=== PATIENT | male | born 1960 | race American Indian/Alaskan Native ===

== ENCOUNTER 2017-02-05 22:15 | Emergency (ER) | payer OTHER ==
[2017-02-05 22:16] VITALS: BMI 22.3
--- NOTE | 2017-02-05 23:22 | ED PDOC ---
HPI: General Adult Time Seen by Provider: 02/05/17 22:22 Chief Complaint (Nursing): Headache Chief Complaint (Provider): Headache History Per: Patient Additional Complaint(s): Pt. states last week he was admitted into a hospital (pt. does not remember which hospital) for head injury and seizure. Pt. reports that he does have a hx of seizures and was discharged with Keppra which he has been taking. Pt. states he is still having headaches. Further states that he is homeless and [facility] bed [facility]. Denies fever, LOC, N/V. Past Medical History Reviewed: Historical Data, Nursing Documentation, Vital Signs Vital Signs: Last Vital Signs Temp 97.9 F 02/05/17 22:18 Pulse 106 H 02/05/17 22:18 Resp 20 02/05/17 22:18 BP 159/94 H 02/05/17 22:18 Pulse Ox 100 02/06/17 01:54 - Medical History PMH: HTN, Hypercholesterolemia, Seizures Denies: Chronic Kidney Disease - Family History Family History: States: No Known Family Hx - Home Medications Home Medications: Ambulatory Orders Medication Instructions Recorded Atorvastatin [Lipitor] 20 mg PO DIN #14 tab 02/01/17 Folic Acid 1 mg PO DAILY #14 tab 02/01/17 Gabapentin [Neurontin] 300 mg PO HS #14 cap 02/01/17 Multivitamin Therapeutic Tab 1 tab PO DAILY #14 tab 02/01/17 [Thera Tab] Thiamine [Vitamin B1 Tab] 200 mg PO DAILY #14 tab 02/01/17 levETIRAcetam [Keppra] 500 mg PO BID #28 tab 02/01/17 - Allergies Allergies/Adverse Reactions: Allergies Allergy/AdvReac Type Severity Reaction Status Date / Time No Known Allergies Allergy Verified 01/27/17 18:37 Review of Systems ROS Statement: Except As Marked, All Systems Reviewed And Found Negative Neurological: Positive for: Headache Physical Exam - Reviewed Nursing Documentation Reviewed: Yes Vital Signs Reviewed: Yes - Physical Exam Appears: Positive for: Well, Non-toxic, No Acute Distress Head Exam: Negative for: ATRAUMATIC (superficial abrasion on L side of forehead with superficial healing abrasions without surrounding erythema), NORMAL INSPECTION, NORMOCEPHALIC Skin: Positive for: Normal Color, Warm. Negative for: Rash Eye Exam: Positive for: EOMI, Normal appearance, PERRL ENT: Positive for: Normal ENT Inspection Neck: Positive for: Normal, Painless ROM Cardiovascular/Chest: Positive for: Regular Rate, Rhythm Respiratory: Positive for: CNT, Normal Breath Sounds Gastrointestinal/Abdominal: Positive for: Normal Exam, Bowel Sounds, Soft. Negative for: Tenderness Back: Positive for: Normal Inspection Extremity: Positive for: Normal ROM Neurologic/Psych: Positive for: Alert, Oriented - ECG O2 Sat by Pulse Oximetry: 100 - Progress ED Course And Treament: CT head w/o contrast: negative. Disposition - Clinical Impression Clinical Impression: Head injury - Patient ED Disposition Is Patient to be Admitted: No - Disposition Referrals: [facility] [Outside] Disposition: Routine/Home Disposition Time: 00:30 Condition: STABLE Instructions: Head Injury (ED) Print Language: BELIZEAN
--- NOTE | 2017-02-06 00:06 | CT ---
EXAM: CT Head Without Intravenous Contrast CLINICAL HISTORY: 56 years old, male; Pain; Headache; Tension; Additional info: Headache, had seizure last week TECHNIQUE: Axial computed tomography images of the head/brain without intravenous contrast. This CT exam was performed using one or more of the following dose reduction techniques: automated exposure control, adjustment of the mA and/or kV according to patient size, and/or use of iterative reconstruction technique. Coronal and sagittal reformatted images were created and reviewed. EXAM DATE/TIME: 02/05/2017 10:51 PM COMPARISON: No relevant prior studies available. FINDINGS: Atrophy. No intracranial hemorrhage. No intracranial edema. No evidence of infarct. The sinuses and mastoid air cells are clear. IMPRESSION: No acute findings.
[2017-02-06 06:59] VITALS: BP 137/72; PULSE 87; RESP 17; TEMP 98.3; O2SAT 98
== END 2017-02-06 06:59 | disposition home or self-care (01) ==
LOC: H.ER 22:15
DX: S09.90XA Unspecified injury of head, initial encounter (principal); X58.XXXA Exposure to other specified factors, initial encounter; Z59.0 Homelessness; I10 Essential (primary) hypertension; R56.9 Unspecified convulsions; E78.00 Pure hypercholesterolemia, unspecified

== ENCOUNTER 2017-02-06 21:18 | Emergency (ER) | payer OTHER ==
[2017-02-06 21:18] VITALS: BMI 22.3
[2017-02-06 21:34] VITALS: BP 144/81; RESP 18; TEMP 97.8; O2SAT 100
--- NOTE | 2017-02-06 22:01 | ED PDOC ---
HPI: General Adult Time Seen by Provider: 02/06/17 21:43 Chief Complaint (Nursing): Headache Chief Complaint (Provider): Lost Spot in Intermediate History Per: Patient History/Exam Limitations: no limitations Onset/Duration Of Symptoms: Days (tonight) Have you had recent travel within the past 21 days to any of the following countries: [place], [place], [place] or [place]?: No Additional Complaint(s): Héctor Marley is a 56 year old male, with no pertinent past medical history, who presents to the ED on 02/06/17 after having lost his spot in one of the local homeless shelters. Patient denies any acute medical complaints at this time and only wants a place to rest. Past Medical History Reviewed: Historical Data, Nursing Documentation, Vital Signs Vital Signs: Last Vital Signs Temp 97.8 F 02/06/17 21:29 Pulse 100 H 02/06/17 21:29 Resp 18 02/06/17 21:29 BP 144/81 02/06/17 21:29 Pulse Ox 100 02/06/17 22:01 - Medical History PMH: HTN, Hypercholesterolemia, Seizures Denies: Chronic Kidney Disease - Family History Family History: States: Unknown Family Hx - Living Arrangements Living Arrangements: Other (homeless) - Home Medications Home Medications: Ambulatory Orders Medication Instructions Recorded Atorvastatin [Lipitor] 20 mg PO DIN #14 tab 02/01/17 Folic Acid 1 mg PO DAILY #14 tab 02/01/17 Gabapentin [Neurontin] 300 mg PO HS #14 cap 02/01/17 Multivitamin Therapeutic Tab 1 tab PO DAILY #14 tab 02/01/17 [Thera Tab] Thiamine [Vitamin B1 Tab] 200 mg PO DAILY #14 tab 02/01/17 levETIRAcetam [Keppra] 500 mg PO BID #28 tab 02/01/17 - Allergies Allergies/Adverse Reactions: Allergies Allergy/AdvReac Type Severity Reaction Status Date / Time No Known Allergies Allergy Verified 01/27/17 18:37 Review of Systems ROS Statement: Except As Marked, All Systems Reviewed And Found Negative Physical Exam - Reviewed Nursing Documentation Reviewed: Yes Vital Signs Reviewed: Yes - Physical Exam Appears: Positive for: Well, Non-toxic, No Acute Distress Head Exam: Positive for: ATRAUMATIC, NORMOCEPHALIC Skin: Positive for: Normal Color, Warm, Dry Neurologic/Psych: Positive for: Alert, Oriented - ECG O2 Sat by Pulse Oximetry: 100 (RA) Pulse Ox Interpretation: Normal Medical Decision Making Medical Decision Makin:43 Initial Impression: homeless Scribe Attestation: Documented by Violetta Bhat, acting as a scribe for Gely Barbour PA-C. Provider Scribe Attestation: All medical record entries made by the Scribe were at my direction and personally dictated by me. I have reviewed the chart and agree that the record accurately reflects my personal performance of the history, physical exam, medical decision making, and the department course for this patient. I have also personally directed, reviewed, and agree with the discharge instructions and disposition. Disposition - Clinical Impression Clinical Impression: Abdominal pain - Patient ED Disposition Is Patient to be Admitted: No - Disposition Disposition: Routine/Home Disposition Time: 23:15 Condition: GOOD Instructions: Acute Abdominal Pain (DC) - POA Present On Arrival: None
[2017-02-06 23:32] VITALS: PULSE 87
== END 2017-02-06 23:31 | disposition home or self-care (01) ==
LOC: H.ER 21:18
DX: R10.9 Unspecified abdominal pain (principal); R51 Headache; I10 Essential (primary) hypertension; E78.00 Pure hypercholesterolemia, unspecified; Z59.0 Homelessness

== ENCOUNTER 2017-02-24 05:38 | Inpatient (IN) | payer OTHER ==
[2017-02-24 05:38] VITALS: BMI 22.3
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
--- NOTE | 2017-02-24 07:10 | ED PDOC ---
- Laboratory Results Result Diagrams: 02/25/17 07:15 02/26/17 18:30 - ECG O2 Sat by Pulse Oximetry: 100 Pulse Ox Interpretation: Normal - Radiology X-Ray: Interpreted by Me X-Ray Interpretation: Infiltrates (RML) Medical Decision Making Medical Decision Making: Time: 0700 Patient signed out by Dr. Marie pending CT, labs and re-evaluation Time: 1100 Patient is awake and alert at this time. Reports a history of seizures, last took Keppra last month. Denies alcohol use. Time: 1340 Notified by RN that pt febrile 102.1. Pt AAOX3, no WEST, no neck stiffness, pt coughing on exam. Will order CXR, UA, cultures, lactate and Influenza. Scribe Attestation: Documented by Elle Clark acting as a scribe for Yolanda Reardon MD MD Scribe Attestation: All medical record entries made by the Scribe were at my direction and personally dictated by me. I have reviewed the chart and agree that the record accurately reflects my personal performance of the history, physical exam, medical decision making, and the department course for this patient. I have also personally directed, reviewed, and agree with the discharge instructions and disposition. Disposition - Clinical Impression Clinical Impression: Seizure, Altered mental status - POA Present On Arrival: None - Disposition Disposition: Admitted as In-Patient Disposition Time: 15:15 Condition: STABLE ED OBSERVATION Date of observation admission: 02/24/17 Time of observation admission: 07:00 - Observation admission statement Patient is being placed in observation because:: Need for continuous hemodynamic monitoring - Goals of Observation Goals of observation are:: Resolution of symptoms
[2017-02-24 07:11] LABS: BASO % 0.7 % (0.0-2.0); EOS % 0.3 % (0.0-4.0); HEMATOCRIT 35.4 % (35.0-51.0); LYMPH # 0.3 K/uL (1.0-4.3); LYMPH % 12.1 % (20.0-40.0); MEAN CELL VOLUME 79.9 fl (80.0-94.0); MEAN CORPUSCULAR HEMOGLOBIN 26.7 pg (27.0-31.0); MEAN CORPUSCULAR HGB CONC 33.4 g/dL (33.0-37.0); MEAN PLATELET VOLUME 6.6 fl (7.2-11.7); MONO # 0.5 K/uL (0.0-0.8); MONO % 18.9 % (0.0-10.0); NEUT # 1.9 K/uL (1.8-7.0); RED CELL DISTRIBUTION WIDTH 14.7 % (11.5-14.5); WHITE BLOOD COUNT 2.8 K/uL (4.8-10.8)
[2017-02-24 07:37] LABS: ALB/GLOB RATIO 1.4 (1.0-2.1); ALCOHOL SERUM < 10 mg/dl (0-10); ALKALINE PHOSPHATASE 133 U/L (38-126); ALT/SGPT 30 U/L (21-72); AST/SGOT 46 U/L (17-59); BILIRUBIN,TOTAL 0.8 mg/dl (0.2-1.3); BLOOD UREA NITROGEN 3 mg/dl (9-20); CALCIUM 9.4 mg/dL (8.4-10.2); CARBON DIOXIDE 23 mmol/L (22-30); CHLORIDE 87 mmol/L (98-107); GFR AFRICAN-AMERICAN > 60; GLUCOSE,RANDOM 92 mg/dL (75-110); POTASSIUM 4.2 MMOL/L (3.6-5.0); SODIUM 125 mmol/l (132-148); TOTAL PROTEIN 8.1 G/DL (6.3-8.2)
[2017-02-24] MEDS ORDERED: Sodium Chloride 0.9% 1,000 ML IV STA (07:53)
--- NOTE | 2017-02-24 08:34 | CT ---
PROCEDURE: CT HEAD WITHOUT CONTRAST. HISTORY: seizure COMPARISON: 02/05/2017 TECHNIQUE: Axial computed tomography images were obtained through the head/brain without intravenous contrast. Radiation dose: Total exam DLP = 1302 mGy-cm. This CT exam was performed using one or more of the following dose reduction techniques: Automated exposure control, adjustment of the mA and/or kV according to patient size, and/or use of iterative reconstruction technique. FINDINGS: HEMORRHAGE: No intracranial hemorrhage. BRAIN: No mass effect or edema. No atrophy or chronic microvascular ischemic changes. Similar -appearing bilateral basal ganglionic calcifications - believed incidental findings. VENTRICLES: Unremarkable. No hydrocephalus. CALVARIUM: Unremarkable. PARANASAL SINUSES: Mild ethmoidal sinus inflammatory changes. MASTOID AIR CELLS: Unremarkable as visualized. No inflammatory changes. OTHER FINDINGS: None. IMPRESSION: No intracranial hemorrhage or mass effect. No calvarial fracture. Similar appearing bilateral basal ganglionic calcifications -incidental findings. Mild ethmoidal sinus inflammatory changes -interval change
--- NOTE | 2017-02-24 13:25 | CARD ---
APPROVED REPORT EKG Measurement Heart [id number] <Conclusion> Normal sinus rhythm Normal ECG
[2017-02-24 14:08] LABS: VENOUS BLOOD GAS BASE EXCESS 3.5 mmol/L (0.0-2.0); VENOUS BLOOD GAS PCO2 40 mmHg (40-60); VENOUS BLOOD PH 7.45 (7.32-7.43)
[2017-02-24 15:03] LABS: URINE BILIRUBIN NEGATIVE (NEGATIVE); URINE BLOOD NEGATIVE (NEGATIVE); URINE COLOR YELLOW (YELLOW); URINE GLUCOSE (UA) NEGATIVE (Normal); URINE KETONE TRACE mg/dL (NEGATIVE); URINE PROTEIN 30 mg/dL (NEGATIVE)
[2017-02-24 15:04] LABS: RBC URINE < 1 /hpf (0-3); URINE BACTERIA RARE (<OCC); URINE LEUKOCYTE ESTERASE TRACE Leu/uL (Negative); URINE UROBILINOGEN 0.2-1.0 mg/dL (0.2-1.0); WBC URINE 20 /hpf (0-5)
[2017-02-24] MEDS ORDERED: Azithromycin 500 MG in Sodium Chloride 0.9% 250 ML IV STA (15:07)
--- NOTE | 2017-02-24 15:17 | RAD ---
HISTORY: Fever. Portable study 14:14. COMPARISON: No prior. FINDINGS: LUNGS: Right lower lobe infiltrate. PLEURA: Loculated pleural effusion right side only. CARDIOVASCULAR: No radiographic findings to suggest acute or significant cardiovascular disease. OSSEOUS STRUCTURES: No significant abnormalities. VISUALIZED UPPER ABDOMEN: Normal. OTHER FINDINGS: None. IMPRESSION: Large right lower lobe infiltrate adjacent effusion likely parapneumonic effusions.
[2017-02-24] MEDS ORDERED: cefTRIAXone (Rocephin) 1 gm Inj ONE (15:32)
[2017-02-24] MEDS: Sodium Chloride 0.9% 1,000 ML IV SCH (21:38)
[2017-02-25 08:07] LABS: HEMATOCRIT 32.7 % (35.0-51.0); MEAN CELL VOLUME 79.5 fl (80.0-94.0); MEAN CORPUSCULAR HEMOGLOBIN 27.4 pg (27.0-31.0); MEAN CORPUSCULAR HGB CONC 34.5 g/dL (33.0-37.0); RED CELL DISTRIBUTION WIDTH 14.8 % (11.5-14.5)
[2017-02-25 09:00] LABS: ALB/GLOB RATIO 1.3 (1.0-2.1); ALKALINE PHOSPHATASE 122 U/L (38-126); ALT/SGPT 31 U/L (21-72); AST/SGOT 42 U/L (17-59); BILIRUBIN,TOTAL 0.6 mg/dl (0.2-1.3); BLOOD UREA NITROGEN 4 mg/dl (9-20); CARBON DIOXIDE 22 mmol/L (22-30); CHLORIDE 96 mmol/L (98-107); GFR AFRICAN-AMERICAN > 60; GLUCOSE,RANDOM 70 mg/dL (75-110); POTASSIUM 3.4 MMOL/L (3.6-5.0); SODIUM 133 mmol/l (132-148); TOTAL PROTEIN 7.3 G/DL (6.3-8.2)
[2017-02-25] MEDS: Enoxaparin 40 mg Syringe SC SCH ×2 (10:05→10:09)
[2017-02-25] MEDS: Multivitamin With Minerals Tab PO SCH (10:06)
--- NOTE | 2017-02-25 13:14 | CT ---
PROCEDURE: CT Chest without contrast HISTORY: RML infiltrate COMPARISON: None. TECHNIQUE: Contiguous axial images were obtained through the chest without intravenous contrast enhancement. Sagittal and coronal reconstructions were performed. Radiation dose (DLP): 283.47 mGy-cm. This CT exam was performed using one or more of the following dose reduction techniques: Automated exposure control, adjustment of the mA and/or kV according to patient size, and/or use of iterative reconstruction technique. FINDINGS: LUNGS: There are linear heterogeneous opacities at the inferior lateral aspect of the right lung upper lobe of uncertain etiology and the possibility of infection should be considered. There are diffuse mild emphysematous changes in the lungs. There are 2 foci of pleural base opacities seen at the right lower chest adjacent to calcified pleural may represent lung consolidation versus pleural thickening. The right lung lower lobe is small in size. MEDIASTINUM: Unremarkable thoracic aorta. No aneurysm. Normal sized heart. Main pulmonary artery unremarkable. No vascular congestion. No lymphadenopathy. Calcified lymph nodes in the mediastinum and bilateral hilum. PLEURA: There is localize pleural effusion at the right lower chest surrounding with calcified pleural. Diffuse pleural calcifications seen at the right mid and lower chest. No evidence of left pleural effusion or left pleural calcification. BONES: No fracture. No destructive lesion. UPPER ABDOMEN: The pancreas is small in size contains foci of calcification suggestive of chronic pancreatitis. OTHER FINDINGS: None. IMPRESSION: Hazy reticular opacities at the inferior aspect of the right lung upper lobe suspicious for infection process/ pneumonia. Foci of pleural base opacities at the right lower chest may represent lung consolidation versus pleural thickening. Correlation with prior study would be helpful. Otherwise if indicated 3 months follow-up reassessment is suggested. Diffuse pleural thickening and pleural calcification at the mid and lower right chest associated with localized pleural effusion at the lower portion of the right chest. Bilateral hilar and mediastinal calcified lymph nodes.
[2017-02-25] MEDS ORDERED: levoFLOXacin 750 MG TAB PO SCH (13:45)
[2017-02-25] MEDS: Sodium Chloride 0.9% 1,000 ML IV SCH ×2 (14:47→18:01)
[2017-02-25] MEDS: Azithromycin 500 MG in Sodium Chloride 0.9% 250 ML IVPB SCH (15:19)
--- NOTE | 2017-02-25 21:51 | CP.PCM.HP ---
History of Present Illness - History of Present Illness History of Present Illness: A 56 yr old male who is in intermediate brought to ER for abnormal behaviour with altered mental status , has had generalized seizure ,not complain to keppra , reviewed ER note. currently patient lying in bed ,answers to questions appropriately. no new seizures. CXR showed RLL infiltrate with effusion. Present on Admission - Present on Admission Any Indicators Present on Admission: No Review of Systems - Constitutional Constitutional: Fatigue, Malaise. absent: Chills, Fever, Weight Loss - EENT Nose/Mouth/Throat: absent: Epistaxis, Nasal Congestion, Sinus Pressure, Sore Throat - Cardiovascular Cardiovascular: absent: Chest Pain, Edema, Leg Edema, Paroxysmal Nocturnal Dyspnea - Respiratory Respiratory: Cough. absent: Dyspnea, Snoring, Chest Congestion, Pain with Coughing - Gastrointestinal Gastrointestinal: absent: Constipation, Nausea, Vomiting - Genitourinary Genitourinary: absent: Difficulty Urinating, Urinary Urgency, Freq UTI - Musculoskeletal Musculoskeletal: Arthralgias, Limited Range of Motion - Neurological Neurological: Headaches. absent: Abnormal Gait, Dizziness, Frequent Falls - Psychiatric Psychiatric: absent: Anxiety, Hallucinations - Endocrine Endocrine: absent: Palpitations Past Patient History - Past Medical History & Family History Past Medical History?: Yes - Past Social History Smoking Status: Never Smoked - CARDIAC Hx Hypercholesterolemia: Yes Hx Hypertension: Yes - PULMONARY Hx Respiratory Disorders: No - NEUROLOGICAL Hx Seizures: Yes - HEENT Hx HEENT Problems: No - RENAL Hx Chronic Kidney Disease: No - ENDOCRINE/METABOLIC Hx Endocrine Disorders: No - HEMATOLOGICAL/ONCOLOGICAL Hx Blood Disorders: Yes Hx AIDS: No Hx Human Immunodeficiency Virus (HIV): No - INTEGUMENTARY Hx Dermatological Problems: No - MUSCULOSKELETAL/RHEUMATOLOGICAL Hx Musculoskeletal Disorders: No Hx Falls: No - GASTROINTESTINAL Hx Gastrointestinal Disorders: No - GENITOURINARY/GYNECOLOGICAL Hx Genitourinary Disorders: No - PSYCHIATRIC Hx Psychophysiologic Disorder: No Hx Substance Use: No (unable to obtain) - SURGICAL HISTORY Hx Surgeries: No - ANESTHESIA Hx Anesthesia: (unknown) Meds Home Medications: Home Medication List Medication Instructions Recorded Confirmed Type Amoxicillin/Clavulanate [Augmentin 1 tab PO Q12 #14 tab 03/05/17 Rx 875 MG-125 MG] Clindamycin [Cleocin] 600 mg PO Q8 #30 03/05/17 Rx Allergies/Adverse Reactions: Allergies Allergy/AdvReac Type Severity Reaction Status Date / Time No Known Allergies Allergy Verified 01/27/17 18:37 Physical Exam - Constitutional Appears: No Acute Distress - Head Exam Head Exam: NORMAL INSPECTION - Eye Exam Eye Exam: EOMI, Normal appearance, PERRL - ENT Exam ENT Exam: Mucous Membranes Moist, Normal Exam - Neck Exam Neck exam: Negative for: Lymphadenopathy - Respiratory Exam Respiratory Exam: Clear to Auscultation Bilateral, NORMAL BREATHING PATTERN. absent: Rales, Wheezes - Cardiovascular Exam Cardiovascular Exam: REGULAR RHYTHM, +S1, +S2. absent: Systolic Murmur - GI/Abdominal Exam GI & Abdominal Exam: Normal Bowel Sounds, Soft - Extremities Exam Extremities exam: Positive for: normal capillary refill, pedal pulses present. Negative for: pedal edema - Back Exam Back exam: absent: CVA tenderness (L), CVA tenderness (R) - Neurological Exam Neurological exam: Alert, CN II-XII Intact, Normal Gait, Oriented x3 - Psychiatric Exam Psychiatric exam: Normal Affect - Skin Skin Exam: Intact, Normal Color Results - Vital Signs Recent Vital Signs: Last Vital Signs Temp 98.9 F 02/25/17 19:14 Pulse 77 02/25/17 19:14 Resp 20 02/25/17 19:14 BP 117/72 02/25/17 19:14 Pulse Ox 98 02/25/17 19:14 - Labs Result Diagrams: 03/11/17 06:00 03/11/17 06:00 Labs: Laboratory Results - last 24 hr 02/25/17 02/25/17 07:15 07:15 WBC 3.0 L RBC 4.12 L Hgb 11.3 L Hct 32.7 L MCV 79.5 L MCH 27.4 MCHC 34.5 RDW 14.8 H Plt Count 253 Sodium 133 Potassium 3.4 L Chloride 96 L Carbon Dioxide 22 Anion Gap 18 BUN 4 L Creatinine 0.8 Est GFR ( Amer) > 60 Est GFR (Non-Af Amer) > 60 Random Glucose 70 L Calcium 9.0 Total Bilirubin 0.6 AST 42 ALT 31 Alkaline Phosphatase 122 Total Protein 7.3 Albumin 4.1 Globulin 3.1 Albumin/Globulin Ratio 1.3 - Imaging and Cardiology Chest x-ray Status: Report reviewed by me CT scan - head Status: Report reviewed by me Assessment & Plan (1) Pneumonia Status: Acute (2) Neutropenia Status: Acute (3) Seizures Status: Acute - Assessment and Plan (Free Text) Plan: IVF NEUROCHECKS EZEKIEL DISCUSSED ABOUT COMPLAINCE CT Chest -r\o penumonia IV abx PT eval diet as tolerated Decision To Admit - Pt Status Changed To: Hospital Disposition Of: Inpatient - Admit Certification Admit to Inpatient:: After my assessment, the patient will require hospitalization for at least two midnights. This is because of the severity of symptoms shown, intensity of services needed, and/or the medical risk in this patient being treated as an outpatient. - . Bed Request Type: Med/Surg Admitting Physician: Tai Ro
[2017-02-26] MEDS: Multivitamin With Minerals Tab PO SCH (09:07)
[2017-02-26] MEDS: Azithromycin 500 MG in Sodium Chloride 0.9% 250 ML IVPB SCH ×3 (09:08→12:59)
[2017-02-26] MEDS ORDERED: Potassium Chloride 20 mEq ER Tab PO ONE (09:08)
[2017-02-26] MEDS ORDERED: Lidocaine 1% Inj (20ml) ONE (11:48)
--- NOTE | 2017-02-26 12:36 | PCM.SURG1 ---
Surgeon's Initial Post Op Note - Surgeon's Notes Surgeon: Charlie Talavera MD Database Security Administrator: NONE Type of Anesthesia: Local Pre-Operative Diagnosis: Poor venous access Operative Findings: Patent right basilic vein. Post-Operative Diagnosis: Poor venous access Operation Performed: Single lumen picc placement right basilic vein, tip in SVC. Length is 39 cm. Specimen/Specimens Removed: None Estimated Blood Loss: EBL {In ML}: 2 Blood Products Given: N/A Drains Used: No Drains Post-Op Condition: Fair Date of Surgery/Procedure: 02/26/17 Time of Surgery/Procedure: 12:35
[2017-02-26 18:47] LABS: BLOOD UREA NITROGEN 5 mg/dl (9-20); CALCIUM 8.7 mg/dL (8.4-10.2); CARBON DIOXIDE 25 mmol/L (22-30); CHLORIDE 96 mmol/L (98-107); GFR AFRICAN-AMERICAN > 60; GLUCOSE,RANDOM 127 mg/dL (75-110); SODIUM 132 mmol/l (132-148)
--- NOTE | 2017-02-26 19:35 | CP.PCM.PN ---
Subjective - Date & Time of Evaluation Date of Evaluation: 02/26/17 Time of Evaluation: 19:33 - Subjective Subjective: ID NOTE PATIENT EXAMINED ,CHART REVIEWED CT SCAN OF CHEST REVIEWED HAVE ADDED CLINDAMYCIN PATIENT SHOULD HAVE PULMONARY EVALUATION FOR POSSIBLE BRONCHOSCOPY AND NEUROLOGY EVALUATION Objective - Vital Signs/Intake and Output Vital Signs (last 24 hours): Temp Pulse Resp BP Pulse Ox 98.5 F 85 18 114/73 99 02/26/17 16:00 02/26/17 16:00 02/26/17 16:00 02/26/17 16:00 02/26/17 16:00 - Medications Medications: Current Medications Atorvastatin Calcium (Lipitor) 20 mg PO DIN [facility] Last Admin: 02/26/17 18:16 Dose: 20 mg Folic Acid (Folic Acid) 1 mg PO DAILY [facility] Last Admin: 02/26/17 09:06 Dose: 1 mg Gabapentin (Neurontin) 300 mg PO HS [facility] Last Admin: 02/25/17 21:55 Dose: 300 mg Ceftriaxone Sodium 1 gm/ (Sodium Chloride) 100 mls @ 100 mls/hr IVPB DAILY [facility] Last Admin: 02/26/17 12:58 Dose: 100 mls/hr Azithromycin 500 mg/ Sodium (Chloride) 250 mls @ 250 mls/hr IVPB DAILY [facility] Last Admin: 02/26/17 12:59 Dose: 250 mls/hr Levetiracetam (Keppra) 500 mg PO BID [facility] Last Admin: 02/26/17 18:16 Dose: 500 mg Multivitamins/Minerals (Therapeutic-M Tab) 1 tab PO DAILY [facility] Last Admin: 02/26/17 09:07 Dose: 1 tab Thiamine HCl (Vitamin B1 Tab) 200 mg PO DAILY [facility] Last Admin: 02/26/17 09:07 Dose: 200 mg - Labs Labs: 02/25/17 07:15 02/26/17 18:30
--- NOTE | 2017-02-26 22:11 | CP.PCM.PN ---
Subjective - Date & Time of Evaluation Date of Evaluation: 02/26/17 Time of Evaluation: 10:00 - Subjective Subjective: refusing iv line\abx. ct chest Right upper lobe opacities. VS stable. Objective - Vital Signs/Intake and Output Vital Signs (last 24 hours): Temp Pulse Resp BP Pulse Ox 98.2 F 83 18 129/80 98 02/26/17 20:05 02/26/17 20:05 02/26/17 20:05 02/26/17 20:05 02/26/17 20:05 - Medications Medications: Current Medications Atorvastatin Calcium (Lipitor) 20 mg PO DIN [facility] Last Admin: 02/26/17 18:16 Dose: 20 mg Folic Acid (Folic Acid) 1 mg PO DAILY [facility] Last Admin: 02/26/17 09:06 Dose: 1 mg Gabapentin (Neurontin) 300 mg PO HS [facility] Last Admin: 02/25/17 21:55 Dose: 300 mg Ceftriaxone Sodium 1 gm/ (Sodium Chloride) 100 mls @ 100 mls/hr IVPB DAILY [facility] Last Admin: 02/26/17 12:58 Dose: 100 mls/hr Azithromycin 500 mg/ Sodium (Chloride) 250 mls @ 250 mls/hr IVPB DAILY [facility] Last Admin: 02/26/17 12:59 Dose: 250 mls/hr Clindamycin Phosphate 600 mg/ (Sodium Chloride) 104 mls @ 104 mls/hr IVPB Q8 [facility] Levetiracetam (Keppra) 500 mg PO BID [facility] Last Admin: 02/26/17 18:16 Dose: 500 mg Multivitamins/Minerals (Therapeutic-M Tab) 1 tab PO DAILY [facility] Last Admin: 02/26/17 09:07 Dose: 1 tab Thiamine HCl (Vitamin B1 Tab) 200 mg PO DAILY [facility] Last Admin: 02/26/17 09:07 Dose: 200 mg - Labs Labs: 02/25/17 07:15 02/26/17 18:30 - Constitutional Appears: Non-toxic, No Acute Distress, Unkempt - Head Exam Head Exam: ATRAUMATIC - Eye Exam Eye Exam: EOMI - ENT Exam ENT Exam: Normal Exam - Neck Exam Neck Exam: Normal Inspection - Respiratory Exam Respiratory Exam: Clear to Ausculation Bilateral. absent: Rales, Rhonchi - Cardiovascular Exam Cardiovascular Exam: REGULAR RHYTHM, +S1, +S2. absent: JVD - GI/Abdominal Exam GI & Abdominal Exam: Soft, Normal Bowel Sounds. absent: Tenderness - Extremities Exam Extremities Exam: Full ROM, Normal Capillary Refill, Normal Inspection. absent : Pedal Edema - Neurological Exam Neurological Exam: Alert, Awake, Oriented x3 - Psychiatric Exam Psychiatric exam: Normal Affect - Skin Skin Exam: Urticaria Assessment and Plan (1) Pneumonia Status: Acute (2) Seizures Status: Acute
--- NOTE | 2017-02-26 23:29 | CP.PCM.CON ---
History of Present Illness - History of Present Illness History of Present Illness: 56 y/o lives [place]. Sent to ER for respiratory sx (pos sob, scant cough, neg heme, pos wt loss, neg night sweats and no other constitutional Sx.) Never smoker NKDA, Labs and Mes: on current note. O/vss afebrile Head Neg adeno, Neg JVD Heart RRR Ns1S2 Neg M Lungs, Scattered Ronchi. Abdo, s, nt, pos bs no c,c,e Neuro GNF a/p Pna, r/o PTB (unlikely given paucity of sx, but as always, atypical presentation must be considered.) Cont Abx as per ID. Monitor WBC, Temp curve, and cultures, afb * 3, Gamma Interferon test and PPD. Repeat CT in 72 hours. Legionella and Mycoplasma studies. Supp O2 for o2 sat > 90% (he was saturating at 99% when I used my portable monitor. PUD & DVT Px. Will f/u. Past Patient History - Past Medical History & Family History Past Medical History?: Yes - Past Social History Smoking Status: Never Smoked - CARDIAC Hx Hypercholesterolemia: Yes Hx Hypertension: Yes - PULMONARY Hx Respiratory Disorders: No - NEUROLOGICAL Hx Seizures: Yes - HEENT Hx HEENT Problems: No - RENAL Hx Chronic Kidney Disease: No - ENDOCRINE/METABOLIC Hx Endocrine Disorders: No - HEMATOLOGICAL/ONCOLOGICAL Hx Blood Disorders: Yes Hx AIDS: No Hx Human Immunodeficiency Virus (HIV): No - INTEGUMENTARY Hx Dermatological Problems: No - MUSCULOSKELETAL/RHEUMATOLOGICAL Hx Musculoskeletal Disorders: No Hx Falls: No - GASTROINTESTINAL Hx Gastrointestinal Disorders: No - GENITOURINARY/GYNECOLOGICAL Hx Genitourinary Disorders: No - PSYCHIATRIC Hx Psychophysiologic Disorder: No Hx Substance Use: No (unable to obtain) - SURGICAL HISTORY Hx Surgeries: No - ANESTHESIA Hx Anesthesia: (unknown) Meds Allergies/Adverse Reactions: Allergies Allergy/AdvReac Type Severity Reaction Status Date / Time No Known Allergies Allergy Verified 01/27/17 18:37 - Medications Medications: Current Medications Atorvastatin Calcium (Lipitor) 20 mg PO DIN [facility] Last Admin: 02/26/17 18:16 Dose: 20 mg Folic Acid (Folic Acid) 1 mg PO DAILY [facility] Last Admin: 02/26/17 09:06 Dose: 1 mg Gabapentin (Neurontin) 300 mg PO HS [facility] Last Admin: 02/26/17 23:04 Dose: 300 mg Ceftriaxone Sodium 1 gm/ (Sodium Chloride) 100 mls @ 100 mls/hr IVPB DAILY [facility] Last Admin: 02/26/17 12:58 Dose: 100 mls/hr Azithromycin 500 mg/ Sodium (Chloride) 250 mls @ 250 mls/hr IVPB DAILY [facility] Last Admin: 02/26/17 12:59 Dose: 250 mls/hr Clindamycin Phosphate 600 mg/ (Sodium Chloride) 104 mls @ 104 mls/hr IVPB Q8 [facility] Levetiracetam (Keppra) 500 mg PO BID [facility] Last Admin: 02/26/17 18:16 Dose: 500 mg Multivitamins/Minerals (Therapeutic-M Tab) 1 tab PO DAILY [facility] Last Admin: 02/26/17 09:07 Dose: 1 tab Thiamine HCl (Vitamin B1 Tab) 200 mg PO DAILY [facility] Last Admin: 02/26/17 09:07 Dose: 200 mg Results - Vital Signs Recent Vital Signs: Last Vital Signs Temp 98.2 F 02/26/17 20:05 Pulse 83 02/26/17 20:05 Resp 18 02/26/17 20:05 BP 129/80 02/26/17 20:05 Pulse Ox 98 02/26/17 20:05 - Labs Result Diagrams: 02/25/17 07:15 02/26/17 18:30 Labs: Laboratory Results - last 24 hr 02/26/17 18:30 Sodium 132 Potassium 4.0 Chloride 96 L Carbon Dioxide 25 Anion Gap 15 BUN 5 L Creatinine 0.7 L Est GFR ( Amer) > 60 Est GFR (Non-Af Amer) > 60 Random Glucose 127 H Calcium 8.7
[2017-02-27] MEDS: Clindamycin 600 MG in Sodium Chloride 0.9% 100 ML IVPB SCH ×3 (00:47→16:30)
[2017-02-27] MEDS: Sodium Chloride 3% for Inhalation 4 ML VIAL.NEB IH PRN (06:01)
[2017-02-27] MEDS: Azithromycin 500 MG in Sodium Chloride 0.9% 250 ML IVPB SCH (09:21)
[2017-02-27] MEDS: Multivitamin With Minerals Tab PO SCH (09:22)
--- NOTE | 2017-02-27 12:16 | CP.PCM.PN ---
Subjective - Date & Time of Evaluation Date of Evaluation: 02/27/17 Time of Evaluation: 12:11 - Subjective Subjective: I D NOTE URINE GREW KLEBSIELLA SENSITIVE TO ROCEPHEN,WILL INCREASE DOSE FOR COMBINED COVERAGE FOR UTI/PNEUMONIA CONTINUE CLINDAMYCIN AWAIT COLD AGGLUTININS/MYCOPLASMA TITERS AFB SMEARS POSSIBLE BRONCHOSCOPY Objective - Vital Signs/Intake and Output Vital Signs (last 24 hours): Temp Pulse Resp BP Pulse Ox 97.8 F 64 20 114/72 99 02/27/17 08:16 02/27/17 08:16 02/27/17 08:16 02/27/17 08:16 02/27/17 08:16 - Medications Medications: Current Medications Atorvastatin Calcium (Lipitor) 20 mg PO DIN [facility] Last Admin: 02/26/17 18:16 Dose: 20 mg Folic Acid (Folic Acid) 1 mg PO DAILY [facility] Last Admin: 02/27/17 09:22 Dose: 1 mg Gabapentin (Neurontin) 300 mg PO HS [facility] Last Admin: 02/26/17 23:04 Dose: 300 mg Azithromycin 500 mg/ Sodium (Chloride) 250 mls @ 250 mls/hr IVPB DAILY [facility] Last Admin: 02/27/17 09:21 Dose: 250 mls/hr Clindamycin Phosphate 600 mg/ (Sodium Chloride) 104 mls @ 104 mls/hr IVPB Q8 [facility] Last Admin: 02/27/17 09:21 Dose: 104 mls/hr Ceftriaxone Sodium 2 gm/ (Sodium Chloride) 100 mls @ 100 mls/hr IVPB DAILY [facility] Levetiracetam (Keppra) 500 mg PO BID [facility] Last Admin: 02/27/17 09:22 Dose: 500 mg Multivitamins/Minerals (Therapeutic-M Tab) 1 tab PO DAILY [facility] Last Admin: 02/27/17 09:22 Dose: 1 tab Thiamine HCl (Vitamin B1 Tab) 200 mg PO DAILY [facility] Last Admin: 02/27/17 09:22 Dose: 200 mg - Labs Labs: 02/25/17 07:15 02/26/17 18:30
--- NOTE | 2017-02-27 16:22 | CP.PCM.CON ---
History of Present Illness - History of Present Illness History of Present Illness: Mr. Marley is a 56-year-old man with a past medical history of alcohol abuse, hypertension, and known seizure disorder for many years, who was witnessed having abnormal behavior and seizure like activity yesterday. The patient states that he is has not taken any of his medications since he has been living in a usp. He states that he hit his head when he had a seizure on the left forehead region and complains of headache, but has no other complaints. He did not have any other injuries. Review of Systems - Review of Systems All systems: reviewed and no additional remarkable complaints except Past Patient History - Past Medical History & Family History Past Medical History?: Yes - Past Social History Smoking Status: Never Smoked - CARDIAC Hx Hypercholesterolemia: Yes Hx Hypertension: Yes - PULMONARY Hx Respiratory Disorders: No - NEUROLOGICAL Hx Seizures: Yes - HEENT Hx HEENT Problems: No - RENAL Hx Chronic Kidney Disease: No - ENDOCRINE/METABOLIC Hx Endocrine Disorders: No - HEMATOLOGICAL/ONCOLOGICAL Hx Blood Disorders: Yes Hx AIDS: No Hx Human Immunodeficiency Virus (HIV): No - INTEGUMENTARY Hx Dermatological Problems: No - MUSCULOSKELETAL/RHEUMATOLOGICAL Hx Musculoskeletal Disorders: No Hx Falls: No - GASTROINTESTINAL Hx Gastrointestinal Disorders: No - GENITOURINARY/GYNECOLOGICAL Hx Genitourinary Disorders: No - PSYCHIATRIC Hx Psychophysiologic Disorder: No Hx Substance Use: No (unable to obtain) - SURGICAL HISTORY Hx Surgeries: No - ANESTHESIA Hx Anesthesia: (unknown) Meds Allergies/Adverse Reactions: Allergies Allergy/AdvReac Type Severity Reaction Status Date / Time No Known Allergies Allergy Verified 01/27/17 18:37 - Medications Medications: Current Medications Atorvastatin Calcium (Lipitor) 20 mg PO DIN [facility] Last Admin: 02/26/17 18:16 Dose: 20 mg Folic Acid (Folic Acid) 1 mg PO DAILY [facility] Last Admin: 02/27/17 09:22 Dose: 1 mg Gabapentin (Neurontin) 300 mg PO HS [facility] Last Admin: 02/26/17 23:04 Dose: 300 mg Azithromycin 500 mg/ Sodium (Chloride) 250 mls @ 250 mls/hr IVPB DAILY [facility] Last Admin: 02/27/17 09:21 Dose: 250 mls/hr Clindamycin Phosphate 600 mg/ (Sodium Chloride) 104 mls @ 104 mls/hr IVPB Q8 [facility] Last Admin: 05/13/17 09:21 Dose: 104 mls/hr Ceftriaxone Sodium 2 gm/ (Sodium Chloride) 100 mls @ 100 mls/hr IVPB DAILY [facility] Levetiracetam (Keppra) 500 mg PO BID [facility] Last Admin: 02/27/17 09:22 Dose: 500 mg Multivitamins/Minerals (Therapeutic-M Tab) 1 tab PO DAILY [facility] Last Admin: 02/27/17 09:22 Dose: 1 tab Thiamine HCl (Vitamin B1 Tab) 200 mg PO DAILY [facility] Last Admin: 02/27/17 09:22 Dose: 200 mg Physical Exam - Constitutional Appears: Well - Head Exam Additional comments: left frontal hematoma over the forehead region. - Eye Exam Eye Exam: EOMI, Normal appearance, PERRL - ENT Exam ENT Exam: Mucous Membranes Moist, Normal Exam - Neck Exam Neck exam: Positive for: Normal Inspection - Respiratory Exam Respiratory Exam: Clear to Auscultation Bilateral, NORMAL BREATHING PATTERN - Cardiovascular Exam Cardiovascular Exam: REGULAR RHYTHM - GI/Abdominal Exam GI & Abdominal Exam: Normal Bowel Sounds, Soft. absent: Tenderness - Rectal Exam Rectal Exam: Deferred - Back Exam Back exam: NORMAL INSPECTION - Neurological Exam Neurological exam: Alert, CN II-XII Intact, Normal Gait, Oriented x3, Reflexes Normal - Expanded Neurological Exam Expanded Patient oriented to: person, place, time Cranial nerves: EOM's Intact: Normal, Nystagmus: Normal Cerebellar Function: Finger to Nose: Normal Upper motor neuron: Babinski Sign: Normal Sensory exam: Lower Extremity 2 Point Discrimination: Normal, Lower Extremity Light Touch: Normal, Lower Extremity Pin Prick: Normal, Lower Extremity Temperature: Normal, Upper Extremity 2 Point Discrimination: Normal, Upper Extremity Light Touch: Normal, Upper Extremity Pin Prick: Normal, Upper Extremity Temperature: Normal Neuro motor strength exam: Left Upper Extremity: 5, Right Upper Extremity: 5, Left Lower Extremity: 5, Right Lower Extremity: 5 DTR: Achilles Tendon Left: 2+, Achilles Tendon Right: 2+, Bicep Left: 2+, Bicep Right: 2+, Brachioradialis Left: 2+, Brachioradialis Right: 2+, Patellar Left: 2 +, Patellar Right: 2+, Tricep Left: 2+, Tricep Right: 2+ - Psychiatric Exam Psychiatric exam: Normal Affect, Normal Mood - Skin Skin Exam: Dry, Intact, Normal Color, Warm Results - Vital Signs Recent Vital Signs: Last Vital Signs Temp 98.5 F 02/27/17 15:39 Pulse 77 02/27/17 15:39 Resp 20 02/27/17 15:39 BP 127/82 02/27/17 15:39 Pulse Ox 98 02/27/17 15:39 - Labs Result Diagrams: 02/25/17 07:15 02/26/17 18:30 Labs: Laboratory Results - last 24 hr 02/26/17 18:30 Sodium 132 Potassium 4.0 Chloride 96 L Carbon Dioxide 25 Anion Gap 15 BUN 5 L Creatinine 0.7 L Est GFR ( Amer) > 60 Est GFR (Non-Af Amer) > 60 Random Glucose 127 H Calcium 8.7 Assessment & Plan (1) Seizure Assessment and Plan: Likely due to medication non-compliance. Will continue Keppra and Neurontin at current doses. still worker helper should be consulted to assist with outpatient compliance once the patient is discharged. Thank you for this consultation. Status: Acute Priority: Medium
--- NOTE | 2017-02-27 17:52 | CP.PCM.PN ---
Subjective - Date & Time of Evaluation Date of Evaluation: 02/27/17 Time of Evaluation: 10:00 - Subjective Subjective: on air borne isolation. wbc-3.0.has have cough. no fever Objective - Vital Signs/Intake and Output Vital Signs (last 24 hours): Temp Pulse Resp BP Pulse Ox 98.5 F 77 20 127/82 98 02/27/17 15:39 02/27/17 15:39 02/27/17 15:39 02/27/17 15:39 02/27/17 15:39 - Medications Medications: Current Medications Atorvastatin Calcium (Lipitor) 20 mg PO DIN [facility] Last Admin: 02/27/17 16:31 Dose: 20 mg Folic Acid (Folic Acid) 1 mg PO DAILY [facility] Last Admin: 02/27/17 09:22 Dose: 1 mg Gabapentin (Neurontin) 300 mg PO HS [facility] Last Admin: 02/26/17 23:04 Dose: 300 mg Azithromycin 500 mg/ Sodium (Chloride) 250 mls @ 250 mls/hr IVPB DAILY [facility] Last Admin: 02/27/17 09:21 Dose: 250 mls/hr Clindamycin Phosphate 600 mg/ (Sodium Chloride) 104 mls @ 104 mls/hr IVPB Q8 [facility] Last Admin: 02/27/17 16:30 Dose: 104 mls/hr Ceftriaxone Sodium 2 gm/ (Sodium Chloride) 100 mls @ 100 mls/hr IVPB DAILY [facility] Levetiracetam (Keppra) 500 mg PO BID [facility] Last Admin: 02/27/17 16:31 Dose: 500 mg Multivitamins/Minerals (Therapeutic-M Tab) 1 tab PO DAILY [facility] Last Admin: 02/27/17 09:22 Dose: 1 tab Thiamine HCl (Vitamin B1 Tab) 200 mg PO DAILY [facility] Last Admin: 02/27/17 09:22 Dose: 200 mg - Labs Labs: 02/25/17 07:15 02/26/17 18:30 Assessment and Plan (1) Pneumonia Status: Acute (2) Seizures Status: Acute
[2017-02-28] MEDS: Clindamycin 600 MG in Sodium Chloride 0.9% 100 ML IVPB SCH ×3 (00:38→16:39)
[2017-02-28] MEDS: Sodium Chloride 3% for Inhalation 4 ML VIAL.NEB IH PRN (06:31)
[2017-02-28] MEDS: cefTRIAXone 2 GM in Sodium Chloride 0.9% 100 ML IVPB SCH (08:35)
[2017-02-28] MEDS: Azithromycin 500 MG in Sodium Chloride 0.9% 250 ML IVPB SCH (08:36)
[2017-02-28] MEDS: Multivitamin With Minerals Tab PO SCH (08:36)
[2017-02-28] MEDS ORDERED: Enoxaparin 40 mg Syringe SC ONE (20:03)
--- NOTE | 2017-02-28 22:31 | CP.PCM.PN ---
Subjective - Subjective Subjective: no new issues. wbc-3.0 urine c\s positive for klebsiella. Objective - Vital Signs/Intake and Output Vital Signs (last 24 hours): Temp Pulse Resp BP Pulse Ox 97.8 F 66 20 148/80 100 02/28/17 21:00 02/28/17 21:00 02/28/17 21:00 02/28/17 21:00 02/28/17 21:00 - Medications Medications: Current Medications Atorvastatin Calcium (Lipitor) 20 mg PO DIN [facility] Last Admin: 02/28/17 16:39 Dose: 20 mg Docusate Sodium (Colace) 100 mg PO DAILY PRN PRN Reason: Constipation Enoxaparin Sodium (Lovenox) 40 mg SC DAILY [facility] PRN Reason: Protocol Folic Acid (Folic Acid) 1 mg PO DAILY [facility] Last Admin: 02/28/17 08:36 Dose: 1 mg Gabapentin (Neurontin) 300 mg PO HS [facility] Last Admin: 02/28/17 21:12 Dose: 300 mg Azithromycin 500 mg/ Sodium (Chloride) 250 mls @ 250 mls/hr IVPB DAILY [facility] Last Admin: 02/28/17 08:36 Dose: 250 mls/hr Clindamycin Phosphate 600 mg/ (Sodium Chloride) 104 mls @ 104 mls/hr IVPB Q8 [facility] Last Admin: 02/28/17 16:39 Dose: 104 mls/hr Ceftriaxone Sodium 2 gm/ (Sodium Chloride) 100 mls @ 100 mls/hr IVPB DAILY [facility] Last Admin: 02/28/17 08:35 Dose: 100 mls/hr Levetiracetam (Keppra) 500 mg PO BID [facility] Last Admin: 02/28/17 16:39 Dose: 500 mg Multivitamins/Minerals (Therapeutic-M Tab) 1 tab PO DAILY [facility] Last Admin: 02/28/17 08:36 Dose: 1 tab Thiamine HCl (Vitamin B1 Tab) 200 mg PO DAILY [facility] Last Admin: 02/28/17 08:37 Dose: 200 mg - Labs Labs: 02/25/17 07:15 02/26/17 18:30 Assessment and Plan (1) Pneumonia Status: Acute (2) Seizures Status: Acute
--- NOTE | 2017-02-28 22:49 | CP.PCM.PN ---
Subjective - Subjective Subjective: 56 y/o lives [place]. Sent to ER for respiratory sx (pos sob, scant cough, neg heme, pos wt loss, neg night sweats and no other constitutional Sx.) Never smoker NKDA, Labs and Mes: on current note. O/vss afebrile Head Neg adeno, Neg JVD Heart RRR Ns1S2 Neg M Lungs, Distant BS, neg crackles or wheezing. Abdo, s, nt, pos bs no c,c,e Neuro GNF a/p Pna, r/o PTB (unlikely given paucity of sx, but as always, atypical presentation must be considered.) Cont Abx as per ID. Monitor WBC, Temp curve, and cultures, afb * 3, Gamma Interferon test and PPD. Repeat CT in 24 hours Legionella and Mycoplasma studies. Supp O2 for o2 sat > 90 % (he was saturating at 99% when I used my portable monitor today on Room Air.. PUD & DVT Px. Will f/u. Objective - Vital Signs/Intake and Output Vital Signs (last 24 hours): Temp Pulse Resp BP Pulse Ox 97.8 F 66 20 148/80 100 02/28/17 21:00 02/28/17 21:00 02/28/17 21:00 02/28/17 21:00 02/28/17 21:00 - Medications Medications: Current Medications Atorvastatin Calcium (Lipitor) 20 mg PO DIN [facility] Last Admin: 02/28/17 16:39 Dose: 20 mg Docusate Sodium (Colace) 100 mg PO DAILY PRN PRN Reason: Constipation Enoxaparin Sodium (Lovenox) 40 mg SC DAILY [facility] PRN Reason: Protocol Folic Acid (Folic Acid) 1 mg PO DAILY [facility] Last Admin: 02/28/17 08:36 Dose: 1 mg Gabapentin (Neurontin) 300 mg PO HS [facility] Last Admin: 02/28/17 21:12 Dose: 300 mg Azithromycin 500 mg/ Sodium (Chloride) 250 mls @ 250 mls/hr IVPB DAILY [facility] Last Admin: 02/28/17 08:36 Dose: 250 mls/hr Clindamycin Phosphate 600 mg/ (Sodium Chloride) 104 mls @ 104 mls/hr IVPB Q8 [facility] Last Admin: 02/28/17 16:39 Dose: 104 mls/hr Ceftriaxone Sodium 2 gm/ (Sodium Chloride) 100 mls @ 100 mls/hr IVPB DAILY [facility] Last Admin: 02/28/17 08:35 Dose: 100 mls/hr Levetiracetam (Keppra) 500 mg PO BID [facility] Last Admin: 02/28/17 16:39 Dose: 500 mg Multivitamins/Minerals (Therapeutic-M Tab) 1 tab PO DAILY [facility] Last Admin: 02/28/17 08:36 Dose: 1 tab Thiamine HCl (Vitamin B1 Tab) 200 mg PO DAILY [facility] Last Admin: 02/28/17 08:37 Dose: 200 mg - Labs Labs: 02/25/17 07:15 02/26/17 18:30
[2017-03-01] MEDS: Clindamycin 600 MG in Sodium Chloride 0.9% 100 ML IVPB SCH ×3 (00:07→16:07)
[2017-03-01 06:44] LABS: HEMATOCRIT 32.3 % (35.0-51.0); MEAN CELL VOLUME 78.9 fl (80.0-94.0); MEAN CORPUSCULAR HEMOGLOBIN 26.9 pg (27.0-31.0); MEAN CORPUSCULAR HGB CONC 34.1 g/dL (33.0-37.0); RED CELL DISTRIBUTION WIDTH 14.2 % (11.5-14.5)
[2017-03-01 06:54] LABS: ALB/GLOB RATIO 1.2 (1.0-2.1); ALKALINE PHOSPHATASE 94 U/L (38-126); ALT/SGPT 31 U/L (21-72); AST/SGOT 26 U/L (17-59); BILIRUBIN,TOTAL 0.4 mg/dl (0.2-1.3); BLOOD UREA NITROGEN 6 mg/dl (9-20); CALCIUM 8.6 mg/dL (8.4-10.2); CARBON DIOXIDE 25 mmol/L (22-30); CHLORIDE 91 mmol/L (98-107); GFR AFRICAN-AMERICAN > 60; GLUCOSE,RANDOM 75 mg/dL (75-110); POTASSIUM 3.6 MMOL/L (3.6-5.0); SODIUM 127 mmol/l (132-148); TOTAL PROTEIN 6.7 G/DL (6.3-8.2)
[2017-03-01 07:25] LABS: WHITE BLOOD COUNT 1.6 K/uL (4.8-10.8)
--- NOTE | 2017-03-01 08:51 | PQF GENQUE ---
This form is a permanent part of the medical record 03/01/17 Dr. Ro, Would you please clarify if there are any associated diagnoses or not to go along with the low Na and low WBC count. Admitted for Seizure and Pneumonia. Na running 125,133,132 and 127. WBC 2.8, 3.0 , and 1.6. Treated with IVF NS and IVAB. Clarification of your documentation is requested to better reflect the severity of illness and intensity of treatment of your patient. PHYSICIAN'S RESPONSE Based on your medical judgment of the clinical indicators outlined above please clarify the following: [] Practitioner response [] If unable to determine, please check the box, sign and date. Present On Admission (POA) Indicator: [] Present at the time of admission [] Not present at the time of admission [] Clinically Undetermined In responding to this query, please exercise your independent professional judgment. The fact that a question is asked does not imply that any particular answer is desired or expected. Thank you for your clarification on this documentation. If you have any questions please call:[phone] Medical Records Dept. * Thank you, Sierra Alarcon RN CD[facility]
[2017-03-01] MEDS: Azithromycin 500 MG in Sodium Chloride 0.9% 250 ML IVPB SCH (09:00)
[2017-03-01] MEDS: Enoxaparin 40 mg Syringe SC SCH (09:43)
[2017-03-01] MEDS: Multivitamin With Minerals Tab PO SCH (09:43)
[2017-03-01] MEDS: cefTRIAXone 2 GM in Sodium Chloride 0.9% 100 ML IVPB SCH (10:09)
[2017-03-01] MEDS: Sodium Chloride 3% for Inhalation 4 ML VIAL.NEB IH PRN (11:42)
[2017-03-01] MEDS ORDERED: Sodium Chloride 3% for Inhalation 4 ML VIAL.NEB IH SCH (11:45)
--- NOTE | 2017-03-01 12:03 | VASCULAR ---
PROCEDURE: Date of procedure: 02/26/2017 Procedure: 1. Placement of a right arm PICC with ultrasound and fluoroscopic guidance, CPT 24884 2. PICC tip confirmation with spot radiograph and is in the superior vena cava Medications: 1 percent lidocaine Total Fluoro time: 6.4 seconds Radiation: 0.38 mGy EBL: 2 cc HISTORY: Infection requiring long-term IV antibiotics TECHNIQUE: Following informed consent and procedure time-out, the patient was placed supine on the interventional table and the right arm prepped and draped in the usual sterile fashion. Ultrasound showed a patent and compressible right basilic vein. After the skin was anesthetized with lidocaine, the basilic vein was accessed with micro micropuncture technique using ultrasound guidance. A guidewire was then advanced under fluoroscopic guidance into the superior vena cava. An image documenting ultrasound guidance for vascular access was permanently saved. The length of the single-lumen 4 [place] PICC was trimmed to 39 centimeters and advanced through a peel-away sheath. The PICC was position with tip of PICC confirm a spot radiograph the superior vena cava. The PICC was secured to the patient's skin. The PICC was flushed. A biopatch and sterile dressing was applied. IMPRESSION: Placement of a single-lumen 4 [place] PICC trimmed to 39 centimeters via right basilic vein. The tip of the PICC is confirmed with spot radiograph and is in the superior vena cava.
[2017-03-01] MEDS ORDERED: Enoxaparin 40 mg Syringe SC ONE (19:48)
[2017-03-02] MEDS: Clindamycin 600 MG in Sodium Chloride 0.9% 100 ML IVPB SCH ×3 (00:23→17:26)
--- NOTE | 2017-03-02 02:18 | CARD ---
APPROVED REPORT EKG Measurement Heart [id number] <Conclusion> Normal sinus rhythm Normal ECG
[2017-03-02 07:10] LABS: HEMATOCRIT 32.7 % (35.0-51.0); MEAN CELL VOLUME 78.6 fl (80.0-94.0); MEAN CORPUSCULAR HEMOGLOBIN 26.8 pg (27.0-31.0); MEAN CORPUSCULAR HGB CONC 34.1 g/dL (33.0-37.0); RED CELL DISTRIBUTION WIDTH 14.2 % (11.5-14.5)
[2017-03-02 07:38] LABS: BLOOD UREA NITROGEN 5 mg/dl (9-20); CALCIUM 8.7 mg/dL (8.4-10.2); CARBON DIOXIDE 26 mmol/L (22-30); CHLORIDE 87 mmol/L (98-107); GFR AFRICAN-AMERICAN > 60; GLUCOSE,RANDOM 77 mg/dL (75-110); POTASSIUM 3.9 MMOL/L (3.6-5.0); SODIUM 123 mmol/l (132-148)
[2017-03-02] MEDS: Azithromycin 500 MG in Sodium Chloride 0.9% 250 ML IVPB SCH (10:20)
[2017-03-02] MEDS: cefTRIAXone 2 GM in Sodium Chloride 0.9% 100 ML IVPB SCH (10:21)
[2017-03-02] MEDS: Enoxaparin 40 mg Syringe SC SCH (10:25)
[2017-03-02] MEDS: Multivitamin With Minerals Tab PO SCH (10:26)
--- NOTE | 2017-03-02 10:45 | CP.PCM.PN ---
Subjective - Date & Time of Evaluation Date of Evaluation: 03/02/17 Time of Evaluation: 10:26 - Subjective Subjective: This is a 56 yrs old male who was admitted for change in mental status. He has a h/o chronic alcoholism and lives in a [facility]. According to him he had a accident when he was young, and hurt his head, and since then has had seizures. He is on keppra and neurontin which keep his seizures under control. He has however not taken his medications in about 1 month. He had a seizure at the [facility] and was acting s His ANC is 1360. trange and was brought to the ER. Pt has no recollection of this. On admission his WBc was 2.8, but then went down to 1.6, and today it is back to 2.0. His ANC is 1360 He is afebrile at this time but his chest xray did show evidence of pneumonia H/o heavy ethanol intake No h/o smoking Objective - Vital Signs/Intake and Output Vital Signs (last 24 hours): Temp Pulse Resp BP Pulse Ox 97.5 F L 55 L 20 125/75 99 03/02/17 08:16 03/02/17 08:16 03/02/17 08:16 03/02/17 08:16 03/02/17 08:16 - Medications Medications: Current Medications Atorvastatin Calcium (Lipitor) 20 mg PO DIN [facility] Last Admin: 03/01/17 16:06 Dose: 20 mg Docusate Sodium (Colace) 100 mg PO DAILY PRN PRN Reason: Constipation Enoxaparin Sodium (Lovenox) 40 mg SC DAILY [facility] PRN Reason: Protocol Last Admin: 03/01/17 09:43 Dose: 40 mg Folic Acid (Folic Acid) 1 mg PO DAILY [facility] Last Admin: 03/01/17 09:43 Dose: 1 mg Gabapentin (Neurontin) 300 mg PO HS [facility] Last Admin: 03/01/17 21:00 Dose: 300 mg Clindamycin Phosphate 600 mg/ (Sodium Chloride) 104 mls @ 104 mls/hr IVPB Q8 [facility] Last Admin: 03/02/17 00:23 Dose: 104 mls/hr Ceftriaxone Sodium 2 gm/ (Sodium Chloride) 100 mls @ 100 mls/hr IVPB DAILY [facility] Last Admin: 03/01/17 10:09 Dose: 100 mls/hr Levetiracetam (Keppra) 500 mg PO BID [facility] Last Admin: 03/01/17 16:06 Dose: 500 mg Multivitamins/Minerals (Therapeutic-M Tab) 1 tab PO DAILY [facility] Last Admin: 03/01/17 09:43 Dose: 1 tab Thiamine HCl (Vitamin B1 Tab) 200 mg PO DAILY [facility] Last Admin: 03/01/17 09:43 Dose: 200 mg - Labs Labs: 03/02/17 06:15 03/02/17 06:15 - Additional Findings Additional findings: Physical exam; Alert, well oriented in no acute distress. neck; supple, no adenopathy Chest; Clear, no rales or rhonchi Heart; RSR, no murmur Abd soft , no mass or h/s megaly Assessment and Plan - Assessment and Plan (Free Text) Assessment: IMPression; Neutropenia most probably secondary to pneumonia Plan: Plan; Will repeay cbc in am . If the wbc continues to be low, will do a bone marrow, and give granix
[2017-03-02] MEDS ORDERED: Pneumococcal 23-Valent Vaccine IM ONE (15:00)
--- NOTE | 2017-03-02 16:56 | CT ---
PROCEDURE: CT Chest without contrast HISTORY: pneumonia COMPARISON: 02/25/2017. TECHNIQUE: Contiguous axial images were obtained through the chest without intravenous contrast enhancement. Sagittal and coronal reconstructions were performed. Radiation dose (DLP): 413.61 mGy-cm. This CT exam was performed using one or more of the following dose reduction techniques: Automated exposure control, adjustment of the mA and/or kV according to patient size, and/or use of iterative reconstruction technique. FINDINGS: LUNGS: Chronic changes right middle lobe, right lower lobe. No new/ acute or significant findings. MEDIASTINUM: Unremarkable thoracic aorta. No aneurysm. Normal sized heart. Main pulmonary artery unremarkable. No vascular congestion. Evidence for pars posterior granulomatous disease in the form of hilar mediastinal and subcarinal lymph nodes which are densely calcified. PLEURA: Partially calcified pleural rind, loculated pleural effusion. The findings are likely the sequela of prior infectious/ inflammatory process ease common less likely trauma. BONES: No fracture. No destructive lesion. UPPER ABDOMEN: Grossly unremarkable. OTHER FINDINGS: None. IMPRESSION: No significant interval change compared to the prior examination(s). Granulomatous changes hilar mediastinal and subcarinal lymph node chains. Presumed chronic findings in the right pleural space and right lung. No new/acute or significant interval changes detected in the thorax.
[2017-03-02] MEDS ORDERED: Metoclopramide 10 mg/10 ml Cup PO PRN (20:42)
--- NOTE | 2017-03-02 22:36 | CP.PCM.PN ---
Objective - Vital Signs/Intake and Output Vital Signs (last 24 hours): Temp Pulse Resp BP Pulse Ox 97.4 F L 63 16 168/90 H 100 03/02/17 19:59 03/02/17 21:00 03/02/17 19:59 03/02/17 19:59 03/02/17 19:59 - Medications Medications: Current Medications Atorvastatin Calcium (Lipitor) 20 mg PO DIN [facility] Last Admin: 03/02/17 17:26 Dose: 20 mg Docusate Sodium (Colace) 100 mg PO DAILY PRN PRN Reason: Constipation Enoxaparin Sodium (Lovenox) 40 mg SC DAILY [facility] PRN Reason: Protocol Last Admin: 03/02/17 10:25 Dose: 40 mg Folic Acid (Folic Acid) 1 mg PO DAILY [facility] Last Admin: 03/02/17 10:24 Dose: 1 mg Gabapentin (Neurontin) 300 mg PO HS [facility] Last Admin: 03/02/17 21:32 Dose: 300 mg Clindamycin Phosphate 600 mg/ (Sodium Chloride) 104 mls @ 104 mls/hr IVPB Q8 [facility] Last Admin: 03/02/17 17:26 Dose: 104 mls/hr Ceftriaxone Sodium 2 gm/ (Sodium Chloride) 100 mls @ 100 mls/hr IVPB DAILY [facility] Last Admin: 03/02/17 10:21 Dose: 100 mls/hr Levetiracetam (Keppra) 500 mg PO BID [facility] Last Admin: 03/02/17 17:25 Dose: 500 mg Metoclopramide HCl (Reglan) 10 mg PO Q8 PRN PRN Reason: Nausea/Vomiting Last Admin: 03/02/17 21:11 Dose: 10 mg Multivitamins/Minerals (Therapeutic-M Tab) 1 tab PO DAILY [facility] Last Admin: 03/02/17 10:26 Dose: 1 tab Thiamine HCl (Vitamin B1 Tab) 200 mg PO DAILY [facility] Last Admin: 03/02/17 10:26 Dose: 200 mg - Labs Labs: 03/02/17 06:15 03/02/17 06:15 Assessment and Plan (1) Pneumonia Status: Acute (2) Seizures Status: Acute
[2017-03-03] MEDS: Clindamycin 600 MG in Sodium Chloride 0.9% 100 ML IVPB SCH ×3 (04:37→16:44)
[2017-03-03 07:02] LABS: HEMATOCRIT 32.5 % (35.0-51.0); MEAN CELL VOLUME 76.9 fl (80.0-94.0); MEAN CORPUSCULAR HEMOGLOBIN 26.9 pg (27.0-31.0); RED CELL DISTRIBUTION WIDTH 14.2 % (11.5-14.5); WHITE BLOOD COUNT 3.4 K/uL (4.8-10.8)
--- NOTE | 2017-03-03 09:27 | CP.PCM.PN ---
Subjective - Date & Time of Evaluation Date of Evaluation: 03/03/17 Time of Evaluation: 09:17 - Subjective Subjective: Pt has been afebrile. He has not produced enough phlegm to send away for c/s . His WBC count has increased to 3.4 . Will monitor cbc Objective - Vital Signs/Intake and Output Vital Signs (last 24 hours): Temp Pulse Resp BP Pulse Ox 98.7 F 85 18 106/68 96 03/03/17 08:45 03/03/17 08:45 03/03/17 08:45 03/03/17 08:45 03/03/17 08:45 - Medications Medications: Current Medications Atorvastatin Calcium (Lipitor) 20 mg PO DIN [facility] Last Admin: 03/02/17 17:26 Dose: 20 mg Docusate Sodium (Colace) 100 mg PO DAILY PRN PRN Reason: Constipation Enoxaparin Sodium (Lovenox) 40 mg SC DAILY [facility] PRN Reason: Protocol Last Admin: 03/02/17 10:25 Dose: 40 mg Folic Acid (Folic Acid) 1 mg PO DAILY [facility] Last Admin: 03/02/17 10:24 Dose: 1 mg Gabapentin (Neurontin) 300 mg PO HS [facility] Last Admin: 03/02/17 21:32 Dose: 300 mg Clindamycin Phosphate 600 mg/ (Sodium Chloride) 104 mls @ 104 mls/hr IVPB Q8 [facility] Last Admin: 03/03/17 04:37 Dose: 104 mls/hr Ceftriaxone Sodium 2 gm/ (Sodium Chloride) 100 mls @ 100 mls/hr IVPB DAILY [facility] Last Admin: 03/02/17 10:21 Dose: 100 mls/hr Levetiracetam (Keppra) 500 mg PO BID [facility] Last Admin: 03/02/17 17:25 Dose: 500 mg Metoclopramide HCl (Reglan) 10 mg PO Q8 PRN PRN Reason: Nausea/Vomiting Last Admin: 03/02/17 21:11 Dose: 10 mg Multivitamins/Minerals (Therapeutic-M Tab) 1 tab PO DAILY [facility] Last Admin: 03/02/17 10:26 Dose: 1 tab Thiamine HCl (Vitamin B1 Tab) 200 mg PO DAILY [facility] Last Admin: 03/02/17 10:26 Dose: 200 mg - Labs Labs: 03/03/17 06:00 03/02/17 06:15
[2017-03-03] MEDS: cefTRIAXone 2 GM in Sodium Chloride 0.9% 100 ML IVPB SCH (10:06)
[2017-03-03] MEDS: Multivitamin With Minerals Tab PO SCH (10:08)
[2017-03-03] MEDS: Enoxaparin 40 mg Syringe SC SCH (10:08)
[2017-03-03 12:38] LABS: BLOOD UREA NITROGEN 5 mg/dl (9-20); CALCIUM 8.3 mg/dL (8.4-10.2); CARBON DIOXIDE 25 mmol/L (22-30); CHLORIDE 78 mmol/L (98-107); GFR AFRICAN-AMERICAN > 60; GLUCOSE,RANDOM 112 mg/dL (75-110); POTASSIUM 3.9 MMOL/L (3.6-5.0)
[2017-03-03 13:05] LABS: SODIUM 111 mmol/l (132-148)
[2017-03-03 15:40] LABS: BLOOD UREA NITROGEN 5 mg/dl (9-20); CALCIUM 8.2 mg/dL (8.4-10.2); CARBON DIOXIDE 23 mmol/L (22-30); CHLORIDE 78 mmol/L (98-107); GFR AFRICAN-AMERICAN > 60; GLUCOSE,RANDOM 96 mg/dL (75-110); POTASSIUM 4.1 MMOL/L (3.6-5.0)
[2017-03-03 15:46] LABS: SODIUM 111 mmol/l (132-148)
[2017-03-03] MEDS ORDERED: Sodium Chloride 0.9% 1,000 ML IV SCH (16:15)
--- NOTE | 2017-03-03 23:50 | CP.PCM.PN ---
Objective - Vital Signs/Intake and Output Vital Signs (last 24 hours): Temp Pulse Resp BP Pulse Ox 98.5 F 96 H 18 120/78 99 03/03/17 19:37 03/03/17 19:37 03/03/17 19:37 03/03/17 19:37 03/03/17 19:37 Intake and Output: 03/03/17 03/04/17 18:59 06:59 Intake Total 410 Balance 410 - Medications Medications: Current Medications Atorvastatin Calcium (Lipitor) 20 mg PO DIN [facility] Last Admin: 03/03/17 16:45 Dose: 20 mg Docusate Sodium (Colace) 100 mg PO DAILY PRN PRN Reason: Constipation Enoxaparin Sodium (Lovenox) 40 mg SC DAILY [facility] PRN Reason: Protocol Last Admin: 03/03/17 10:08 Dose: 40 mg Folic Acid (Folic Acid) 1 mg PO DAILY [facility] Last Admin: 03/03/17 10:09 Dose: 1 mg Gabapentin (Neurontin) 300 mg PO HS [facility] Last Admin: 03/03/17 22:17 Dose: 300 mg Clindamycin Phosphate 600 mg/ (Sodium Chloride) 104 mls @ 104 mls/hr IVPB Q8 [facility] Last Admin: 03/03/17 16:44 Dose: 104 mls/hr Ceftriaxone Sodium 2 gm/ (Sodium Chloride) 100 mls @ 100 mls/hr IVPB DAILY [facility] Last Admin: 03/03/17 10:06 Dose: 100 mls/hr Sodium Chloride (Sodium Chloride 0.9%) 1,000 mls @ 70 mls/hr IV .[id number] [facility] Stop: 03/04/17 16:13 Last Admin: 03/03/17 16:43 Dose: 70 mls/hr Levetiracetam (Keppra) 500 mg PO BID [facility] Last Admin: 03/03/17 16:45 Dose: 500 mg Metoclopramide HCl (Reglan) 10 mg PO Q8 PRN PRN Reason: Nausea/Vomiting Last Admin: 03/02/17 21:11 Dose: 10 mg Multivitamins/Minerals (Therapeutic-M Tab) 1 tab PO DAILY [facility] Last Admin: 03/03/17 10:08 Dose: 1 tab Thiamine HCl (Vitamin B1 Tab) 200 mg PO DAILY [facility] Last Admin: 03/03/17 10:08 Dose: 200 mg - Labs Labs: 03/03/17 06:00 03/03/17 15:00 Assessment and Plan (1) Pneumonia Status: Acute (2) Seizures Status: Acute
--- NOTE | 2017-03-04 00:36 | CON ---
DATE: 03/03/2017 LOCATION: Room 412. HISTORY OF PRESENT ILLNESS: This is a 56-year-old male admitted with pneumonia and fever and superve anamaria marked hyponatremia and is being referred now for endocrine evaluation and management. PAST MEDICAL HISTORY: As mentioned above. History of seizure disorder and currently on Keppra taken as 500 mg b.i.d. History of hypertension and dyslipidemia. FAMILY HISTORY: Positive for hypertension and heart disease. SOCIAL HISTORY: The patient is actually homeless at this time with history of cigarette smoking, but no other illicit drug use. REVIEW OF SYSTEMS: As mentioned above, admits to generalized body weakness with easy fatigability an d tiredness and suboptimal energy level. Also admits to episodic bouts of dizziness and lightheadedn ess with bifrontal headaches worse in the last week or so prior to admission. No chest pains, but ad mits to pleuritic chest pain on the right chest wall area with supervening bronchorrhea and productiv e cough. His oral intake has been variable and suboptimal with nausea, dyspepsia, and vague upper ab dominal pains. No recent alterations of bowel or urinary patterns. PHYSICAL EXAMINATION: GENERAL: An average built male in no apparent distress. VITAL SIGNS: Blood pressure of 140/80, pulse of 100 beats per minute and regular, temperature was 10 2 initially, now is down to 99, respirations 20. Height is 6 feet 2, weight is 165 pounds. HEENT: Head normocephalic. Eyes anicteric with pink conjunctivae. Fundoscopy not possible at this time. Ears, nose and throat otherwise normal. NECK: Supple. Thyroid gland is normal size. No carotid bruits. No cervical adenopathy. CARDIOPULMONARY: Some adynamic precordium. S1, S2 is rapid and regular. LUNGS: Show scattered rhonchi. ABDOMEN: Flat, soft with positive bowel sounds. EXTREMITIES: No peripheral edema. Pulses are +2 bilaterally. LABORATORY DATA: The chemistries showed a BUN of 6, sodium 127, potassium 3.6, chloride 91, CO2 is 2 5, glucose is 75 and creatinine 0.6. The latest sodium, however, today dropped to 111 with a potassi um of 4.1 and creatinine of 0.6. ASSESSMENT: This is a 56-year-old male with euvolemic hyponatremia, most likely related to syndrome of inappropriate antidiuretic hormone with concurrent acute pneumonitis as noted thereof with no evid ence of any cardiac or renal or metabolic decompensation at this time. are quite unlikely and remote. We have to exclude any underlying endocrinopathy such as hypoadrenalism or hypothyroidism ca using the aforementioned. PLAN OF MANAGEMENT: As discussed with the staff, will continue his normal saline infusion as ordered . And, if hyponatremia persists by the next lab evaluations, then we will start him on hypertonic sa line as indicated. We will also consider the temporary use of demeclocycline medications as indicate d. We will obtain a baseline thyroid study and cortisol and ACTH to exclude any underlying endocrino pathies. We will obtain serial chemistries and supplement accordingly as needed. Moreover, he is un dergoing hematological workup for marked neutropenia as noted thereof. Will follow. Martina Cantu MD cc: [id number] TT: 03/04/2017 00:36:06 Confirmation # [id number] Dictation # [id number] mn
[2017-03-04] MEDS: Clindamycin 600 MG in Sodium Chloride 0.9% 100 ML IVPB SCH (00:40)
[2017-03-04 07:32] LABS: ALB/GLOB RATIO 1.3 (1.0-2.1); ALKALINE PHOSPHATASE 86 U/L (38-126); ALT/SGPT 27 U/L (21-72); AST/SGOT 28 U/L (17-59); BILIRUBIN,TOTAL 0.4 mg/dl (0.2-1.3); BLOOD UREA NITROGEN 3 mg/dl (9-20); CALCIUM 8.5 mg/dL (8.4-10.2); CARBON DIOXIDE 24 mmol/L (22-30); CHLORIDE 81 mmol/L (98-107); GFR AFRICAN-AMERICAN > 60; GLUCOSE,RANDOM 84 mg/dL (75-110); POTASSIUM 3.5 MMOL/L (3.6-5.0); TOTAL PROTEIN 6.7 G/DL (6.3-8.2)
[2017-03-04] MEDS: cefTRIAXone 2 GM in Sodium Chloride 0.9% 100 ML IVPB SCH (09:00)
[2017-03-04] MEDS: Enoxaparin 40 mg Syringe SC SCH (09:00)
[2017-03-04] MEDS: Multivitamin With Minerals Tab PO SCH (09:00)
--- NOTE | 2017-03-04 21:55 | PN ---
DATE: 03/04/2017 ROOM: 412 SUBJECTIVE: This is a 56-year-old male with acute pneumonitis with supervening marked hyponatremia d espite normal saline infusion as given and is now being followed closely for metabolic management. H is latest chemistry showed a BUN today of 5, sodium 111, potassium 4.1, chloride 78, CO2 is 23, gluco se 96, and creatinine 0.6. So, at this time, we will start him on hypertonic saline with 3% sodium c hloride running at 75 mL per hour as ordered. We will also add demeclocycline at 150 mg p.o. every 8 hours as ordered. We will obtain serial chemistries and supplement accordingly as needed. At this point, we are dealing with the so-called SIADH with euvolemic hyponatremia and this should resolve ac cordingly as his clinical status improves thereof. We will obtain serial chemistries and supplement accordingly as needed. We will follow. Martina Cantu MD cc: [id number] TT: 03/04/2017 21:54:15 Confirmation # [id number] Dictation # [id number] jn
--- NOTE | 2017-03-04 22:49 | CP.PCM.PN ---
Subjective - Subjective Subjective: still na is 111, feeling ok, denies nausea\vomiting. Objective - Vital Signs/Intake and Output Vital Signs (last 24 hours): Temp Pulse Resp BP Pulse Ox 98.3 F 72 18 149/87 99 03/04/17 20:00 03/04/17 20:00 03/04/17 20:00 03/04/17 20:00 03/04/17 20:00 - Medications Medications: Current Medications Atorvastatin Calcium (Lipitor) 20 mg PO DIN [facility] Last Admin: 03/03/17 16:45 Dose: 20 mg Demeclocycline HCl (Declomycin) 150 mg PO QID [facility] Last Admin: 03/04/17 22:00 Dose: 150 mg Docusate Sodium (Colace) 100 mg PO DAILY PRN PRN Reason: Constipation Enoxaparin Sodium (Lovenox) 40 mg SC DAILY [facility] PRN Reason: Protocol Last Admin: 03/03/17 10:08 Dose: 40 mg Folic Acid (Folic Acid) 1 mg PO DAILY [facility] Last Admin: 03/03/17 10:09 Dose: 1 mg Gabapentin (Neurontin) 300 mg PO HS [facility] Last Admin: 03/04/17 21:53 Dose: 300 mg Clindamycin Phosphate 600 mg/ (Sodium Chloride) 104 mls @ 104 mls/hr IVPB Q8 [facility] Last Admin: 03/04/17 00:40 Dose: 104 mls/hr Ceftriaxone Sodium 2 gm/ (Sodium Chloride) 100 mls @ 100 mls/hr IVPB DAILY [facility] Last Admin: 03/03/17 10:06 Dose: 100 mls/hr Levetiracetam (Keppra) 500 mg PO BID [facility] Last Admin: 03/03/17 16:45 Dose: 500 mg Metoclopramide HCl (Reglan) 10 mg PO Q8 PRN PRN Reason: Nausea/Vomiting Last Admin: 03/02/17 21:11 Dose: 10 mg Multivitamins/Minerals (Therapeutic-M Tab) 1 tab PO DAILY [facility] Last Admin: 03/03/17 10:08 Dose: 1 tab Thiamine HCl (Vitamin B1 Tab) 200 mg PO DAILY [facility] Last Admin: 03/03/17 10:08 Dose: 200 mg - Labs Labs: 03/03/17 06:00 03/03/17 15:00 Assessment and Plan (1) Pneumonia Status: Acute (2) Seizures Status: Acute
[2017-03-05] MEDS: Sodium Chloride 3% 500 ML IV SCH ×4 (00:40→20:21)
[2017-03-05] MEDS: Clindamycin 600 MG in Sodium Chloride 0.9% 100 ML IVPB SCH ×4 (00:45→16:39)
[2017-03-05] MEDS: guaiFENesin DM 200 mg-20 mg/10 ml UD PO PRN ×2 (01:38→16:42)
[2017-03-05 07:26] LABS: SODIUM 114 mmol/l (132-148)
[2017-03-05 08:10] LABS: ALB/GLOB RATIO 1.2 (1.0-2.1); ALKALINE PHOSPHATASE 83 U/L (38-126); ALT/SGPT 23 U/L (21-72); AST/SGOT 25 U/L (17-59); BILIRUBIN,TOTAL 0.3 mg/dl (0.2-1.3); BLOOD UREA NITROGEN 3 mg/dl (9-20); CALCIUM 8.4 mg/dL (8.4-10.2); CARBON DIOXIDE 24 mmol/L (22-30); CHLORIDE 88 mmol/L (98-107); GFR AFRICAN-AMERICAN > 60; GLUCOSE,RANDOM 76 mg/dL (75-110); POTASSIUM 3.6 MMOL/L (3.6-5.0); TOTAL PROTEIN 6.3 G/DL (6.3-8.2)
[2017-03-05 08:16] LABS: SODIUM 120 mmol/l (132-148)
--- NOTE | 2017-03-05 09:03 | CP.PCM.PN ---
Subjective - Date & Time of Evaluation Date of Evaluation: 03/05/17 Time of Evaluation: 09:01 - Subjective Subjective: Pt is afebrile, in no acute distress. He however is still very hyponatremic. Wbc seemed to be going up. Will check another cbc in am Objective - Vital Signs/Intake and Output Vital Signs (last 24 hours): Temp Pulse Resp BP Pulse Ox 97.7 F 68 18 114/71 94 L 03/05/17 08:24 03/05/17 08:24 03/05/17 08:24 03/05/17 08:24 03/05/17 08:24 - Medications Medications: Current Medications Acetaminophen (Tylenol 325mg Tab) 650 mg PO Q6 PRN PRN Reason: Pain, Mild (1-3) Last Admin: 03/05/17 01:37 Dose: 650 mg Atorvastatin Calcium (Lipitor) 20 mg PO DIN [facility] Last Admin: 03/04/17 17:00 Dose: 20 mg Demeclocycline HCl (Declomycin) 150 mg PO QID [facility] Last Admin: 03/04/17 22:00 Dose: 150 mg Docusate Sodium (Colace) 100 mg PO DAILY PRN PRN Reason: Constipation Enoxaparin Sodium (Lovenox) 40 mg SC DAILY [facility] PRN Reason: Protocol Last Admin: 03/04/17 09:00 Dose: 40 mg Folic Acid (Folic Acid) 1 mg PO DAILY [facility] Last Admin: 03/04/17 09:00 Dose: 1 mg Gabapentin (Neurontin) 300 mg PO HS [facility] Last Admin: 03/04/17 21:53 Dose: 300 mg Guaifenesin/Dextromethorphan (Robitussin Dm) 10 ml PO Q6 PRN PRN Reason: Cough Last Admin: 03/05/17 01:38 Dose: 10 ml Clindamycin Phosphate 600 mg/ (Sodium Chloride) 104 mls @ 104 mls/hr IVPB Q8 [facility] Last Admin: 03/05/17 00:45 Dose: 104 mls/hr Sodium Chloride (Hypertonic Saline 3%) 500 mls @ 80 mls/hr IV .Q6H15M [facility] Stop: 03/05/17 23:26 Last Admin: 03/05/17 06:51 Dose: 80 mls/hr Levetiracetam (Keppra) 500 mg PO BID [facility] Last Admin: 03/04/17 17:00 Dose: 500 mg Metoclopramide HCl (Reglan) 10 mg PO Q8 PRN PRN Reason: Nausea/Vomiting Last Admin: 03/02/17 21:11 Dose: 10 mg Multivitamins/Minerals (Therapeutic-M Tab) 1 tab PO DAILY [facility] Last Admin: 03/04/17 09:00 Dose: 1 tab Thiamine HCl (Vitamin B1 Tab) 200 mg PO DAILY [facility] Last Admin: 03/04/17 09:00 Dose: 200 mg - Labs Labs: 03/03/17 06:00 03/05/17 07:30
[2017-03-05] MEDS: Multivitamin With Minerals Tab PO SCH (09:42)
[2017-03-05] MEDS: Enoxaparin 40 mg Syringe SC SCH (09:43)
[2017-03-05] MEDS: cefTRIAXone 2 GM in Sodium Chloride 0.9% 100 ML IVPB SCH (09:44)
--- NOTE | 2017-03-05 12:46 | PN ---
DATE: 03/05/2017 ROOM: 412 This is a 56-year-old male with recent euvolemic hyponatremia, most likely related to underlying acut e pneumonitis with SIADH and has since then received hypertonic saline infusion as noted and ordered. His latest chemistries include a BUN of 3, sodium 120, potassium 3.6, chloride 88, CO2 24, glucose 76 and creatinine 0.5. So at this time, we will continue the same very low dose hypertonic saline to finish this current inf usion and we will observe his metabolic response thereof off the hypertonic saline infusion. We will also add demeclocycline given as 150 mg q.i.d. as ordered. We will titrate incrementally as indicat ed to optimize metabolic control. We will follow and advise accordingly. Martina Cantu MD cc: [phone] TT: 03/05/2017 12:45:52 Confirmation # [id number] Dictation # [id number]
--- NOTE | 2017-03-05 12:58 | CP.PCM.PCO ---
Assessment/Plan - Assessment and Plan (Free Text) Plan: Patient seen and examined. Na improved 120, hypertonic saline infusing. Plan discussed with Dr Elizalde-ct scan reviewed. Sputum induction has been unsuccessful, as per MD doubt its TB, no symptoms present. No acute changes on repeat ct scan. Patient to continue abx and follow up in pulmonary clinic. No need for pulmonary isolation. Discussed with Dr Katz who recommends continuing po abx, clindamycin and augmentin and follow up outpatient. Discussed with Dr. Ro, for possible dc once hyponatremia resolves. rx left in chart for patient.
[2017-03-05] MEDS: Amoxicillin-Clav 875-125 mg Tab PO SCH ×2 (13:42→20:20)
[2017-03-05 16:13] LABS: BLOOD UREA NITROGEN 4 mg/dl (9-20); CALCIUM 8.7 mg/dL (8.4-10.2); CARBON DIOXIDE 23 mmol/L (22-30); CHLORIDE 92 mmol/L (98-107); GFR AFRICAN-AMERICAN > 60; GLUCOSE,RANDOM 94 mg/dL (75-110); POTASSIUM 3.9 MMOL/L (3.6-5.0); SODIUM 125 mmol/l (132-148)
--- NOTE | 2017-03-05 23:45 | CP.PCM.PN ---
Subjective - Date & Time of Evaluation Date of Evaluation: 03/05/17 Time of Evaluation: 09:00 - Subjective Subjective: Cw=629,no new issues.on hypertonic saline Objective - Vital Signs/Intake and Output Vital Signs (last 24 hours): Temp Pulse Resp BP Pulse Ox 97.2 F L 69 19 173/90 H 100 03/05/17 23:37 03/05/17 23:37 03/05/17 23:37 03/05/17 23:37 03/05/17 23:37 Intake and Output: 03/05/17 03/06/17 18:59 06:59 Intake Total 3220 Output Total 2200 Balance 1020 - Medications Medications: Current Medications Acetaminophen (Tylenol 325mg Tab) 650 mg PO Q6 PRN PRN Reason: Pain, Mild (1-3) Last Admin: 03/05/17 09:40 Dose: 650 mg Amoxicillin/Clavulanate Potassium (Augmentin 875 Mg-125 Mg Tab) 1 tab PO Q12 [facility] Last Admin: 03/05/17 20:20 Dose: 1 tab Atorvastatin Calcium (Lipitor) 20 mg PO DIN [facility] Last Admin: 03/05/17 16:40 Dose: 20 mg Demeclocycline HCl (Declomycin) 150 mg PO QID [facility] Last Admin: 03/05/17 21:04 Dose: 150 mg Docusate Sodium (Colace) 100 mg PO DAILY PRN PRN Reason: Constipation Enoxaparin Sodium (Lovenox) 40 mg SC DAILY [facility] PRN Reason: Protocol Last Admin: 03/05/17 09:43 Dose: 40 mg Folic Acid (Folic Acid) 1 mg PO DAILY [facility] Last Admin: 03/05/17 09:41 Dose: 1 mg Gabapentin (Neurontin) 300 mg PO HS [facility] Last Admin: 03/05/17 21:04 Dose: 300 mg Guaifenesin/Dextromethorphan (Robitussin Dm) 10 ml PO Q6 PRN PRN Reason: Cough Last Admin: 03/05/17 16:42 Dose: 10 ml Clindamycin Phosphate 600 mg/ (Sodium Chloride) 104 mls @ 104 mls/hr IVPB Q8 [facility] Last Admin: 03/05/17 16:39 Dose: 104 mls/hr Levetiracetam (Keppra) 500 mg PO BID [facility] Last Admin: 03/05/17 16:41 Dose: 500 mg Metoclopramide HCl (Reglan) 10 mg PO Q8 PRN PRN Reason: Nausea/Vomiting Last Admin: 03/02/17 21:11 Dose: 10 mg Multivitamins/Minerals (Therapeutic-M Tab) 1 tab PO DAILY [facility] Last Admin: 03/05/17 09:42 Dose: 1 tab Thiamine HCl (Vitamin B1 Tab) 200 mg PO DAILY [facility] Last Admin: 03/05/17 13:42 Dose: 200 mg - Labs Labs: 03/03/17 06:00 03/05/17 13:45 Assessment and Plan (1) Pneumonia Status: Acute (2) Seizures Status: Acute
[2017-03-06] MEDS: Clindamycin 600 MG in Sodium Chloride 0.9% 100 ML IVPB SCH ×3 (01:38→17:23)
[2017-03-06 08:12] LABS: BASO % 2.4 % (0.0-2.0); EOS % 2.5 % (0.0-4.0); HEMATOCRIT 30.3 % (35.0-51.0); LYMPH # 0.7 K/uL (1.0-4.3); MEAN CELL VOLUME 77.9 fl (80.0-94.0); MEAN CORPUSCULAR HEMOGLOBIN 26.7 pg (27.0-31.0); MEAN CORPUSCULAR HGB CONC 34.2 g/dL (33.0-37.0); MEAN PLATELET VOLUME 7.3 fl (7.2-11.7); MONO # 0.4 K/uL (0.0-0.8); MONO % 26.1 % (0.0-10.0); NEUT # 0.3 K/uL (1.8-7.0); NRBC % 0.1 % (0.0-0.0); PLATELET COUNT 296 K/uL (130-400); RED CELL DISTRIBUTION WIDTH 14.1 % (11.5-14.5)
[2017-03-06 08:46] LABS: BLOOD UREA NITROGEN 3 mg/dl (9-20); CALCIUM 8.9 mg/dL (8.4-10.2); CARBON DIOXIDE 24 mmol/L (22-30); CHLORIDE 93 mmol/L (98-107); GFR AFRICAN-AMERICAN > 60; GLUCOSE,RANDOM 89 mg/dL (75-110); POTASSIUM 3.8 MMOL/L (3.6-5.0); SODIUM 125 mmol/l (132-148)
[2017-03-06 09:09] LABS: WHITE BLOOD COUNT 1.4 K/uL (4.8-10.8)
[2017-03-06] MEDS: Enoxaparin 40 mg Syringe SC SCH (09:28)
[2017-03-06] MEDS: Amoxicillin-Clav 875-125 mg Tab PO SCH ×2 (09:28→22:23)
[2017-03-06] MEDS: Multivitamin With Minerals Tab PO SCH (09:28)
[2017-03-06 09:50] LABS: T4 7.83 ug/dl (5.5-11.0)
[2017-03-06 10:04] LABS: THYROID STIMULATING HORMONE 1.9 mIU/ML (0.46-4.68)
--- NOTE | 2017-03-06 11:22 | CP.PCM.PN ---
Subjective - Date & Time of Evaluation Date of Evaluation: 03/06/17 Time of Evaluation: 11:21 - Subjective Subjective: Pt is afebrile but the wbc have dropped to 1.4 with a ANC of 300. His neutrophils were 68% on admission, but now they are 22% with 47% lymphs. I qam giving him granix to raise the ANC to above 1500. Will ck his count again tomorrow. Objective - Vital Signs/Intake and Output Vital Signs (last 24 hours): Temp Pulse Resp BP Pulse Ox 97.6 F 66 18 129/83 98 03/06/17 07:58 03/06/17 07:58 03/06/17 07:58 03/06/17 07:58 03/06/17 07:58 - Medications Medications: Current Medications Acetaminophen (Tylenol 325mg Tab) 650 mg PO Q6 PRN PRN Reason: Pain, Mild (1-3) Last Admin: 03/06/17 09:36 Dose: 650 mg Amoxicillin/Clavulanate Potassium (Augmentin 875 Mg-125 Mg Tab) 1 tab PO Q12 [facility] Last Admin: 03/06/17 09:28 Dose: 1 tab Atorvastatin Calcium (Lipitor) 20 mg PO DIN [facility] Last Admin: 03/05/17 16:40 Dose: 20 mg Demeclocycline HCl (Declomycin) 150 mg PO QID [facility] Last Admin: 03/06/17 09:27 Dose: 150 mg Docusate Sodium (Colace) 100 mg PO DAILY PRN PRN Reason: Constipation Folic Acid (Folic Acid) 1 mg PO DAILY [facility] Last Admin: 03/06/17 09:27 Dose: 1 mg Gabapentin (Neurontin) 300 mg PO HS [facility] Last Admin: 03/05/17 21:04 Dose: 300 mg Guaifenesin/Dextromethorphan (Robitussin Dm) 10 ml PO Q6 PRN PRN Reason: Cough Last Admin: 03/05/17 16:42 Dose: 10 ml Clindamycin Phosphate 600 mg/ (Sodium Chloride) 104 mls @ 104 mls/hr IVPB Q8 [facility] Last Admin: 03/06/17 09:27 Dose: 104 mls/hr Levetiracetam (Keppra) 500 mg PO BID [facility] Last Admin: 03/06/17 09:27 Dose: 500 mg Metoclopramide HCl (Reglan) 10 mg PO Q8 PRN PRN Reason: Nausea/Vomiting Last Admin: 03/02/17 21:11 Dose: 10 mg Multivitamins/Minerals (Therapeutic-M Tab) 1 tab PO DAILY [facility] Last Admin: 03/06/17 09:28 Dose: 1 tab Thiamine HCl (Vitamin B1 Tab) 200 mg PO DAILY [facility] Last Admin: 03/06/17 09:28 Dose: 200 mg - Labs Labs: 03/06/17 08:06 03/06/17 08:06
--- NOTE | 2017-03-06 12:08 | PN ---
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 He has been given hypertonic saline infusion as noted with improved levels biochemically. Moreover, his latest chemistries showe d a BUN of 3, sodium 125, potassium 3.8, chloride 93, CO2 of 24, glucose 89, and creatinine 0.5. So, at this time, we will continue the demeclocycline given as 150 mg p.o. q.i.d. as ordered. We will t itrate incrementally as indicated to optimize metabolic control. We will follow and advise according ly. Martina Cantu MD cc: [id number] TT: 03/06/2017 12:07:57 Confirmation # [id number] Dictation # [id number] tn
[2017-03-06 17:38] LABS: EOSINOPHIL 2 % (0-7); NEUTROPHIL 36 % (42-75); REACTIVE LYMPHOCYTES 2 % (0-0); TOTAL CELLS COUNTED 100
[2017-03-06 17:41] LABS: LARGE PLATELETS PRESENT
[2017-03-06 19:25] LABS: CORTISOL AM 9.5 ug/dL (4.46-22.7)
--- NOTE | 2017-03-07 00:40 | CP.PCM.PN ---
Subjective - Date & Time of Evaluation Date of Evaluation: 03/06/17 Time of Evaluation: 08:00 - Subjective Subjective: na-125, wbc-1.4. on hypertonic solution Objective - Vital Signs/Intake and Output Vital Signs (last 24 hours): Temp Pulse Resp BP Pulse Ox 97.9 F 66 19 159/90 H 99 03/06/17 23:38 03/06/17 23:38 03/06/17 23:38 03/06/17 23:38 03/06/17 23:38 Intake and Output: 03/06/17 03/07/17 18:59 06:59 Intake Total 200 Output Total 500 Balance -300 - Medications Medications: Current Medications Acetaminophen (Tylenol 325mg Tab) 650 mg PO Q6 PRN PRN Reason: Pain, Mild (1-3) Last Admin: 03/06/17 09:36 Dose: 650 mg Amoxicillin/Clavulanate Potassium (Augmentin 875 Mg-125 Mg Tab) 1 tab PO Q12 [facility] Last Admin: 03/06/17 22:23 Dose: 1 tab Atorvastatin Calcium (Lipitor) 20 mg PO DIN [facility] Last Admin: 03/06/17 17:23 Dose: 20 mg Demeclocycline HCl (Declomycin) 150 mg PO QID [facility] Last Admin: 03/06/17 22:22 Dose: 150 mg Docusate Sodium (Colace) 100 mg PO DAILY PRN PRN Reason: Constipation Folic Acid (Folic Acid) 1 mg PO DAILY [facility] Last Admin: 03/06/17 09:27 Dose: 1 mg Gabapentin (Neurontin) 300 mg PO HS [facility] Last Admin: 03/06/17 22:23 Dose: 300 mg Guaifenesin/Dextromethorphan (Robitussin Dm) 10 ml PO Q6 PRN PRN Reason: Cough Last Admin: 03/05/17 16:42 Dose: 10 ml Clindamycin Phosphate 600 mg/ (Sodium Chloride) 104 mls @ 104 mls/hr IVPB Q8 [facility] Last Admin: 03/06/17 17:23 Dose: 104 mls/hr Levetiracetam (Keppra) 500 mg PO BID [facility] Last Admin: 03/06/17 17:23 Dose: 500 mg Metoclopramide HCl (Reglan) 10 mg PO Q8 PRN PRN Reason: Nausea/Vomiting Last Admin: 03/02/17 21:11 Dose: 10 mg Multivitamins/Minerals (Therapeutic-M Tab) 1 tab PO DAILY [facility] Last Admin: 03/06/17 09:28 Dose: 1 tab Thiamine HCl (Vitamin B1 Tab) 200 mg PO DAILY [facility] Last Admin: 03/06/17 09:28 Dose: 200 mg - Labs Labs: 03/06/17 08:06 03/06/17 08:06 Assessment and Plan (1) Pneumonia Status: Acute (2) Seizures Status: Acute
[2017-03-07] MEDS: Clindamycin 600 MG in Sodium Chloride 0.9% 100 ML IVPB SCH ×3 (01:10→16:46)
[2017-03-07 08:56] LABS: BASO # 0.1 K/uL (0.0-0.2); BASO % 0.3 % (0.0-2.0); EOS # 0.1 K/uL (0.0-0.7); EOS % 0.4 % (0.0-4.0); HEMATOCRIT 32.3 % (35.0-51.0); LYMPH # 1.1 K/uL (1.0-4.3); LYMPH % 5.8 % (20.0-40.0); MEAN CELL VOLUME 78.1 fl (80.0-94.0); MEAN CORPUSCULAR HGB CONC 33.3 g/dL (33.0-37.0); MEAN PLATELET VOLUME 7.6 fl (7.2-11.7); MONO # 0.8 K/uL (0.0-0.8); MONO % 4.3 % (0.0-10.0); NEUT # 16.5 K/uL (1.8-7.0); NEUT % 89.2 % (50.0-75.0); RED CELL DISTRIBUTION WIDTH 14.4 % (11.5-14.5)
[2017-03-07] MEDS: Multivitamin With Minerals Tab PO SCH (09:06)
[2017-03-07] MEDS: Amoxicillin-Clav 875-125 mg Tab PO SCH ×2 (09:06→22:56)
[2017-03-07 09:15] LABS: WHITE BLOOD COUNT 18.5 K/uL (4.8-10.8)
--- NOTE | 2017-03-07 11:55 | CP.PCM.PN ---
Subjective - Date & Time of Evaluation Date of Evaluation: 03/07/17 Time of Evaluation: 11:55 - Subjective Subjective: ID NOTE ONCE AGAIN I HAVE REVIEWED THE CT SCANS AND THINK THAT THIS IS AN OLD EMPYEMA WHICH HAS WALLED OFF AND MAY PRESENT A PROBLEM IN FUTURE THE PRESENT PROBLEM IS WILL ANTIBIOTICS BE PRODUCTIVE NOW OR IS SURGERY NECESSARY NOW OR IN FUTURE SHOULD DISCUSS C INTERVENTIONAL RADIOLOGY IF A DIAGNOSTIC PROCEDURE CAN BE DONE Objective - Vital Signs/Intake and Output Vital Signs (last 24 hours): Temp Pulse Resp BP Pulse Ox 97.7 F 68 19 125/72 98 03/07/17 09:00 03/07/17 09:00 03/07/17 09:00 03/07/17 09:00 03/07/17 09:00 - Medications Medications: Current Medications Acetaminophen (Tylenol 325mg Tab) 650 mg PO Q6 PRN PRN Reason: Pain, Mild (1-3) Last Admin: 03/06/17 09:36 Dose: 650 mg Amoxicillin/Clavulanate Potassium (Augmentin 875 Mg-125 Mg Tab) 1 tab PO Q12 [facility] Last Admin: 03/07/17 09:06 Dose: 1 tab Atorvastatin Calcium (Lipitor) 20 mg PO DIN [facility] Last Admin: 03/06/17 17:23 Dose: 20 mg Demeclocycline HCl (Declomycin) 150 mg PO QID [facility] Last Admin: 03/07/17 09:06 Dose: 150 mg Docusate Sodium (Colace) 100 mg PO DAILY PRN PRN Reason: Constipation Folic Acid (Folic Acid) 1 mg PO DAILY [facility] Last Admin: 03/07/17 09:07 Dose: 1 mg Gabapentin (Neurontin) 300 mg PO HS [facility] Last Admin: 03/06/17 22:23 Dose: 300 mg Guaifenesin/Dextromethorphan (Robitussin Dm) 10 ml PO Q6 PRN PRN Reason: Cough Last Admin: 03/05/17 16:42 Dose: 10 ml Clindamycin Phosphate 600 mg/ (Sodium Chloride) 104 mls @ 104 mls/hr IVPB Q8 [facility] Last Admin: 03/07/17 09:08 Dose: 104 mls/hr Levetiracetam (Keppra) 500 mg PO BID [facility] Last Admin: 03/07/17 09:07 Dose: 500 mg Metoclopramide HCl (Reglan) 10 mg PO Q8 PRN PRN Reason: Nausea/Vomiting Last Admin: 03/02/17 21:11 Dose: 10 mg Multivitamins/Minerals (Therapeutic-M Tab) 1 tab PO DAILY [facility] Last Admin: 03/07/17 09:06 Dose: 1 tab Thiamine HCl (Vitamin B1 Tab) 200 mg PO DAILY [facility] Last Admin: 03/07/17 09:07 Dose: 200 mg - Labs Labs: 03/07/17 07:30 03/06/17 08:06
--- NOTE | 2017-03-07 14:15 | PN ---
DATE: 03/07/2017 ROOM: 412 This is a 56-year-old male with recent acute pneumonitis and supervening SIADH with euvolemic hyponat remia and is now being followed closely for metabolic management. He received initially normal salin e and was switched over to hypertonic saline because of persistently low serum sodium levels going do wn to 111 mEq per liter as noted. He has since then improved clinically and metabolically as noted t hereof. His latest chemistry showed a BUN of 3, sodium 125, potassium 3.8, chloride 93, CO2 24, gluc ose 89, and creatinine 0.5. So at this time, will continue the same demeclocycline medications given as 150 mg q.i.d. as ordered. Will hold off any more hypertonic saline has he improved biochemically as noted otherwise. As his clinical condition improves, should expect near normalization of his serum sodium levels, as this is expected in the so-called reset osmostat with SIADH. Will obtain serial chemistries and supplement a ccordingly as needed. Will follow. Martina Cantu MD cc: [id number] TT: 03/07/2017 14:13:40 Confirmation # [id number] Dictation # [id number] tapan
--- NOTE | 2017-03-08 00:09 | CP.PCM.PN ---
Subjective - Date & Time of Evaluation Date of Evaluation: 03/07/17 Time of Evaluation: 07:00 - Subjective Subjective: wbc-18.5. Objective - Vital Signs/Intake and Output Vital Signs (last 24 hours): Temp Pulse Resp BP Pulse Ox 98.4 F 73 20 110/67 98 03/08/17 00:06 03/08/17 00:06 03/08/17 00:06 03/08/17 00:06 03/08/17 00:06 Intake and Output: 03/07/17 03/08/17 18:59 06:59 Intake Total 100 Output Total 500 Balance -400 - Medications Medications: Current Medications Acetaminophen (Tylenol 325mg Tab) 650 mg PO Q6 PRN PRN Reason: Pain, Mild (1-3) Last Admin: 03/06/17 09:36 Dose: 650 mg Amoxicillin/Clavulanate Potassium (Augmentin 875 Mg-125 Mg Tab) 1 tab PO Q12 [facility] Last Admin: 03/07/17 22:56 Dose: 1 tab Atorvastatin Calcium (Lipitor) 20 mg PO DIN [facility] Last Admin: 03/07/17 16:46 Dose: 20 mg Demeclocycline HCl (Declomycin) 150 mg PO QID [facility] Last Admin: 03/07/17 22:56 Dose: 150 mg Docusate Sodium (Colace) 100 mg PO DAILY PRN PRN Reason: Constipation Folic Acid (Folic Acid) 1 mg PO DAILY [facility] Last Admin: 03/07/17 09:07 Dose: 1 mg Gabapentin (Neurontin) 300 mg PO HS [facility] Last Admin: 03/07/17 23:27 Dose: 300 mg Guaifenesin/Dextromethorphan (Robitussin Dm) 10 ml PO Q6 PRN PRN Reason: Cough Last Admin: 03/05/17 16:42 Dose: 10 ml Clindamycin Phosphate 600 mg/ (Sodium Chloride) 104 mls @ 104 mls/hr IVPB Q8 [facility] Last Admin: 03/07/17 16:46 Dose: 104 mls/hr Levetiracetam (Keppra) 500 mg PO BID [facility] Last Admin: 03/07/17 16:46 Dose: 500 mg Metoclopramide HCl (Reglan) 10 mg PO Q8 PRN PRN Reason: Nausea/Vomiting Last Admin: 03/02/17 21:11 Dose: 10 mg Multivitamins/Minerals (Therapeutic-M Tab) 1 tab PO DAILY [facility] Last Admin: 03/07/17 09:06 Dose: 1 tab Thiamine HCl (Vitamin B1 Tab) 200 mg PO DAILY [facility] Last Admin: 03/07/17 09:07 Dose: 200 mg - Labs Labs: 03/07/17 07:30 03/06/17 08:06 Assessment and Plan (1) Pneumonia Status: Acute (2) Seizures Status: Acute
[2017-03-08] MEDS: Clindamycin 600 MG in Sodium Chloride 0.9% 100 ML IVPB SCH ×4 (02:05→11:34)
[2017-03-08 08:03] LABS: BASO # 0.3 K/uL (0.0-0.2); BASO % 0.9 % (0.0-2.0); EOS # 0.1 K/uL (0.0-0.7); EOS % 0.2 % (0.0-4.0); HEMATOCRIT 33.1 % (35.0-51.0); LYMPH # 1.4 K/uL (1.0-4.3); LYMPH % 4.8 % (20.0-40.0); MEAN CELL VOLUME 78.9 fl (80.0-94.0); MEAN CORPUSCULAR HEMOGLOBIN 26.2 pg (27.0-31.0); MEAN CORPUSCULAR HGB CONC 33.1 g/dL (33.0-37.0); MEAN PLATELET VOLUME 7.6 fl (7.2-11.7); MONO # 0.9 K/uL (0.0-0.8); MONO % 3.2 % (0.0-10.0); NEUT % 90.9 % (50.0-75.0); PLATELET COUNT 345 K/uL (130-400); RED CELL DISTRIBUTION WIDTH 14.6 % (11.5-14.5); WHITE BLOOD COUNT 29.7 K/uL (4.8-10.8)
[2017-03-08 08:25] LABS: ALB/GLOB RATIO 1.3 (1.0-2.1); ALKALINE PHOSPHATASE 125 U/L (38-126); ALT/SGPT 28 U/L (21-72); AST/SGOT 40 U/L (17-59); BILIRUBIN,TOTAL 0.3 mg/dl (0.2-1.3); BLOOD UREA NITROGEN 4 mg/dl (9-20); CALCIUM 9.2 mg/dL (8.4-10.2); CARBON DIOXIDE 24 mmol/L (22-30); CHLORIDE 87 mmol/L (98-107); GFR AFRICAN-AMERICAN > 60; GLUCOSE,RANDOM 54 mg/dL (75-110); POTASSIUM 4.1 MMOL/L (3.6-5.0); SODIUM 123 mmol/l (132-148); TOTAL PROTEIN 7.2 G/DL (6.3-8.2)
[2017-03-08] MEDS: Amoxicillin-Clav 875-125 mg Tab PO SCH ×2 (09:06→21:45)
[2017-03-08] MEDS: Multivitamin With Minerals Tab PO SCH (09:07)
--- NOTE | 2017-03-08 12:30 | CP.PCM.PN ---
Subjective - Date & Time of Evaluation Date of Evaluation: 03/08/17 Time of Evaluation: 12:27 - Subjective Subjective: Pt is afebrile but the ct scan still shows the pleural effusion which looks like empyema. The white cell were 29 this morning because of the granix.. Will follow. Objective - Vital Signs/Intake and Output Vital Signs (last 24 hours): Temp Pulse Resp BP Pulse Ox 97.9 F 72 18 113/63 98 03/08/17 12:20 03/08/17 12:20 03/08/17 12:20 03/08/17 12:20 03/08/17 12:20 - Medications Medications: Current Medications Acetaminophen (Tylenol 325mg Tab) 650 mg PO Q6 PRN PRN Reason: Pain, Mild (1-3) Last Admin: 03/06/17 09:36 Dose: 650 mg Amoxicillin/Clavulanate Potassium (Augmentin 875 Mg-125 Mg Tab) 1 tab PO Q12 [facility] Last Admin: 03/08/17 09:06 Dose: 1 tab Atorvastatin Calcium (Lipitor) 20 mg PO DIN [facility] Last Admin: 03/07/17 16:46 Dose: 20 mg Clindamycin HCl (Cleocin) 300 mg PO Q8 [facility] Demeclocycline HCl (Declomycin) 300 mg PO TID [facility] Docusate Sodium (Colace) 100 mg PO DAILY PRN PRN Reason: Constipation Folic Acid (Folic Acid) 1 mg PO DAILY [facility] Last Admin: 03/08/17 09:07 Dose: 1 mg Gabapentin (Neurontin) 300 mg PO HS [facility] Last Admin: 03/07/17 23:27 Dose: 300 mg Guaifenesin/Dextromethorphan (Robitussin Dm) 10 ml PO Q6 PRN PRN Reason: Cough Last Admin: 03/05/17 16:42 Dose: 10 ml Levetiracetam (Keppra) 500 mg PO BID [facility] Last Admin: 03/08/17 09:07 Dose: 500 mg Metoclopramide HCl (Reglan) 10 mg PO Q8 PRN PRN Reason: Nausea/Vomiting Last Admin: 03/02/17 21:11 Dose: 10 mg Multivitamins/Minerals (Therapeutic-M Tab) 1 tab PO DAILY [facility] Last Admin: 03/08/17 09:07 Dose: 1 tab Thiamine HCl (Vitamin B1 Tab) 200 mg PO DAILY [facility] Last Admin: 03/08/17 09:08 Dose: 200 mg - Labs Labs: 03/08/17 07:56 03/08/17 07:56
[2017-03-08 12:55] LABS: NEUTROPHIL 90 % (42-75); REACTIVE LYMPHOCYTES 1 % (0-0); TOTAL CELLS COUNTED 100
--- NOTE | 2017-03-08 23:07 | CP.PCM.PN ---
Subjective - Date & Time of Evaluation Date of Evaluation: 03/08/17 Objective - Vital Signs/Intake and Output Vital Signs (last 24 hours): Temp Pulse Resp BP Pulse Ox 97.4 F L 64 20 138/82 100 03/08/17 19:32 03/08/17 19:32 03/08/17 19:32 03/08/17 19:32 03/08/17 19:32 Intake and Output: 03/08/17 03/09/17 18:59 06:59 Intake Total 1100 Output Total 1500 Balance -400 - Medications Medications: Current Medications Acetaminophen (Tylenol 325mg Tab) 650 mg PO Q6 PRN PRN Reason: Pain, Mild (1-3) Last Admin: 03/06/17 09:36 Dose: 650 mg Amoxicillin/Clavulanate Potassium (Augmentin 875 Mg-125 Mg Tab) 1 tab PO Q12 [facility] Last Admin: 03/08/17 21:45 Dose: 1 tab Atorvastatin Calcium (Lipitor) 20 mg PO DIN [facility] Last Admin: 03/08/17 17:00 Dose: 20 mg Clindamycin HCl (Cleocin) 300 mg PO Q8 [facility] Last Admin: 03/08/17 16:59 Dose: 300 mg Demeclocycline HCl (Declomycin) 300 mg PO TID [facility] Last Admin: 03/08/17 17:00 Dose: 300 mg Docusate Sodium (Colace) 100 mg PO DAILY PRN PRN Reason: Constipation Folic Acid (Folic Acid) 1 mg PO DAILY [facility] Last Admin: 03/08/17 09:07 Dose: 1 mg Gabapentin (Neurontin) 300 mg PO HS [facility] Last Admin: 03/08/17 22:46 Dose: 300 mg Guaifenesin/Dextromethorphan (Robitussin Dm) 10 ml PO Q6 PRN PRN Reason: Cough Last Admin: 03/05/17 16:42 Dose: 10 ml Levetiracetam (Keppra) 500 mg PO BID [facility] Last Admin: 03/08/17 17:00 Dose: 500 mg Metoclopramide HCl (Reglan) 10 mg PO Q8 PRN PRN Reason: Nausea/Vomiting Last Admin: 03/02/17 21:11 Dose: 10 mg Multivitamins/Minerals (Therapeutic-M Tab) 1 tab PO DAILY [facility] Last Admin: 03/08/17 09:07 Dose: 1 tab Thiamine HCl (Vitamin B1 Tab) 200 mg PO DAILY [facility] Last Admin: 03/08/17 09:08 Dose: 200 mg - Labs Labs: 03/08/17 07:56 03/08/17 07:56 Assessment and Plan (1) Pneumonia Status: Acute (2) Seizures Status: Acute
--- NOTE | 2017-03-09 08:47 | PN ---
DATE: 03/08/2017 ROOM: 412 This is a 56-year-old male with persistent euvolemic hyponatremia and actually today had a lower seru m sodium as reported in the chemistry report. His latest chemistries today showed a BUN of ____, sod ium 123, potassium 4.1, chloride 97, CO2 of 24, glucose 54 and creatinine 0.6. ____ thyroid study sh owed a T4 of 7.83 with a TSH of 1.90 and a cortisol of 9.5. He is clinically and biochemically euthy roid and ____ at this time. We will modify once again his ____ to a higher dose of 300 mg p.o. t.i.d . to start today. We will titrate incrementally as indicated to optimize metabolic control. We will hold off hypertonic saline for now unless his serum sodium levels go down further as noted. We will obtain serial chemistries and supplement accordingly as needed. We will follow. Martina Cantu MD cc: [id number] TT: 03/08/2017 16:48:34 Confirmation # [id number] Dictation # [id number] sn
[2017-03-09] MEDS: Amoxicillin-Clav 875-125 mg Tab PO SCH ×2 (09:28→20:52)
[2017-03-09] MEDS: Multivitamin With Minerals Tab PO SCH (09:29)
[2017-03-09 11:59] LABS: HEMATOCRIT 33.2 % (35.0-51.0); MEAN CORPUSCULAR HEMOGLOBIN 26.7 pg (27.0-31.0); MEAN CORPUSCULAR HGB CONC 34.3 g/dL (33.0-37.0); RED CELL DISTRIBUTION WIDTH 14.4 % (11.5-14.5); WHITE BLOOD COUNT 12.8 K/uL (4.8-10.8)
[2017-03-09 12:03] LABS: CHLORIDE 85 mmol/L (98-107)
[2017-03-09 12:04] LABS: POTASSIUM 3.7 MMOL/L (3.6-5.0); SODIUM 121 mmol/l (132-148)
[2017-03-09 12:06] LABS: GFR AFRICAN-AMERICAN > 60
[2017-03-09 12:07] LABS: BLOOD UREA NITROGEN 3 mg/dl (9-20); CALCIUM 9.2 mg/dL (8.4-10.2); CARBON DIOXIDE 25 mmol/L (22-30); GLUCOSE,RANDOM 144 mg/dL (75-110)
[2017-03-09] MEDS: Sodium Chloride 0.9% 1,000 ML IV SCH (14:03)
--- NOTE | 2017-03-09 15:25 | PN ---
DATE: 03/09/2017 ROOM: 412 SUBJECTIVE: This is a 56-year-old male with persistent hyponatremia despite the administration of de meclocycline therapy and currently being followed closely for metabolic management. He has ongoing I V antibiotics for management of acute pneumonitis with supervening SIADH and euvolemic hyponatremia. His latest chemistries showed a BUN of 3, sodium 121, potassium 3.7, chloride 85, , glucose 144 , creatinine 0.5. So, at this time, we will initiate normal saline at 75 mL hour and observe his met abolic and biochemical response thereof. We will continue the modified and higher dosing of demecloc ycline given as 300 mg p.o. t.i.d. after meals as noted. We will obtain serial chemistries and suppl ement accordingly as needed. We will follow. Martina Cantu MD cc: [id number] TT: 03/09/2017 15:24:17 Confirmation # [id number] Dictation # [id number] rogelio
--- NOTE | 2017-03-09 23:33 | CP.PCM.PN ---
Subjective - Date & Time of Evaluation Date of Evaluation: 03/09/17 Time of Evaluation: 19:00 - Subjective Subjective: c\o headache,cough. na-121 on NS . Objective - Vital Signs/Intake and Output Vital Signs (last 24 hours): Temp Pulse Resp BP Pulse Ox 97.4 F L 70 18 130/77 100 03/09/17 21:07 03/09/17 19:55 03/09/17 19:55 03/09/17 19:55 03/09/17 19:55 - Medications Medications: Current Medications Acetaminophen (Tylenol 325mg Tab) 650 mg PO Q6 PRN PRN Reason: Pain, Mild (1-3) Last Admin: 03/09/17 21:07 Dose: 650 mg Amoxicillin/Clavulanate Potassium (Augmentin 875 Mg-125 Mg Tab) 1 tab PO Q12 [facility] Last Admin: 03/09/17 20:52 Dose: 1 tab Atorvastatin Calcium (Lipitor) 20 mg PO DIN [facility] Last Admin: 03/09/17 16:35 Dose: 20 mg Clindamycin HCl (Cleocin) 300 mg PO Q8 [facility] Last Admin: 03/09/17 16:35 Dose: 300 mg Demeclocycline HCl (Declomycin) 300 mg PO TID [facility] Last Admin: 03/09/17 16:35 Dose: 300 mg Docusate Sodium (Colace) 100 mg PO DAILY PRN PRN Reason: Constipation Folic Acid (Folic Acid) 1 mg PO DAILY [facility] Last Admin: 03/09/17 09:29 Dose: 1 mg Gabapentin (Neurontin) 300 mg PO HS [facility] Last Admin: 03/09/17 21:08 Dose: 300 mg Guaifenesin/Dextromethorphan (Robitussin Dm) 10 ml PO Q6 PRN PRN Reason: Cough Last Admin: 03/05/17 16:42 Dose: 10 ml Sodium Chloride (Sodium Chloride 0.9%) 1,000 mls @ 75 mls/hr IV .[id number] [facility] Stop: 03/10/17 13:15 Last Admin: 03/09/17 14:03 Dose: 75 mls/hr Levetiracetam (Keppra) 500 mg PO BID [facility] Last Admin: 03/09/17 16:35 Dose: 500 mg Metoclopramide HCl (Reglan) 10 mg PO Q8 PRN PRN Reason: Nausea/Vomiting Last Admin: 03/02/17 21:11 Dose: 10 mg Multivitamins/Minerals (Therapeutic-M Tab) 1 tab PO DAILY [facility] Last Admin: 03/09/17 09:29 Dose: 1 tab Thiamine HCl (Vitamin B1 Tab) 200 mg PO DAILY [facility] Last Admin: 03/09/17 09:29 Dose: 200 mg - Labs Labs: 03/09/17 11:45 03/09/17 11:45 Assessment and Plan (1) Pneumonia Status: Acute (2) Seizures Status: Acute
[2017-03-10] MEDS: Sodium Chloride 0.9% 1,000 ML IV SCH (03:21)
[2017-03-10 08:08] LABS: BLOOD UREA NITROGEN 2 mg/dl (9-20); CALCIUM 9.2 mg/dL (8.4-10.2); CARBON DIOXIDE 25 mmol/L (22-30); CHLORIDE 86 mmol/L (98-107); GFR AFRICAN-AMERICAN > 60; GLUCOSE,RANDOM 73 mg/dL (75-110); POTASSIUM 3.8 MMOL/L (3.6-5.0); SODIUM 121 mmol/l (132-148)
[2017-03-10] MEDS: Amoxicillin-Clav 875-125 mg Tab PO SCH ×2 (09:48→21:53)
[2017-03-10] MEDS: Multivitamin With Minerals Tab PO SCH (09:49)
[2017-03-10] MEDS: Sodium Chloride 3% 500 ML IV SCH ×2 (12:24→23:04)
--- NOTE | 2017-03-10 19:03 | PN ---
DATE: 03/10/2017 ROOM: 412. SUBJECTIVE: This is a 56-year-old male with persistent euvolemic hyponatremia despite normal saline infusion and also demeclocycline medications as given. His latest chemistries today showed a BUN of 2, sodium 121, potassium 3.8, chloride 86, CO2 25, glucose 73 and creatinine 0.5. At this time, we w ill switch him once again to hypertonic saline infusion with 3% sodium chloride running at 50 mL per hour as given. We will continue the demeclocycline at 300 mg p.o. t.i.d. as ordered. We will obtain serial chemistries and supplement accordingly as needed. We will follow and advise accordingly. Martina Cantu MD cc: [id number] TT: 03/10/2017 19:02:26 Confirmation # [id number] Dictation # [id number] mn
[2017-03-11 06:51] LABS: HEMATOCRIT 33.3 % (35.0-51.0); MEAN CELL VOLUME 78.4 fl (80.0-94.0); MEAN CORPUSCULAR HEMOGLOBIN 26.8 pg (27.0-31.0); MEAN CORPUSCULAR HGB CONC 34.2 g/dL (33.0-37.0); RED CELL DISTRIBUTION WIDTH 14.5 % (11.5-14.5); WHITE BLOOD COUNT 2.7 K/uL (4.8-10.8)
[2017-03-11 07:00] LABS: BLOOD UREA NITROGEN 3 mg/dl (9-20); CALCIUM 9.2 mg/dL (8.4-10.2); CARBON DIOXIDE 25 mmol/L (22-30); CHLORIDE 95 mmol/L (98-107); GFR AFRICAN-AMERICAN > 60; GLUCOSE,RANDOM 76 mg/dL (75-110); POTASSIUM 4.1 MMOL/L (3.6-5.0); SODIUM 130 mmol/l (132-148)
[2017-03-11] MEDS: Amoxicillin-Clav 875-125 mg Tab PO SCH (09:17)
[2017-03-11] MEDS: Multivitamin With Minerals Tab PO SCH (09:18)
--- NOTE | 2017-03-11 09:43 | CP.PCM.PN ---
Subjective - Date & Time of Evaluation Date of Evaluation: 03/10/17 Time of Evaluation: 08:00 - Subjective Subjective: still na-low, was on NS .endo on board, likley SIADH DUE TO PENUMONIA . ON ABX RIGHT ARM picc LINE Objective - Vital Signs/Intake and Output Vital Signs (last 24 hours): Temp Pulse Resp BP Pulse Ox 97.7 F 72 18 105/66 99 03/11/17 08:21 03/11/17 08:21 03/11/17 08:21 03/11/17 08:21 03/11/17 08:21 - Medications Medications: Current Medications Acetaminophen (Tylenol 325mg Tab) 650 mg PO Q6 PRN PRN Reason: Pain, Mild (1-3) Last Admin: 03/10/17 16:29 Dose: 650 mg Amoxicillin/Clavulanate Potassium (Augmentin 875 Mg-125 Mg Tab) 1 tab PO Q12 [facility] Last Admin: 03/10/17 21:53 Dose: 1 tab Atorvastatin Calcium (Lipitor) 20 mg PO DIN [facility] Last Admin: 03/10/17 16:23 Dose: 20 mg Clindamycin HCl (Cleocin) 300 mg PO Q8 [facility] Last Admin: 03/11/17 00:14 Dose: 300 mg Demeclocycline HCl (Declomycin) 300 mg PO TID [facility] Last Admin: 03/10/17 16:22 Dose: 300 mg Docusate Sodium (Colace) 100 mg PO DAILY PRN PRN Reason: Constipation Folic Acid (Folic Acid) 1 mg PO DAILY [facility] Last Admin: 03/10/17 09:48 Dose: 1 mg Gabapentin (Neurontin) 300 mg PO HS [facility] Last Admin: 03/10/17 21:53 Dose: 300 mg Guaifenesin/Dextromethorphan (Robitussin Dm) 10 ml PO Q6 PRN PRN Reason: Cough Last Admin: 03/05/17 16:42 Dose: 10 ml Sodium Chloride (Hypertonic Saline 3%) 500 mls @ 50 mls/hr IV .Q10H [facility] Stop: 03/11/17 11:46 Last Admin: 03/10/17 23:04 Dose: 50 mls/hr Levetiracetam (Keppra) 500 mg PO BID [facility] Last Admin: 03/10/17 16:23 Dose: 500 mg Metoclopramide HCl (Reglan) 10 mg PO Q8 PRN PRN Reason: Nausea/Vomiting Last Admin: 03/02/17 21:11 Dose: 10 mg Multivitamins/Minerals (Therapeutic-M Tab) 1 tab PO DAILY [facility] Last Admin: 03/10/17 09:49 Dose: 1 tab Thiamine HCl (Vitamin B1 Tab) 200 mg PO DAILY [facility] Last Admin: 03/10/17 09:49 Dose: 200 mg - Labs Labs: 03/11/17 06:00 03/11/17 06:00 Assessment and Plan (1) Pneumonia Status: Acute (2) Neutropenia Status: Acute (3) Seizures Status: Acute (4) SIADH (syndrome of inappropriate ADH production) Status: Acute - Assessment and Plan (Free Text) Assessment: 1. FOR HYPERTONIC SALINE IR -to lokk for empyema chronic neutropenia- BM biopsy etc labs in am
--- NOTE | 2017-03-11 14:14 | CP.PCM.PCO ---
Assessment/Plan - Assessment and Plan (Free Text) Plan: Patient seen and examined, hemodynamically stable, afebrile. Patient for dc today , NA [address] Cantu, patient to continue demeclocycline 300mg [id number] and follow up at the clinic. Discussed ct scan results with IR-Dr Talavera no evidence of empyema, rather old calcifications. Will let Dr Katz (ID) know. Continue PO abx and follow up in the clinic. All the above discussed with Dr Ro.
[2017-03-11 16:16] VITALS: BP 125/83; PULSE 67; RESP 20; TEMP 98.2; O2SAT 98
--- NOTE | 2017-03-12 09:02 | PN ---
DATE: 03/11/2017 A 56-year-old male with euvolemic SIADH hypertonic saline infusion because of markedly lo w serum sodium level despite normal saline infusion and demeclocycline . At this time, his lates t chemistries showed a BUN of , sodium 130, potassium 4.1, chloride 97, CO2 , glucose and creatinine . So at this time, recommend scheduled for discharge, would recomme nd demeclocycline given as 300 mg every 8 hours at least following 1 week, i.e. 7 days, a nd then repeat follow serum sodium levels and may taper down accordingly as indicated. We will follow with you. Martina Cantu MD cc: [id number] TT: 03/11/2017 17:55:08 Confirmation # [id number] Dictation # [id number]
== END 2017-03-11 17:55 | disposition home or self-care (01) | DRG 89 ==
LOC: H.ER 05:38 → H.EROBSV 08:26 → OBSVTOIN 08:26 → H.ERHOLD 16:33 → H.TEL 18:52
PROVIDERS: ADMIT Internal Medicine; ATTEND Internal Medicine
PROC: 3E0F7GC Introduction of Other Therapeutic Substance into Respiratory Tract, Via Natural or Artificial Opening (ICD-10-PCS; principal; 2017-02-26)
PROC: 02HV33Z Insertion of Infusion Device into Superior Vena Cava, Percutaneous Approach (ICD-10-PCS; 2017-03-01)
PROC: B518ZZA Fluoroscopy of Superior Vena Cava, Guidance (ICD-10-PCS; 2017-03-01)
PROC: B548ZZA Ultrasonography of Superior Vena Cava, Guidance (ICD-10-PCS; 2017-03-01)
DX: J18.9 Pneumonia, unspecified organism (principal); E87.1 Hypo-osmolality and hyponatremia; E22.2 Syndrome of inappropriate secretion of antidiuretic hormone; D70.3 Neutropenia due to infection; N39.0 Urinary tract infection, site not specified; I10 Essential (primary) hypertension; G40.909 Epilepsy, unspecified, not intractable, without status epilepticus; Z59.0 Homelessness; E78.00 Pure hypercholesterolemia, unspecified; Z91.14 Patient's other noncompliance with medication regimen; Z87.891 Personal history of nicotine dependence; E78.5 Hyperlipidemia, unspecified

== ENCOUNTER 2017-03-15 06:16 | Emergency (ER) | payer OTHER ==
[2017-03-15 06:16] VITALS: BMI 22.3
[2017-03-15 06:24] VITALS: RESP 16; TEMP 98.2; O2SAT 100
[2017-03-15] MEDS ORDERED: Sodium Chloride 0.9% 1,000 ML IV STA (07:04)
--- NOTE | 2017-03-15 07:07 | ED PDOC ---
Syncope/Near Syncope/Dizzyness Time Seen by Provider: 03/15/17 07:00 Chief Complaint (Nursing): Dizziness/Lightheaded History Per: Patient (Dizziness assoc with nausea x 3 days. No vomiting. Has also had diarrhea. denies abd pain. No fever. Recently dc'ed after dx of pneumonia.) Onset/Duration Of Symptoms: Days (3) Current Symptoms Are (Timing): Intermittent Episodes Activity At Onset Of Symptoms: Change In Head Position Associated Symptoms Preceding Syncopal Episode: No Predromal Symptoms (Sudden Onset) Seizure Or Post-ictal Symptoms: None Fall Associated With With Symptoms: No Severity: Mild Past Medical History Vital Signs: Last Vital Signs Temp 98.2 F 03/15/17 06:22 Pulse 92 H 03/15/17 06:22 Resp 16 03/15/17 06:22 BP 146/89 03/15/17 06:22 Pulse Ox 100 03/15/17 06:22 - Medical History PMH: HTN, Hypercholesterolemia, Seizures Denies: HIV, Chronic Kidney Disease - Family History Family History: States: Unknown Family Hx - Immunization History Hx Tetanus Toxoid Vaccination: No Hx Influenza Vaccination: No Hx Pneumococcal Vaccination: No - Home Medications Home Medications: Ambulatory Orders Medication Instructions Recorded Atorvastatin [Lipitor] 20 mg PO DIN #14 tab 02/01/17 Folic Acid 1 mg PO DAILY #14 tab 02/01/17 Gabapentin [Neurontin] 300 mg PO HS #14 cap 02/01/17 Multivitamin Therapeutic Tab 1 tab PO DAILY #14 tab 02/01/17 [Thera Tab] Thiamine [Vitamin B1 Tab] 200 mg PO DAILY #14 tab 02/01/17 levETIRAcetam [Keppra] 500 mg PO BID #28 tab 02/01/17 Amoxicillin/Clavulanate [Augmentin 1 tab PO Q12 #14 tab 03/05/17 875 MG-125 MG] Clindamycin [Cleocin] 600 mg PO Q8 #30 03/05/17 Meclizine [Meclizine*] 25 mg PO Q8 #15 tab 03/15/17 - Allergies Allergies/Adverse Reactions: Allergies Allergy/AdvReac Type Severity Reaction Status Date / Time No Known Allergies Allergy Verified 01/27/17 18:37 Review of Systems ROS Statement: Except As Marked, All Systems Reviewed And Found Negative Cardiovascular: Negative for: Chest Pain, Palpitations Respiratory: Negative for: Shortness of Breath Gastrointestinal: Positive for: Nausea, Diarrhea Neurological: Positive for: Dizziness Physical Exam - Reviewed Nursing Documentation Reviewed: Yes Vital Signs Reviewed: Yes - Physical Exam Appears: Positive for: Non-toxic, No Acute Distress Head Exam: Positive for: ATRAUMATIC, NORMAL INSPECTION, NORMOCEPHALIC Skin: Positive for: Normal Color, Warm, DRY Eye Exam: Positive for: EOMI, Normal appearance, PERRL ENT: Positive for: Normal ENT Inspection Neck: Positive for: Normal, Painless ROM Cardiovascular/Chest: Positive for: Regular Rate, Rhythm Respiratory: Positive for: CNT, Normal Breath Sounds Gastrointestinal/Abdominal: Positive for: Normal Exam, Bowel Sounds, Soft Back: Positive for: Normal Inspection Extremity: Positive for: Normal ROM Neurologic/Psych: Positive for: Alert, Oriented - Laboratory Results Result Diagrams: 03/15/17 07:45 03/15/17 07:45 - ECG O2 Sat by Pulse Oximetry: 100 Disposition - Clinical Impression Clinical Impression: Vertigo - Patient ED Disposition Is Patient to be Admitted: No Counseled Patient/Family Regarding: Studies Performed, Diagnosis, Need For Followup, Rx Given - Disposition Referrals: [facility] [Outside] Disposition: Routine/Home Disposition Time: 08:36 Condition: FAIR Prescriptions: Meclizine [Meclizine*] 25 mg PO Q8 #15 tab Instructions: Vertigo (ED)
[2017-03-15 08:04] LABS: EOS % 1.1 % (0.0-4.0); HEMATOCRIT 34.4 % (35.0-51.0); MEAN CELL VOLUME 79.8 fl (80.0-94.0); MEAN CORPUSCULAR HEMOGLOBIN 26.6 pg (27.0-31.0); MEAN CORPUSCULAR HGB CONC 33.3 g/dL (33.0-37.0); MEAN PLATELET VOLUME 6.9 fl (7.2-11.7); MONO # 0.6 K/uL (0.0-0.8); MONO % 16.4 % (0.0-10.0); NEUT # 1.8 K/uL (1.8-7.0); NEUT % 53.5 % (50.0-75.0); NRBC % 0.1 % (0.0-0.0); RED CELL DISTRIBUTION WIDTH 15.1 % (11.5-14.5); WHITE BLOOD COUNT 3.4 K/uL (4.8-10.8)
[2017-03-15 08:13] LABS: ALB/GLOB RATIO 1.4 (1.0-2.1); ALKALINE PHOSPHATASE 124 U/L (38-126); ALT/SGPT 27 U/L (21-72); AST/SGOT 35 U/L (17-59); CARBON DIOXIDE 26 mmol/L (22-30); CHLORIDE 95 mmol/L (98-107); GFR AFRICAN-AMERICAN > 60; GLUCOSE,RANDOM 102 mg/dL (75-110); POTASSIUM 4.1 MMOL/L (3.6-5.0); SODIUM 132 mmol/l (132-148); TOTAL PROTEIN 8.1 G/DL (6.3-8.2)
[2017-03-15 08:14] LABS: BLOOD UREA NITROGEN 2 mg/dl (9-20)
[2017-03-15 09:31] VITALS: BP 127/72; PULSE 70
--- NOTE | 2017-03-15 10:54 | CARD ---
APPROVED REPORT EKG Measurement Heart [id number] <Conclusion> Normal sinus rhythm Normal ECG
== END 2017-03-15 09:30 | disposition home or self-care (01) ==
LOC: H.ER 06:16
DX: R42 Dizziness and giddiness (principal); I10 Essential (primary) hypertension; E78.00 Pure hypercholesterolemia, unspecified

== ENCOUNTER 2017-03-20 11:06 | Emergency (ER) | payer OTHER ==
[2017-03-20 11:07] VITALS: BMI 22.3
[2017-03-20 11:47] VITALS: BP 127/87; PULSE 98; RESP 18; TEMP 98.2; O2SAT 100
--- NOTE | 2017-03-20 12:09 | ED PDOC ---
HPI: Seizure Time Seen by Provider: 03/20/17 11:51 Chief Complaint (Nursing): Seizure Chief Complaint (Provider): seizure History Per: Patient, EMS History/Exam Limitations: no limitations Recent Seizure Activity Began: Just Before Arrival Number Of Seizures: One Length Of Seizures (Duration): Unknown Quality Of Seizure: Generalized Precipitating Factor(s): Other (not that the pt can recall) Post-ictal Period: No Additional Complaint(s): 56yo Yo M homeless, living in [facility] with hx of seizures, has not been complaints with Keppra Rx due to lack of Money was picked up from [facility] for seizure like activity. was seen having a full body seizure and injuring head on fall-sustained laceration and swelling to forehead and above right eye. pt now c /o WEST 8/ without dizziness nausea or vomiting. denies weakness or numbness in UE/LE, change in speech/gait. was was hospitilized in February 2017 for PNA and seziure activity. Past Medical History Reviewed: Historical Data, Nursing Documentation, Vital Signs Vital Signs: Last Vital Signs Temp 98.2 F 03/20/17 11:25 Pulse 98 H 03/20/17 11:25 Resp 18 03/20/17 11:25 BP 127/87 03/20/17 11:25 Pulse Ox 100 03/20/17 12:11 - Medical History PMH: HTN, Hypercholesterolemia, Seizures Denies: HIV, Chronic Kidney Disease - Family History Family History: States: Unknown Family Hx - Immunization History Hx Tetanus Toxoid Vaccination: No Hx Influenza Vaccination: No Hx Pneumococcal Vaccination: No - Home Medications Home Medications: Ambulatory Orders Medication Instructions Recorded Atorvastatin [Lipitor] 20 mg PO DIN #14 tab 02/01/17 Folic Acid 1 mg PO DAILY #14 tab 02/01/17 Gabapentin [Neurontin] 300 mg PO HS #14 cap 02/01/17 Multivitamin Therapeutic Tab 1 tab PO DAILY #14 tab 02/01/17 [Thera Tab] Thiamine [Vitamin B1 Tab] 200 mg PO DAILY #14 tab 02/01/17 levETIRAcetam [Keppra] 500 mg PO BID #28 tab 02/01/17 Amoxicillin/Clavulanate [Augmentin 1 tab PO Q12 #14 tab 03/05/17 875 MG-125 MG] Clindamycin [Cleocin] 600 mg PO Q8 #30 03/05/17 Meclizine [Meclizine*] 25 mg PO Q8 #15 tab 03/15/17 - Allergies Allergies/Adverse Reactions: Allergies Allergy/AdvReac Type Severity Reaction Status Date / Time No Known Allergies Allergy Verified 03/20/17 11:24 Review of Systems ROS Statement: Except As Marked, All Systems Reviewed And Found Negative Constitutional: Negative for: Weakness, Malaise, Weight loss ENT: Negative for: Ear Pain, Ear Discharge Cardiovascular: Negative for: Chest Pain, Palpitations Gastrointestinal: Negative for: Nausea, Vomiting Skin: Positive for: Lesions Neurological: Positive for: Headache Physical Exam - Reviewed Nursing Documentation Reviewed: Yes Vital Signs Reviewed: Yes - Physical Exam Appears: Positive for: Non-toxic, No Acute Distress Head Exam: Positive for: NORMAL INSPECTION, NORMOCEPHALIC. Negative for: ATRAUMATIC (laceration to forehead lineaer partial to superfical 2cm no activie bleeding good wound edges. hematoma noted above right eyebrow and perioribital tednereness and swelling. no nasal bone swelling. ) Skin: Positive for: Normal Color, Warm, DRY Eye Exam: Positive for: EOMI, Normal appearance, PERRL ENT: Positive for: Normal ENT Inspection Cardiovascular/Chest: Positive for: Regular Rate, Rhythm Respiratory: Positive for: CNT, Normal Breath Sounds Back: Positive for: Normal Inspection Extremity: Positive for: Normal ROM Neurologic/Psych: Positive for: Alert, audiovisual technician II-XII (intact), Oriented, Cerebellar Tests (intact), Gait (stable). Negative for: Motor/Sensory Deficits - ECG O2 Sat by Pulse Oximetry: 100 - Progress ED Course And Treament: laceration irrigated with 50cc of NS, dermabond used case discussed with MD Trish suggests CT scan due to head injury. Medical Decision Making Medical Decision Making: negative CT scan of face/head. laceration repaired. Pt observed in ED for >2hrs and without seizure like activity, AAOx3 PT stable for d/c at this time, and given [facility] for Rx and monitoring. Disposition - Clinical Impression Clinical Impression: Seizures, Laceration - Patient ED Disposition Is Patient to be Admitted: No Counseled Patient/Family Regarding: Studies Performed, Diagnosis, Need For Followup - Disposition Referrals: [facility] [Outside] Disposition: Routine/Home Disposition Time: 13:36 Condition: STABLE Instructions: Epilepsy (ED)
--- NOTE | 2017-03-20 13:07 | CT ---
PROCEDURE: CT HEAD WITHOUT CONTRAST. HISTORY: head injury, hx of etoh/seziures,severe WEST diffuse COMPARISON: 02/24/2017. TECHNIQUE: Axial computed tomography images were obtained through the head/brain without intravenous contrast. Radiation dose: Total exam DLP = 971.56 mGy-cm. This CT exam was performed using one or more of the following dose reduction techniques: Automated exposure control, adjustment of the mA and/or kV according to patient size, and/or use of iterative reconstruction technique. FINDINGS: HEMORRHAGE: No intracranial hemorrhage. BRAIN: No mass effect or edema. No atrophy or chronic microvascular ischemic changes.No CT evidence of acute territorial infarct. VENTRICLES: Unremarkable. No hydrocephalus. CALVARIUM: Unremarkable. PARANASAL SINUSES: Unremarkable as visualized. No significant inflammatory changes. MASTOID AIR CELLS: Unremarkable as visualized. No inflammatory changes. OTHER FINDINGS: Right anterior soft tissue swelling with punctate foci of air. Mild left supraorbital soft tissue swelling IMPRESSION: No CT evidence of acute intracranial hemorrhage or acute territorial infarct. Acute infarction may be CT occult within first 24 hours. If a focal deficit persists, consider followup CT or MRI for further evaluation. Right anterior soft tissue swelling with punctate foci of air. Mild left supraorbital soft tissue swelling. Followup can be obtained as per clinical indications.
--- NOTE | 2017-03-20 13:16 | CT ---
PROCEDURE: CT MAXILLOFACIAL BONES WITHOUT CONTRAST HISTORY: left sided oribital swelling/pain fall injury COMPARISON: None TECHNIQUE: Contiguous axial CT images of the maxillofacial bones were obtained. Coronal and sagittal reformats were generated. Radiation dose: Total exam DLP = 699.77 mGy-cm. This CT exam was performed using one or more of the following dose reduction techniques: Automated exposure control, adjustment of the mA and/or kV according to patient size, and/or use of iterative reconstruction technique. FINDINGS: NASAL BONES: Old fractures of the nasal bones. ORBITS: Unremarkable. PARANASAL SINUSES/ MASTOIDS: Clear. MAXILLA: Unremarkable. MANDIBLE/ TEMPOROMANDIBULAR JOINTS: Unremarkable. SKULL BASE: Unremarkable. TEMPORAL BONES: Middle ears and mastoid grossly unremarkable. OTHER FINDINGS: Old fractures of the zygomatic arches. Degenerative changes of the upper cervical spine with extensive facet hypertrophy. Vascular calcifications. IMPRESSION: No acute fracture. Chronic fractures as above.
== END 2017-03-20 15:32 | disposition home or self-care (01) ==
LOC: H.ER 11:06
DX: R56.9 Unspecified convulsions (principal); S09.90XA Unspecified injury of head, initial encounter; S01.81XA Laceration without foreign body of other part of head, initial encounter; W19.XXXA Unspecified fall, initial encounter; Y92.89 Other specified places as the place of occurrence of the external cause; E78.00 Pure hypercholesterolemia, unspecified; I10 Essential (primary) hypertension

== ENCOUNTER 2017-03-26 22:17 | Emergency (ER) | payer OTHER ==
[2017-03-26 22:17] VITALS: BMI 22.3
[2017-03-26 22:35] VITALS: BP 137/76; PULSE 108; RESP 16; TEMP 98; O2SAT 98
[2017-03-26] MEDS ORDERED: Naproxen 500 MG TAB PO STA (23:16)
[2017-03-26] MEDS ORDERED: Naproxen 500 MG TAB PO ONE (23:17)
--- NOTE | 2017-03-26 23:22 | ED PDOC ---
HPI: Back Time Seen by Provider: 03/26/17 22:37 Chief Complaint (Nursing): Back Pain Chief Complaint (Provider): Back pain, anxiety History Per: Patient History/Exam Limitations: no limitations Quality Of Discomfort: Dull Severity: Moderate Pain Scale Rating Of: 6 Previous Symptoms: Back Pain Additional Complaint(s): Pt reports history of back pain. Pt also states he is stressed and has been given medication for stress in the past in the ER. Past Medical History Reviewed: Historical Data, Nursing Documentation, Vital Signs Vital Signs: Last Vital Signs Temp 98 F 03/26/17 22:33 Pulse 108 H 03/26/17 22:33 Resp 16 03/26/17 22:33 BP 137/76 03/26/17 22:33 Pulse Ox 98 03/26/17 22:33 - Medical History PMH: HTN, Hypercholesterolemia, Seizures Denies: HIV, Chronic Kidney Disease - Surgical History Surgical History: No Surg Hx - Family History Family History: States: Unknown Family Hx - Living Arrangements Living Arrangements: Other - Social History Current smoker - smoking cessation education provided: Yes Alcohol: Occasional Drugs: Denies - Immunization History Hx Tetanus Toxoid Vaccination: No Hx Influenza Vaccination: No Hx Pneumococcal Vaccination: No - Home Medications Home Medications: Ambulatory Orders Medication Instructions Recorded Atorvastatin [Lipitor] 20 mg PO DIN #14 tab 02/01/17 Folic Acid 1 mg PO DAILY #14 tab 02/01/17 Gabapentin [Neurontin] 300 mg PO HS #14 cap 02/01/17 Multivitamin Therapeutic Tab 1 tab PO DAILY #14 tab 02/01/17 [Thera Tab] Thiamine [Vitamin B1 Tab] 200 mg PO DAILY #14 tab 02/01/17 levETIRAcetam [Keppra] 500 mg PO BID #28 tab 02/01/17 Amoxicillin/Clavulanate [Augmentin 1 tab PO Q12 #14 tab 03/05/17 875 MG-125 MG] Clindamycin [Cleocin] 600 mg PO Q8 #30 03/05/17 Meclizine [Meclizine*] 25 mg PO Q8 #15 tab 03/15/17 - Allergies Allergies/Adverse Reactions: Allergies Allergy/AdvReac Type Severity Reaction Status Date / Time No Known Allergies Allergy Verified 03/20/17 11:24 Review of Systems ROS Statement: Except As Marked, All Systems Reviewed And Found Negative Musculoskeletal: Positive for: Back Pain Physical Exam - Reviewed Nursing Documentation Reviewed: Yes Vital Signs Reviewed: Yes - Physical Exam Appears: Positive for: Well, Non-toxic, No Acute Distress Head Exam: Positive for: ATRAUMATIC, NORMAL INSPECTION, NORMOCEPHALIC Skin: Positive for: Normal Color, Warm, DRY Eye Exam: Positive for: Normal appearance, EOMI, PERRL ENT: Positive for: Normal ENT Inspection Neck: Positive for: Normal, Painless ROM Cardiovascular/Chest: Positive for: Regular Rate, Rhythm Respiratory: Positive for: CNT, Normal Breath Sounds Gastrointestinal/Abdominal: Positive for: Normal Exam, Bowel Sounds, Soft Back: Positive for: Normal Inspection Extremity: Positive for: Normal ROM Neurologic/Psych: Positive for: Alert, Oriented - ECG O2 Sat by Pulse Oximetry: 98 Disposition - Clinical Impression Clinical Impression: Back pain, Anxiety - Patient ED Disposition Is Patient to be Admitted: No Counseled Patient/Family Regarding: Diagnosis, Need For Followup - Disposition Referrals: [facility] [Outside] Disposition: Routine/Home Disposition Time: 23:30 Condition: GOOD Instructions: Acute Low Back Pain (ED)
== END 2017-03-26 23:40 | disposition home or self-care (01) ==
LOC: H.ER 22:17
DX: M54.5 Low back pain (principal)

== ENCOUNTER 2017-03-27 01:37 | Emergency (ER) | payer OTHER ==
[2017-03-27 01:38] VITALS: BMI 22.3
[2017-03-27 01:43] VITALS: BP 128/76; PULSE 68; RESP 18; TEMP 98; O2SAT 98
== END 2017-03-27 01:45 | disposition left against medical advice (07) ==
LOC: H.ER 01:37
DX: Z02.89 Encounter for other administrative examinations (principal)

== ENCOUNTER 2017-03-27 03:26 | Emergency (ER) | payer OTHER ==
[2017-03-27 03:27] VITALS: BMI 22.3
--- NOTE | 2017-03-27 03:35 | ED PDOC ---
HPI: General Adult Time Seen by Provider: 03/27/17 03:33 Chief Complaint (Provider): eval History Per: Patient, EMS Additional Complaint(s): Patient arrives via ambulance requesting place to rest. He initially told EMS that he sustained left arm injury but upon arrival he denies any injury to triage nurse. Patient states he just needs a place to rest as he was not allowed back in the senior living this evening due to his "bad attitude." Patient denies any etoh or drug use this evening. Past Medical History Reviewed: Historical Data, Nursing Documentation, Vital Signs - Medical History PMH: HTN, Hypercholesterolemia, Seizures - Family History Family History: States: No Known Family Hx - Living Arrangements Living Arrangements: Other (undomiciled) - Social History Current smoker - smoking cessation education provided: Yes - Home Medications Home Medications: Ambulatory Orders Medication Instructions Recorded Atorvastatin [Lipitor] 20 mg PO DIN #14 tab 02/01/17 Folic Acid 1 mg PO DAILY #14 tab 02/01/17 Gabapentin [Neurontin] 300 mg PO HS #14 cap 02/01/17 Multivitamin Therapeutic Tab 1 tab PO DAILY #14 tab 02/01/17 [Thera Tab] Thiamine [Vitamin B1 Tab] 200 mg PO DAILY #14 tab 02/01/17 levETIRAcetam [Keppra] 500 mg PO BID #28 tab 02/01/17 Amoxicillin/Clavulanate [Augmentin 1 tab PO Q12 #14 tab 03/05/17 875 MG-125 MG] Clindamycin [Cleocin] 600 mg PO Q8 #30 03/05/17 Meclizine [Meclizine*] 25 mg PO Q8 #15 tab 03/15/17 - Allergies Allergies/Adverse Reactions: Allergies Allergy/AdvReac Type Severity Reaction Status Date / Time No Known Allergies Allergy Verified 03/20/17 11:24 Review of Systems ROS Statement: Except As Marked, All Systems Reviewed And Found Negative Constitutional: Negative for: Fever Cardiovascular: Negative for: Chest Pain Psych: Negative for: Suicidal ideation Physical Exam - Reviewed Nursing Documentation Reviewed: Yes Vital Signs Reviewed: Yes - Physical Exam Appears: Positive for: Well, Non-toxic, No Acute Distress Skin: Negative for: Rash Eye Exam: Positive for: Normal appearance Cardiovascular/Chest: Positive for: Regular Rate, Rhythm Respiratory: Positive for: Normal Breath Sounds Neurologic/Psych: Positive for: Alert, Oriented - ECG O2 Sat by Pulse Oximetry: 98 Pulse Ox Interpretation: Normal Medical Decision Making Medical Decision Making: Patient arrives in stable condition via ambulance. He is ambulatory with steady gait and offers no acute complaints. Patient requires no acute intervention at this time and is stable for discharge. Disposition - Clinical Impression Clinical Impression: Normal exam - Patient ED Disposition Is Patient to be Admitted: No Counseled Patient/Family Regarding: Diagnosis, Need For Followup - Disposition Referrals: [facility] [Outside] Disposition: Routine/Home Disposition Time: 03:33 Condition: FAIR Instructions: Normal Exam (ED)
[2017-03-27 03:36] VITALS: BP 126/72; PULSE 70; RESP 18; TEMP 98; O2SAT 98
== END 2017-03-27 03:36 | disposition home or self-care (01) ==
LOC: H.ER 03:26
DX: Z76.5 Malingerer [conscious simulation] (principal); F17.200 Nicotine dependence, unspecified, uncomplicated

== ENCOUNTER 2017-03-31 04:31 | Emergency (ER) | payer OTHER ==
[2017-03-31 04:31] VITALS: BMI 22.3
[2017-03-31] MEDS: Sodium Chloride 0.9% 1,000 ML IV STA (06:45)
--- NOTE | 2017-03-31 06:49 | CT ---
EXAM: CT Head Without Intravenous Contrast CLINICAL HISTORY: 56 years old, male; Injury or trauma; Fall; Initial encounter; Blunt trauma (contusions or hematomas); Additional info: Intox w/ head trauma TECHNIQUE: Axial computed tomography images of the head/brain without intravenous contrast. This CT exam was performed using one or more of the following dose reduction techniques: automated exposure control, adjustment of the mA and/or kV according to patient size, and/or use of iterative reconstruction technique. Coronal and sagittal reformatted images were created and reviewed. EXAM DATE/TIME: 03/31/2017 6:07 AM COMPARISON: CT - HEAD W/O CONTRAST 03/20/2017 12:13:36 PM FINDINGS: Brain: Cerebellar and cerebral atrophy. Bilateral basal ganglia calcifications. No hemorrhage. No significant white matter disease. No edema. Ventricles: Unremarkable. No ventriculomegaly. Bones/joints: Unremarkable. No acute fracture. Soft tissues: Soft tissue swelling right frontal and periorbital region. Two 1-2 mm radiopacities within right supraorbital soft tissue. Sinuses: Unremarkable as visualized. No acute sinusitis. Mastoid air cells: Unremarkable as visualized. No mastoid effusion. IMPRESSION: 1. No acute cerebral hemorrhage or edema. 2. Right frontal soft tissue swelling, probable foreign bodies, correlate clinically.
--- NOTE | 2017-03-31 06:58 | ED PDOC ---
HPI: Psych/Substance Abuse Time Seen by Provider: 03/31/17 05:00 Chief Complaint (Nursing): Alcohol Ingestion Chief Complaint (Provider): Alcohol Ingestion ED Caveat: Intoxicated History Per: Patient History/Exam Limitations: no limitations Current Symptoms Are (Timing): Still Present Suicide/Self Injury Attempted (Context): None Modifying Factor(s): Alcohol Additional Complaint(s): 56 year old male coming [facility] presents to ED with complaints of alcohol intoxication. Patient states that she drank beer today and fell x2 days ago, (+ ) head injury. Notes that he is noncompliant with prescription for Dilantin, and takes "pain pills" for stomach pain. PCP: Non [facility] Past Medical History Reviewed: Historical Data, Nursing Documentation, Vital Signs Vital Signs: Last Vital Signs Temp 97.6 F 03/31/17 04:44 Pulse 125 H 03/31/17 04:44 Resp 18 03/31/17 04:44 BP 146/93 H 03/31/17 04:44 Pulse Ox 97 03/31/17 04:44 - Medical History PMH: HTN, Hypercholesterolemia, Seizures Denies: HIV, Chronic Kidney Disease - Family History Family History: States: Unknown Family Hx - Immunization History Hx Tetanus Toxoid Vaccination: No Hx Influenza Vaccination: No Hx Pneumococcal Vaccination: No - Home Medications Home Medications: Ambulatory Orders Medication Instructions Recorded Atorvastatin [Lipitor] 20 mg PO DIN #14 tab 02/01/17 Folic Acid 1 mg PO DAILY #14 tab 02/01/17 Gabapentin [Neurontin] 300 mg PO HS #14 cap 02/01/17 Multivitamin Therapeutic Tab 1 tab PO DAILY #14 tab 02/01/17 [Thera Tab] Thiamine [Vitamin B1 Tab] 200 mg PO DAILY #14 tab 02/01/17 levETIRAcetam [Keppra] 500 mg PO BID #28 tab 02/01/17 Amoxicillin/Clavulanate [Augmentin 1 tab PO Q12 #14 tab 03/05/17 875 MG-125 MG] Clindamycin [Cleocin] 600 mg PO Q8 #30 03/05/17 Meclizine [Meclizine*] 25 mg PO Q8 #15 tab 03/15/17 - Allergies Allergies/Adverse Reactions: Allergies Allergy/AdvReac Type Severity Reaction Status Date / Time No Known Allergies Allergy Verified 03/20/17 11:24 Review of Systems ROS Statement: Except As Marked, All Systems Reviewed And Found Negative Gastrointestinal: Positive for: Abdominal Pain Musculoskeletal: Positive for: Other (Head injury) Physical Exam - Reviewed Nursing Documentation Reviewed: Yes Vital Signs Reviewed: Yes - Physical Exam Appears: Positive for: Non-toxic, No Acute Distress Head Exam: Positive for: NORMOCEPHALIC. Negative for: ATRAUMATIC (healing abrasion and swelling to right eyebrow) Skin: Positive for: Normal Color Eye Exam: Positive for: Normal appearance Cardiovascular/Chest: Positive for: Regular Rate, Rhythm, Tachycardia. Negative for: Murmur Respiratory: Positive for: Normal Breath Sounds. Negative for: Respiratory Distress Extremity: Positive for: Normal ROM, Other (multiple abrasions of bilateral extremities). Negative for: Deformity Neurologic/Psych: Positive for: Alert (drowsy), Oriented. Negative for: Motor/ Sensory Deficits - ECG O2 Sat by Pulse Oximetry: 97 (RA) Pulse Ox Interpretation: Normal Medical Decision Making Medical Decision Makin Initial impression: head trauma Initial plan: * CT HEAD * EKG * Acetaminophen * EtOH serum * Labs * UDrug screen * Salicylate * NS IV * UA [address] Steward pending bloodwork. Scribe Attestation: Documented by Danielle Niño acting as a scribe for Jay Shaw MD. Scribe Attestation: All medical record entries made by the Scribe were at my direction and personally dictated by me. I have reviewed the chart and agree that the record accurately reflects my personal performance of the history, physical exam, medical decision making, and the department course for this patient. I have also personally directed, reviewed, and agree with the discharge instructions and disposition. Disposition - Clinical Impression Clinical Impression: Alcohol abuse - Disposition Disposition: Transfer of Care Disposition Time: 07:00 Condition: STABLE Patient Signed Over To: Merlin Steward Handoff Comments: Pending sobriety
[2017-03-31 07:02] LABS: ALCOHOL SERUM 249 mg/dl (0-10); BLOOD UREA NITROGEN 9 mg/dl (9-20); CALCIUM 9.1 mg/dL (8.4-10.2); CARBON DIOXIDE 21 mmol/L (22-30); CHLORIDE 104 mmol/L (98-107); GFR AFRICAN-AMERICAN > 60; GLUCOSE,RANDOM 83 mg/dL (75-110); SODIUM 143 mmol/l (132-148)
[2017-03-31 07:21] LABS: BASO # 0.1 K/uL (0.0-0.2); BASO % 3.4 % (0.0-2.0); EOS % 1.2 % (0.0-4.0); HEMATOCRIT 33.7 % (35.0-51.0); LYMPH # 0.8 K/uL (1.0-4.3); LYMPH % 43.5 % (20.0-40.0); MEAN CELL VOLUME 81.1 fl (80.0-94.0); MEAN CORPUSCULAR HEMOGLOBIN 26.2 pg (27.0-31.0); MEAN CORPUSCULAR HGB CONC 32.2 g/dL (33.0-37.0); MEAN PLATELET VOLUME 7.1 fl (7.2-11.7); MONO # 0.3 K/uL (0.0-0.8); MONO % 15.6 % (0.0-10.0); NEUT # 0.7 K/uL (1.8-7.0); NEUT % 36.3 % (50.0-75.0); NRBC % 0.3 % (0.0-0.0); PLATELET COUNT 259 K/uL (130-400); RED CELL DISTRIBUTION WIDTH 15.8 % (11.5-14.5)
[2017-03-31 07:30] LABS: WHITE BLOOD COUNT 1.9 K/uL (4.8-10.8)
[2017-03-31 07:40] VITALS: PULSE 73; RESP 17; O2SAT 99
[2017-03-31 07:51] LABS: POTASSIUM 4.5 MMOL/L (3.6-5.0)
--- NOTE | 2017-03-31 08:24 | ED PDOC ---
- Laboratory Results Result Diagrams: 03/31/17 06:29 03/31/17 06:23 - ECG O2 Sat by Pulse Oximetry: 99 - Progress Re-evaluation Time: 08:22 Condition: Improved (Awake alert oriented x 3 no focal neuro deficits. Loaded with Keppra 500 mg PO) Disposition - Clinical Impression Clinical Impression: Alcohol abuse - POA Present On Arrival: None - Disposition Referrals: [facility] [Outside] Disposition: Routine/Home Disposition Time: 08:23 Condition: STABLE Prescriptions: Levetiracetam [Keppra] 500 mg PO BID #30 tablet Instructions: Abuse of Alcohol (ED)
[2017-03-31 08:42] VITALS: BP 135/85; TEMP 98
[2017-03-31 10:02] LABS: BASOPHIL 4 % (0-2); EOSINOPHIL 2 % (0-7); NEUTROPHIL 37 % (42-75); TOTAL CELLS COUNTED 100
--- NOTE | 2017-03-31 15:22 | CARD ---
APPROVED REPORT EKG Measurement Heart [id number] <Conclusion> Normal sinus rhythm Normal ECG
== END 2017-03-31 09:00 | disposition home or self-care (01) ==
LOC: H.ER 04:31
DX: F10.129 Alcohol abuse with intoxication, unspecified (principal); S09.90XA Unspecified injury of head, initial encounter; W19.XXXA Unspecified fall, initial encounter; Y92.89 Other specified places as the place of occurrence of the external cause; I10 Essential (primary) hypertension; E78.00 Pure hypercholesterolemia, unspecified; Z86.69 Personal history of other diseases of the nervous system and sense organs

== ENCOUNTER 2017-04-02 03:10 | Emergency (ER) | payer OTHER ==
[2017-04-02 03:10] VITALS: BMI 22.3
[2017-04-02 03:36] VITALS: BP 140/86; PULSE 79; RESP 17; TEMP 99; O2SAT 100
--- NOTE | 2017-04-02 04:01 | ED PDOC ---
HPI: Psych/Substance Abuse Time Seen by Provider: 04/02/17 03:16 Chief Complaint (Nursing): Alcohol Ingestion Chief Complaint (Provider): alcohol intoxication, back pain History Per: Patient History/Exam Limitations: no limitations Onset/Duration Of Symptoms: Mins Current Symptoms Are (Timing): Still Present Additional Complaint(s): 56yo male with PMHx including seizure disorder, alcohol abuse presents to the ED for eval of alcohol intoxication and back pain after being evicted from the residential. Patient admits to alcohol use and has been non-compliant with keppra which he received prescription for in this ED 2 days ago that he has not filled. Patient was seen and evaluated in this ED 2 days prior for head injury and discharged with head injury instructions. Past Medical History Reviewed: Historical Data, Nursing Documentation, Vital Signs Vital Signs: Last Vital Signs Temp 99.0 F 04/02/17 03:25 Pulse 79 04/02/17 03:25 Resp 17 04/02/17 03:25 BP 140/86 04/02/17 03:25 Pulse Ox 100 04/02/17 03:25 - Medical History PMH: HTN, Hypercholesterolemia, Seizures Denies: HIV, Chronic Kidney Disease - Surgical History Surgical History: No Surg Hx - Family History Family History: States: No Known Family Hx - Living Arrangements Living Arrangements: Other (homeless) - Social History Current smoker - smoking cessation education provided: No Alcohol: Other (alcohol abuse) Drugs: Denies - Immunization History Hx Tetanus Toxoid Vaccination: No Hx Influenza Vaccination: No Hx Pneumococcal Vaccination: No - Home Medications Home Medications: Ambulatory Orders Medication Instructions Recorded Atorvastatin [Lipitor] 20 mg PO DIN #14 tab 02/01/17 Folic Acid 1 mg PO DAILY #14 tab 02/01/17 Gabapentin [Neurontin] 300 mg PO HS #14 cap 02/01/17 Multivitamin Therapeutic Tab 1 tab PO DAILY #14 tab 02/01/17 [Thera Tab] Thiamine [Vitamin B1 Tab] 200 mg PO DAILY #14 tab 02/01/17 levETIRAcetam [Keppra] 500 mg PO BID #28 tab 02/01/17 Amoxicillin/Clavulanate [Augmentin 1 tab PO Q12 #14 tab 03/05/17 875 MG-125 MG] Clindamycin [Cleocin] 600 mg PO Q8 #30 03/05/17 Meclizine [Meclizine*] 25 mg PO Q8 #15 tab 03/15/17 Levetiracetam [Keppra] 500 mg PO BID #30 tablet 03/31/17 - Allergies Allergies/Adverse Reactions: Allergies Allergy/AdvReac Type Severity Reaction Status Date / Time No Known Allergies Allergy Verified 03/20/17 11:24 Review of Systems ROS Statement: Except As Marked, All Systems Reviewed And Found Negative Musculoskeletal: Positive for: Back Pain Physical Exam - Reviewed Nursing Documentation Reviewed: Yes Vital Signs Reviewed: Yes - Physical Exam Appears: Positive for: Well, No Acute Distress Head Exam: Negative for: ATRAUMATIC (2cm old and healed laceration above right eyebrow ) Skin: Positive for: Normal Color, Warm, Dry Eye Exam: Positive for: Normal appearance, EOMI, PERRL ENT: Positive for: Normal ENT Inspection Neck: Positive for: Normal, Painless ROM, Supple Cardiovascular/Chest: Positive for: Regular Rate, Rhythm. Negative for: Murmur , Tachycardia Respiratory: Positive for: Normal Breath Sounds. Negative for: Wheezing, Respiratory Distress Gastrointestinal/Abdominal: Positive for: Normal Exam, Soft. Negative for: Tenderness Back: Positive for: Normal Inspection Extremity: Positive for: Normal ROM. Negative for: Deformity, Swelling Neurologic/Psych: Positive for: Alert, Oriented - ECG O2 Sat by Pulse Oximetry: 100 Pulse Ox Interpretation: Normal (RA) Medical Decision Making Medical Decision Makin: Impression: 56yo male w/ back pain in setting of alcohol intoxication and h/o chronic back pain Plan: alc serum keppra 500mg PO, motrin 600mg PO reassess 0530: Patient AAOx3 ambulating with steady gait and clear speech and stable for d/c. Dx: alcohol use stable Scribe Attestation: Documented by Wayne Jimenez acting as a scribe for Steven Marie MD. Provider Scribe Attestation: All medical record entries made by the Scribe were at my direction and personally dictated by me. I have reviewed the chart and agree that the record accurately reflects my personal performance of the history, physical exam, medical decision making, and the department course for this patient. I have also personally directed, reviewed, and agree with the discharge instructions and disposition. Disposition - Clinical Impression Clinical Impression: Alcohol use - Patient ED Disposition Is Patient to be Admitted: No - Disposition Disposition: Routine/Home Disposition Time: 05:30 Condition: STABLE Instructions: Abuse of Alcohol (ED)
== END 2017-04-02 06:03 | disposition home or self-care (01) ==
LOC: H.ER 03:10
DX: F10.129 Alcohol abuse with intoxication, unspecified (principal)

== ENCOUNTER 2017-04-02 20:38 | Observation (INO) | payer OTHER ==
[2017-04-02 20:38] VITALS: BMI 22.3
[2017-04-02 20:42] VITALS: BP 145/92; PULSE 110; RESP 18; TEMP 98.2; O2SAT 98
--- NOTE | 2017-04-02 21:56 | ED PDOC ---
HPI: Head Injury Time Seen by Provider: 04/02/17 20:44 Chief Complaint (Nursing): Abnormal Skin Integrity Chief Complaint (Provider): Head Trauma History Per: Patient History/Exam Limitations: no limitations Additional Complaint(s): Héctor Marley, a 56 year old female, presents to the ED with head trauma. The patient states that he struck his but uncertain when it happened, but does report some swelling to the head area. The patient does admit to drinking alcohol. The patient's previous medical records were requested and since March 20 of this month he's had multiple CT scans of the head and face for the same head injury. Denies new trauma, LOC. Past Medical History Reviewed: Historical Data, Nursing Documentation, Vital Signs Vital Signs: Last Vital Signs Temp 98.2 F 04/02/17 20:40 Pulse 110 H 04/02/17 20:40 Resp 18 04/02/17 20:40 BP 145/92 H 04/02/17 20:40 Pulse Ox 98 04/02/17 20:40 - Medical History PMH: HTN, Hypercholesterolemia, Seizures Denies: HIV, Chronic Kidney Disease - Family History Family History: States: Unknown Family Hx - Immunization History Hx Tetanus Toxoid Vaccination: No Hx Influenza Vaccination: No Hx Pneumococcal Vaccination: No - Home Medications Home Medications: Ambulatory Orders Medication Instructions Recorded Atorvastatin [Lipitor] 20 mg PO DIN #14 tab 02/01/17 Folic Acid 1 mg PO DAILY #14 tab 02/01/17 Gabapentin [Neurontin] 300 mg PO HS #14 cap 02/01/17 Multivitamin Therapeutic Tab 1 tab PO DAILY #14 tab 02/01/17 [Thera Tab] Thiamine [Vitamin B1 Tab] 200 mg PO DAILY #14 tab 02/01/17 levETIRAcetam [Keppra] 500 mg PO BID #28 tab 02/01/17 Amoxicillin/Clavulanate [Augmentin 1 tab PO Q12 #14 tab 03/05/17 875 MG-125 MG] Clindamycin [Cleocin] 600 mg PO Q8 #30 03/05/17 Meclizine [Meclizine*] 25 mg PO Q8 #15 tab 03/15/17 Levetiracetam [Keppra] 500 mg PO BID #30 tablet 03/31/17 - Allergies Allergies/Adverse Reactions: Allergies Allergy/AdvReac Type Severity Reaction Status Date / Time No Known Allergies Allergy Verified 03/20/17 11:24 Review of Systems Constitutional: Positive for: Other (Swelling to the head.) Physical Exam - Reviewed Nursing Documentation Reviewed: Yes Vital Signs Reviewed: Yes - Physical Exam Appears: Positive for: Non-toxic, No Acute Distress Head Exam: Positive for: ATRAUMATIC, NORMOCEPHALIC. Negative for: NORMAL INSPECTION (Moderate swelling to right side of forehead with healing laceration without surrounding erythema, swelling, or discharge) Skin: Positive for: Normal Color, Warm, Dry Eye Exam: Positive for: Normal appearance, EOMI, PERRL ENT: Positive for: Normal ENT Inspection, Other (Alcohol on breath.) Neck: Positive for: Normal, Painless ROM, Supple Cardiovascular/Chest: Positive for: Regular Rate, Rhythm, Chest Non Tender. Negative for: Tachycardia Respiratory: Positive for: Normal Breath Sounds. Negative for: Wheezing, Respiratory Distress Gastrointestinal/Abdominal: Positive for: Normal Exam, Bowel Sounds, Soft. Negative for: Tenderness, Guarding, Rebound Back: Positive for: Normal Inspection Extremity: Positive for: Normal ROM. Negative for: Tenderness, Deformity, Swelling Neurologic/Psych: Positive for: Alert, Oriented, Gait (Gait unsteady.), Other ( Slurred speech.) - ECG O2 Sat by Pulse Oximetry: 98 Medical Decision Making Medical Decision Makin:44 Initial Impression: 56 year old male presenting with head injury Initial Plan: * Alcohol serum * Finger stick * Admit 2126 * Reevaluation Scribe Attestation Documented by Tiffani Denise acting as a scribe for Vishal Chandler PA-C. Scribe Attestation All medical record entries made by the Scribe were at my direction and personally dictated by me. I have reviewed the chart and agree that the record accurately reflects my personal performance of the history, physical exam, medical decision making, and the department course for this patient. I have also personally directed, reviewed, and agree with the discharge instructions and disposition. ED OBSERVATION Discharge: Yes Date of observation admission: 04/02/17 Time of observation admission: 21:27 - Observation admission statement Patient is being placed in observation because:: ETOH - Progress Note Progress Note: 04/02/17 23:04 ETOH 289 FSBS: 114 Sleeping comfortably. Easily arousable. Steady unassisted gait. 04/02/17 23:51 Alert and awake. Gait steady and unassisted. Disposition - Clinical Impression Clinical Impression: Alcohol intoxication - Patient ED Disposition Is Patient to be Admitted: No - Disposition Disposition: Routine/Home Disposition Time: 23:52 Condition: IMPROVED
== END 2017-04-02 23:53 | disposition home or self-care (01) ==
LOC: H.ER 20:38 → H.EROBSV 21:27
PROVIDERS: ADMIT Emergency Medicine; ATTEND Emergency Medicine
DX: S09.90XA Unspecified injury of head, initial encounter (principal); F10.129 Alcohol abuse with intoxication, unspecified; Y99.9 Unspecified external cause status; Y92.9 Unspecified place or not applicable; Y93.9 Activity, unspecified; X58.XXXA Exposure to other specified factors, initial encounter; E78.00 Pure hypercholesterolemia, unspecified; I10 Essential (primary) hypertension; R56.9 Unspecified convulsions

== ENCOUNTER 2017-07-16 08:04 | Inpatient (IN) | payer OTHER ==
[2017-07-16] MEDS ORDERED: Sodium Chloride 0.9% 1,000 ML IV STA (08:18)
[2017-07-16 08:46] LABS: EOS # 0.1 K/uL (0.0-0.7); EOS % 3.2 % (0.0-4.0); HEMATOCRIT 37.7 % (35.0-51.0); LYMPH # 0.9 K/uL (1.0-4.3); LYMPH % 28.5 % (20.0-40.0); MEAN CELL VOLUME 77.4 fl (80.0-94.0); MEAN CORPUSCULAR HEMOGLOBIN 24.5 pg (27.0-31.0); MEAN CORPUSCULAR HGB CONC 31.7 g/dL (33.0-37.0); MEAN PLATELET VOLUME 7.5 fl (7.2-11.7); MONO # 0.4 K/uL (0.0-0.8); MONO % 12.1 % (0.0-10.0); NEUT # 1.7 K/uL (1.8-7.0); NEUT % 55.2 % (50.0-75.0); NRBC % 0.1 % (0.0-0.0)
[2017-07-16 08:48] LABS: WHITE BLOOD COUNT 3.1 K/uL (4.8-10.8)
[2017-07-16 08:54] LABS: ALB/GLOB RATIO 1.4 (1.0-2.1); ALCOHOL SERUM < 10 mg/dl (0-10); ALKALINE PHOSPHATASE 147 U/L (38-126); ALT/SGPT 52 U/L (21-72); AST/SGOT 46 U/L (17-59); BILIRUBIN,TOTAL 0.4 mg/dl (0.2-1.3); BLOOD UREA NITROGEN 11 mg/dl (9-20); CALCIUM 9.9 mg/dL (8.4-10.2); CARBON DIOXIDE 26 mmol/L (22-30); CHLORIDE 93 mmol/L (98-107); GFR AFRICAN-AMERICAN > 60; GLUCOSE,RANDOM 228 mg/dL (75-110); LIPASE 26 U/L (23-300); POTASSIUM 3.9 MMOL/L (3.6-5.0); SODIUM 138 mmol/l (132-148); TOTAL PROTEIN 8.4 G/DL (6.3-8.2)
[2017-07-16] MEDS ORDERED: Azithromycin 500 MG in Sodium Chloride 0.9% 250 ML IVPB STA (09:45)
[2017-07-16] MEDS ORDERED: cefTRIAXone (Rocephin) 1 gm Inj ONE (09:58)
[2017-07-16] MEDS ORDERED: Azithromycin 500 MG IV IVPB ONE (11:27)
[2017-07-16 12:20] LABS: VENOUS BLOOD GAS BASE EXCESS 3.4 mmol/L (0.0-2.0); VENOUS BLOOD GAS PCO2 44 mmHg (40-60); VENOUS BLOOD PH 7.42 (7.32-7.43)
[2017-07-16] MEDS ORDERED: Sodium Chloride 3% for Inhalation 4 ML VIAL.NEB IH PRN (13:39)
[2017-07-16] MEDS ORDERED: Influenza Vaccine 18yr & older 0.5 ML/45 MCG SYR IM ONE (17:49)
[2017-07-17] MEDS: Magnesium Oxide 400 mg Tab UD PO SCH (08:40)
[2017-07-17] MEDS: Enoxaparin 40 mg Syringe SC SCH (08:40)
[2017-07-17] MEDS: Multivitamin With Minerals Tab PO SCH (08:41)
[2017-07-17] MEDS: Pantoprazole 40 mg EC Tab PO SCH (08:41)
[2017-07-17] MEDS ORDERED: MAGNESIUM CITRATE 300 MG PO SCH (09:00)
[2017-07-17 09:18] LABS: BASO % 1.2 % (0.0-2.0); EOS # 0.1 K/uL (0.0-0.7); EOS % 4.3 % (0.0-4.0); HEMATOCRIT 35.4 % (35.0-51.0); LYMPH # 0.9 K/uL (1.0-4.3); LYMPH % 33.5 % (20.0-40.0); MEAN CELL VOLUME 76.4 fl (80.0-94.0); MEAN CORPUSCULAR HGB CONC 32.7 g/dL (33.0-37.0); MEAN PLATELET VOLUME 7.7 fl (7.2-11.7); MONO # 0.5 K/uL (0.0-0.8); MONO % 17.3 % (0.0-10.0); NEUT # 1.2 K/uL (1.8-7.0); NEUT % 43.7 % (50.0-75.0); NRBC % 0.1 % (0.0-0.0); RED CELL DISTRIBUTION WIDTH 16.3 % (11.5-14.5); WHITE BLOOD COUNT 2.8 K/uL (4.8-10.8)
[2017-07-17 09:24] LABS: ALB/GLOB RATIO 1.3 (1.0-2.1); ALKALINE PHOSPHATASE 151 U/L (38-126); ALT/SGPT 44 U/L (21-72); AST/SGOT 43 U/L (17-59); BILIRUBIN,TOTAL 0.4 mg/dl (0.2-1.3); BLOOD UREA NITROGEN 11 mg/dl (9-20); CALCIUM 9.8 mg/dL (8.4-10.2); CARBON DIOXIDE 26 mmol/L (22-30); CHLORIDE 99 mmol/L (98-107); GFR AFRICAN-AMERICAN > 60; GLUCOSE,RANDOM 74 mg/dL (75-110); SODIUM 140 mmol/l (132-148); TOTAL PROTEIN 7.9 G/DL (6.3-8.2)
[2017-07-17] MEDS: guaiFENesin DM 200 mg-20 mg/10 ml UD PO SCH ×4 (10:48→21:10)
[2017-07-17] MEDS: Azithromycin 500 MG in Sodium Chloride 0.9% 250 ML IVPB SCH (12:01)
[2017-07-18 06:58] LABS: BASO % 1.3 % (0.0-2.0); EOS # 0.2 K/uL (0.0-0.7); EOS % 6.7 % (0.0-4.0); HEMATOCRIT 33.6 % (35.0-51.0); LYMPH # 0.9 K/uL (1.0-4.3); LYMPH % 39.5 % (20.0-40.0); MEAN CELL VOLUME 76.3 fl (80.0-94.0); MEAN CORPUSCULAR HEMOGLOBIN 24.7 pg (27.0-31.0); MEAN CORPUSCULAR HGB CONC 32.3 g/dL (33.0-37.0); MEAN PLATELET VOLUME 7.9 fl (7.2-11.7); MONO # 0.4 K/uL (0.0-0.8); MONO % 18.8 % (0.0-10.0); NEUT # 0.8 K/uL (1.8-7.0); NEUT % 33.7 % (50.0-75.0); NRBC % 0.1 % (0.0-0.0); RED CELL DISTRIBUTION WIDTH 16.3 % (11.5-14.5); WHITE BLOOD COUNT 2.2 K/uL (4.8-10.8)
[2017-07-18] MEDS: Enoxaparin 40 mg Syringe SC SCH (09:59)
[2017-07-18] MEDS: Megestrol Acetate 40 mg/ml Cup PO SCH (10:00)
[2017-07-18] MEDS: Magnesium Oxide 400 mg Tab UD PO SCH (10:00)
[2017-07-18] MEDS: Pantoprazole 40 mg EC Tab PO SCH (10:01)
[2017-07-18] MEDS: guaiFENesin DM 200 mg-20 mg/10 ml UD PO SCH ×4 (10:02→21:53)
[2017-07-18] MEDS: Multivitamin With Minerals Tab PO SCH (10:03)
[2017-07-18] MEDS: Azithromycin 500 MG in Sodium Chloride 0.9% 250 ML IVPB SCH (13:08)
[2017-07-19] MEDS: guaiFENesin DM 200 mg-20 mg/10 ml UD PO SCH ×4 (09:35→21:40)
[2017-07-19] MEDS: Multivitamin With Minerals Tab PO SCH (09:35)
[2017-07-19] MEDS: Magnesium Oxide 400 mg Tab UD PO SCH (09:36)
[2017-07-19] MEDS: Pantoprazole 40 mg EC Tab PO SCH (09:36)
[2017-07-19] MEDS: Megestrol Acetate 40 mg/ml Cup PO SCH (09:36)
[2017-07-19] MEDS: Enoxaparin 40 mg Syringe SC SCH (09:37)
[2017-07-19] MEDS: Cefdinir 300 MG CAP PO SCH ×2 (10:27→16:24)
[2017-07-20 05:30] LABS: HEMATOCRIT 34.7 % (35.0-51.0); MEAN CELL VOLUME 76.1 fl (80.0-94.0); MEAN CORPUSCULAR HEMOGLOBIN 24.7 pg (27.0-31.0); MEAN CORPUSCULAR HGB CONC 32.4 g/dL (33.0-37.0); RED CELL DISTRIBUTION WIDTH 16.2 % (11.5-14.5); WHITE BLOOD COUNT 11.3 K/uL (4.8-10.8)
[2017-07-20 05:47] LABS: BLOOD UREA NITROGEN 16 mg/dl (9-20); CALCIUM 9.7 mg/dL (8.4-10.2); CARBON DIOXIDE 24 mmol/L (22-30); CHLORIDE 99 mmol/L (98-107); GFR AFRICAN-AMERICAN > 60; GLUCOSE,RANDOM 102 mg/dL (75-110); POTASSIUM 4.2 MMOL/L (3.6-5.0); SODIUM 136 mmol/l (132-148)
[2017-07-20] MEDS: Multivitamin With Minerals Tab PO SCH (08:50)
[2017-07-20] MEDS: Magnesium Oxide 400 mg Tab UD PO SCH (08:50)
[2017-07-20] MEDS: Megestrol Acetate 40 mg/ml Cup PO SCH (08:51)
[2017-07-20] MEDS: Cefdinir 300 MG CAP PO SCH ×2 (08:51→17:44)
[2017-07-20] MEDS: guaiFENesin DM 200 mg-20 mg/10 ml UD PO SCH ×4 (08:52→21:12)
[2017-07-20] MEDS: Pantoprazole 40 mg EC Tab PO SCH (08:52)
[2017-07-20] MEDS: Enoxaparin 40 mg Syringe SC SCH (08:53)
[2017-07-20] MEDS: Lactobacillus Acidophilus 500 MU Cap PO SCH (17:44)
[2017-07-21 05:50] LABS: HEMATOCRIT 34.8 % (35.0-51.0); MEAN CELL VOLUME 76.3 fl (80.0-94.0); MEAN CORPUSCULAR HGB CONC 32.8 g/dL (33.0-37.0); RED CELL DISTRIBUTION WIDTH 16.4 % (11.5-14.5); WHITE BLOOD COUNT 11.4 K/uL (4.8-10.8)
[2017-07-21 06:44] LABS: BLOOD UREA NITROGEN 14 mg/dl (9-20); CALCIUM 9.8 mg/dL (8.4-10.2); CARBON DIOXIDE 23 mmol/L (22-30); CHLORIDE 100 mmol/L (98-107); GFR AFRICAN-AMERICAN > 60; GLUCOSE,RANDOM 90 mg/dL (75-110); SODIUM 138 mmol/l (132-148)
[2017-07-21] MEDS: Lactobacillus Acidophilus 500 MU Cap PO SCH ×2 (08:59→16:03)
[2017-07-21] MEDS: Magnesium Oxide 400 mg Tab UD PO SCH (09:00)
[2017-07-21] MEDS: Enoxaparin 40 mg Syringe SC SCH ×2 (09:00→09:04)
[2017-07-21] MEDS: Pantoprazole 40 mg EC Tab PO SCH (09:01)
[2017-07-21] MEDS: Multivitamin With Minerals Tab PO SCH (09:01)
[2017-07-21] MEDS: Cefdinir 300 MG CAP PO SCH ×2 (09:01→16:03)
[2017-07-21] MEDS: guaiFENesin DM 200 mg-20 mg/10 ml UD PO SCH ×4 (09:01→21:46)
[2017-07-21] MEDS: Megestrol Acetate 40 mg/ml Cup PO SCH (09:01)
[2017-07-22] MEDS: Enoxaparin 40 mg Syringe SC SCH (09:28)
[2017-07-22] MEDS: Magnesium Oxide 400 mg Tab UD PO SCH (09:29)
[2017-07-22] MEDS: Megestrol Acetate 40 mg/ml Cup PO SCH (09:29)
[2017-07-22] MEDS: Pantoprazole 40 mg EC Tab PO SCH (09:30)
[2017-07-22] MEDS: Cefdinir 300 MG CAP PO SCH (09:30)
[2017-07-22] MEDS: Multivitamin With Minerals Tab PO SCH (09:31)
[2017-07-22] MEDS: guaiFENesin DM 200 mg-20 mg/10 ml UD PO SCH ×2 (09:31→14:32)
[2017-07-22] MEDS: Lactobacillus Acidophilus 500 MU Cap PO SCH (10:43)
[2017-07-22 12:18] VITALS: BP 133/84; PULSE 83; RESP 16; TEMP 97.9; O2SAT 98
== END 2017-07-22 14:46 | DRG 90 ==
LOC: H.ER 08:04 → H.ERHOLD 10:33 → H.TEL 13:57
PROVIDERS: ADMIT Family Medicine; ATTEND Family Medicine
PROC: 3E0234Z Introduction of Serum, Toxoid and Vaccine into Muscle, Percutaneous Approach (ICD-10-PCS; principal; 2017-07-16)
DX: J18.9 Pneumonia, unspecified organism (principal); I10 Essential (primary) hypertension; F10.10 Alcohol abuse, uncomplicated; Y90.0 Blood alcohol level of less than 20 mg/100 ml; G40.909 Epilepsy, unspecified, not intractable, without status epilepticus; Z59.0 Homelessness; Z23 Encounter for immunization; E78.00 Pure hypercholesterolemia, unspecified; R91.1 Solitary pulmonary nodule

== ENCOUNTER 2017-08-25 01:46 | Inpatient (IN) | payer OTHER ==
[2017-08-25] MEDS ORDERED: Phenytoin 100 mg/2 ml Inj IVP STA (06:48)
[2017-08-25 06:58] VITALS: BMI 21.5
[2017-08-25] MEDS ORDERED: Lidocaine 1% Inj (20ml) ONE (09:34)
--- NOTE | 2017-08-25 09:55 | CP.PCM.HP ---
History of Present Illness - History of Present Illness History of Present Illness: CC: Seizure Episodes HPI: A 56yoM with H/O Seizure who missed meds presented with AMS and seizure episodes witnessed. Also H/O ETOH use IN the ER, patient received Dailantin loading. No seizure since loading of the medication. Present on Admission - Present on Admission Any Indicators Present on Admission: No History of DVT/PE: No History of Uncontrolled Diabetes: No Review of Systems - Review of Systems All systems: reviewed and no additional remarkable complaints except Past Patient History - Past Medical History & Family History Past Medical History?: Yes Past Family History: Reviewed and not pertinent - Past Social History Smoking Status: Never Smoked Alcohol: > 2 Drinks/Day Drugs: Denies - CARDIAC Hx Cardiac Disorders: Yes Hx Hypercholesterolemia: Yes Hx Hypertension: Yes - PULMONARY Hx Respiratory Disorders: Yes Hx Pneumonia: Yes - NEUROLOGICAL Hx Neurological Disorder: Yes Hx Syncope: Yes - HEENT Hx HEENT Problems: No - RENAL Hx Chronic Kidney Disease: No - ENDOCRINE/METABOLIC Hx Endocrine Disorders: No - HEMATOLOGICAL/ONCOLOGICAL Hx Blood Disorders: No - INTEGUMENTARY Hx Dermatological Problems: No - MUSCULOSKELETAL/RHEUMATOLOGICAL Hx Musculoskeletal Disorders: No Hx Falls: Yes - GASTROINTESTINAL Hx Gastrointestinal Disorders: No - GENITOURINARY/GYNECOLOGICAL Hx Genitourinary Disorders: No - PSYCHIATRIC Hx Psychophysiologic Disorder: No Hx Substance Use: No - SURGICAL HISTORY Hx Surgeries: Yes Other/Comment: "abdominal surgery" - ANESTHESIA Hx Anesthesia: Yes (unknown) Hx Anesthesia Reactions: No Hx Malignant Hyperthermia: (unknown) Meds Allergies/Adverse Reactions: Allergies Allergy/AdvReac Type Severity Reaction Status Date / Time No Known Allergies Allergy Verified 03/20/17 11:24 Physical Exam - Constitutional Appears: Well, No Acute Distress - Head Exam Head Exam: NORMOCEPHALIC Additional comments: Surgical scars to the head. - Eye Exam Eye Exam: EOMI, Normal appearance, PERRL Pupil Exam: NORMAL ACCOMODATION, PERRL - ENT Exam ENT Exam: Mucous Membranes Moist, Normal Exam - Neck Exam Neck exam: Positive for: Full Rom, Normal Inspection - Respiratory Exam Respiratory Exam: Clear to Auscultation Bilateral, NORMAL BREATHING PATTERN - Cardiovascular Exam Cardiovascular Exam: REGULAR RHYTHM, +S1, +S2 - GI/Abdominal Exam GI & Abdominal Exam: Normal Bowel Sounds, Soft. absent: Tenderness - Extremities Exam Extremities exam: Positive for: normal capillary refill, normal inspection - Back Exam Back exam: NORMAL INSPECTION - Neurological Exam Neurological exam: Alert, CN II-XII Intact, Normal Gait, Oriented x3, Reflexes Normal - Psychiatric Exam Psychiatric exam: Normal Affect, Normal Mood - Skin Skin Exam: Dry, Intact, Normal Color, Warm Results - Labs Result Diagrams: 08/28/17 10:05 08/28/17 12:29 - Imaging and Cardiology CT scan - head Status: Report reviewed by me Additional comment: IMPRESSION: No acute intracranial abnormalities. No significant findings to account for the clinical presentation. No significant interval change compared to the prior examination(s). Assessment & Plan (1) Altered mental status Status: Acute (2) Seizures Status: Chronic
--- NOTE | 2017-08-25 18:04 | VASCULAR ---
APPROVED REPORT EKG Measurement Heart [id number] <Conclusion> Normal sinus rhythm Septal infarct, age undetermined Abnormal ECG
[2017-08-26] MEDS: Enoxaparin 40 mg Syringe SC SCH (09:48)
[2017-08-26] MEDS: Pantoprazole 40 mg EC Tab PO SCH (09:49)
[2017-08-26] MEDS: Multivitamin With Minerals Tab PO SCH (09:49)
--- NOTE | 2017-08-26 17:51 | CP.PCM.CON ---
History of Present Illness - History of Present Illness History of Present Illness: 56 Years old Man is Known to have a seizure disorder, he is admitted for break through seizures, as he developed 2 spells of seizures. He has a history of Alcohol Abuse Past Patient History - Past Medical History & Family History Past Medical History?: Yes - Past Social History Smoking Status: Never Smoked - CARDIAC Hx Cardiac Disorders: Yes Hx Hypercholesterolemia: Yes Hx Hypertension: Yes - PULMONARY Hx Respiratory Disorders: Yes Hx Pneumonia: Yes - NEUROLOGICAL Hx Neurological Disorder: Yes Hx Syncope: Yes - HEENT Hx HEENT Problems: No - RENAL Hx Chronic Kidney Disease: No - ENDOCRINE/METABOLIC Hx Endocrine Disorders: No - HEMATOLOGICAL/ONCOLOGICAL Hx Blood Disorders: No - INTEGUMENTARY Hx Dermatological Problems: No - MUSCULOSKELETAL/RHEUMATOLOGICAL Hx Musculoskeletal Disorders: No Hx Falls: Yes - GASTROINTESTINAL Hx Gastrointestinal Disorders: No - GENITOURINARY/GYNECOLOGICAL Hx Genitourinary Disorders: No - PSYCHIATRIC Hx Psychophysiologic Disorder: No Hx Substance Use: No - SURGICAL HISTORY Hx Surgeries: Yes Other/Comment: "abdominal surgery" - ANESTHESIA Hx Anesthesia: Yes (unknown) Hx Anesthesia Reactions: No Hx Malignant Hyperthermia: (unknown) Meds Allergies/Adverse Reactions: Allergies Allergy/AdvReac Type Severity Reaction Status Date / Time No Known Allergies Allergy Verified 03/20/17 11:24 Past Patient History - Past Medical History & Family History Past Medical History?: Yes - Past Social History Smoking Status: Never Smoked - CARDIAC Hx Cardiac Disorders: Yes Hx Hypercholesterolemia: Yes Hx Hypertension: Yes - PULMONARY Hx Respiratory Disorders: Yes Hx Pneumonia: Yes - NEUROLOGICAL Hx Neurological Disorder: Yes Hx Syncope: Yes - HEENT Hx HEENT Problems: No - RENAL Hx Chronic Kidney Disease: No - ENDOCRINE/METABOLIC Hx Endocrine Disorders: No - HEMATOLOGICAL/ONCOLOGICAL Hx Blood Disorders: No - INTEGUMENTARY Hx Dermatological Problems: No - MUSCULOSKELETAL/RHEUMATOLOGICAL Hx Musculoskeletal Disorders: No Hx Falls: Yes - GASTROINTESTINAL Hx Gastrointestinal Disorders: No - GENITOURINARY/GYNECOLOGICAL Hx Genitourinary Disorders: No - PSYCHIATRIC Hx Psychophysiologic Disorder: No Hx Substance Use: No - SURGICAL HISTORY Hx Surgeries: Yes Other/Comment: "abdominal surgery" - ANESTHESIA Hx Anesthesia: Yes (unknown) Hx Anesthesia Reactions: No Hx Malignant Hyperthermia: (unknown) Meds Allergies/Adverse Reactions: Allergies Allergy/AdvReac Type Severity Reaction Status Date / Time No Known Allergies Allergy Verified 03/20/17 11:24 - Medications Medications: Current Medications Acetaminophen (Tylenol 325mg Tab) 650 mg PO Q6 PRN PRN Reason: Fever >100.4 F Aspirin (Ecotrin) 81 mg PO DAILY [facility] Last Admin: 08/26/17 09:49 Dose: 81 mg Atorvastatin Calcium (Lipitor) 40 mg PO HS [facility] Last Admin: 08/25/17 22:51 Dose: 40 mg Cyanocobalamin (Vitamin B12 1000 Mcg Tab) 1,000 mcg PO DAILY [facility] Last Admin: 08/26/17 09:49 Dose: 1,000 mcg Enoxaparin Sodium (Lovenox) 40 mg SC DAILY [facility] PRN Reason: Protocol Last Admin: 08/26/17 09:48 Dose: Not Given Folic Acid (Folic Acid) 1 mg PO DAILY [facility] Last Admin: 08/26/17 09:50 Dose: 1 mg Levetiracetam (Keppra) 500 mg PO Q12H [facility] Last Admin: 08/26/17 09:50 Dose: 500 mg Multivitamins/Minerals (Therapeutic-M Tab) 1 tab PO DAILY [facility] Last Admin: 08/26/17 09:49 Dose: 1 tab Pantoprazole Sodium (Protonix Ec Tab) 40 mg PO DAILY [facility] Last Admin: 08/26/17 09:49 Dose: 40 mg Thiamine HCl (Vitamin B1 Tab) 100 mg PO DAILY [facility] Last Admin: 08/26/17 09:50 Dose: 100 mg Physical Exam - Neurological Exam Additional comments: [facility] [place] Mental Status: He is lying down in bed with minimal movement. Wake, Alert, Oriented X3, slow speech, fluent coherent Slow Normal memory X3 Cranial Nerves II to XII: No deficits Motor: Normal Tone, Normal Power, Normal Muscle Bulk except peripheral weakness of the LEs. DTR 0/4 Toes are down going by plantar stimulation. Sensory: NO DEFICITS Cerebellar: Normal FNT Results - Vital Signs Recent Vital Signs: Last Vital Signs Temp 98.0 F 08/26/17 07:24 Pulse 70 08/26/17 07:24 Resp 14 08/26/17 07:24 BP 118/92 H 08/26/17 07:24 Pulse Ox 98 08/26/17 07:24 Assessment & Plan (1) Alcohol abuse Status: Acute (2) Anxiety Status: Acute (3) Back pain Status: Acute
--- NOTE | 2017-08-26 19:38 | CP.CCUPN ---
CCU Subjective - Physician Review Subjective (Free Text): ICU bed requested for overnight observation as per ER Nurse: All available EMR notes reviewed, patient is a poor historian: 56M with chronic alcoholism, seizure disorder on Dilantin and Keppra, was in ER overnight for observation and deemed stable for discharge to home this AM, when he developed a seizure. Seen by Neurology on consultation at the request of PMD and meds changed to Topiramate 50mg BID to start at 9AM on 08/27/17 the next day. He has not had any further seizure activity since the witnessed event in ER. He did receive multiple doses of Keppra yesterday. Other vitals and I/O's reviewed. Fever spike to 104.7 max yesterday, none today so far. Allergies: NKDA Home Meds: ASA, Lipitor, Vit B12, Folate, Keppra, Dilantin, Mag Citrate, Mag Oxide, Megace, MVI, Protonix ROS: No other pertinent negs or positives on 10+ system review. PMSFH: All Nursing and physician documentation reviewed to date; no new pertinent info noted relevant to current medical problems. ----EKG: limited view of 12 lead EKG shows no acute arrhythmic abnormalities, nor any malignant beats. ----No CXR has been done since 07/20/17 from last visit. MAJOR PROBLEMS: 1. Seizure Disorder 2 ETOH Withdrawal 2. Chronic Alcoholism PLAN: 1. Would re-schedule Topiramate dosing to start this evening and maintain seizure precautions. 2. See no indication for ICU since he is awake, alert, does not need airway protection and had no prolonged post-ictal state after last seizure; and there were no episodes of status epilepticus. BP and HR have been stable. He exhibits no signs of ETOH related Delirium tremans. Could continue further mgmt. via a Telemetry monitored bed, and would consider ICU bed re-evaluation if any serious life-threatening findings were discovered on upcoming imaging tests. CCU Objective - Physical Exam Head: Positive for: Atraumatic, Normocephalic Pupils: Positive for: PERRL Extroacular Muscles: Positive for: EOMI. Negative for: Gaze Palsy Conjunctiva: Positive for: Normal. Negative for: Icteric Mouth: Positive for: Moist Mucous Membranes Neck: Positive for: Normal Range of Motion. Negative for: Meningeal Signs, JVD Respiratory/Chest: Positive for: Clear to Auscultation. Negative for: Accessory Muscle Use, Wheezes Cardiovascular: Positive for: Regular Rate and Rhythm. Negative for: Murmurs, Rub Abdomen: Positive for: Normal Bowel Sounds. Negative for: Tenderness, Distention, Mass/Organomegaly Lower Extremity: Positive for: Normal Inspection, NORMAL PULSES. Negative for: CALF TENDERNESS, Cyanosis Neurological: Positive for: GCS=15 Skin: Positive for: Warm, Dry. Negative for: Rashes Psychiatric: Positive for: Alert, Oriented x 3 - Medications Active Medications: Active Medications Generic Name Dose Route Start Last Admin Trade Name Freq PRN Reason Stop Dose Admin Acetaminophen 650 mg 08/25/17 09:46 Tylenol 325mg Tab PO Q6 PRN Fever >100.4 F Aspirin 81 mg 08/26/17 09:00 08/26/17 09:49 Ecotrin PO 81 mg DAILY [facility] Administration Atorvastatin Calcium 40 mg 08/25/17 22:00 08/25/17 22:51 Lipitor PO 40 mg HS [facility] Administration Chlordiazepoxide 50 mg 08/26/17 18:44 Librium PO Q6 PRN Agitation Cyanocobalamin 1,000 mcg 08/26/17 09:00 08/26/17 09:49 Vitamin B12 1000 Mcg Tab PO 1,000 mcg DAILY [facility] Administration Enoxaparin Sodium 40 mg 08/26/17 09:00 08/26/17 09:48 Lovenox SC Not Given DAILY [facility] Protocol Folic Acid 1 mg 08/26/17 09:00 08/26/17 09:50 Folic Acid PO 1 mg DAILY [facility] Administration Lorazepam 2 mg 08/26/17 18:42 Ativan IM Q6 PRN Seizure activity Multivitamins/Minerals 1 tab 08/26/17 09:00 08/26/17 09:49 Therapeutic-M Tab PO 1 tab DAILY [facility] Administration Pantoprazole Sodium 40 mg 08/26/17 09:00 08/26/17 09:49 Protonix Ec Tab PO 40 mg DAILY [facility] Administration Thiamine HCl 100 mg 08/26/17 09:00 08/26/17 09:50 Vitamin B1 Tab PO 100 mg DAILY [facility] Administration Topiramate 50 mg 08/27/17 09:00 Topamax PO BID [facility] - Patient Studies Lab Studies: Lab Studies 08/26/17 Range/Units 18:29 Urine Opiates Screen Negative (NEGATIVE) Urine Methadone Screen Negative (NEGATIVE) Ur Barbiturates Screen Negative (NEGATIVE) Ur Phencyclidine Scrn Negative (NEGATIVE) Ur Amphetamines Screen Negative (NEGATIVE) U Benzodiazepines Scrn Negative (NEGATIVE) U Oth Cocaine Metabols Negative (NEGATIVE) U Cannabinoids Screen Negative (NEGATIVE) Laboratory Results - last 24 hr 08/26/17 18:29 Urine Opiates Screen Negative Urine Methadone Screen Negative Ur Barbiturates Screen Negative Ur Phencyclidine Scrn Negative Ur Amphetamines Screen Negative U Benzodiazepines Scrn Negative U Oth Cocaine Metabols Negative U Cannabinoids Screen Negative Review of Systems - Review of Systems Systems not reviewed;Unavailable: Other (poor, and unreliable historian)
--- NOTE | 2017-08-26 21:34 | CP.PCM.PN ---
Subjective - Date & Time of Evaluation Date of Evaluation: 08/26/17 Time of Evaluation: 15:50 Objective - Vital Signs/Intake and Output Vital Signs (last 24 hours): Temp Pulse Resp BP Pulse Ox 98.0 F 90 16 112/74 100 08/26/17 20:29 08/26/17 20:29 08/26/17 20:29 08/26/17 20:29 08/26/17 20:29 - Medications Medications: Current Medications Acetaminophen (Tylenol 325mg Tab) 650 mg PO Q6 PRN PRN Reason: Fever >100.4 F Aspirin (Ecotrin) 81 mg PO DAILY [facility] Last Admin: 08/26/17 09:49 Dose: 81 mg Atorvastatin Calcium (Lipitor) 40 mg PO HS [facility] Last Admin: 08/25/17 22:51 Dose: 40 mg Chlordiazepoxide (Librium) 50 mg PO Q6 PRN PRN Reason: Agitation Cyanocobalamin (Vitamin B12 1000 Mcg Tab) 1,000 mcg PO DAILY [facility] Last Admin: 08/26/17 09:49 Dose: 1,000 mcg Enoxaparin Sodium (Lovenox) 40 mg SC DAILY [facility] PRN Reason: Protocol Last Admin: 08/26/17 09:48 Dose: Not Given Folic Acid (Folic Acid) 1 mg PO DAILY [facility] Last Admin: 08/26/17 09:50 Dose: 1 mg Lorazepam (Ativan) 2 mg IM Q6 PRN PRN Reason: Seizure activity Multivitamins/Minerals (Therapeutic-M Tab) 1 tab PO DAILY [facility] Last Admin: 08/26/17 09:49 Dose: 1 tab Pantoprazole Sodium (Protonix Ec Tab) 40 mg PO DAILY [facility] Last Admin: 08/26/17 09:49 Dose: 40 mg Thiamine HCl (Vitamin B1 Tab) 100 mg PO DAILY [facility] Last Admin: 08/26/17 09:50 Dose: 100 mg Topiramate (Topamax) 50 mg PO BID [facility]
--- NOTE | 2017-08-26 23:19 | CON ---
CARDIOLOGY CONSULTATION REASON FOR CONSULTATION: Syncopal episode versus seizure activity. HISTORY OF PRESENT ILLNESS: The patient is a 56 years old homeless male, who lives in a fci, who has a history of seizure disorder, who was found fainting. The details of his faint are unavailable even on the [employer] database as of the time of dictating this report. Apparently, the ER evaluation note has not been entered yet. The patient himself does not recall what happened to him. The patient stated that he supposedly had seizures, but is not taking medications. SOCIAL HISTORY: The patient is a nonsmoker. He is drinker. REVIEW OF SYSTEMS: No chest pain. No palpitation. No nausea or vomiting. No fever or chills. MEDICATIONS: Aspirin 81 mg once a day, folic acid 1 mg once a day, Keppra 500 mg twice a day, Lipitor 40 mg once a day, Lovenox 40 mg once a day, Protonix 40 mg p.o. once a day, multivitamin 1 tablet once a day, vitamin B12 at 1 mg p.o. daily. PHYSICAL EXAMINATION: GENERAL: The patient is a middle-aged male, who does not appear to be in any acute distress. VITAL SIGNS: Blood pressure 118/92, earlier was 109/55, heart rate 73, temperature 98, respirations 14. HEENT: An old frontal scars of previous falls from seizures according to the patient. NECK: No JVD. CHEST: Clear. HEART: S1 and S2 regular. EXTREMITIES: No edema. LABORATORY DATA: The most recent available labs are from 08/21/2017. Hemoglobin and hematocrit 11.4 and 34.8, white count 11.4, platelet count 188,000. SMA-7 on the same day was within normal limit. Urine drug screen as recent as 07/16/2017 was negative and alcohol level at that day was below 10. HIV antibody rapid screen on 07/22/2017 was negative. EKG revealed sinus rhythm, consider old septal infarct. EKG on 08/21/2017 revealed sinus tachycardia at a rate of [address]-T wave abnormality. Most recent CT scan was on 03/31/2017, which revealed no acute cerebral hemorrhage or edema at that time. Right frontal soft tissue swelling. Probable foreign bodies, correlate clinically. ASSESSMENT: 1. Syncopal episode versus seizure activity. 2. EtOH abuse. 3. Mild anemia. RECOMMENDATIONS: Admit the patient to telemetry. Obtain basic workup including CBC, SMA-7, PT/PTT. Obtain alcohol level as well as urine drug screen. Obtain head CT scan without contrast. Obtain an echocardiogram as previous admission there is no echocardiographic study performed on this patient and I am going to keep the line on hold. Ronak Ramos MD
[2017-08-27 05:23] LABS: HEMATOCRIT 33.9 % (35.0-51.0); MEAN CELL VOLUME 75.9 fl (80.0-94.0); MEAN CORPUSCULAR HEMOGLOBIN 24.7 pg (27.0-31.0); MEAN CORPUSCULAR HGB CONC 32.5 g/dL (33.0-37.0); RED CELL DISTRIBUTION WIDTH 18.1 % (11.5-14.5); WHITE BLOOD COUNT 3.6 K/uL (4.8-10.8)
[2017-08-27 05:25] LABS: BLOOD UREA NITROGEN 9 mg/dl (9-20); CALCIUM 9.1 mg/dL (8.4-10.2); CARBON DIOXIDE 30 mmol/L (22-30); CHLORIDE 99 mmol/L (98-107); GFR AFRICAN-AMERICAN > 60; GLUCOSE,RANDOM 99 mg/dL (75-110); POTASSIUM 4.2 MMOL/L (3.6-5.0); SODIUM 139 mmol/l (132-148)
[2017-08-27 05:54] LABS: PROSTATE SPECIFIC ANTIGEN 0.489 ng/ML (0.00-4.0)
[2017-08-27] MEDS: Multivitamin With Minerals Tab PO SCH (08:16)
[2017-08-27] MEDS: Enoxaparin 40 mg Syringe SC SCH (08:17)
[2017-08-27] MEDS: Pantoprazole 40 mg EC Tab PO SCH (08:17)
--- NOTE | 2017-08-27 09:56 | CT ---
PROCEDURE: CT HEAD WITHOUT CONTRAST. HISTORY: seizure COMPARISON: 03/31/2017 CT head. August 27, 2017. MRI brain TECHNIQUE: Axial computed tomography images were obtained through the head/brain without intravenous contrast. Radiation dose: Total exam DLP = 993.34 mGy-cm. This CT exam was performed using one or more of the following dose reduction techniques: Automated exposure control, adjustment of the mA and/or kV according to patient size, and/or use of iterative reconstruction technique. FINDINGS: HEMORRHAGE: No intracranial hemorrhage. BRAIN: No mass effect or edema. No atrophy or chronic microvascular ischemic changes. VENTRICLES: Unremarkable. No hydrocephalus. CALVARIUM: Unremarkable. PARANASAL SINUSES: Unremarkable as visualized. No significant inflammatory changes. MASTOID AIR CELLS: Unremarkable as visualized. No inflammatory changes. OTHER FINDINGS: None. IMPRESSION: No acute intracranial abnormalities. No significant findings to account for the clinical presentation. No significant interval change compared to the prior examination(s).
--- NOTE | 2017-08-27 11:00 | US ---
PROCEDURE: Duplex ultrasound of the carotid and vertebral arteries. HISTORY: Seizure disorder COMPARISON: None available. TECHNIQUE: Grayscale and duplex Doppler evaluation of the cervical carotid and vertebral arteries were performed. The common carotid, carotid bifurcations and cervical ICA and proximal ECA were evaluated. The vertebral arteries were evaluated for gross patency and direction. FINDINGS: RIGHT CAROTID ARTERIES: Common Carotid Artery: Normal. Maximal flow velocity of 78 cm/s. Carotid Bifurcation: Normal. Internal Carotid Artery:Normal. Maximal flow velocity of 76 cm/s. External Carotid Artery (proximal branches): Normal. Maximal flow velocity of 62 cm/s. ICA/CCA Ratio: 1 LEFT CAROTID ARTERIES: Common Carotid Artery: Normal. Maximal flow velocity of 73 cm/s. Carotid Bifurcation: Normal. Internal Carotid Artery:Normal. Maximal flow velocity of 72 cm/s. External Carotid Artery (proximal branches): Normal. Maximal flow velocity of 45 cm/s. ICA/CCA Ratio: 0.9 VERTEBRAL ARTERIES: Right Vertebral Artery: Patent. Antegrade flow. Left Vertebral Artery: Patent. Antegrade flow. OTHER FINDINGS: Echogenic plaque proximal right ICA with no stenosis. IMPRESSION: Normal Duplex Doppler of the cervical carotid and vertebral arteries.
--- NOTE | 2017-08-27 12:06 | MRI ---
PROCEDURE: MRI BRAIN WITHOUT CONTRAST HISTORY: Seizure disorder COMPARISON: Comparison made with prior CT scan of the brain obtained earlier same day TECHNIQUE: Multiplanar, multisequence MR images of the brain were obtained without intravenous contrast enhancement. FINDINGS: HEMORRHAGE: No acute parenchymal, subarachnoid or extra-axial hemorrhage. . No hemosiderin deposition identified on gradient echo weighted sequence. DWI: No evidence of an acute or early subacute infarction seen on diffusion imaging. BRAIN PARENCHYMA: Mild diffuse/confluent chronic periventricular white matter ischemic changes seen extending peripherally into the deep white matter both. In addition, there are a few scattered chronic bilateral basal nuclei lacunar type infarcts. No obvious parenchymal nor extra-axial mass or collection seen on this noncontrast exam. Moderate generalized supra and infratentorial volume loss. . VENTRICLES: No obstructive hydrocephalus CRANIUM: Old bilateral facial bone fracture deformities which include bilateral zygomatic arch, zygoma and anterior alexandre of both maxillary antra are less well seen on this study as compared to are less well seen on this exam as compared to prior CT scan and prior CT scan maxillofacial skeleton 03/20/2017. Please refer to that report for additional details. ORBITS: Orbital contents appear grossly unremarkable PARANASAL SINUSES/MASTOIDS: The visualized paranasal and mastoid air complexes are well-developed and currently well-aerated. VASCULAR SYSTEM: Visualized major vascular flow voids at skull base are patent. OTHER FINDINGS: None. IMPRESSION: No acute intracranial hemorrhage or infarct. Mild chronic white matter ischemic changes with a few chronic bilateral basal nuclei lacunar type infarcts. . Moderate supra and infratentorial volume loss. Old bilateral of facial bone fracture deformities. Please refer to prior CT scan maxillofacial skeleton for additional details. .
--- NOTE | 2017-08-27 14:44 | PN ---
FOLLOWUP DATE: SUBJECTIVE: The patient is uncooperative today. He refuses to answer my questions. No reported seizure according to nursing team. PHYSICAL EXAMINATION: VITAL SIGNS: Blood pressure 150/62, heart rate 76, temperature 97.3, respirations 14. HEENT: Old scalp abrasions noted. NECK: No JVD. CHEST: Clear. HEART: S1 and S2 are regular. EXTREMITIES: No edema. LABORATORY DATA: Today, SMA-7 is within normal limit. Brain MRI: No acute intracranial hemorrhage or infarct. Mild chronic white matter ischemic changes with a few chronic bilateral basal ganglia lacunar-type infarct. Old bilateral facial bone fracture deformity. The carotid Doppler: Normal duplex of the cervical carotid and vertebral arteries. ASSESSMENT: 1. Seizure disorder versus syncopal episode. 2. History of bilateral basal ganglia lacunar infarct. 3. Mild anemia. RECOMMENDATIONS: Continue current thiamine and vitamin B12 orally. Continue subcutaneous Lovenox. Continue p.r.n. Librium and p.r.n. Ativan. Continue aspirin 81 mg once a day. I will follow the echocardiography study performed today. Ronak Ramos MD
--- NOTE | 2017-08-27 20:06 | CARD ---
APPROVED REPORT EXAM: Two-dimensional and M-mode echocardiogram with Doppler and color Doppler. Other Information Quality : Good[employer] : NSR INDICATION Syncope 2D DIMENSIONS IVSd1.09 (0.7-1.1cm)LVDd3.92 (3.9-5.9cm) LVOT Diameter2.10 (1.8-2.4cm)PWd1.03 (0.7-1.1cm) IVSs1.29 (0.8-1.2cm)LVDs2.75 (2.5-4.0cm) FS (%) 30.0 %PWs1.44 (0.8-1.2cm) LVEF (%)45.0 (>50%) M-Mode DIMENSIONS Left Atrium (MM)3.37 (2.5-4.0cm)IVSd0.80 (0.7-1.1cm) Aortic Root3.53 (2.2-3.7cm)LVDd4.97 (4.0-5.6cm) Aortic Cusp Exc.2.26 (1.5-2.0cm)PWd1.21 (0.7-1.1cm) IVSs1.11 cmFS (%) 39 % LVDs3.01 (2.0-3.8cm)PWs1.62 cm Mitral Valve MV E Ytvyzjtx37.5cm/sMV DECEL [id number] A Sdtbyeff49.1cm/s MV [id number] ratio1.3MVA (PHT)3.66cm2 TDI Lateral E' Peak V9.21cm/sMedial E' Peak V8.39cm/sE/Lateral E'6.2 E/Medial E'6.9 Tricuspid Valve TR Peak Iqkwopph480my/sRAP [id number] Peak Gr.19mmHg [id number] LEFT VENTRICLE The left ventricle is normal size. There is normal left ventricular wall thickness. The systolic function is mildly impaired. There is global hypokinesis of the left ventricle. The left ventricular diastolic function is normal. RIGHT VENTRICLE The right ventricle is normal size. There is normal right ventricular wall thickness. The right ventricular systolic function is normal. ATRIA The left atrium size is normal. The right atrium size is normal. AORTIC VALVE The aortic valve is not well visualized. No aortic regurgitation is present. There is no aortic valvular stenosis. MITRAL VALVE The mitral valve is mildly thickened. There is no mitral valve stenosis. There is no mitral valve regurgitation noted. TRICUSPID VALVE The tricuspid valve is normal in structure. There is no tricuspid valve regurgitation noted. PULMONIC VALVE The pulmonary valve is normal in structure. There is no pulmonic valvular regurgitation. GREAT VESSELS The aortic root is normal in size. The IVC was not visualized. PERICARDIAL EFFUSION The pericardium appears normal. <Conclusion> The left ventricle is normal size. There is normal left ventricular wall thickness. The systolic function is mildly impaired. There is global hypokinesis of the left ventricle.
--- NOTE | 2017-08-27 22:13 | CP.PCM.PN ---
Subjective - Date & Time of Evaluation Date of Evaluation: 08/27/17 Time of Evaluation: 21:00 - Subjective Subjective: He is doing better. No seizures. Labs are seen Negative carotid Doppler. IMPRESSION of MRI Brain: No acute intracranial hemorrhage or infarct. Mild chronic white matter ischemic changes with a few chronic bilateral basal nuclei lacunar type infarcts. . Moderate supra and infratentorial volume loss. Old bilateral of facial bone fracture deformities. Please refer to prior CT scan maxillofacial skeleton for additional details. . Objective - Vital Signs/Intake and Output Vital Signs (last 24 hours): Temp Pulse Resp BP Pulse Ox 98.1 F 66 15 102/57 L 100 08/27/17 20:45 08/27/17 21:46 08/27/17 21:46 08/27/17 21:46 08/27/17 20:45 - Medications Medications: Current Medications Acetaminophen (Tylenol 325mg Tab) 650 mg PO Q6 PRN PRN Reason: Fever >100.4 F Aspirin (Ecotrin) 81 mg PO DAILY [facility] Last Admin: 08/27/17 08:17 Dose: 81 mg Atorvastatin Calcium (Lipitor) 40 mg PO HS [facility] Last Admin: 08/27/17 21:44 Dose: 40 mg Chlordiazepoxide (Librium) 50 mg PO Q6 PRN PRN Reason: Agitation Cyanocobalamin (Vitamin B12 1000 Mcg Tab) 1,000 mcg PO DAILY [facility] Last Admin: 08/27/17 08:17 Dose: 1,000 mcg Enoxaparin Sodium (Lovenox) 40 mg SC DAILY [facility] PRN Reason: Protocol Last Admin: 08/27/17 08:17 Dose: 40 mg Folic Acid (Folic Acid) 1 mg PO DAILY [facility] Last Admin: 08/27/17 08:16 Dose: 1 mg Lorazepam (Ativan) 2 mg IM Q6 PRN PRN Reason: Seizure activity Multivitamins/Minerals (Therapeutic-M Tab) 1 tab PO DAILY [facility] Last Admin: 08/27/17 08:16 Dose: 1 tab Pantoprazole Sodium (Protonix Ec Tab) 40 mg PO DAILY [facility] Last Admin: 08/27/17 08:17 Dose: 40 mg Thiamine HCl (Vitamin B1 Tab) 100 mg PO DAILY [facility] Last Admin: 08/27/17 12:10 Dose: 100 mg Topiramate (Topamax) 50 mg PO BID [facility] Last Admin: 08/27/17 16:33 Dose: 50 mg - Labs Labs: 08/27/17 04:45 08/27/17 04:45 Assessment and Plan (1) Alcohol abuse Status: Acute (2) Anxiety Status: Acute (3) Back pain Status: Acute
--- NOTE | 2017-08-28 00:20 | CP.PCM.PN ---
Subjective - Date & Time of Evaluation Date of Evaluation: 08/28/17 Objective - Vital Signs/Intake and Output Vital Signs (last 24 hours): Temp Pulse Resp BP Pulse Ox 98.1 F 66 15 102/57 L 100 08/27/17 20:45 08/27/17 21:46 08/27/17 21:46 08/27/17 21:46 08/27/17 20:45 - Medications Medications: Current Medications Acetaminophen (Tylenol 325mg Tab) 650 mg PO Q6 PRN PRN Reason: Fever >100.4 F Aspirin (Ecotrin) 81 mg PO DAILY [facility] Last Admin: 08/27/17 08:17 Dose: 81 mg Atorvastatin Calcium (Lipitor) 40 mg PO HS [facility] Last Admin: 08/27/17 21:44 Dose: 40 mg Chlordiazepoxide (Librium) 50 mg PO Q6 PRN PRN Reason: Agitation Cyanocobalamin (Vitamin B12 1000 Mcg Tab) 1,000 mcg PO DAILY [facility] Last Admin: 08/27/17 08:17 Dose: 1,000 mcg Enoxaparin Sodium (Lovenox) 40 mg SC DAILY [facility] PRN Reason: Protocol Last Admin: 08/27/17 08:17 Dose: 40 mg Folic Acid (Folic Acid) 1 mg PO DAILY [facility] Last Admin: 08/27/17 08:16 Dose: 1 mg Lorazepam (Ativan) 2 mg IM Q6 PRN PRN Reason: Seizure activity Multivitamins/Minerals (Therapeutic-M Tab) 1 tab PO DAILY [facility] Last Admin: 08/27/17 08:16 Dose: 1 tab Pantoprazole Sodium (Protonix Ec Tab) 40 mg PO DAILY [facility] Last Admin: 08/27/17 08:17 Dose: 40 mg Thiamine HCl (Vitamin B1 Tab) 100 mg PO DAILY [facility] Last Admin: 08/27/17 12:10 Dose: 100 mg Topiramate (Topamax) 50 mg PO BID [facility] Last Admin: 08/27/17 16:33 Dose: 50 mg - Labs Labs: 08/27/17 04:45 08/27/17 04:45
[2017-08-28] MEDS: Enoxaparin 40 mg Syringe SC SCH (08:49)
[2017-08-28] MEDS: Multivitamin With Minerals Tab PO SCH (08:49)
[2017-08-28] MEDS: Pantoprazole 40 mg EC Tab PO SCH (08:50)
[2017-08-28 10:30] LABS: HEMATOCRIT 35.1 % (35.0-51.0); MEAN CELL VOLUME 75.6 fl (80.0-94.0); MEAN CORPUSCULAR HEMOGLOBIN 25.5 pg (27.0-31.0); MEAN CORPUSCULAR HGB CONC 33.8 g/dL (33.0-37.0); WHITE BLOOD COUNT 3.9 K/uL (4.8-10.8)
[2017-08-28 12:37] LABS: BLOOD UREA NITROGEN 9 mg/dl (9-20); CALCIUM 9.4 mg/dL (8.4-10.2); CARBON DIOXIDE 27 mmol/L (22-30); CHLORIDE 97 mmol/L (98-107); GFR AFRICAN-AMERICAN > 60; GLUCOSE,RANDOM 159 mg/dL (75-110); POTASSIUM 3.4 MMOL/L (3.6-5.0); SODIUM 135 mmol/l (132-148)
[2017-08-28] MEDS ORDERED: Potassium Chloride 20 mEq ER Tab PO ONE (12:55)
--- NOTE | 2017-08-28 18:18 | PN ---
DATE: SUBJECTIVE: The patient is , cooperative, and history taking. He does report headache. He denies any chest pain. PHYSICAL EXAMINATION: VITAL SIGNS: Blood pressure 142/79. heart rate 77, temperature 97.7, respirations 15. HEENT: Old frontal scars. NECK: No JVD. CHEST: Clear. HEART: S1 and S2 regular. EXTREMITIES: No edema. ASSESSMENT: 1. Seizure disorder. 2. Ethyl alcohol abuse. 3. Mildly depressed left ventricular systolic function. The ejection fraction was measured at 45% on the recent echography study. RECOMMENDATIONS: Continue aspirin 81 mg once a day, Keppra 500 mg once a day, Lipitor 40 mg once a day, thiamine 1000 mg once a day. Start cholecalciferol 1.25 mg twice a day and enalapril at 2.5 mg once a day. Ronak Ramos MD
--- NOTE | 2017-08-28 23:08 | CP.PCM.PN ---
Subjective - Date & Time of Evaluation Date of Evaluation: 08/28/17 Time of Evaluation: 20:00 - Subjective Subjective: No Major changes, he is improving slowly Objective - Vital Signs/Intake and Output Vital Signs (last 24 hours): Temp Pulse Resp BP Pulse Ox 98.1 F 75 28 H 153/93 H 100 08/28/17 19:28 08/28/17 22:33 08/28/17 22:33 08/28/17 22:33 08/28/17 22:33 Intake and Output: 08/28/17 08/29/17 18:59 06:59 Intake Total 720 0 Output Total 2350 Balance -1630 0 - Medications Medications: Current Medications Acetaminophen (Tylenol 325mg Tab) 650 mg PO Q6 PRN PRN Reason: Fever >100.4 F Aspirin (Ecotrin) 81 mg PO DAILY [facility] Last Admin: 08/28/17 08:50 Dose: 81 mg Atorvastatin Calcium (Lipitor) 40 mg PO HS [facility] Last Admin: 08/28/17 21:34 Dose: 40 mg Carvedilol (Coreg) 3.125 mg PO Q12 [facility] Last Admin: 08/28/17 20:20 Dose: 3.125 mg Chlordiazepoxide (Librium) 50 mg PO Q6 PRN PRN Reason: Agitation Cyanocobalamin (Vitamin B12 1000 Mcg Tab) 1,000 mcg PO DAILY [facility] Last Admin: 08/28/17 08:49 Dose: 1,000 mcg Enalapril Maleate (Vasotec) 2.5 mg PO DAILY [facility] Last Admin: 08/28/17 13:21 Dose: Not Given Enoxaparin Sodium (Lovenox) 40 mg SC DAILY [facility] PRN Reason: Protocol Last Admin: 08/28/17 08:49 Dose: 40 mg Folic Acid (Folic Acid) 1 mg PO DAILY [facility] Last Admin: 08/28/17 08:49 Dose: 1 mg Lorazepam (Ativan) 2 mg IM Q6 PRN PRN Reason: Seizure activity Multivitamins/Minerals (Therapeutic-M Tab) 1 tab PO DAILY [facility] Last Admin: 08/28/17 08:49 Dose: 1 tab Pantoprazole Sodium (Protonix Ec Tab) 40 mg PO DAILY [facility] Last Admin: 08/28/17 08:50 Dose: 40 mg Thiamine HCl (Vitamin B1 Tab) 100 mg PO DAILY [facility] Last Admin: 08/28/17 08:49 Dose: 100 mg Topiramate (Topamax) 50 mg PO BID [facility] Last Admin: 08/28/17 17:20 Dose: 50 mg - Labs Labs: 08/28/17 10:05 08/28/17 12:29 Assessment and Plan (1) Alcohol abuse Status: Acute (2) Anxiety Status: Acute (3) Back pain Status: Acute
--- NOTE | 2017-08-28 23:58 | CP.PCM.PN ---
Objective - Vital Signs/Intake and Output Vital Signs (last 24 hours): Temp Pulse Resp BP Pulse Ox 98.1 F 72 11 L 141/97 H 100 08/28/17 19:28 08/28/17 23:10 08/28/17 23:10 08/28/17 23:10 08/28/17 23:10 Intake and Output: 08/28/17 08/29/17 18:59 06:59 Intake Total 720 0 Output Total 2350 Balance -1630 0 - Medications Medications: Current Medications Acetaminophen (Tylenol 325mg Tab) 650 mg PO Q6 PRN PRN Reason: Fever >100.4 F Aspirin (Ecotrin) 81 mg PO DAILY [facility] Last Admin: 08/28/17 08:50 Dose: 81 mg Atorvastatin Calcium (Lipitor) 40 mg PO HS [facility] Last Admin: 08/28/17 21:34 Dose: 40 mg Carvedilol (Coreg) 3.125 mg PO Q12 [facility] Last Admin: 08/28/17 20:20 Dose: 3.125 mg Chlordiazepoxide (Librium) 50 mg PO Q6 PRN PRN Reason: Agitation Cyanocobalamin (Vitamin B12 1000 Mcg Tab) 1,000 mcg PO DAILY [facility] Last Admin: 08/28/17 08:49 Dose: 1,000 mcg Enalapril Maleate (Vasotec) 2.5 mg PO DAILY [facility] Last Admin: 08/28/17 13:21 Dose: Not Given Enoxaparin Sodium (Lovenox) 40 mg SC DAILY [facility] PRN Reason: Protocol Last Admin: 08/28/17 08:49 Dose: 40 mg Folic Acid (Folic Acid) 1 mg PO DAILY [facility] Last Admin: 08/28/17 08:49 Dose: 1 mg Lorazepam (Ativan) 2 mg IM Q6 PRN PRN Reason: Seizure activity Multivitamins/Minerals (Therapeutic-M Tab) 1 tab PO DAILY [facility] Last Admin: 08/28/17 08:49 Dose: 1 tab Pantoprazole Sodium (Protonix Ec Tab) 40 mg PO DAILY [facility] Last Admin: 08/28/17 08:50 Dose: 40 mg Thiamine HCl (Vitamin B1 Tab) 100 mg PO DAILY [facility] Last Admin: 08/28/17 08:49 Dose: 100 mg Topiramate (Topamax) 50 mg PO BID [facility] Last Admin: 08/28/17 17:20 Dose: 50 mg - Labs Labs: 08/28/17 10:05 08/28/17 12:29
--- NOTE | 2017-08-29 01:29 | CP.PCM.PN ---
Subjective - Date & Time of Evaluation Date of Evaluation: 08/29/17 Time of Evaluation: 01:26 - Subjective Subjective: Patient developed 2 brief spells of seizures tonight while in his bed in the ICU The 1st spell lasted 8 seconds, while the 2nd spell lasted for 20 to 30 seconds. He is receiving now his IV Ativan 2m PRN Seizures. Objective - Vital Signs/Intake and Output Vital Signs (last 24 hours): Temp Pulse Resp BP Pulse Ox 98.2 F 72 15 138/95 H 100 08/29/17 00:12 08/29/17 00:12 08/29/17 00:12 08/29/17 00:12 08/29/17 00:12 Intake and Output: 08/28/17 08/29/17 18:59 06:59 Intake Total 720 0 Output Total 2350 Balance -1630 0 - Medications Medications: Current Medications Acetaminophen (Tylenol 325mg Tab) 650 mg PO Q6 PRN PRN Reason: Fever >100.4 F Aspirin (Ecotrin) 81 mg PO DAILY [facility] Last Admin: 08/28/17 08:50 Dose: 81 mg Atorvastatin Calcium (Lipitor) 40 mg PO HS [facility] Last Admin: 08/28/17 21:34 Dose: 40 mg Carvedilol (Coreg) 3.125 mg PO Q12 [facility] Last Admin: 08/28/17 20:20 Dose: 3.125 mg Chlordiazepoxide (Librium) 50 mg PO Q6 PRN PRN Reason: Agitation Cyanocobalamin (Vitamin B12 1000 Mcg Tab) 1,000 mcg PO DAILY [facility] Last Admin: 08/28/17 08:49 Dose: 1,000 mcg Enalapril Maleate (Vasotec) 2.5 mg PO DAILY [facility] Last Admin: 08/28/17 13:21 Dose: Not Given Enoxaparin Sodium (Lovenox) 40 mg SC DAILY [facility] PRN Reason: Protocol Last Admin: 08/28/17 08:49 Dose: 40 mg Folic Acid (Folic Acid) 1 mg PO DAILY [facility] Last Admin: 08/28/17 08:49 Dose: 1 mg Lorazepam (Ativan) 2 mg IM Q6 PRN PRN Reason: Seizure activity Multivitamins/Minerals (Therapeutic-M Tab) 1 tab PO DAILY [facility] Last Admin: 08/28/17 08:49 Dose: 1 tab Pantoprazole Sodium (Protonix Ec Tab) 40 mg PO DAILY [facility] Last Admin: 08/28/17 08:50 Dose: 40 mg Thiamine HCl (Vitamin B1 Tab) 100 mg PO DAILY [facility] Last Admin: 08/28/17 08:49 Dose: 100 mg Topiramate (Topamax) 50 mg PO BID [facility] Last Admin: 08/28/17 17:20 Dose: 50 mg - Labs Labs: 08/28/17 10:05 08/28/17 12:29 Assessment and Plan (1) Alcohol abuse Status: Acute (2) Anxiety Status: Acute (3) Back pain Status: Acute
[2017-08-29] MEDS: Pantoprazole 40 mg EC Tab PO SCH (09:22)
[2017-08-29] MEDS: Multivitamin With Minerals Tab PO SCH (09:22)
[2017-08-29] MEDS: Enoxaparin 40 mg Syringe SC SCH (09:23)
--- NOTE | 2017-08-29 15:25 | PN ---
DATE: SUBJECTIVE: The patient was reported to have 2 seizure activities yesterday. He denies any chest pain. PHYSICAL EXAMINATION: VITAL SIGNS: Blood pressure 105/72, heart rate 86, temperature 97.9, respiration 18. HEENT: No icterus. Mild pallor. NECK: No JVD. CHEST: Clear. HEART: S1, S2 regular. EXTREMITIES: No edema. ASSESSMENT: 1. Seizure disorder. 2. History of ethyl alcohol abuse. 3. Mildly depressed left ventricular systolic function. RECOMMENDATIONS: Continue current Coreg, aspirin, folic acid, Librium, Lipitor and enalapril therapy as well as oral thiamine. Ronak Ramos MD
--- NOTE | 2017-08-29 22:37 | CP.PCM.PN ---
Subjective - Date & Time of Evaluation Date of Evaluation: 08/29/17 Time of Evaluation: 19:40 - Subjective Subjective: He has improved and was transferred to the floor [address]. No seizures today. Objective - Vital Signs/Intake and Output Vital Signs (last 24 hours): Temp Pulse Resp BP Pulse Ox 97.8 F 82 19 105/69 99 08/29/17 16:13 08/29/17 21:51 08/29/17 16:13 08/29/17 21:51 08/29/17 16:13 Intake and Output: 08/29/17 08/30/17 18:59 06:59 Intake Total 120 Output Total 675 Balance -555 - Medications Medications: Current Medications Acetaminophen (Tylenol 325mg Tab) 650 mg PO Q6 PRN PRN Reason: Fever >100.4 F Aspirin (Ecotrin) 81 mg PO DAILY [facility] Last Admin: 08/29/17 09:22 Dose: 81 mg Atorvastatin Calcium (Lipitor) 40 mg PO HS [facility] Last Admin: 08/29/17 21:51 Dose: 40 mg Carvedilol (Coreg) 3.125 mg PO Q12 [facility] Last Admin: 08/29/17 21:51 Dose: 3.125 mg Cyanocobalamin (Vitamin B12 1000 Mcg Tab) 1,000 mcg PO DAILY [facility] Last Admin: 08/29/17 09:22 Dose: 1,000 mcg Enalapril Maleate (Vasotec) 2.5 mg PO DAILY [facility] Last Admin: 08/29/17 09:22 Dose: 2.5 mg Folic Acid (Folic Acid) 1 mg PO DAILY [facility] Last Admin: 08/29/17 09:22 Dose: 1 mg Lorazepam (Ativan) 2 mg IV Q6 PRN PRN Reason: Seizure activity Multivitamins/Minerals (Therapeutic-M Tab) 1 tab PO DAILY [facility] Last Admin: 08/29/17 09:22 Dose: 1 tab Pantoprazole Sodium (Protonix Ec Tab) 40 mg PO DAILY [facility] Last Admin: 08/29/17 09:22 Dose: 40 mg Thiamine HCl (Vitamin B1 Tab) 100 mg PO DAILY [facility] Last Admin: 08/29/17 09:22 Dose: 100 mg Topiramate (Topamax) 50 mg PO BID [facility] Last Admin: 08/29/17 17:07 Dose: 50 mg - Labs Labs: 08/28/17 10:05 08/28/17 12:29 Assessment and Plan (1) Alcohol abuse Status: Acute (2) Anxiety Status: Acute (3) Back pain Status: Acute
--- NOTE | 2017-08-30 00:08 | CP.PCM.PN ---
Subjective - Date & Time of Evaluation Date of Evaluation: 08/29/17 Time of Evaluation: 14:25 Objective - Vital Signs/Intake and Output Vital Signs (last 24 hours): Temp Pulse Resp BP Pulse Ox 97.8 F 82 19 105/69 99 08/29/17 16:13 08/29/17 21:51 08/29/17 16:13 08/29/17 21:51 08/29/17 16:13 Intake and Output: 08/29/17 08/30/17 18:59 06:59 Intake Total 120 Output Total 675 Balance -555 - Medications Medications: Current Medications Acetaminophen (Tylenol 325mg Tab) 650 mg PO Q6 PRN PRN Reason: Fever >100.4 F Aspirin (Ecotrin) 81 mg PO DAILY [facility] Last Admin: 08/29/17 09:22 Dose: 81 mg Atorvastatin Calcium (Lipitor) 40 mg PO HS [facility] Last Admin: 08/29/17 21:51 Dose: 40 mg Carvedilol (Coreg) 3.125 mg PO Q12 [facility] Last Admin: 08/29/17 21:51 Dose: 3.125 mg Cyanocobalamin (Vitamin B12 1000 Mcg Tab) 1,000 mcg PO DAILY [facility] Last Admin: 08/29/17 09:22 Dose: 1,000 mcg Enalapril Maleate (Vasotec) 2.5 mg PO DAILY [facility] Last Admin: 08/29/17 09:22 Dose: 2.5 mg Folic Acid (Folic Acid) 1 mg PO DAILY [facility] Last Admin: 08/29/17 09:22 Dose: 1 mg Lorazepam (Ativan) 2 mg IV Q6 PRN PRN Reason: Seizure activity Multivitamins/Minerals (Therapeutic-M Tab) 1 tab PO DAILY [facility] Last Admin: 08/29/17 09:22 Dose: 1 tab Pantoprazole Sodium (Protonix Ec Tab) 40 mg PO DAILY [facility] Last Admin: 08/29/17 09:22 Dose: 40 mg Thiamine HCl (Vitamin B1 Tab) 100 mg PO DAILY [facility] Last Admin: 08/29/17 09:22 Dose: 100 mg Topiramate (Topamax) 50 mg PO BID [facility] Last Admin: 08/29/17 17:07 Dose: 50 mg - Labs Labs: 08/28/17 10:05 08/28/17 12:29 Assessment and Plan (1) Altered mental status Status: Acute (2) Seizures Status: Chronic
[2017-08-30] MEDS: Pantoprazole 40 mg EC Tab PO SCH (10:12)
[2017-08-30] MEDS: Multivitamin With Minerals Tab PO SCH (10:13)
--- NOTE | 2017-08-30 15:55 | PN ---
DATE: SUBJECTIVE: The patient is experiencing headache. He was reported to have borderline hypotension today. PHYSICAL EXAMINATION: VITAL SIGNS: The most recent blood pressure is 85/50, heart rate 86, temperature 98.1. CHEST: Clear. HEART: S1 and S2, regular. ABDOMEN: Soft. EXTREMITIES: No edema. ASSESSMENT: 1. Status post fall, most likely seizure activity. 2. Borderline hypotension. 3. Mildly depressed left ventricular systolic function. RECOMMENDATIONS: The patient will be given Tylenol for his headache. In the meantime, Coreg and Vasotec will be withheld and patient will be maintained on thiamine and Topamax. Ronak Ramos MD
--- NOTE | 2017-08-30 23:12 | CP.PCM.PN ---
Subjective - Date & Time of Evaluation Date of Evaluation: 08/30/17 Time of Evaluation: 12:15 Objective - Vital Signs/Intake and Output Vital Signs (last 24 hours): Temp Pulse Resp BP Pulse Ox 98 F 73 18 100/62 99 08/30/17 17:24 08/30/17 17:24 08/30/17 17:24 08/30/17 17:24 08/30/17 17:24 Intake and Output: 08/30/17 08/31/17 18:59 06:59 Output Total 430 Balance -430 - Medications Medications: Current Medications Acetaminophen (Tylenol 325mg Tab) 650 mg PO Q6 PRN PRN Reason: Fever >100.4 F Last Admin: 08/30/17 11:25 Dose: 650 mg Aspirin (Ecotrin) 81 mg PO DAILY [facility] Last Admin: 08/30/17 10:12 Dose: 81 mg Atorvastatin Calcium (Lipitor) 40 mg PO HS [facility] Last Admin: 08/29/17 21:51 Dose: 40 mg Cyanocobalamin (Vitamin B12 1000 Mcg Tab) 1,000 mcg PO DAILY [facility] Last Admin: 08/30/17 10:13 Dose: 1,000 mcg Folic Acid (Folic Acid) 1 mg PO DAILY [facility] Last Admin: 08/30/17 10:12 Dose: 1 mg Lorazepam (Ativan) 2 mg IV Q6 PRN PRN Reason: Seizure activity Multivitamins/Minerals (Therapeutic-M Tab) 1 tab PO DAILY [facility] Last Admin: 08/30/17 10:13 Dose: 1 tab Pantoprazole Sodium (Protonix Ec Tab) 40 mg PO DAILY [facility] Last Admin: 08/30/17 10:12 Dose: 40 mg Thiamine HCl (Vitamin B1 Tab) 100 mg PO DAILY [facility] Last Admin: 08/30/17 10:13 Dose: 100 mg Topiramate (Topamax) 50 mg PO BID [facility] Last Admin: 08/30/17 18:10 Dose: 50 mg - Labs Labs: 08/28/17 10:05 08/28/17 12:29 Assessment and Plan (1) Altered mental status Status: Acute (2) Seizures Status: Chronic
--- NOTE | 2017-08-31 00:54 | CP.PCM.PN ---
Subjective - Date & Time of Evaluation Date of Evaluation: 08/30/17 Time of Evaluation: 21:10 - Subjective Subjective: No Seizures. He is doing well on Topamax. Less sleepy, recovering slowly. Topamax needs to be increased gradually by 25 mg a week per dose up to 100 mg Q 12 hrs. It means 75 mg Q 12 hrs X 1 week followed by 100 mg Q 12 hrs for 2 more years. Negative EEG. Objective - Vital Signs/Intake and Output Vital Signs (last 24 hours): Temp Pulse Resp BP Pulse Ox 98.9 F 68 19 137/89 100 08/31/17 00:00 08/31/17 00:00 08/31/17 00:00 08/31/17 00:00 08/31/17 00:00 Intake and Output: 08/30/17 08/31/17 18:59 06:59 Output Total 430 Balance -430 - Medications Medications: Current Medications Acetaminophen (Tylenol 325mg Tab) 650 mg PO Q6 PRN PRN Reason: Fever >100.4 F Last Admin: 08/30/17 11:25 Dose: 650 mg Aspirin (Ecotrin) 81 mg PO DAILY [facility] Last Admin: 08/30/17 10:12 Dose: 81 mg Atorvastatin Calcium (Lipitor) 40 mg PO HS [facility] Last Admin: 08/29/17 21:51 Dose: 40 mg Cyanocobalamin (Vitamin B12 1000 Mcg Tab) 1,000 mcg PO DAILY [facility] Last Admin: 08/30/17 10:13 Dose: 1,000 mcg Folic Acid (Folic Acid) 1 mg PO DAILY [facility] Last Admin: 08/30/17 10:12 Dose: 1 mg Lorazepam (Ativan) 2 mg IV Q6 PRN PRN Reason: Seizure activity Multivitamins/Minerals (Therapeutic-M Tab) 1 tab PO DAILY [facility] Last Admin: 08/30/17 10:13 Dose: 1 tab Pantoprazole Sodium (Protonix Ec Tab) 40 mg PO DAILY [facility] Last Admin: 08/30/17 10:12 Dose: 40 mg Thiamine HCl (Vitamin B1 Tab) 100 mg PO DAILY [facility] Last Admin: 08/30/17 10:13 Dose: 100 mg Topiramate (Topamax) 50 mg PO BID [facility] Last Admin: 08/30/17 18:10 Dose: 50 mg - Labs Labs: 08/28/17 10:05 08/28/17 12:29 Assessment and Plan (1) Alcohol abuse Status: Acute (2) Anxiety Status: Acute (3) Back pain Status: Acute
--- NOTE | 2017-08-31 09:16 | EEG ---
REASON FOR STUDY: Record is obtained for history of altered mental status, seizures, alcohol abuse. FINDINGS: The record was symmetrically equal on both sides with velocity of 8 cycles per second. The waves are fairly formed, fairly organized, with a posterior distribution, moderate in amplitude, reactive to opening by attenuation. There are no abnormal discharges. No spike, no polyspike, no sharp wave, no focal slowing, or paroxysmal discharge. The records show periods of drowsiness during which attenuation and slowing of the record are seen and theta waves are seen, and there are no periods of sleep. There are eye movement artifact, electrode artifact, and muscle movement artifact. Photic stimulation did not produce any changes. Hyperventilation was not performed. IMPRESSION: In summary, this is a normal, awake, and drowsy EEG. Clinical correlation is recommended. Sen Wilkinson MD
[2017-08-31] MEDS: Pantoprazole 40 mg EC Tab PO SCH (09:50)
[2017-08-31] MEDS: Multivitamin With Minerals Tab PO SCH (09:50)
--- NOTE | 2017-08-31 20:54 | PN ---
DATE: SUBJECTIVE: The patient denies any chest pain or dizziness. He complains of mild headache. PHYSICAL EXAMINATION: VITAL SIGNS: Blood pressure 106/71, heart rate 83, temperature 97.9, respirations 20. HEENT: Slightly pale conjunctivae. CHEST: Clear. HEART: S1 and S2 regular. EXTREMITIES: No edema. ASSESSMENT: 1. Seizure activity. 2. Borderline hypertension. 3. History of ethyl alcohol abuse. RECOMMENDATION: Continue aspirin 81 mg once daily, Lipitor 40 mg once daily, Protonix 40 mg p.o. once a day, thiamine 100 mg once a day, and vitamin B12 at 1 mg orally daily. Ronak Ramos MD
--- NOTE | 2017-09-01 01:00 | CP.PCM.PN ---
Subjective - Date & Time of Evaluation Date of Evaluation: 08/31/17 Time of Evaluation: 22:00 - Subjective Subjective: No seizures, he is stable on Topamax 50 mg Q 12 Hrs Objective - Vital Signs/Intake and Output Vital Signs (last 24 hours): Temp Pulse Resp BP Pulse Ox 97.8 F 83 18 136/56 L 95 08/31/17 17:08 08/31/17 16:05 08/31/17 17:08 08/31/17 17:08 08/31/17 17:08 - Medications Medications: Current Medications Acetaminophen (Tylenol 325mg Tab) 650 mg PO Q6 PRN PRN Reason: Fever >100.4 F Last Admin: 08/30/17 11:25 Dose: 650 mg Acetaminophen (Tylenol 325mg Tab) 650 mg PO Q6 PRN PRN Reason: Pain, Mild (1-3) Last Admin: 08/31/17 18:35 Dose: 650 mg Aspirin (Ecotrin) 81 mg PO DAILY [facility] Last Admin: 08/31/17 09:50 Dose: 81 mg Atorvastatin Calcium (Lipitor) 40 mg PO HS [facility] Last Admin: 08/31/17 21:05 Dose: 40 mg Cyanocobalamin (Vitamin B12 1000 Mcg Tab) 1,000 mcg PO DAILY [facility] Last Admin: 08/31/17 09:50 Dose: 1,000 mcg Folic Acid (Folic Acid) 1 mg PO DAILY [facility] Last Admin: 08/31/17 09:50 Dose: 1 mg Lorazepam (Ativan) 2 mg IV Q6 PRN PRN Reason: Seizure activity Multivitamins/Minerals (Therapeutic-M Tab) 1 tab PO DAILY [facility] Last Admin: 08/31/17 09:50 Dose: 1 tab Pantoprazole Sodium (Protonix Ec Tab) 40 mg PO DAILY [facility] Last Admin: 08/31/17 09:50 Dose: 40 mg Thiamine HCl (Vitamin B1 Tab) 100 mg PO DAILY [facility] Last Admin: 08/31/17 09:50 Dose: 100 mg Topiramate (Topamax) 50 mg PO BID [facility] Last Admin: 08/31/17 16:25 Dose: 50 mg - Labs Labs: 08/28/17 10:05 08/28/17 12:29 Assessment and Plan (1) Alcohol abuse Status: Acute (2) Anxiety Status: Acute (3) Back pain Status: Acute
[2017-09-01] MEDS ORDERED: Lorazepam 2 mg/ml (10ml) Sol IV ONE (03:41)
--- NOTE | 2017-09-01 04:18 | PCM.RRT ---
<TenYesi - Last Filed: 09/01/17 04:53> I.Reason for GOLF BALL TRIMMER - A) Acute Change in Patient: Subjective: GOLF BALL TRIMMER was called by nurse for a 56 y/o M with h/o Alcohol abuse and seizure disorder admitted after seizure episode on 08/25/17. As per nurse she noticed that patient was unresponsive, and having a tonic-clonic seizure involving upper extremities lasting for few minutes. When we arrived to the GOLF BALL TRIMMER, no evidence of seizures was noted, but patient was unresponsive to verbal stimuli and tactile stimuli, and had urinary incontinence at the time of the event. O: VS: BP: 152/85, O2sat: 100 % in room air, HR: 67, RR: 12 PE: unresponsive to verbal and tactile stimuli resembling postictal state Neuro: unable to assess resp: CTA B/L, no rales, wheezes, rhonchi CV: RRR, normal S1, S2 abd: soft, no facial grimacing to palpation ext: no edema, DP pulses present b/l Plan - Assessment of Findings&Treatment Plan 56 y/o M with h/o alcohol abuse and seizure disorder presenting with seizure episode most likely secondary to alcohol withdrawal. P:labs: CBC, CMP, Mag, Phos Ativan 2 mg IV once was ordered, but Was Not Given because patient came out of postictal state before medication arrival, No evidence of other seizure episode noted. Decision was made to stop ativan, and start Librium 25 mg PO Q6h. At the end of RRP patient was alert, awake, oriented x 3, and responsive, VS stable WNL GOLF BALL TRIMMER leader : Altagracia Wiley <Deon Garnica - Last Filed: 09/03/17 19:37> GOLF BALL TRIMMER Nurse Assessment - Vital Signs Vital Signs: Rapid Response Vital Sign Blood Pressure 152/85 Pulse Rate 67 Respiratory Rate 31 Oxygen Saturation 100 - Vital Signs at end of GOLF BALL TRIMMER Vital Signs at end of GOLF BALL TRIMMER: Rapid Response End Vital Sign Blood Pressure 155/90 Pulse Rate 73 Respiratory Rate 20 Temperature 97.9 F O2 Sat by Pulse Oximetry 99 Attending/Attestation - Attestation I have personally seen and examined this patient.: No I have fully participated in the care of the patient.: No I have reviewed all pertinent clinical information, including history, physical exam and plan: No Notes (Text): 09/03/17 19:32 I saw and examined this patient shoulder to shoulder with Dr Caal. The assessment and plan outlined reflect my direct input.The patient with withnessed generalized seizure. #. Alcohol withdrawal seizure - No Ativan given as seizure ceased and patient eventually came out of the post ictal confusional state. - Decision was made to start Librium q6 hours - If further seizure, then an antiseizure medication would be started. - Continue observation Deon Garnica MD
[2017-09-01 05:55] LABS: BASO % 0.9 % (0.0-2.0); EOS # 0.1 K/uL (0.0-0.7); EOS % 3.7 % (0.0-4.0); HEMATOCRIT 32.1 % (35.0-51.0); LYMPH # 0.6 K/uL (1.0-4.3); LYMPH % 20.3 % (20.0-40.0); MEAN CELL VOLUME 76.3 fl (80.0-94.0); MEAN CORPUSCULAR HEMOGLOBIN 25.1 pg (27.0-31.0); MEAN CORPUSCULAR HGB CONC 32.9 g/dL (33.0-37.0); MEAN PLATELET VOLUME 7.2 fl (7.2-11.7); MONO # 0.6 K/uL (0.0-0.8); MONO % 20.6 % (0.0-10.0); NEUT # 1.6 K/uL (1.8-7.0); NEUT % 54.5 % (50.0-75.0); PLATELET COUNT 230 K/uL (130-400); RED CELL DISTRIBUTION WIDTH 17.9 % (11.5-14.5); WHITE BLOOD COUNT 2.9 K/uL (4.8-10.8)
[2017-09-01 06:01] LABS: ALB/GLOB RATIO 1.2 (1.0-2.1); ALKALINE PHOSPHATASE 135 U/L (38-126); ALT/SGPT 32 U/L (21-72); AST/SGOT 27 U/L (17-59); BILIRUBIN,TOTAL 0.3 mg/dl (0.2-1.3); BLOOD UREA NITROGEN 14 mg/dl (9-20); CALCIUM 8.6 mg/dL (8.4-10.2); CARBON DIOXIDE 18 mmol/L (22-30); CHLORIDE 99 mmol/L (98-107); GFR AFRICAN-AMERICAN > 60; GLUCOSE,RANDOM 97 mg/dL (75-110); MAGNESIUM 1.2 MG/DL (1.6-2.3); PHOSPHOROUS 2.9 mg/dl (2.5-4.5); POTASSIUM 3.6 MMOL/L (3.6-5.0); SODIUM 127 mmol/l (132-148); TOTAL PROTEIN 6.9 G/DL (6.3-8.2)
[2017-09-01] MEDS: Pantoprazole 40 mg EC Tab PO SCH (09:59)
[2017-09-01] MEDS: Multivitamin With Minerals Tab PO SCH (09:59)
[2017-09-01 10:02] LABS: EOSINOPHIL 2 % (0-7); NEUTROPHIL 64 % (42-75); TOTAL CELLS COUNTED 100
[2017-09-01 10:03] LABS: LARGE PLATELETS PRESENT
--- NOTE | 2017-09-01 21:56 | PN ---
FOLLOWUP DATE: SUBJECTIVE: The patient was witnessed to have the seizure yesterday. It was reported to be a clonic seizure as conveyed to me by the nurse. The patient denies any tongue biting or urinary incontinence. He denies any chest pain. PHYSICAL EXAMINATION: VITAL SIGNS: Blood pressure /84, heart rate 61, temperature 97.3, respirations 20. HEENT: Old frontal scars. NECK: No JVD. CHEST: Clear. HEART: S1 and S2 regular. EXTREMITIES: No edema. LABORATORY DATA: Today's hemoglobin and hematocrit 10.6 and 32.1, white count 2.9, platelet count 230,000. SMA-7: Sodium 127, potassium 3.6, chloride 99, CO2 of 18, glucose 97, BUN 14, creatinine 0.8. ASSESSMENT: 1. Recurrent seizure activity. 2. History of ethyl alcohol abuse. 3. Hyponatremia. RECOMMENDATIONS: Continue current IV p.r.n. Ativan. Continue aspirin 81 mg once a day, Librium 25 mg q. 6 hours, Lipitor 40 mg once a day, Topamax at 50 mg twice a day, thiamine at 100 mg daily. Ronak Ramos MD
--- NOTE | 2017-09-02 00:01 | CP.PCM.PN ---
Subjective - Date & Time of Evaluation Date of Evaluation: 08/31/17 Time of Evaluation: 22:00 Objective - Vital Signs/Intake and Output Vital Signs (last 24 hours): Temp Pulse Resp BP Pulse Ox 97.8 F 71 18 109/72 100 09/01/17 16:22 09/01/17 16:22 09/01/17 16:22 09/01/17 16:22 09/01/17 16:22 - Medications Medications: Current Medications Acetaminophen (Tylenol 325mg Tab) 650 mg PO Q6 PRN PRN Reason: Fever >100.4 F Last Admin: 08/30/17 11:25 Dose: 650 mg Acetaminophen (Tylenol 325mg Tab) 650 mg PO Q6 PRN PRN Reason: Pain, Mild (1-3) Last Admin: 08/31/17 18:35 Dose: 650 mg Aspirin (Ecotrin) 81 mg PO DAILY [facility] Last Admin: 09/01/17 09:59 Dose: 81 mg Atorvastatin Calcium (Lipitor) 40 mg PO HS [facility] Last Admin: 09/01/17 22:04 Dose: 40 mg Chlordiazepoxide (Librium) 25 mg PO Q6 [facility] Last Admin: 09/01/17 22:03 Dose: 25 mg Cyanocobalamin (Vitamin B12 1000 Mcg Tab) 1,000 mcg PO DAILY [facility] Last Admin: 09/01/17 10:00 Dose: 1,000 mcg Folic Acid (Folic Acid) 1 mg PO DAILY [facility] Last Admin: 09/01/17 09:59 Dose: 1 mg Lorazepam (Ativan) 2 mg IV Q6 PRN PRN Reason: Seizure activity Multivitamins/Minerals (Therapeutic-M Tab) 1 tab PO DAILY [facility] Last Admin: 09/01/17 09:59 Dose: 1 tab Pantoprazole Sodium (Protonix Ec Tab) 40 mg PO DAILY [facility] Last Admin: 09/01/17 09:59 Dose: 40 mg Thiamine HCl (Vitamin B1 Tab) 100 mg PO DAILY [facility] Last Admin: 09/01/17 10:00 Dose: 100 mg Topiramate (Topamax) 50 mg PO BID [facility] Last Admin: 09/01/17 16:41 Dose: 50 mg - Labs Labs: 09/01/17 05:30 09/01/17 05:30 Assessment and Plan (1) Altered mental status Status: Acute (2) Seizures Status: Chronic
--- NOTE | 2017-09-02 00:02 | CP.PCM.PN ---
Subjective - Date & Time of Evaluation Date of Evaluation: 09/01/17 Time of Evaluation: 23:30 Objective - Vital Signs/Intake and Output Vital Signs (last 24 hours): Temp Pulse Resp BP Pulse Ox 97.8 F 71 18 109/72 100 09/01/17 16:22 09/01/17 16:22 09/01/17 16:22 09/01/17 16:22 09/01/17 16:22 - Medications Medications: Current Medications Acetaminophen (Tylenol 325mg Tab) 650 mg PO Q6 PRN PRN Reason: Fever >100.4 F Last Admin: 08/30/17 11:25 Dose: 650 mg Acetaminophen (Tylenol 325mg Tab) 650 mg PO Q6 PRN PRN Reason: Pain, Mild (1-3) Last Admin: 08/31/17 18:35 Dose: 650 mg Aspirin (Ecotrin) 81 mg PO DAILY [facility] Last Admin: 09/01/17 09:59 Dose: 81 mg Atorvastatin Calcium (Lipitor) 40 mg PO HS [facility] Last Admin: 09/01/17 22:04 Dose: 40 mg Chlordiazepoxide (Librium) 25 mg PO Q6 [facility] Last Admin: 09/01/17 22:03 Dose: 25 mg Cyanocobalamin (Vitamin B12 1000 Mcg Tab) 1,000 mcg PO DAILY [facility] Last Admin: 09/01/17 10:00 Dose: 1,000 mcg Folic Acid (Folic Acid) 1 mg PO DAILY [facility] Last Admin: 09/01/17 09:59 Dose: 1 mg Lorazepam (Ativan) 2 mg IV Q6 PRN PRN Reason: Seizure activity Multivitamins/Minerals (Therapeutic-M Tab) 1 tab PO DAILY [facility] Last Admin: 09/01/17 09:59 Dose: 1 tab Pantoprazole Sodium (Protonix Ec Tab) 40 mg PO DAILY [facility] Last Admin: 09/01/17 09:59 Dose: 40 mg Thiamine HCl (Vitamin B1 Tab) 100 mg PO DAILY [facility] Last Admin: 09/01/17 10:00 Dose: 100 mg Topiramate (Topamax) 50 mg PO BID [facility] Last Admin: 09/01/17 16:41 Dose: 50 mg - Labs Labs: 09/01/17 05:30 09/01/17 05:30 Assessment and Plan (1) Altered mental status Status: Acute (2) Seizures Status: Chronic
--- NOTE | 2017-09-02 00:03 | CP.PCM.PN ---
Subjective - Date & Time of Evaluation Date of Evaluation: 09/01/17 Time of Evaluation: 22:25 - Subjective Subjective: Patient had a spell of non responsiveness and a SCREEN PRINTING MACHINE OPERATOR is called. There is no new problems, Tonic clonic Seizures were seen for few minuted. We will increase his Topamax to 75 mg Q 12 hrs. D/C IM Vitamin B12 1000 mcg daily and make it PO 1000 mg per day Objective - Vital Signs/Intake and Output Vital Signs (last 24 hours): Temp Pulse Resp BP Pulse Ox 97.8 F 71 18 109/72 100 09/01/17 16:22 09/01/17 16:22 09/01/17 16:22 09/01/17 16:22 09/01/17 16:22 - Medications Medications: Current Medications Acetaminophen (Tylenol 325mg Tab) 650 mg PO Q6 PRN PRN Reason: Fever >100.4 F Last Admin: 08/30/17 11:25 Dose: 650 mg Acetaminophen (Tylenol 325mg Tab) 650 mg PO Q6 PRN PRN Reason: Pain, Mild (1-3) Last Admin: 08/31/17 18:35 Dose: 650 mg Aspirin (Ecotrin) 81 mg PO DAILY [facility] Last Admin: 09/01/17 09:59 Dose: 81 mg Atorvastatin Calcium (Lipitor) 40 mg PO HS [facility] Last Admin: 09/01/17 22:04 Dose: 40 mg Chlordiazepoxide (Librium) 25 mg PO Q6 [facility] Last Admin: 09/01/17 22:03 Dose: 25 mg Cyanocobalamin (Vitamin B12 1000 Mcg Tab) 1,000 mcg PO DAILY [facility] Last Admin: 09/01/17 10:00 Dose: 1,000 mcg Folic Acid (Folic Acid) 1 mg PO DAILY [facility] Last Admin: 09/01/17 09:59 Dose: 1 mg Lorazepam (Ativan) 2 mg IV Q6 PRN PRN Reason: Seizure activity Multivitamins/Minerals (Therapeutic-M Tab) 1 tab PO DAILY [facility] Last Admin: 09/01/17 09:59 Dose: 1 tab Pantoprazole Sodium (Protonix Ec Tab) 40 mg PO DAILY [facility] Last Admin: 09/01/17 09:59 Dose: 40 mg Thiamine HCl (Vitamin B1 Tab) 100 mg PO DAILY [facility] Last Admin: 09/01/17 10:00 Dose: 100 mg Topiramate (Topamax) 50 mg PO BID [facility] Last Admin: 09/01/17 16:41 Dose: 50 mg - Labs Labs: 09/01/17 05:30 09/01/17 05:30 Assessment and Plan (1) Alcohol abuse Status: Acute (2) Anxiety Status: Acute (3) Back pain Status: Acute
[2017-09-02] MEDS ORDERED: Magnesium Sulfate 2 gm/50 ml 2 GM/50 ML BAG IVPB ONE (00:13)
[2017-09-02] MEDS ORDERED: Sodium Chloride 0.9% 1,000 ML IV SCH (00:15)
[2017-09-02 07:23] LABS: BLOOD UREA NITROGEN 14 mg/dl (9-20); CARBON DIOXIDE 17 mmol/L (22-30); CHLORIDE 109 mmol/L (98-107); GFR AFRICAN-AMERICAN > 60; GLUCOSE,RANDOM 89 mg/dL (75-110); MAGNESIUM 2.1 MG/DL (1.6-2.3); POTASSIUM 3.7 MMOL/L (3.6-5.0); SODIUM 137 mmol/l (132-148)
[2017-09-02 08:04] LABS: BASO % 1.2 % (0.0-2.0); EOS # 0.1 K/uL (0.0-0.7); EOS % 2.9 % (0.0-4.0); HEMATOCRIT 32.6 % (35.0-51.0); LYMPH # 0.6 K/uL (1.0-4.3); LYMPH % 29.3 % (20.0-40.0); MEAN CELL VOLUME 76.2 fl (80.0-94.0); MEAN CORPUSCULAR HEMOGLOBIN 25.3 pg (27.0-31.0); MEAN CORPUSCULAR HGB CONC 33.2 g/dL (33.0-37.0); MEAN PLATELET VOLUME 8.4 fl (7.2-11.7); MONO # 0.4 K/uL (0.0-0.8); MONO % 18.1 % (0.0-10.0); NEUT % 48.5 % (50.0-75.0); NRBC % 0.1 % (0.0-0.0); RED CELL DISTRIBUTION WIDTH 18.5 % (11.5-14.5)
[2017-09-02] MEDS: Pantoprazole 40 mg EC Tab PO SCH (10:36)
[2017-09-02] MEDS: Multivitamin With Minerals Tab PO SCH (10:37)
--- NOTE | 2017-09-02 15:22 | CP.PCM.PN ---
Subjective - Date & Time of Evaluation Date of Evaluation: 09/02/17 Time of Evaluation: 15:21 - Subjective Subjective: No seizures are seen or documented. He is still confused and received a visit by his daughter. He is on Topamax 75 mg Q 12 hrs. Objective - Vital Signs/Intake and Output Vital Signs (last 24 hours): Temp Pulse Resp BP Pulse Ox 98.8 F 82 20 126/80 100 09/02/17 08:15 09/02/17 08:15 09/02/17 08:15 09/02/17 08:15 09/02/17 08:15 - Medications Medications: Current Medications Acetaminophen (Tylenol 325mg Tab) 650 mg PO Q6 PRN PRN Reason: Fever >100.4 F Last Admin: 08/30/17 11:25 Dose: 650 mg Acetaminophen (Tylenol 325mg Tab) 650 mg PO Q6 PRN PRN Reason: Pain, Mild (1-3) Last Admin: 09/02/17 14:27 Dose: 650 mg Aspirin (Ecotrin) 81 mg PO DAILY [facility] Last Admin: 09/02/17 10:36 Dose: 81 mg Atorvastatin Calcium (Lipitor) 40 mg PO HS [facility] Last Admin: 09/01/17 22:04 Dose: 40 mg Chlordiazepoxide (Librium) 25 mg PO Q6 [facility] Last Admin: 09/02/17 10:45 Dose: 25 mg Cyanocobalamin (Vitamin B12 1000 Mcg Tab) 1,000 mcg PO DAILY [facility] Last Admin: 09/02/17 10:37 Dose: 1,000 mcg Folic Acid (Folic Acid) 1 mg PO DAILY [facility] Last Admin: 09/02/17 10:36 Dose: 1 mg Lorazepam (Ativan) 2 mg IV Q6 PRN PRN Reason: Seizure activity Multivitamins/Minerals (Therapeutic-M Tab) 1 tab PO DAILY [facility] Last Admin: 09/02/17 10:37 Dose: 1 tab Pantoprazole Sodium (Protonix Ec Tab) 40 mg PO DAILY [facility] Last Admin: 09/02/17 10:36 Dose: 40 mg Thiamine HCl (Vitamin B1 Tab) 100 mg PO DAILY [facility] Last Admin: 09/02/17 10:37 Dose: 100 mg Topiramate (Topamax) 75 mg PO BID [facility] Last Admin: 09/02/17 10:37 Dose: 75 mg - Labs Labs: 09/02/17 06:00 09/02/17 07:00 Assessment and Plan (1) Alcohol abuse Status: Acute (2) Anxiety Status: Acute (3) Back pain Status: Acute
--- NOTE | 2017-09-02 17:29 | CP.PCM.PN ---
Subjective - Date & Time of Evaluation Date of Evaluation: 09/02/17 Time of Evaluation: 17:14 - Subjective Subjective: This is a 56 rs old male who was admittedn for seizures which happened in the street. He was brought to the ER where he again had another seizure. He has a h/ o increased alcohol intake. and for all practical purposes lives on the street. He was on Keppra and Dilantin before admission, both of which can cause profound neutropenia. His WBC count on admission however was 3.7 then 3.9 and then came down to 2.1. He does not have an anemia or thrombocytopenia, which are more common in alcoholics. The other medicines he got here was Topamax which does not cause neutropenia but librium can cause agranulocytosis. I dont know if it works so fast or if a couple of doses are enough to cause the WBc to go down. Objective - Vital Signs/Intake and Output Vital Signs (last 24 hours): Temp Pulse Resp BP Pulse Ox 97.7 F 72 20 117/78 99 09/02/17 16:18 09/02/17 16:18 09/02/17 16:18 09/02/17 16:18 09/02/17 16:18 - Medications Medications: Current Medications Acetaminophen (Tylenol 325mg Tab) 650 mg PO Q6 PRN PRN Reason: Fever >100.4 F Last Admin: 08/30/17 11:25 Dose: 650 mg Acetaminophen (Tylenol 325mg Tab) 650 mg PO Q6 PRN PRN Reason: Pain, Mild (1-3) Last Admin: 09/02/17 14:27 Dose: 650 mg Aspirin (Ecotrin) 81 mg PO DAILY [facility] Last Admin: 09/02/17 10:36 Dose: 81 mg Atorvastatin Calcium (Lipitor) 40 mg PO HS [facility] Last Admin: 09/01/17 22:04 Dose: 40 mg Chlordiazepoxide (Librium) 25 mg PO Q6 [facility] Last Admin: 09/02/17 16:56 Dose: 25 mg Cyanocobalamin (Vitamin B12 1000 Mcg Tab) 1,000 mcg PO DAILY [facility] Last Admin: 09/02/17 10:37 Dose: 1,000 mcg Folic Acid (Folic Acid) 1 mg PO DAILY [facility] Last Admin: 09/02/17 10:36 Dose: 1 mg Lorazepam (Ativan) 2 mg IV Q6 PRN PRN Reason: Seizure activity Multivitamins/Minerals (Therapeutic-M Tab) 1 tab PO DAILY [facility] Last Admin: 09/02/17 10:37 Dose: 1 tab Pantoprazole Sodium (Protonix Ec Tab) 40 mg PO DAILY [facility] Last Admin: 09/02/17 10:36 Dose: 40 mg Thiamine HCl (Vitamin B1 Tab) 100 mg PO DAILY [facility] Last Admin: 09/02/17 10:37 Dose: 100 mg Topiramate (Topamax) 75 mg PO BID [facility] Last Admin: 09/02/17 16:56 Dose: 75 mg - Labs Labs: 09/02/17 06:00 09/02/17 07:00 - Additional Findings Additional findings: P/E; Alert, well oriented, in no acute distress neck; Supple, no adenopathy Chest; Clear, no rales or rhonchi Heart: RSR, no murmur Abd; Soft, no mass, no h/s megay, no ascitis. Assessment and Plan - Assessment and Plan (Free Text) Assessment: Impression; neutropenia could be secondary to the librium I would however like to r/o Lab error and repeat the CBC tomorrow. Plan: Plan; Will repeat the CBC in am
--- NOTE | 2017-09-02 18:16 | CP.PCM.CON ---
History of Present Illness - History of Present Illness History of Present Illness: this is a 56 years old male who was admitted for seizures which happened in the street. He was brought to the ER where he again had another seizure. 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 which added to his depression passive suicidal ideations with no plan, reported decreased sleep and appetite denied manic or psychotic symptoms, denied homicidal ideations last use of alcohol was prior to admission denied any other substance use Past Patient History - Past Medical History & Family History Past Medical History?: Yes Past Family History: Reviewed and not pertinent - Past Social History Smoking Status: Never Smoked Alcohol: > 2 Drinks/Day Drugs: Denies - CARDIAC Hx Cardiac Disorders: Yes Hx Hypercholesterolemia: Yes Hx Hypertension: Yes - PULMONARY Hx Respiratory Disorders: Yes Hx Pneumonia: Yes - NEUROLOGICAL Hx Neurological Disorder: Yes Hx Syncope: Yes - HEENT Hx HEENT Problems: No - RENAL Hx Chronic Kidney Disease: No - ENDOCRINE/METABOLIC Hx Endocrine Disorders: No - HEMATOLOGICAL/ONCOLOGICAL Hx Blood Disorders: No - INTEGUMENTARY Hx Dermatological Problems: No - MUSCULOSKELETAL/RHEUMATOLOGICAL Hx Musculoskeletal Disorders: No Hx Falls: Yes - GASTROINTESTINAL Hx Gastrointestinal Disorders: No - GENITOURINARY/GYNECOLOGICAL Hx Genitourinary Disorders: No - PSYCHIATRIC Hx Psychophysiologic Disorder: No Hx Substance Use: No - SURGICAL HISTORY Hx Surgeries: Yes Other/Comment: "abdominal surgery" - ANESTHESIA Hx Anesthesia: Yes (unknown) Hx Anesthesia Reactions: No Hx Malignant Hyperthermia: (unknown) Meds Allergies/Adverse Reactions: Allergies Allergy/AdvReac Type Severity Reaction Status Date / Time No Known Allergies Allergy Verified 03/20/17 11:24 - Medications Medications: Current Medications Acetaminophen (Tylenol 325mg Tab) 650 mg PO Q6 PRN PRN Reason: Fever >100.4 F Last Admin: 08/30/17 11:25 Dose: 650 mg Acetaminophen (Tylenol 325mg Tab) 650 mg PO Q6 PRN PRN Reason: Pain, Mild (1-3) Last Admin: 09/02/17 14:27 Dose: 650 mg Aspirin (Ecotrin) 81 mg PO DAILY [facility] Last Admin: 09/02/17 10:36 Dose: 81 mg Atorvastatin Calcium (Lipitor) 40 mg PO HS [facility] Last Admin: 09/01/17 22:04 Dose: 40 mg Chlordiazepoxide (Librium) 25 mg PO Q6 [facility] Last Admin: 09/02/17 16:56 Dose: 25 mg Cyanocobalamin (Vitamin B12 1000 Mcg Tab) 1,000 mcg PO DAILY [facility] Last Admin: 09/02/17 10:37 Dose: 1,000 mcg Folic Acid (Folic Acid) 1 mg PO DAILY [facility] Last Admin: 09/02/17 10:36 Dose: 1 mg Lorazepam (Ativan) 2 mg IV Q6 PRN PRN Reason: Seizure activity Multivitamins/Minerals (Therapeutic-M Tab) 1 tab PO DAILY [facility] Last Admin: 09/02/17 10:37 Dose: 1 tab Pantoprazole Sodium (Protonix Ec Tab) 40 mg PO DAILY [facility] Last Admin: 09/02/17 10:36 Dose: 40 mg Thiamine HCl (Vitamin B1 Tab) 100 mg PO DAILY [facility] Last Admin: 09/02/17 10:37 Dose: 100 mg Topiramate (Topamax) 75 mg PO BID [facility] Last Admin: 09/02/17 16:56 Dose: 75 mg Physical Exam - Psychiatric Exam Psychiatric exam: Anxious, Depressed Additional comments: pt seen in bed poor eye contact speech soft and slow , mood depressed affect depressed, , psychomotor retardation, thought form coherent, passive suicidal ideations no plan denied homicidal ideations , denied perceptual disturbances non elicited , poor insight and judgment, alert awake oriented to person and place Results - Vital Signs Recent Vital Signs: Last Vital Signs Temp 97.7 F 09/02/17 16:18 Pulse 72 09/02/17 16:18 Resp 20 09/02/17 16:18 BP 117/78 09/02/17 16:18 Pulse Ox 99 09/02/17 16:18 - Labs Result Diagrams: 09/02/17 06:00 09/02/17 07:00 Labs: Laboratory Results - last 24 hr 09/02/17 09/02/17 06:00 07:00 WBC 2.0 L* RBC 4.27 L Hgb 10.8 L Hct 32.6 L MCV 76.2 L MCH 25.3 L MCHC 33.2 RDW 18.5 H Plt Count 160 MPV 8.4 Neut % (Auto) 48.5 L Lymph % (Auto) 29.3 Glenn % (Auto) 18.1 H Eos % (Auto) 2.9 Baso % (Auto) 1.2 Neut # 1.0 L Lymph # 0.6 L Glenn # 0.4 Eos # 0.1 Baso # 0.0 Sodium 137 Potassium 3.7 Chloride 109 H Carbon Dioxide 17 L Anion Gap 15 BUN 14 Creatinine 0.9 Est GFR ( Amer) > 60 Est GFR (Non-Af Amer) > 60 Random Glucose 89 Calcium 9.0 Magnesium 2.1 Assessment & Plan - Assessment and Plan (Free Text) Assessment: alcohol induced mood disorder with depressive features alcohol use disorder depressive disorder Plan: pt depressed , would benifit from zoloft 25 mg daily pt also would benifit from admission to psychiatry upon medical clearance for medication stabilization and treatment of depression - Date & Time Date: 09/02/17 Time: 18:16
--- NOTE | 2017-09-02 21:30 | PN ---
DATE: SUBJECTIVE: The patient did report nasal bleeding that started spontaneously. He denies any chest pain. No reported seizures today. PHYSICAL EXAMINATION: VITAL SIGNS: Blood pressure 117/78, heart rate 72, temperature 97.7, and respirations 20. HEENT: Pale conjunctivae. CHEST: Clear. HEART: S1 and S2 regular. EXTREMITIES: No edema. LABORATORY DATA: Hemoglobin and hematocrit 10.8 and 32.6, white count 2.0, and platelet count 160,000. Today's SMA-7 is within normal limits, except for chloride of 109, and carbon dioxide of 17. ASSESSMENT: 1. Recurrent seizure activity. 2. Mild epistaxis. 3. Neuro syncope rather than cardiac syncope. RECOMMENDATIONS: Continue aspirin, folic acid, Librium, Lipitor, and thiamine. The patient will have a hematology evaluation in view of his leukopenia. Ronak Ramos MD
--- NOTE | 2017-09-03 02:18 | CP.PCM.PN ---
Subjective - Date & Time of Evaluation Date of Evaluation: 09/02/17 Time of Evaluation: 19:00 Objective - Vital Signs/Intake and Output Vital Signs (last 24 hours): Temp Pulse Resp BP Pulse Ox 97.3 F L 64 18 120/68 100 09/03/17 00:00 09/03/17 00:00 09/03/17 00:00 09/03/17 00:00 09/03/17 00:00 - Medications Medications: Current Medications Acetaminophen (Tylenol 325mg Tab) 650 mg PO Q6 PRN PRN Reason: Fever >100.4 F Last Admin: 08/30/17 11:25 Dose: 650 mg Acetaminophen (Tylenol 325mg Tab) 650 mg PO Q6 PRN PRN Reason: Pain, Mild (1-3) Last Admin: 09/02/17 14:27 Dose: 650 mg Aspirin (Ecotrin) 81 mg PO DAILY [facility] Last Admin: 09/02/17 10:36 Dose: 81 mg Atorvastatin Calcium (Lipitor) 40 mg PO HS [facility] Last Admin: 09/02/17 21:49 Dose: 40 mg Chlordiazepoxide (Librium) 25 mg PO Q6 [facility] Last Admin: 09/02/17 21:49 Dose: 25 mg Cyanocobalamin (Vitamin B12 1000 Mcg Tab) 1,000 mcg PO DAILY [facility] Last Admin: 09/02/17 10:37 Dose: 1,000 mcg Folic Acid (Folic Acid) 1 mg PO DAILY [facility] Last Admin: 09/02/17 10:36 Dose: 1 mg Lorazepam (Ativan) 2 mg IV Q6 PRN PRN Reason: Seizure activity Multivitamins/Minerals (Therapeutic-M Tab) 1 tab PO DAILY [facility] Last Admin: 09/02/17 10:37 Dose: 1 tab Pantoprazole Sodium (Protonix Ec Tab) 40 mg PO DAILY [facility] Last Admin: 09/02/17 10:36 Dose: 40 mg Thiamine HCl (Vitamin B1 Tab) 100 mg PO DAILY [facility] Last Admin: 09/02/17 10:37 Dose: 100 mg Topiramate (Topamax) 75 mg PO BID [facility] Last Admin: 09/02/17 16:56 Dose: 75 mg - Labs Labs: 09/02/17 06:00 09/02/17 07:00 Assessment and Plan (1) Altered mental status Status: Acute (2) Seizures Status: Chronic
[2017-09-03 07:14] LABS: BASO % 1.4 % (0.0-2.0); EOS # 0.1 K/uL (0.0-0.7); HEMATOCRIT 31.7 % (35.0-51.0); LYMPH # 0.7 K/uL (1.0-4.3); LYMPH % 30.4 % (20.0-40.0); MEAN CORPUSCULAR HEMOGLOBIN 25.3 pg (27.0-31.0); MEAN CORPUSCULAR HGB CONC 33.3 g/dL (33.0-37.0); MEAN PLATELET VOLUME 7.5 fl (7.2-11.7); MONO # 0.6 K/uL (0.0-0.8); MONO % 24.1 % (0.0-10.0); NEUT # 0.9 K/uL (1.8-7.0); NEUT % 39.1 % (50.0-75.0); NRBC % 0.2 % (0.0-0.0); PLATELET COUNT 230 K/uL (130-400); RED CELL DISTRIBUTION WIDTH 18.8 % (11.5-14.5); WHITE BLOOD COUNT 2.3 K/uL (4.8-10.8)
[2017-09-03 07:28] LABS: ALB/GLOB RATIO 1.3 (1.0-2.1); ALKALINE PHOSPHATASE 135 U/L (38-126); ALT/SGPT 32 U/L (21-72); AST/SGOT 20 U/L (17-59); BILIRUBIN,TOTAL 0.1 mg/dl (0.2-1.3); BLOOD UREA NITROGEN 14 mg/dl (9-20); CALCIUM 9.2 mg/dL (8.4-10.2); CARBON DIOXIDE 20 mmol/L (22-30); CHLORIDE 109 mmol/L (98-107); GFR AFRICAN-AMERICAN > 60; GLUCOSE,RANDOM 96 mg/dL (75-110); POTASSIUM 3.8 MMOL/L (3.6-5.0); SODIUM 140 mmol/l (132-148); TOTAL PROTEIN 6.9 G/DL (6.3-8.2)
[2017-09-03 07:52] VITALS: BP 112/66; PULSE 73; RESP 20; TEMP 97.4; O2SAT 99
--- NOTE | 2017-09-03 08:51 | CP.PCM.PN ---
Subjective - Date & Time of Evaluation Date of Evaluation: 09/03/17 Time of Evaluation: 08:50 - Subjective Subjective: Pt's WBC is a little better. He may go to the psych floor. Objective - Vital Signs/Intake and Output Vital Signs (last 24 hours): Temp Pulse Resp BP Pulse Ox 97.4 F L 73 20 112/66 99 09/03/17 07:50 09/03/17 07:50 09/03/17 07:50 09/03/17 07:50 09/03/17 07:50 - Medications Medications: Current Medications Acetaminophen (Tylenol 325mg Tab) 650 mg PO Q6 PRN PRN Reason: Fever >100.4 F Last Admin: 08/30/17 11:25 Dose: 650 mg Acetaminophen (Tylenol 325mg Tab) 650 mg PO Q6 PRN PRN Reason: Pain, Mild (1-3) Last Admin: 09/02/17 14:27 Dose: 650 mg Aspirin (Ecotrin) 81 mg PO DAILY [facility] Last Admin: 09/02/17 10:36 Dose: 81 mg Atorvastatin Calcium (Lipitor) 40 mg PO HS [facility] Last Admin: 09/02/17 21:49 Dose: 40 mg Chlordiazepoxide (Librium) 25 mg PO Q6 [facility] Last Admin: 09/03/17 04:01 Dose: 25 mg Cyanocobalamin (Vitamin B12 1000 Mcg Tab) 1,000 mcg PO DAILY [facility] Last Admin: 09/02/17 10:37 Dose: 1,000 mcg Folic Acid (Folic Acid) 1 mg PO DAILY [facility] Last Admin: 09/02/17 10:36 Dose: 1 mg Lorazepam (Ativan) 2 mg IV Q6 PRN PRN Reason: Seizure activity Multivitamins/Minerals (Therapeutic-M Tab) 1 tab PO DAILY [facility] Last Admin: 09/02/17 10:37 Dose: 1 tab Pantoprazole Sodium (Protonix Ec Tab) 40 mg PO DAILY [facility] Last Admin: 09/02/17 10:36 Dose: 40 mg Thiamine HCl (Vitamin B1 Tab) 100 mg PO DAILY [facility] Last Admin: 09/02/17 10:37 Dose: 100 mg Topiramate (Topamax) 75 mg PO BID [facility] Last Admin: 09/02/17 16:56 Dose: 75 mg - Labs Labs: 09/03/17 06:30 09/03/17 06:30
[2017-09-03] MEDS: Pantoprazole 40 mg EC Tab PO SCH (09:09)
[2017-09-03] MEDS: Multivitamin With Minerals Tab PO SCH (09:11)
[2017-09-03 09:54] LABS: BASOPHIL 1 % (0-2); EOSINOPHIL 4 % (0-7); NEUTROPHIL 42 % (42-75); TOTAL CELLS COUNTED 100
[2017-09-03 09:58] LABS: ACANTHOCYTES SLIGHT; LARGE PLATELETS PRESENT
--- NOTE | 2017-09-03 11:40 | PN ---
FOLLOWUP DATE: SUBJECTIVE: The patient is experiencing mild headache. No recurrence of epistaxis. PHYSICAL EXAMINATION: VITAL SIGNS: Blood pressure 112/66, heart rate 73, temperature 97.4, respirations 20. HEENT: Pale conjunctivae. CHEST: Clear. HEART: S1 and S2 regular. EXTREMITIES: No edema. LABORATORY DATA: Hemoglobin and hematocrit 10.6 and 31.7, white count 2.3, platelet count 230. SMA-7 is within normal limit today except for chloride 109 and carbon dioxide is 20. ASSESSMENT: 1. Recurrent seizure activity. 2. Ethyl alcohol abuse. 3. Noncardiac syncope. 4. Mild anemia. 5. Leukopenia. 6. Homelessness. RECOMMENDATIONS: Continue current Ativan, aspirin, Librium, Lipitor, Topamax and thiamine therapy. Ronak Ramos MD
--- NOTE | 2017-09-03 23:16 | CP.PCM.DIS ---
Provider - Provider Date of Admission: 08/26/17 18:41 Attending physician: Alphonse Collier MD Time Spent in preparation of Discharge (in minutes): 20 Diagnosis - Discharge Diagnosis (1) Altered mental status Status: Acute (2) Seizures Status: Chronic Hospital Course - Lab Results Lab Results: Micro Results 08/26/17 13:07 Naris MRSA Culture (Admit) - Final MRSA NOT DETECTED Most Recent Lab Values WBC 2.3 K/uL (4.8-10.8) L 09/03/17 06:30 RBC 4.18 Mil/uL (4.40-5.90) L 09/03/17 06:30 Hgb 10.6 g/dL (12.0-18.0) L 09/03/17 06:30 Hct 31.7 % (35.0-51.0) L 09/03/17 06:30 MCV 76.0 fl (80.0-94.0) L 09/03/17 06:30 MCH 25.3 pg (27.0-31.0) L 09/03/17 06:30 MCHC 33.3 g/dL (33.0-37.0) 09/03/17 06:30 RDW 18.8 % (11.5-14.5) H 09/03/17 06:30 Plt Count 230 K/uL (130-400) 09/03/17 06:30 MPV 7.5 fl (7.2-11.7) 09/03/17 06:30 Neut % (Auto) 39.1 % (50.0-75.0) L 09/03/17 06:30 Lymph % (Auto) 30.4 % (20.0-40.0) 09/03/17 06:30 Brown % (Auto) 24.1 % (0.0-10.0) H 09/03/17 06:30 Eos % (Auto) 5.0 % (0.0-4.0) H 09/03/17 06:30 Baso % (Auto) 1.4 % (0.0-2.0) 09/03/17 06:30 Neut # 0.9 K/uL (1.8-7.0) L 09/03/17 06:30 Lymph # 0.7 K/uL (1.0-4.3) L 09/03/17 06:30 Brown # 0.6 K/uL (0.0-0.8) 09/03/17 06:30 Eos # 0.1 K/uL (0.0-0.7) 09/03/17 06:30 Baso # 0.0 K/uL (0.0-0.2) 09/03/17 06:30 Neutrophils % (Manual) 42 % (42-75) 09/03/17 06:30 Band Neutrophils % 1 % (0-2) 09/01/17 05:30 Lymphocytes % (Manual) 29 % (20-50) 09/03/17 06:30 Monocytes % (Manual) 24 % (0-10) H 09/03/17 06:30 Eosinophils % (Manual) 4 % (0-7) 09/03/17 06:30 Basophils % (Manual) 1 % (0-2) 09/03/17 06:30 Toxic Granulation Present 09/01/17 05:30 Platelet Estimate Normal (NORMAL) 09/03/17 06:30 Large Platelets Present 09/03/17 06:30 Hypochromasia (manual) Slight 09/01/17 05:30 Poikilocytosis (manual Slight 09/03/17 06:30 Anisocytosis (manual) Slight 09/03/17 06:30 Tear Drop Cells Slight 09/03/17 06:30 Ovalocytes Slight 09/03/17 06:30 [place] Cells Slight 09/03/17 06:30 Acanthocytes (Spur) Slight 09/03/17 06:30 Schistocytes Slight 09/01/17 05:30 Sodium 140 mmol/l (132-148) 09/03/17 06:30 Potassium 3.8 MMOL/L (3.6-5.0) 09/03/17 06:30 Chloride 109 mmol/L (98-107) H 09/03/17 06:30 Carbon Dioxide 20 mmol/L (22-30) L 09/03/17 06:30 Anion Gap 15 (10-20) 09/03/17 06:30 BUN 14 mg/dl (9-20) 09/03/17 06:30 Creatinine 0.9 mg/dl (0.8-1.5) 09/03/17 06:30 Est GFR ( Amer) > 60 09/03/17 06:30 Est GFR (Non-Af Amer) > 60 09/03/17 06:30 POC Glucose (mg/dL) 102 mg/dL (65-110) 09/01/17 03:39 Random Glucose 96 mg/dL (75-110) 09/03/17 06:30 Calcium 9.2 mg/dL (8.4-10.2) 09/03/17 06:30 Phosphorus 2.9 mg/dl (2.5-4.5) 09/01/17 05:30 Magnesium 2.1 MG/DL (1.6-2.3) 09/02/17 07:00 Total Bilirubin 0.1 mg/dl (0.2-1.3) L 09/03/17 06:30 AST 20 U/L (17-59) 09/03/17 06:30 ALT 32 U/L (21-72) 09/03/17 06:30 Alkaline Phosphatase 135 U/L (38-126) H 09/03/17 06:30 Total Protein 6.9 G/DL (6.3-8.2) 09/03/17 06:30 Albumin 3.8 g/dL (3.5-5.0) 09/03/17 06:30 Globulin 3.1 gm/dL (2.2-3.9) 09/03/17 06:30 Albumin/Globulin Ratio 1.3 (1.0-2.1) 09/03/17 06:30 Prostate Specific Ag 0.489 ng/ML (0.00-4.0) 08/27/17 04:45 Urine Opiates Screen Negative (NEGATIVE) 08/26/17 18:29 Urine Methadone Screen Negative (NEGATIVE) 08/26/17 18:29 Ur Barbiturates Screen Negative (NEGATIVE) 08/26/17 18:29 Ur Phencyclidine Scrn Negative (NEGATIVE) 08/26/17 18:29 Ur Amphetamines Screen Negative (NEGATIVE) 08/26/17 18:29 U Benzodiazepines Scrn Negative (NEGATIVE) 08/26/17 18:29 U Oth Cocaine Metabols Negative (NEGATIVE) 08/26/17 18:29 U Cannabinoids Screen Negative (NEGATIVE) 08/26/17 18:29 Discharge Exam - Head Exam Head Exam: NORMOCEPHALIC Discharge Plan - Follow Up Plan Condition: STABLE Disposition: DISCH TO PSYCH HOSP PLAN READ Instructions: Abuse of Alcohol (DC), Recurrent Seizures in Adults (DC) Additional Instructions: Seizure precautions, activities as tolerated. Referrals: [facility] [Outside] Sen Wilkinson MD [Staff Provider] -
--- NOTE | 2017-09-04 00:07 | CP.PCM.PN ---
Subjective - Date & Time of Evaluation Date of Evaluation: 09/03/17 Time of Evaluation: 19:00 - Subjective Subjective: Patient was cleared medically for transfer to Psych unit for further help. No seizures on Topamax 75 mg Q 12 hrs. He was accepted by Psych unit Physician. Neutropenia is still seen at WBCs 2.2 He is eating with appetite. Objective - Vital Signs/Intake and Output Vital Signs (last 24 hours): Temp Pulse Resp BP Pulse Ox 97.4 F L 73 20 112/66 99 09/03/17 07:50 09/03/17 07:50 09/03/17 07:50 09/03/17 07:50 09/03/17 07:50 - Labs Labs: 09/03/17 06:30 09/03/17 06:30 Assessment and Plan (1) Alcohol abuse Status: Acute (2) Anxiety Status: Acute (3) Back pain Status: Acute
== END 2017-09-03 14:46 | DRG 750 ==
LOC: H.ER 05:53 → H.ERHOLD 06:47 → OBSVTOIN 08-26 18:41 → H.ICU/CCU 08-26 22:31 → H.MEDSURG1 08-29 11:33
PROVIDERS: ADMIT Internal Medicine; ATTEND Internal Medicine
DX: F10.24 Alcohol dependence with alcohol-induced mood disorder (principal); E87.1 Hypo-osmolality and hyponatremia; D70.2 Other drug-induced agranulocytosis; I95.89 Other hypotension; T42.4X5A Adverse effect of benzodiazepines, initial encounter; G40.509 Epileptic seizures related to external causes, not intractable, without status epilepticus; F32.9 Major depressive disorder, single episode, unspecified; D64.9 Anemia, unspecified; I10 Essential (primary) hypertension; F41.9 Anxiety disorder, unspecified; R04.0 Epistaxis; E78.00 Pure hypercholesterolemia, unspecified; Y90.8 Blood alcohol level of 240 mg/100 ml or more; Z59.0 Homelessness; Z86.73 Personal history of transient ischemic attack (TIA), and cerebral infarction without residual deficits; Z87.01 Personal history of pneumonia (recurrent)

== ENCOUNTER 2017-09-03 12:15 | Inpatient (IN) | payer MEDICAID, OTHER ==
[2017-09-03] MEDS ORDERED: Magnesium Hydroxide Susp 30 ml UD PO PRN (15:22)
[2017-09-03] MEDS ORDERED: DiphenhydrAMINE 50 mg/ml Inj IM PRN (15:22)
--- NOTE | 2017-09-03 16:15 | PCM.BM ---
<AdrianaGiselaJoann Dave - Last Filed: 09/03/17 16:13> Treatment Plan Problems - Problems identified on initial assessmt Hopelessness/Helplessness Date Initiated: 09/03/17 Time Initiated: 16:14 Date resolved: 09/10/17 Assessment reference: NA Status: Active Treatment assets and liabiliti Patient Assests: cooperative, motivated, strong lilian Patient Liabilities: financial problems, poor support system, substance abuse, medical problems - Milieu Protocol Maintain good personal hygiene: daily Encourage regular showers, daily Remind patient to perform daily oral care, daily Assist patient to perform ADL's Conduct patient checks and document Observation sheet: Q15 minutes Maintain personal safety: every shift Educate patient to report safety concerns to staff, every shift Monitor environment for contraband/sharps Medication safety: Monitor for expected outcome, potential side effects: every shift, Assess barriers to learning: every shift, Assess readiness for medication education: every shift <Julia Sanabria - Last Filed: 09/06/17 13:43> Treatment assets and liabiliti Patient Assests: adapts well, cooperative, resourceful, ADL independent, negotiates basic needs, strong lilian Patient Liabilities: financial problems, poor support system, relationship conflicts, substance abuse, medical problems, legal issue, other (unstable housing) Family Contact Family involvement: Family/SO is involved Family contact: Patient agrees to contact, Family has been contacted by patient - Goals for Treatment Patient goals for treatment: Patient to continue stabilization on 3NP through medication management and group/supportive therapy. Patient to be encouraged to attend groups regularly to promote self-awareness, sobriety, and improve insight , coping skills and self-esteem. Patient to be provided with referral for appropriate level of aftercare to reduce risk of future hospitalizations and ensure safety in the community. Discharge/Continuing Care - Education Needs Education Needs: Patient Medication, Patient Coping Skills, Patient Anger Management skills, Patient Community resources, Patient Aftercare Safety Plan - Discharge Discharge Criteria: Tolerates medication w/o severe side effects, Free of Suicidal thoughts, Free of agitation, Normal sleep pattern, Ability to care for self, No longer exhibiting s/s of withdrawal, Reduction of target symptoms Discharge to:: Other - Treatment Team Participation Patient/Family/SO Statement: 09/06/17 13:41 Patient attended tx team and was able to participate in discussion regarding precursors to hospitalization, progress on 3NP and aftercare. Patient continues to reports depression and anxiety but to a lesser degree than upon admission. Patient denies SI/HI and is able to contract for safety on 3NS. Patient expressed frustration over medical issues and unstable housing. Patient reports having been in communication with a cousin who is willing to hep patient find a room to rent. Patient calm and cooperative on 3NP but remains somewhat withdrawn. Discussed with Family/SO: No Was Patient/Family/SO present at Treatment Team Meeting: Yes
[2017-09-04 08:38] LABS: T4 6.25 ug/dl (5.5-11.0)
[2017-09-04 08:51] LABS: THYROID STIMULATING HORMONE 1.74 mIU/ML (0.46-4.68)
--- NOTE | 2017-09-04 12:54 | PCM.PSYCH ---
Initial Psychiatric Evaluation - Initial Psychiatric Evaluation Type of Admission: Voluntary Legal Status: Capacity Chief Complaint (in patient's own words): i feel tired Patient's Reaction to Hospitalization: pt requested help History of Present Illness and Precipitating Events: s is a 56 years old male who was admitted for seizures which happened in the street. He was brought to the ER where he again had another seizure. 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 which added to his depression passive suicidal ideations with no plan, reported decreased sleep and appetite denied manic or psychotic symptoms, denied homicidal ideations last use of alcohol was prior to admission denied any other substance use Current Medications: Active Medications Generic Name Dose Route Start Last Admin Trade Name Freq PRN Reason Stop Dose Admin Diphenhydramine HCl 50 mg 09/03/17 15:22 Benadryl IM Q6 PRN Extrapyramidal S/S Unable PO Diphenhydramine HCl 50 mg 09/03/17 15:28 Benadryl PO Q6 PRN dystonic reaction/EPS Diphenhydramine HCl 50 mg 09/03/17 15:34 Benadryl PO HS PRN Sleep Haloperidol 5 mg 09/03/17 15:22 Haldol PO Q4 PRN Agitation Haloperidol Lactate 5 mg 09/03/17 15:22 Haldol IM Q4 PRN Agitation, Unable to Take PO Lorazepam 2 mg 09/03/17 15:22 Ativan IM Q4 PRN Anxiety/Agitation,Unable PO Lorazepam 2 mg 09/03/17 15:33 Ativan PO Q4 PRN anxiety/agitation Magnesium Hydroxide 30 ml 09/03/17 15:22 Milk Of Magnesia PO HS PRN Constipation Topiramate 75 mg 09/03/17 19:15 09/04/17 08:42 Topamax PO 75 mg BID TANNA Administration Past Psychiatric History - Past Psychiatric History Explanation of prior treatment: pt reported one previous hospitalization at [facility], did not elaborate on details History of Abuse: denied History of ETOH/Drug Use: pt has long history of alcohol use disorder Pertinent Medical Hx (Current Medical&Sleep Prob, Allergies): Allergies Allergy/AdvReac Type Severity Reaction Status Date / Time No Known Allergies Allergy Verified 03/20/17 11:24 Aspirin [Ecotrin] 81 mg PO DAILY 07/16/17 Atorvastatin [Lipitor] 40 mg PO HS 07/16/17 Cyanocobalamin [Vitamin B12 100 mcg Tab] 100 mcg PO DAILY 07/16/17 Folic Acid 1 mg PO DAILY 07/16/17 Magnesium Oxide [Magox 400] 400 mg PO DAILY 07/16/17 Multivitamin [Multi-Vitamin Daily] 1 tab PO DAILY 07/16/17 Megestrol Acetate [Megace] 800 mg PO DAILY cup 07/21/17 Pantoprazole [Protonix EC Tab] 40 mg PO DAILY ect 07/21/17 Thiamine [Vitamin B1 Tab] 100 mg PO DAILY tab 09/03/17 Topiramate [Topamax] 75 mg PO BID tab 09/03/17 chlordiazePOXIDE [Librium] 25 mg PO Q6 cap 09/03/17 Mental Status Examination - Personal Presentation Personal Presentation: Looks older than stated age - Affect Affect: Constricted, Depressed - Motor Activity Motor Activity: Psychomotor Retardation - Reliability in Providing Information Reliability in Providing Information: Poor, due to altered mood - Speech Speech: Relevant - Mood Mood: Depressed - Formal Thought Process Formal Thought Process: No Impairment - Obsessions/Compulsions Obsessions: No Compulsions: No - Cognitive Functions Orientation: Person, Place Sensorium: Alert Attention/Concentration: Attentive Abstract Thinking: [place] Judgement: Imparied, as evidence by: Poor judgement Memory: Recent intact, as evidence by: Ability to recall events of the day - Risk Risk: Withdrawal, Diminished functioning - Strength & Assets Inventory Strength & Assets Inventory: Life experience - Limitations Additional comments: poor insight DSM 5 DX - DSM 5 DSM 5 Diagnosis: alcohol induced mood disorder with depressive features alcohol use disorder depression - Recommended/Plan of Treatment Treatment Recommendations and Plan of Treatment: start sertaline 12.5mg follow up with medicine , possible need for hematology consult due to neutopenia follow up on bllod chemistry supportive, motivational and group therapy seizure precautions Prognosis: guarded Discharge Plan and Discharge Criteria: pt no longer depressed
[2017-09-04] MEDS ORDERED: DIASTAT 10 MG PR PRN (23:49)
--- NOTE | 2017-09-04 23:55 | CP.PCM.CON ---
History of Present Illness - History of Present Illness History of Present Illness: Patient is a 56 years old male who was admitted for seizures which happened in the street. He was brought to the ER where he again had another seizure. 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 Current Medications: Active Medications Generic Name Dose Route Start Last Admin Trade Name Freq PRN Reason Stop Dose Admin Diphenhydramine HCl 50 mg 09/03/17 15:22 Benadryl IM Q6 PRN Extrapyramidal S/S Unable PO Diphenhydramine HCl 50 mg 09/03/17 15:28 Benadryl PO Q6 PRN dystonic reaction/EPS Diphenhydramine HCl 50 mg 09/03/17 15:34 Benadryl PO HS PRN Sleep Haloperidol 5 mg 09/03/17 15:22 Haldol PO Q4 PRN Agitation Haloperidol Lactate 5 mg 09/03/17 15:22 Haldol IM Q4 PRN Agitation, Unable to Take PO Lorazepam 2 mg 09/03/17 15:22 Ativan IM Q4 PRN Anxiety/Agitation,Unable PO Lorazepam 2 mg 09/03/17 15:33 Ativan PO Q4 PRN anxiety/agitation Magnesium Hydroxide 30 ml 09/03/17 15:22 Milk Of Magnesia PO HS PRN Constipation Topiramate 75 mg 09/03/17 19:15 09/04/17 08:42 Topamax PO 75 mg BID TANNA Administration Past Psychiatric History - Past Psychiatric History Explanation of prior treatment: pt reported one previous hospitalization at [facility], did not elaborate on details History of Abuse: denied History of ETOH/Drug Use: pt has long history of alcohol use disorder Pertinent Medical Hx (Current Medical&Sleep Prob, Allergies): Allergies Allergy/AdvReac Type Severity Reaction Status Date / Time No Known Allergies Allergy Verified 06/03/17 11:24 Aspirin [Ecotrin] 81 mg PO DAILY 07/16/17 Atorvastatin [Lipitor] 40 mg PO HS 07/16/17 Cyanocobalamin [Vitamin B12 100 mcg Tab] 100 mcg PO DAILY 07/16/17 Folic Acid 1 mg PO DAILY 07/16/17 Magnesium Oxide [Magox 400] 400 mg PO DAILY 07/16/17 Multivitamin [Multi-Vitamin Daily] 1 tab PO DAILY 07/16/17 Megestrol Acetate [Megace] 800 mg PO DAILY cup 07/21/17 Pantoprazole [Protonix EC Tab] 40 mg PO DAILY ect 07/21/17 Thiamine [Vitamin B1 Tab] 100 mg PO DAILY tab 09/03/17 Topiramate [Topamax] 75 mg PO BID tab 09/03/17 chlordiazePOXIDE [Librium] 25 mg PO Q6 cap 09/03/17 Mental Status Examination - Personal Presentation Personal Presentation: Looks older than stated age - Affect Affect: Constricted, Depressed - Motor Activity Motor Activity: Psychomotor Retardation - Reliability in Providing Information Reliability in Providing Information: Poor, due to altered mood - Speech Speech: Relevant - Mood Mood: Depressed - Formal Thought Process Formal Thought Process: No Impairment - Obsessions/Compulsions Obsessions: No Compulsions: No - Cognitive Functions Orientation: Person, Place Sensorium: Alert Attention/Concentration: Attentive Abstract Thinking: [place] Judgement: Imparied, as evidence by: Poor judgement Memory: Recent intact, as evidence by: Ability to recall events of the day - Risk Risk: Withdrawal, Diminished functioning - Strength & Assets Inventory Strength & Assets Inventory: Life experience - Limitations Additional comments: poor insight DSM 5 DX - DSM 5 DSM 5 Diagnosis: alcohol induced mood disorder with depressive features alcohol use disorder depression - Recommended/Plan of Treatment Treatment Recommendations and Plan of Treatment: start sertaline 12.5mg follow up with medicine , possible need for hematology consult due to neutopenia follow up on bllod chemistry supportive, motivational and group therapy seizure precautions Prognosis: guarded Discharge Plan and Discharge Criteria: pt no longer depressed Past Patient History - Past Medical History & Family History Past Medical History?: Yes - Past Social History Smoking Status: Never Smoked - CARDIAC Hx Cardiac Disorders: Yes Hx Hypercholesterolemia: Yes Hx Hypertension: Yes - PULMONARY Hx Respiratory Disorders: Yes Hx Pneumonia: Yes - NEUROLOGICAL Hx Neurological Disorder: Yes Hx Seizures: Yes Hx Syncope: Yes - HEENT Hx HEENT Problems: No - RENAL Hx Chronic Kidney Disease: No - ENDOCRINE/METABOLIC Hx Endocrine Disorders: No - HEMATOLOGICAL/ONCOLOGICAL Hx Blood Disorders: No - INTEGUMENTARY Hx Dermatological Problems: No - MUSCULOSKELETAL/RHEUMATOLOGICAL Hx Musculoskeletal Disorders: No Hx Falls: Yes - GASTROINTESTINAL Hx Gastrointestinal Disorders: No - GENITOURINARY/GYNECOLOGICAL Hx Genitourinary Disorders: No - PSYCHIATRIC Hx Depression: Yes Hx Substance Use: No - SURGICAL HISTORY Hx Surgeries: Yes Other/Comment: "abdominal surgery" - ANESTHESIA Hx Anesthesia: Yes (unknown) Hx Anesthesia Reactions: No Hx Malignant Hyperthermia: (unknown) Meds Allergies/Adverse Reactions: Allergies Allergy/AdvReac Type Severity Reaction Status Date / Time No Known Allergies Allergy Verified 03/20/17 11:24 - Medications Medications: Current Medications Calcium Carbonate (Oscal) 500 mg PO BIDWM [facility] Cyanocobalamin (Vitamin B12 1000 Mcg Tab) 1,000 mcg PO DAILY [facility] Diphenhydramine HCl (Benadryl) 50 mg IM Q6 PRN PRN Reason: Extrapyramidal S/S Unable PO Diphenhydramine HCl (Benadryl) 50 mg PO Q6 PRN PRN Reason: dystonic reaction/EPS Diphenhydramine HCl (Benadryl) 50 mg PO HS PRN PRN Reason: Sleep Ergocalciferol (Drisdol 50,000 Intl Units Cap) 1 cap PO Q7D [facility] Folic Acid (Folic Acid) 1 mg PO DAILY [facility] Haloperidol (Haldol) 5 mg PO Q4 PRN PRN Reason: Agitation Haloperidol Lactate (Haldol) 5 mg IM Q4 PRN PRN Reason: Agitation, Unable to Take PO Lorazepam (Ativan) 2 mg IM Q4 PRN PRN Reason: Anxiety/Agitation,Unable PO Lorazepam (Ativan) 2 mg PO Q4 PRN PRN Reason: anxiety/agitation Magnesium Hydroxide (Milk Of Magnesia) 30 ml PO HS PRN PRN Reason: Constipation Sertraline HCl (Zoloft) 12.5 mg PO DAILY [facility] Last Admin: 09/04/17 16:19 Dose: 12.5 mg Topiramate (Topamax) 75 mg PO BID [facility] Last Admin: 09/04/17 16:19 Dose: 75 mg Physical Exam - Neurological Exam Additional comments: Mental status: Awake, alert, delirious, oriented most of the time, memory is not sharp. Fluent slow speech, fairly coherent. Cranial Nerves II to XII: No deficits seen, no Nystagmus. Motor: Normal tone, power is generally weak 5-/5 DTR 0/4 Toes are down going by plantar stimulation. Cerebellar: Normal FNT. Sensory: no deficits. Results - Vital Signs Recent Vital Signs: Last Vital Signs Temp 97.5 F L 09/04/17 16:51 Pulse 71 09/04/17 16:51 Resp 18 09/04/17 16:51 BP 104/68 09/04/17 16:51 Pulse Ox - Labs Labs: Laboratory Results - last 24 hr 09/04/17 09/04/17 07:30 07:30 Triglycerides 41 Cholesterol 134 LDL Cholesterol Direct 60 HDL Cholesterol 51 Thyroxine (T4) 6.25 TSH 3rd Generation 1.74 RPR Nonreactive Assessment & Plan (1) Seizures Assessment and Plan: He had 3 to 4 spell of facial seizures that were treated by Ativan, and 2 other spells of seizures in the ER while in waiting area. Status: Acute (2) Alcohol abuse Assessment and Plan: He is is not drinking since 2 to 3 days prior to admission. Status: Acute (3) Altered mental status Assessment and Plan: Depression, anxiety, Paranoid, alcohol is a main factor. Status: Acute (4) Anxiety Assessment and Plan: He is treated by psychiatry for Anxiety, Depression, Paranoid features, combativeness, hallucinations. Status: Acute (5) Back pain Assessment and Plan: This a chronic problem that will be treated as an outpatient. Status: Acute (6) Abdominal pain Assessment and Plan: R/O Pancreatitis 2ry to Alcohol abuse. Status: Acute
[2017-09-05] MEDS ORDERED: Ergocalciferol 50,000 Intl Units Cap PO SCH (09:00)
--- NOTE | 2017-09-05 14:28 | PCM.PYCHPN ---
Psychiatric Progress Note - Psychiatric Progress Note Patient seen today, length of contact: pt evaluated discussed with team chart reviewed Patient Chief Complaint: I feel down Problems Identified/Issues Discussed: pt seen in bed continues to be depressed and dysphoric, reported feeling down denied any current S/HI denied perceptual disturbances, no reported side effects of medications Medical Problems: seizure disorder neutropenia DSM 5 Symptoms Update: depression alcohol use disorder Medication Change: No Medical Record Reviewed: Yes Mental Status Examination - Cognitive Function Orientation: Person, Place - Mood Mood: Depressed - Affect Affect: Constricted, Depressed - Formal Thought Process Formal Thought Process: No Impairment - Suicidal Ideation Suicidal Ideation: No - Homicidal Ideation Homicidal Ideation: No Goal/Treatment Plan - Goal/Treatment Plan Progress Toward Problem(s) and Goals/Treatment Plan: sertaline 12.5mg uptitrtae gradually follow up with medicine , possible need for hematology consult due to neutopenia follow up on blood chemistry supportive, motivational and group therapy seizure precautions
--- NOTE | 2017-09-05 20:30 | CP.PCM.PN ---
Subjective - Date & Time of Evaluation Date of Evaluation: 09/05/17 Time of Evaluation: 20:23 - Subjective Subjective: Patient is still unstable psychiatry cutler and is started on Zoloft 12.5 mg in addition to his Haldol and his Topamax. Rectal Diastat is not available at the Pharmacy and his daughter is supposed to bring it from an outside pharmacy with a prescription from the Hospital, as he has a prescription plan from the [facility]. The Hospital's Pharmacy is unable to bring it on his insurance. The order of Diastat will remain active until we are able to get the Diastat or we have to call the [employer] in case of seizures. The Unit Nurses are not giving any IV medicine as per regulations. Hematology consult is called for low WBCs.. Objective - Vital Signs/Intake and Output Vital Signs (last 24 hours): Temp Pulse Resp BP Pulse Ox 97.8 F 69 20 111/72 09/05/17 14:58 09/05/17 14:58 09/05/17 14:58 09/05/17 14:58 - Medications Medications: Current Medications Calcium Carbonate (Oscal) 500 mg PO BIDWM [facility] Last Admin: 09/05/17 17:58 Dose: 500 mg Cyanocobalamin (Vitamin B12 1000 Mcg Tab) 1,000 mcg PO DAILY [facility] Last Admin: 09/05/17 08:33 Dose: 1,000 mcg Diphenhydramine HCl (Benadryl) 50 mg IM Q6 PRN PRN Reason: Extrapyramidal S/S Unable PO Diphenhydramine HCl (Benadryl) 50 mg PO Q6 PRN PRN Reason: dystonic reaction/EPS Diphenhydramine HCl (Benadryl) 50 mg PO HS PRN PRN Reason: Sleep Ergocalciferol (Drisdol 50,000 Intl Units Cap) 1 cap PO Q7D [facility] Last Admin: 09/05/17 09:42 Dose: 1 cap Folic Acid (Folic Acid) 1 mg PO DAILY [facility] Last Admin: 09/05/17 08:35 Dose: 1 mg Haloperidol (Haldol) 5 mg PO Q4 PRN PRN Reason: Agitation Haloperidol Lactate (Haldol) 5 mg IM Q4 PRN PRN Reason: Agitation, Unable to Take PO Home Med (Diastat) 10 mg IA TID PRN PRN Reason: Seizure activity Lorazepam (Ativan) 2 mg IM Q4 PRN PRN Reason: Anxiety/Agitation,Unable PO Lorazepam (Ativan) 2 mg PO Q4 PRN PRN Reason: anxiety/agitation Magnesium Hydroxide (Milk Of Magnesia) 30 ml PO HS PRN PRN Reason: Constipation Sertraline HCl (Zoloft) 12.5 mg PO DAILY [facility] Last Admin: 09/05/17 08:34 Dose: 12.5 mg Topiramate (Topamax) 75 mg PO BID [facility] Last Admin: 09/05/17 17:59 Dose: 75 mg Assessment and Plan (1) Seizures Status: Acute (2) Alcohol abuse Status: Acute (3) Altered mental status Status: Acute (4) Anxiety Status: Acute (5) Back pain Status: Acute (6) Abdominal pain Status: Acute
--- NOTE | 2017-09-05 23:14 | CP.PCM.HP ---
History of Present Illness - History of Present Illness History of Present Illness: CC: Depression and Seizure Episodes. History of Present Illness: A 56 years old male who was admitted for seizures which happened in the street. He was brought to the ER where he again had another seizure. 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 Present on Admission - Present on Admission Any Indicators Present on Admission: No Review of Systems - Review of Systems All systems: reviewed and no additional remarkable complaints except Past Patient History - Past Medical History & Family History Past Medical History?: Yes - Past Social History Smoking Status: Never Smoked - CARDIAC Hx Cardiac Disorders: Yes Hx Hypercholesterolemia: Yes Hx Hypertension: Yes - PULMONARY Hx Respiratory Disorders: Yes Hx Pneumonia: Yes - NEUROLOGICAL Hx Neurological Disorder: Yes Hx Seizures: Yes Hx Syncope: Yes - HEENT Hx HEENT Problems: No - RENAL Hx Chronic Kidney Disease: No - ENDOCRINE/METABOLIC Hx Endocrine Disorders: No - HEMATOLOGICAL/ONCOLOGICAL Hx Blood Disorders: No - INTEGUMENTARY Hx Dermatological Problems: No - MUSCULOSKELETAL/RHEUMATOLOGICAL Hx Musculoskeletal Disorders: No Hx Falls: Yes - GASTROINTESTINAL Hx Gastrointestinal Disorders: No - GENITOURINARY/GYNECOLOGICAL Hx Genitourinary Disorders: No - PSYCHIATRIC Hx Substance Use: Yes - SURGICAL HISTORY Hx Surgeries: Yes Other/Comment: "abdominal surgery" - ANESTHESIA Hx Anesthesia: Yes (unknown) Hx Anesthesia Reactions: No Hx Malignant Hyperthermia: (unknown) Meds Allergies/Adverse Reactions: Allergies Allergy/AdvReac Type Severity Reaction Status Date / Time No Known Allergies Allergy Verified 03/20/17 11:24 Physical Exam - Constitutional Appears: No Acute Distress - Head Exam Additional comments: Surgical scar with scars. - Eye Exam Eye Exam: EOMI, Normal appearance, PERRL Pupil Exam: NORMAL ACCOMODATION, PERRL - ENT Exam ENT Exam: Mucous Membranes Moist, Normal Exam - Neck Exam Neck exam: Positive for: Full Rom, Normal Inspection - Respiratory Exam Respiratory Exam: Clear to Auscultation Bilateral, NORMAL BREATHING PATTERN. absent: Rales - Cardiovascular Exam Cardiovascular Exam: REGULAR RHYTHM, +S1, +S2 - GI/Abdominal Exam GI & Abdominal Exam: Normal Bowel Sounds, Soft. absent: Tenderness - Extremities Exam Extremities exam: Positive for: full ROM, normal capillary refill, normal inspection - Back Exam Back exam: NORMAL INSPECTION. absent: CVA tenderness (L), CVA tenderness (R) - Neurological Exam Neurological exam: Alert, CN II-XII Intact, Normal Gait, Oriented x3, Reflexes Normal - Psychiatric Exam Psychiatric exam: Depressed, Flat Affect, Suicidal Ideation - Skin Skin Exam: Dry, Intact, Normal Color, Warm Results - Vital Signs Recent Vital Signs: Last Vital Signs Temp 97.8 F 09/05/17 14:58 Pulse 69 09/05/17 14:58 Resp 20 09/05/17 14:58 BP 111/72 09/05/17 14:58 Pulse Ox - Labs Labs: Laboratory Results - last 24 hr 09/04/17 07:30 Hemoglobin A1c 6.0 Assessment & Plan (1) Suicidal ideations Assessment and Plan: Depression Status: Acute Priority: High (2) Alcohol abuse Assessment and Plan: IVF IV Thiamine/Folic Acid Status: Chronic Priority: Medium (3) Seizures Assessment and Plan: Topramax Neurology on board Ativan PRN Status: Chronic Priority: Medium
--- NOTE | 2017-09-06 09:57 | PCM.PYCHPN ---
Psychiatric Progress Note - Psychiatric Progress Note Patient seen today, length of contact: Patient evaluated, case discussed with team, chart reviewed Patient Chief Complaint: "I'm depressed." Problems Identified/Issues Discussed: Patient continues to report feeling depressed and anxious. He denies suicidal ideation/plan/intent. No delusions/paranoia/hallucinations. He denies adverse effects to Zoloft. We discussed continued titration of Zoloft. r/b/se reviewed. Medication Change: Yes (Increase Zoloft to 25 mg PO Daily) Medical Record Reviewed: Yes Consults ordered or reviewed: Medicine consult, Neurology consult Mental Status Examination - Cognitive Function Orientation: Person, Place, Situation, Time Memory: Intact Association: [facility] Fund of Knowledge: [facility] Decription of patient's judgement and insights: Fair I/J - Mood Mood: Depressed - Affect Affect: Constricted, Depressed - Speech Speech: Appropriate - Formal Thought Process Formal Thought Process: No Impairment Psychotic Thoughts and Behaviors: NO AH/VH/paranoia/delusions - Suicidal Ideation Suicidal Ideation: No - Homicidal Ideation Homicidal Ideation: No Goal/Treatment Plan - Goal/Treatment Plan Need for Continued Stay: Remain at risks for inpatient hospitalization, Severe depression anxiety Progress Toward Problem(s) and Goals/Treatment Plan: Alcohol induced mood disorder, alcohol use disorder -Increase Zoloft to 25 mg PO Daily -Continue Thiamine, Folate, B12, Calcium -Medicine and Neurology consults appreciated -Continue Topamax 75 mg PO BID -Individual and group therapy -Motivational interviewing -Psychoeducation re: alcohol abuse -Disposition planning Estimated Date of D/C: 09/09/17
--- NOTE | 2017-09-06 22:25 | CP.PCM.PN ---
Subjective - Date & Time of Evaluation Date of Evaluation: 09/06/17 Time of Evaluation: 21:00 - Subjective Subjective: No seizures, he said to Psych team he feels depressed. He is on Topamax 75 mg Q 12 hrs, Zoloft is increased to 25 mg/day, also on Haldol. He is improving and is talking now. On the floor he was not talking except rarely. He is seen By Dr Collier, and the consultation of Dr Collier is appreciated. Objective - Vital Signs/Intake and Output Vital Signs (last 24 hours): Temp Pulse Resp BP Pulse Ox 98.2 F 88 20 119/71 09/06/17 16:03 09/06/17 16:03 09/06/17 16:03 09/06/17 16:03 - Medications Medications: Current Medications Calcium Carbonate (Oscal) 500 mg PO BIDWM [facility] Last Admin: 09/06/17 17:03 Dose: 500 mg Cyanocobalamin (Vitamin B12 1000 Mcg Tab) 1,000 mcg PO DAILY [facility] Last Admin: 09/06/17 08:28 Dose: 1,000 mcg Diphenhydramine HCl (Benadryl) 50 mg IM Q6 PRN PRN Reason: Extrapyramidal S/S Unable PO Diphenhydramine HCl (Benadryl) 50 mg PO Q6 PRN PRN Reason: dystonic reaction/EPS Diphenhydramine HCl (Benadryl) 50 mg PO HS PRN PRN Reason: Sleep Last Admin: 09/05/17 23:12 Dose: 50 mg Ergocalciferol (Drisdol 50,000 Intl Units Cap) 1 cap PO Q7D [facility] Last Admin: 09/05/17 09:42 Dose: 1 cap Folic Acid (Folic Acid) 1 mg PO DAILY [facility] Last Admin: 09/06/17 08:27 Dose: 1 mg Haloperidol (Haldol) 5 mg PO Q4 PRN PRN Reason: Agitation Haloperidol Lactate (Haldol) 5 mg IM Q4 PRN PRN Reason: Agitation, Unable to Take PO Home Med (Diastat) 10 mg [place] TID PRN PRN Reason: Seizure activity Lorazepam (Ativan) 2 mg IM Q4 PRN PRN Reason: Anxiety/Agitation,Unable PO Lorazepam (Ativan) 2 mg PO Q4 PRN PRN Reason: anxiety/agitation Magnesium Hydroxide (Milk Of Magnesia) 30 ml PO HS PRN PRN Reason: Constipation Sertraline HCl (Zoloft) 25 mg PO DAILY [facility] Thiamine HCl (Vitamin B1 Tab) 100 mg PO DAILY [facility] Last Admin: 09/06/17 08:29 Dose: 100 mg Topiramate (Topamax) 75 mg PO BID [facility] Last Admin: 09/06/17 17:03 Dose: 75 mg Assessment and Plan (1) Seizures Status: Acute (2) Alcohol abuse Status: Chronic (3) Altered mental status Status: Acute (4) Anxiety Status: Acute (5) Back pain Status: Acute (6) Abdominal pain Status: Acute
[2017-09-07 07:09] LABS: BASO # 0.1 K/uL (0.0-0.2); BASO % 2.1 % (0.0-2.0); EOS # 0.1 K/uL (0.0-0.7); LYMPH % 38.2 % (20.0-40.0); MEAN CELL VOLUME 77.5 fl (80.0-94.0); MEAN CORPUSCULAR HEMOGLOBIN 25.3 pg (27.0-31.0); MEAN CORPUSCULAR HGB CONC 32.6 g/dL (33.0-37.0); MEAN PLATELET VOLUME 7.3 fl (7.2-11.7); MONO # 0.4 K/uL (0.0-0.8); MONO % 17.7 % (0.0-10.0); NRBC % 0.1 % (0.0-0.0); RED CELL DISTRIBUTION WIDTH 18.7 % (11.5-14.5); WHITE BLOOD COUNT 2.5 K/uL (4.8-10.8)
--- NOTE | 2017-09-07 08:58 | PCM.PYCHPN ---
Psychiatric Progress Note - Psychiatric Progress Note Patient seen today, length of contact: Patient evaluated, case discussed with team, chart reviewed Patient Chief Complaint: "I'm depressed." Problems Identified/Issues Discussed: Patient continues to report feeling depressed and anxious, but states that his mood is improving. He denies suicidal ideation/plan/intent. No delusions/ paranoia/hallucinations. He denies adverse effects to Zoloft. Medication Change: No Medical Record Reviewed: Yes Consults ordered or reviewed: Medicine consult, Neurology consult Mental Status Examination - Cognitive Function Orientation: Person, Place, Situation, Time Memory: Intact Attention: WNL Concentration: WNL Association: [facility] Fund of Knowledge: [facility] Decription of patient's judgement and insights: Fair I/J - Mood Mood: Depressed - Affect Affect: Depressed - Speech Speech: Appropriate - Formal Thought Process Formal Thought Process: No Impairment Psychotic Thoughts and Behaviors: NO AH/VH/paranoia/delusions - Suicidal Ideation Suicidal Ideation: No - Homicidal Ideation Homicidal Ideation: No Goal/Treatment Plan - Goal/Treatment Plan Need for Continued Stay: Remain at risks for inpatient hospitalization, Severe depression anxiety Progress Toward Problem(s) and Goals/Treatment Plan: Alcohol induced mood disorder, alcohol use disorder; patient needs continued hospitalization for treatment and safety -Continue Zoloft 25 mg PO Daily -Continue Thiamine, Folate, B12, Calcium -Medicine and Neurology consults appreciated -Continue Topamax 75 mg PO BID -Individual and group therapy -Motivational interviewing -Psychoeducation re: alcohol abuse -Disposition planning Estimated Date of D/C: 09/09/17
--- NOTE | 2017-09-07 21:07 | CP.PCM.PN ---
Subjective - Date & Time of Evaluation Date of Evaluation: 09/07/17 Time of Evaluation: 21:05 - Subjective Subjective: Patient is improving slowly on Zoloft and he admits he feels better. There is no seizures. He is awake alert oriented, less delirious and less confused. Objective - Vital Signs/Intake and Output Vital Signs (last 24 hours): Temp Pulse Resp BP Pulse Ox 98.2 F 65 18 105/64 09/07/17 17:03 09/07/17 17:03 09/07/17 17:03 09/07/17 17:03 - Medications Medications: Current Medications Calcium Carbonate (Oscal) 500 mg PO BIDWM [facility] Last Admin: 09/07/17 17:05 Dose: 500 mg Cyanocobalamin (Vitamin B12 1000 Mcg Tab) 1,000 mcg PO DAILY [facility] Last Admin: 09/07/17 08:48 Dose: 1,000 mcg Diphenhydramine HCl (Benadryl) 50 mg IM Q6 PRN PRN Reason: Extrapyramidal S/S Unable PO Diphenhydramine HCl (Benadryl) 50 mg PO Q6 PRN PRN Reason: dystonic reaction/EPS Diphenhydramine HCl (Benadryl) 50 mg PO HS PRN PRN Reason: Sleep Last Admin: 09/05/17 23:12 Dose: 50 mg Ergocalciferol (Drisdol 50,000 Intl Units Cap) 1 cap PO Q7D [facility] Last Admin: 09/05/17 09:42 Dose: 1 cap Folic Acid (Folic Acid) 1 mg PO DAILY [facility] Last Admin: 09/07/17 08:48 Dose: 1 mg Haloperidol (Haldol) 5 mg PO Q4 PRN PRN Reason: Agitation Haloperidol Lactate (Haldol) 5 mg IM Q4 PRN PRN Reason: Agitation, Unable to Take PO Home Med (Diastat) 10 mg [place] TID PRN PRN Reason: Seizure activity Lorazepam (Ativan) 2 mg IM Q4 PRN PRN Reason: Anxiety/Agitation,Unable PO Lorazepam (Ativan) 2 mg PO Q4 PRN PRN Reason: anxiety/agitation Last Admin: 09/06/17 23:52 Dose: 2 mg Magnesium Hydroxide (Milk Of Magnesia) 30 ml PO HS PRN PRN Reason: Constipation Sertraline HCl (Zoloft) 25 mg PO DAILY [facility] Last Admin: 09/07/17 08:49 Dose: 25 mg Thiamine HCl (Vitamin B1 Tab) 100 mg PO DAILY [facility] Last Admin: 09/07/17 08:48 Dose: 100 mg Topiramate (Topamax) 75 mg PO BID [facility] Last Admin: 09/07/17 17:05 Dose: 75 mg - Labs Labs: 09/07/17 06:40 Assessment and Plan (1) Seizures Status: Acute (2) Alcohol abuse Status: Chronic (3) Altered mental status Status: Acute (4) Anxiety Status: Acute (5) Back pain Status: Acute (6) Abdominal pain Status: Acute
--- NOTE | 2017-09-08 08:25 | PCM.PYCHPN ---
Psychiatric Progress Note - Psychiatric Progress Note Patient seen today, length of contact: Patient evaluated, case discussed with team, chart reviewed Patient Chief Complaint: "I'm feeling better." Problems Identified/Issues Discussed: Patient reports that his mood is improving. He is looking forward to spending the holiday with his family. He denies suicidal ideation/plan/intent. No delusions/paranoia/hallucinations. He denies adverse effects to Zoloft. Medication Change: No Medical Record Reviewed: Yes Consults ordered or reviewed: Medicine consult, Neurology consult Mental Status Examination - Cognitive Function Orientation: Person, Place, Situation, Time Memory: Intact Attention: WNL Concentration: WNL Association: [facility] Fund of Knowledge: [facility] Decription of patient's judgement and insights: Fair I/J - Mood Mood: Depressed - Affect Affect: Depressed - Speech Speech: Appropriate - Formal Thought Process Formal Thought Process: No Impairment Psychotic Thoughts and Behaviors: NO AH/VH/paranoia/delusions - Suicidal Ideation Suicidal Ideation: No - Homicidal Ideation Homicidal Ideation: No Goal/Treatment Plan - Goal/Treatment Plan Need for Continued Stay: Remain at risks for inpatient hospitalization, Severe depression anxiety Progress Toward Problem(s) and Goals/Treatment Plan: Alcohol induced mood disorder, alcohol use disorder; patient now improving clinically. -Continue Zoloft 25 mg PO Daily -Continue Thiamine, Folate, B12, Calcium -Medicine and Neurology consults appreciated -Continue Topamax 75 mg PO BID -Individual and group therapy -Motivational interviewing -Psychoeducation re: alcohol abuse -Disposition planning- will likely discharge tomorrow if patient continues to improve clinically Estimated Date of D/C: 09/09/17
--- NOTE | 2017-09-08 09:17 | CP.PCM.PN ---
Subjective - Date & Time of Evaluation Date of Evaluation: 09/08/17 Time of Evaluation: 09:08 - Subjective Subjective: Pt was seen by me on admission to the 6th floor. His WC at the time was 2.0. His count went up to 2.5 adnd he was transferred to the [facility] unit. His hgb and Platelets are fine, but the wbc is still low. Would give him granix today and tomorrow. Pt claims that he will not take the Granix by himself. So hopefully the 3 doses of granix he gets prior to his discharge will give his WBC a boost Objective - Vital Signs/Intake and Output Vital Signs (last 24 hours): Temp Pulse Resp BP Pulse Ox 97.1 F L 66 18 109/69 09/08/17 06:00 09/08/17 06:00 09/08/17 06:00 09/08/17 06:00 - Medications Medications: Current Medications Calcium Carbonate (Oscal) 500 mg PO BIDWM [facility] Last Admin: 09/08/17 08:34 Dose: 500 mg Cyanocobalamin (Vitamin B12 1000 Mcg Tab) 1,000 mcg PO DAILY [facility] Last Admin: 09/08/17 08:37 Dose: 1,000 mcg Diphenhydramine HCl (Benadryl) 50 mg IM Q6 PRN PRN Reason: Extrapyramidal S/S Unable PO Diphenhydramine HCl (Benadryl) 50 mg PO Q6 PRN PRN Reason: dystonic reaction/EPS Diphenhydramine HCl (Benadryl) 50 mg PO HS PRN PRN Reason: Sleep Last Admin: 09/08/17 02:39 Dose: 50 mg Ergocalciferol (Drisdol 50,000 Intl Units Cap) 1 cap PO Q7D [facility] Last Admin: 09/05/17 09:42 Dose: 1 cap Folic Acid (Folic Acid) 1 mg PO DAILY [facility] Last Admin: 09/08/17 08:35 Dose: 1 mg Haloperidol (Haldol) 5 mg PO Q4 PRN PRN Reason: Agitation Haloperidol Lactate (Haldol) 5 mg IM Q4 PRN PRN Reason: Agitation, Unable to Take PO Home Med (Diastat) 10 mg [place] TID PRN PRN Reason: Seizure activity Lorazepam (Ativan) 2 mg IM Q4 PRN PRN Reason: Anxiety/Agitation,Unable PO Lorazepam (Ativan) 2 mg PO Q4 PRN PRN Reason: anxiety/agitation Last Admin: 09/07/17 22:00 Dose: 2 mg Magnesium Hydroxide (Milk Of Magnesia) 30 ml PO HS PRN PRN Reason: Constipation Sertraline HCl (Zoloft) 25 mg PO DAILY [facility] Last Admin: 09/08/17 08:37 Dose: 25 mg Thiamine HCl (Vitamin B1 Tab) 100 mg PO DAILY [facility] Last Admin: 09/08/17 08:34 Dose: 100 mg Topiramate (Topamax) 75 mg PO BID [facility] Last Admin: 09/08/17 08:34 Dose: 75 mg - Labs Labs: 09/07/17 06:40
--- NOTE | 2017-09-08 21:30 | CP.PCM.PN ---
Subjective - Date & Time of Evaluation Date of Evaluation: 09/08/17 Time of Evaluation: 20:20 - Subjective Subjective: No Seizures, he feels depressed as his daughter did not answer his Phone Call. He might be going home in AM, having no where to go, he might qualify to a penitentiary with his medicaid insurance. He might be discharged on Topamax 100 mg Q 12 hrs, with 10 mg tid of Rectal Diastat PRN Seizures. Objective - Vital Signs/Intake and Output Vital Signs (last 24 hours): Temp Pulse Resp BP Pulse Ox 97.3 F L 66 19 105/69 09/08/17 15:46 09/08/17 15:46 09/08/17 15:46 09/08/17 15:46 - Medications Medications: Current Medications Calcium Carbonate (Oscal) 500 mg PO BIDWM [facility] Last Admin: 09/08/17 17:41 Dose: 500 mg Cyanocobalamin (Vitamin B12 1000 Mcg Tab) 1,000 mcg PO DAILY [facility] Last Admin: 09/08/17 08:37 Dose: 1,000 mcg Diphenhydramine HCl (Benadryl) 50 mg IM Q6 PRN PRN Reason: Extrapyramidal S/S Unable PO Diphenhydramine HCl (Benadryl) 50 mg PO Q6 PRN PRN Reason: dystonic reaction/EPS Diphenhydramine HCl (Benadryl) 50 mg PO HS PRN PRN Reason: Sleep Last Admin: 09/08/17 02:39 Dose: 50 mg Ergocalciferol (Drisdol 50,000 Intl Units Cap) 1 cap PO Q7D [facility] Last Admin: 09/05/17 09:42 Dose: 1 cap Folic Acid (Folic Acid) 1 mg PO DAILY [facility] Last Admin: 09/08/17 08:35 Dose: 1 mg Haloperidol (Haldol) 5 mg PO Q4 PRN PRN Reason: Agitation Haloperidol Lactate (Haldol) 5 mg IM Q4 PRN PRN Reason: Agitation, Unable to Take PO Home Med (Diastat) 10 mg [place] TID PRN PRN Reason: Seizure activity Lorazepam (Ativan) 2 mg IM Q4 PRN PRN Reason: Anxiety/Agitation,Unable PO Lorazepam (Ativan) 2 mg PO Q4 PRN PRN Reason: anxiety/agitation Last Admin: 09/07/17 22:00 Dose: 2 mg Magnesium Hydroxide (Milk Of Magnesia) 30 ml PO HS PRN PRN Reason: Constipation Sertraline HCl (Zoloft) 25 mg PO DAILY [facility] Last Admin: 09/08/17 08:37 Dose: 25 mg Thiamine HCl (Vitamin B1 Tab) 100 mg PO DAILY [facility] Last Admin: 09/08/17 08:34 Dose: 100 mg Topiramate (Topamax) 75 mg PO BID [facility] Last Admin: 09/08/17 17:41 Dose: 75 mg - Labs Labs: 09/07/17 06:40 Assessment and Plan (1) Seizures Status: Acute (2) Alcohol abuse Status: Chronic (3) Altered mental status Status: Acute (4) Anxiety Status: Acute (5) Back pain Status: Acute (6) Abdominal pain Status: Acute
--- NOTE | 2017-09-08 22:20 | CP.PCM.PN ---
Subjective - Date & Time of Evaluation Date of Evaluation: 09/06/17 Time of Evaluation: 09:00 Objective - Vital Signs/Intake and Output Vital Signs (last 24 hours): Temp Pulse Resp BP Pulse Ox 97.3 F L 66 19 105/69 09/08/17 15:46 09/08/17 15:46 09/08/17 15:46 09/08/17 15:46 - Medications Medications: Current Medications Calcium Carbonate (Oscal) 500 mg PO BIDWM [facility] Last Admin: 09/08/17 17:41 Dose: 500 mg Cyanocobalamin (Vitamin B12 1000 Mcg Tab) 1,000 mcg PO DAILY [facility] Last Admin: 09/08/17 08:37 Dose: 1,000 mcg Diphenhydramine HCl (Benadryl) 50 mg IM Q6 PRN PRN Reason: Extrapyramidal S/S Unable PO Diphenhydramine HCl (Benadryl) 50 mg PO Q6 PRN PRN Reason: dystonic reaction/EPS Diphenhydramine HCl (Benadryl) 50 mg PO HS PRN PRN Reason: Sleep Last Admin: 09/08/17 21:34 Dose: 50 mg Ergocalciferol (Drisdol 50,000 Intl Units Cap) 1 cap PO Q7D [facility] Last Admin: 09/05/17 09:42 Dose: 1 cap Folic Acid (Folic Acid) 1 mg PO DAILY [facility] Last Admin: 09/08/17 08:35 Dose: 1 mg Haloperidol (Haldol) 5 mg PO Q4 PRN PRN Reason: Agitation Haloperidol Lactate (Haldol) 5 mg IM Q4 PRN PRN Reason: Agitation, Unable to Take PO Home Med (Diastat) 10 mg [place] TID PRN PRN Reason: Seizure activity Lorazepam (Ativan) 2 mg IM Q4 PRN PRN Reason: Anxiety/Agitation,Unable PO Lorazepam (Ativan) 2 mg PO Q4 PRN PRN Reason: anxiety/agitation Last Admin: 09/07/17 22:00 Dose: 2 mg Magnesium Hydroxide (Milk Of Magnesia) 30 ml PO HS PRN PRN Reason: Constipation Sertraline HCl (Zoloft) 25 mg PO DAILY [facility] Last Admin: 09/08/17 08:37 Dose: 25 mg Thiamine HCl (Vitamin B1 Tab) 100 mg PO DAILY [facility] Last Admin: 09/08/17 08:34 Dose: 100 mg Topiramate (Topamax) 75 mg PO BID [facility] Last Admin: 09/08/17 17:41 Dose: 75 mg - Labs Labs: 09/07/17 06:40 Assessment and Plan (1) Suicidal ideations Status: Acute (2) Alcohol abuse Status: Chronic (3) Seizures Status: Chronic
--- NOTE | 2017-09-08 22:21 | CP.PCM.PN ---
Subjective - Date & Time of Evaluation Date of Evaluation: 09/07/17 Time of Evaluation: 07:05 Objective - Vital Signs/Intake and Output Vital Signs (last 24 hours): Temp Pulse Resp BP Pulse Ox 97.3 F L 66 19 105/69 09/08/17 15:46 09/08/17 15:46 09/08/17 15:46 09/08/17 15:46 - Medications Medications: Current Medications Calcium Carbonate (Oscal) 500 mg PO BIDWM [facility] Last Admin: 09/08/17 17:41 Dose: 500 mg Cyanocobalamin (Vitamin B12 1000 Mcg Tab) 1,000 mcg PO DAILY [facility] Last Admin: 09/08/17 08:37 Dose: 1,000 mcg Diphenhydramine HCl (Benadryl) 50 mg IM Q6 PRN PRN Reason: Extrapyramidal S/S Unable PO Diphenhydramine HCl (Benadryl) 50 mg PO Q6 PRN PRN Reason: dystonic reaction/EPS Diphenhydramine HCl (Benadryl) 50 mg PO HS PRN PRN Reason: Sleep Last Admin: 09/08/17 21:34 Dose: 50 mg Ergocalciferol (Drisdol 50,000 Intl Units Cap) 1 cap PO Q7D [facility] Last Admin: 09/05/17 09:42 Dose: 1 cap Folic Acid (Folic Acid) 1 mg PO DAILY [facility] Last Admin: 09/08/17 08:35 Dose: 1 mg Haloperidol (Haldol) 5 mg PO Q4 PRN PRN Reason: Agitation Haloperidol Lactate (Haldol) 5 mg IM Q4 PRN PRN Reason: Agitation, Unable to Take PO Home Med (Diastat) 10 mg [place] TID PRN PRN Reason: Seizure activity Lorazepam (Ativan) 2 mg IM Q4 PRN PRN Reason: Anxiety/Agitation,Unable PO Lorazepam (Ativan) 2 mg PO Q4 PRN PRN Reason: anxiety/agitation Last Admin: 09/07/17 22:00 Dose: 2 mg Magnesium Hydroxide (Milk Of Magnesia) 30 ml PO HS PRN PRN Reason: Constipation Sertraline HCl (Zoloft) 25 mg PO DAILY [facility] Last Admin: 09/08/17 08:37 Dose: 25 mg Thiamine HCl (Vitamin B1 Tab) 100 mg PO DAILY [facility] Last Admin: 09/08/17 08:34 Dose: 100 mg Topiramate (Topamax) 75 mg PO BID [facility] Last Admin: 09/08/17 17:41 Dose: 75 mg - Labs Labs: 09/07/17 06:40 Assessment and Plan (1) Suicidal ideations Status: Acute (2) Alcohol abuse Status: Chronic (3) Seizures Status: Chronic
--- NOTE | 2017-09-08 22:22 | CP.PCM.PN ---
Subjective - Date & Time of Evaluation Date of Evaluation: 09/08/17 Time of Evaluation: 19:35 Objective - Vital Signs/Intake and Output Vital Signs (last 24 hours): Temp Pulse Resp BP Pulse Ox 97.3 F L 66 19 105/69 09/08/17 15:46 09/08/17 15:46 09/08/17 15:46 09/08/17 15:46 - Medications Medications: Current Medications Calcium Carbonate (Oscal) 500 mg PO BIDWM [facility] Last Admin: 09/08/17 17:41 Dose: 500 mg Cyanocobalamin (Vitamin B12 1000 Mcg Tab) 1,000 mcg PO DAILY [facility] Last Admin: 09/08/17 08:37 Dose: 1,000 mcg Diphenhydramine HCl (Benadryl) 50 mg IM Q6 PRN PRN Reason: Extrapyramidal S/S Unable PO Diphenhydramine HCl (Benadryl) 50 mg PO Q6 PRN PRN Reason: dystonic reaction/EPS Diphenhydramine HCl (Benadryl) 50 mg PO HS PRN PRN Reason: Sleep Last Admin: 09/08/17 21:34 Dose: 50 mg Ergocalciferol (Drisdol 50,000 Intl Units Cap) 1 cap PO Q7D [facility] Last Admin: 09/05/17 09:42 Dose: 1 cap Folic Acid (Folic Acid) 1 mg PO DAILY [facility] Last Admin: 09/08/17 08:35 Dose: 1 mg Haloperidol (Haldol) 5 mg PO Q4 PRN PRN Reason: Agitation Haloperidol Lactate (Haldol) 5 mg IM Q4 PRN PRN Reason: Agitation, Unable to Take PO Home Med (Diastat) 10 mg [place] TID PRN PRN Reason: Seizure activity Lorazepam (Ativan) 2 mg IM Q4 PRN PRN Reason: Anxiety/Agitation,Unable PO Lorazepam (Ativan) 2 mg PO Q4 PRN PRN Reason: anxiety/agitation Last Admin: 09/07/17 22:00 Dose: 2 mg Magnesium Hydroxide (Milk Of Magnesia) 30 ml PO HS PRN PRN Reason: Constipation Sertraline HCl (Zoloft) 25 mg PO DAILY [facility] Last Admin: 09/08/17 08:37 Dose: 25 mg Thiamine HCl (Vitamin B1 Tab) 100 mg PO DAILY [facility] Last Admin: 09/08/17 08:34 Dose: 100 mg Topiramate (Topamax) 75 mg PO BID [facility] Last Admin: 09/08/17 17:41 Dose: 75 mg - Labs Labs: 09/07/17 06:40 Assessment and Plan (1) Suicidal ideations Status: Acute (2) Alcohol abuse Status: Chronic (3) Seizures Status: Chronic
[2017-09-09 07:06] LABS: BASO # 0.1 K/uL (0.0-0.2); BASO % 0.3 % (0.0-2.0); EOS # 0.1 K/uL (0.0-0.7); EOS % 0.4 % (0.0-4.0); HEMATOCRIT 35.8 % (35.0-51.0); LYMPH # 1.4 K/uL (1.0-4.3); LYMPH % 4.6 % (20.0-40.0); MEAN CELL VOLUME 78.3 fl (80.0-94.0); MEAN CORPUSCULAR HEMOGLOBIN 25.2 pg (27.0-31.0); MEAN CORPUSCULAR HGB CONC 32.2 g/dL (33.0-37.0); MEAN PLATELET VOLUME 7.7 fl (7.2-11.7); MONO # 1.5 K/uL (0.0-0.8); MONO % 4.8 % (0.0-10.0); NEUT # 27.5 K/uL (1.8-7.0); NEUT % 89.9 % (50.0-75.0); PLATELET COUNT 246 K/uL (130-400); RED CELL DISTRIBUTION WIDTH 18.9 % (11.5-14.5)
[2017-09-09 07:17] LABS: ALB/GLOB RATIO 1.2 (1.0-2.1); ALKALINE PHOSPHATASE 153 U/L (38-126); ALT/SGPT 41 U/L (21-72); AST/SGOT 23 U/L (17-59); BILIRUBIN,TOTAL 0.4 mg/dl (0.2-1.3); BLOOD UREA NITROGEN 13 mg/dl (9-20); CALCIUM 9.6 mg/dL (8.4-10.2); CARBON DIOXIDE 20 mmol/L (22-30); CHLORIDE 108 mmol/L (98-107); GFR AFRICAN-AMERICAN > 60; GLUCOSE,RANDOM 81 mg/dL (75-110); POTASSIUM 3.9 MMOL/L (3.6-5.0); SODIUM 138 mmol/l (132-148); TOTAL PROTEIN 7.4 G/DL (6.3-8.2)
--- NOTE | 2017-09-09 07:33 | PCM.PYCHPN ---
Psychiatric Progress Note - Psychiatric Progress Note Patient seen today, length of contact: Patient evaluated, case discussed with team, chart reviewed Patient Chief Complaint: "I'm feeling better." Problems Identified/Issues Discussed: Patient reports that his mood is improving. He denies suicidal ideation/plan/ intent. No delusions/paranoia/hallucinations. He denies adverse effects to Zoloft. Daughter stated that his cousin will be able to pick him up tomorrow and resume care for him. Medication Change: No Medical Record Reviewed: Yes Consults ordered or reviewed: Medicine consult, Neurology consult, Hematology consult Mental Status Examination - Cognitive Function Orientation: Person, Place, Situation, Time Memory: Intact Attention: WNL Concentration: WNL Association: [facility] Fund of Knowledge: [facility] Decription of patient's judgement and insights: Fair I/J - Mood Mood: Depressed - Affect Affect: Broad - Speech Speech: Appropriate - Formal Thought Process Formal Thought Process: No Impairment Psychotic Thoughts and Behaviors: NO AH/VH/paranoia/delusions - Suicidal Ideation Suicidal Ideation: No - Homicidal Ideation Homicidal Ideation: No Goal/Treatment Plan - Goal/Treatment Plan Need for Continued Stay: Remain at risks for inpatient hospitalization, Severe depression anxiety Progress Toward Problem(s) and Goals/Treatment Plan: Alcohol induced mood disorder, alcohol use disorder; patient now improving clinically. -Continue Zoloft 25 mg PO Daily -Continue Thiamine, Folate, B12, Calcium -Medicine and Neurology consults appreciated -Continue Topamax 75 mg PO BID -Individual and group therapy -Motivational interviewing -Psychoeducation re: alcohol abuse -Disposition planning- will likely discharge tomorrow if patient continues to improve clinically Estimated Date of D/C: 09/10/17
[2017-09-09 07:45] LABS: WHITE BLOOD COUNT 30.6 K/uL (4.8-10.8)
[2017-09-09 11:53] LABS: NEUTROPHIL 87 % (42-75); TOTAL CELLS COUNTED 100
[2017-09-09 16:22] VITALS: RESP 20
--- NOTE | 2017-09-09 21:26 | CP.PCM.PN ---
Subjective - Date & Time of Evaluation Date of Evaluation: 09/09/17 Time of Evaluation: 20:00 - Subjective Subjective: Denies any suicidal ideations, says he feels better and feels less depressed. His daughter mentioned that his brother will provide him with outside care. His brother will come in AM. No seizures on Topamax Increase Topamax from 75 mg Q 12 Hrs up to 100 mg Q 12 hrs for better control of his seizures, anxiety and alcohol abuse. Objective - Vital Signs/Intake and Output Vital Signs (last 24 hours): Temp Pulse Resp BP Pulse Ox 97.2 F L 67 20 133/74 09/09/17 16:22 09/09/17 16:22 09/09/17 16:22 09/09/17 16:22 - Medications Medications: Current Medications Calcium Carbonate (Oscal) 500 mg PO BIDWM [facility] Last Admin: 09/09/17 16:33 Dose: 500 mg Cyanocobalamin (Vitamin B12 1000 Mcg Tab) 1,000 mcg PO DAILY [facility] Last Admin: 09/09/17 08:33 Dose: 1,000 mcg Diphenhydramine HCl (Benadryl) 50 mg IM Q6 PRN PRN Reason: Extrapyramidal S/S Unable PO Diphenhydramine HCl (Benadryl) 50 mg PO Q6 PRN PRN Reason: dystonic reaction/EPS Diphenhydramine HCl (Benadryl) 50 mg PO HS PRN PRN Reason: Sleep Last Admin: 09/09/17 21:07 Dose: 50 mg Ergocalciferol (Drisdol 50,000 Intl Units Cap) 1 cap PO Q7D [facility] Last Admin: 09/05/17 09:42 Dose: 1 cap Folic Acid (Folic Acid) 1 mg PO DAILY [facility] Last Admin: 09/09/17 08:29 Dose: 1 mg Haloperidol (Haldol) 5 mg PO Q4 PRN PRN Reason: Agitation Haloperidol Lactate (Haldol) 5 mg IM Q4 PRN PRN Reason: Agitation, Unable to Take PO Home Med (Diastat) 10 mg IN TID PRN PRN Reason: Seizure activity Lorazepam (Ativan) 2 mg IM Q4 PRN PRN Reason: Anxiety/Agitation,Unable PO Lorazepam (Ativan) 2 mg PO Q4 PRN PRN Reason: anxiety/agitation Last Admin: 09/07/17 22:00 Dose: 2 mg Magnesium Hydroxide (Milk Of Magnesia) 30 ml PO HS PRN PRN Reason: Constipation Sertraline HCl (Zoloft) 25 mg PO DAILY [facility] Last Admin: 09/09/17 08:34 Dose: 25 mg Thiamine HCl (Vitamin B1 Tab) 100 mg PO DAILY [facility] Last Admin: 09/09/17 08:33 Dose: 100 mg Topiramate (Topamax) 75 mg PO BID [facility] Last Admin: 09/09/17 16:33 Dose: 75 mg - Labs Labs: 09/09/17 06:55 09/09/17 06:55 Assessment and Plan (1) Seizures Status: Acute (2) Alcohol abuse Status: Chronic (3) Altered mental status Status: Acute (4) Anxiety Status: Acute (5) Back pain Status: Acute (6) Abdominal pain Status: Acute
--- NOTE | 2017-09-10 00:12 | CP.PCM.PN ---
Subjective - Date & Time of Evaluation Date of Evaluation: 09/09/17 Time of Evaluation: 11:30 Objective - Vital Signs/Intake and Output Vital Signs (last 24 hours): Temp Pulse Resp BP Pulse Ox 97.2 F L 67 20 133/74 09/09/17 16:22 09/09/17 16:22 09/09/17 16:22 09/09/17 16:22 - Medications Medications: Current Medications Calcium Carbonate (Oscal) 500 mg PO BIDWM [facility] Last Admin: 09/09/17 16:33 Dose: 500 mg Cyanocobalamin (Vitamin B12 1000 Mcg Tab) 1,000 mcg PO DAILY [facility] Last Admin: 09/09/17 08:33 Dose: 1,000 mcg Diphenhydramine HCl (Benadryl) 50 mg IM Q6 PRN PRN Reason: Extrapyramidal S/S Unable PO Diphenhydramine HCl (Benadryl) 50 mg PO Q6 PRN PRN Reason: dystonic reaction/EPS Diphenhydramine HCl (Benadryl) 50 mg PO HS PRN PRN Reason: Sleep Last Admin: 09/09/17 21:07 Dose: 50 mg Ergocalciferol (Drisdol 50,000 Intl Units Cap) 1 cap PO Q7D [facility] Last Admin: 09/05/17 09:42 Dose: 1 cap Folic Acid (Folic Acid) 1 mg PO DAILY [facility] Last Admin: 09/09/17 08:29 Dose: 1 mg Haloperidol (Haldol) 5 mg PO Q4 PRN PRN Reason: Agitation Haloperidol Lactate (Haldol) 5 mg IM Q4 PRN PRN Reason: Agitation, Unable to Take PO Home Med (Diastat) 10 mg [place] TID PRN PRN Reason: Seizure activity Lorazepam (Ativan) 2 mg IM Q4 PRN PRN Reason: Anxiety/Agitation,Unable PO Lorazepam (Ativan) 2 mg PO Q4 PRN PRN Reason: anxiety/agitation Last Admin: 09/07/17 22:00 Dose: 2 mg Magnesium Hydroxide (Milk Of Magnesia) 30 ml PO HS PRN PRN Reason: Constipation Sertraline HCl (Zoloft) 25 mg PO DAILY [facility] Last Admin: 09/09/17 08:34 Dose: 25 mg Topiramate (Topamax) 100 mg PO BID [facility] - Labs Labs: 09/09/17 06:55 09/09/17 06:55 Assessment and Plan (1) Suicidal ideations Status: Acute (2) Alcohol abuse Status: Chronic (3) Seizures Status: Chronic
[2017-09-10 05:24] VITALS: BP 128/84; PULSE 68; TEMP 97.7
[2017-09-10 07:08] LABS: HEMATOCRIT 33.8 % (35.0-51.0); MEAN CELL VOLUME 78.4 fl (80.0-94.0); MEAN CORPUSCULAR HEMOGLOBIN 24.9 pg (27.0-31.0); MEAN CORPUSCULAR HGB CONC 31.8 g/dL (33.0-37.0); RED CELL DISTRIBUTION WIDTH 18.9 % (11.5-14.5); WHITE BLOOD COUNT 16.7 K/uL (4.8-10.8)
--- NOTE | 2017-09-10 12:17 | PCM.PYCHDC ---
Mental Status Examination - Mental Status Examination Orientation: Person, Place, Situation, Time Memory: Intact Mood: Neutral Affect: Broad Speech: Appropriate Attention: WNL Concentration: WNL Association: WNL Fund of Knowledge: WNL Formal Thought Process: No Impairment Description of patient's judgement and insight: Fair I/J Psychotic Thoughts and Behaviors: NO AH/VH/paranoia/delusions Suicidal Ideation: No Current Homicidal Ideation?: No Discharge Summary - Discharge Note Reason for Hospitalization: Chief Complaint (in patient's own words): i feel tired Patient's Reaction to Hospitalization: pt requested help History of Present Illness and Precipitating Events: s is a 56 years old male who was admitted for seizures which happened in the street. He was brought to the ER where he again had another seizure. 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 Reason for request. 2. Findings. 3. Follow-up Consultations: Medicine consult, Neurology consult, Hematology consult Summary of Hospital Course include:: 1. Description of specific treatment plan utilized for patients during their course of treatmen. 2. Summarize the time- course for resolution of acute symptoms and/or regressed behaviors. 3. Describe issues identified and worked on during hospitalization. 4. Describe medication utilized. 5. Describe medical problems identified and treated. 6. Reassessment of suicide risk Summary of Hospital Course: Patient was admitted to the psychiatry unit and was treated with Zoloft 25 mg PO Daily (dose titration needs to be slow due to neutropenia). Patient was counseled on the dangers of drinking alcohol. Patient seems to be exaggerating symptoms to prolong being in the hospital. He seems to be malingering for secondary gain of housing. He clearly told advertising copy writer that he plans to drink alcohol when he is discharged to induce a seizure [place] [facility] so [place] are forced to admit him. Patient also stated that he does not want to go to a skilled nursing because he does not want to have to clean up after himself. When asked why his daughter, who is clearly involved in his life, will not let him stay with her, he stated that he does not know. Patient has several family members in the area who are not willing to house him, likely due to his chronic alcoholism and manipulative behaviors. Patient counseled that it is very dangerous for him to drink alcohol and that he is at risk of dying to chronic alcoholism and lack of proper care. Patient does not have any cognitive deficits that prevent him from understanding this information. - Final Diagnosis (DSM 5) Condition upon Discharge: STABLE DSM 5: Alcohol Induced Mood Disorder; Malingering Disposition: HOME/ ROUTINE Follow-up Treatment Plan: Alcohol induced mood disorder, alcohol use disorder, Malingering; patient is psychiatrically stable for discharge. He has made several attempts to avoid being discharge including exaggerating symptoms, threatening to drink alcohol and pretending that various family members will pick him up and then pretending that he can not get in contact with them for various reason. -Continue Zoloft 25 mg PO Daily -Continue Thiamine, Folate, B12, Calcium -Medicine and Neurology consults appreciated -Continue Topamax 100 mg PO BID -Individual and group therapy -Motivational interviewing -Psychoeducation re: alcohol abuse -Disposition planning- discharge w/ outpatient follow-up Prescriptions/Medication Reconciliation: Calcium Carbonate [Oscal] 500 mg PO BIDWM #60 tab Cyanocobalamin [Vitamin B12 1000 mcg Tab] 1,000 mcg PO DAILY #30 tab Diastat 10 mg [place] TID PRN #30 PRN Reason: Seizure Activity Ergocalciferol [Drisdol 50,000 Intl Units Cap] 1 cap PO Q7D #4 cap Folic Acid 1 mg PO DAILY #30 tab Sertraline [Zoloft] 25 mg PO DAILY #30 tab Thiamine [Vitamin B1 Tab] 100 mg PO DAILY #30 tab Topiramate [Topamax] 100 mg PO BID #60 tab - Smoking Cessation Smoking Cessation Medication prescribed: No Reason for not providing: Not indicated - Antipsychotic Medications Pt discharged on 2 or more routine antipsychotic medications: No
--- NOTE | 2017-09-10 22:43 | CP.PCM.PN ---
Subjective - Date & Time of Evaluation Date of Evaluation: 09/10/17 Time of Evaluation: 14:35 - Subjective Subjective: He was discharged home after being stabilized. He is stable neurologically, no seizures on Topamax 100 mg Q 12 hrs. His Psychiatry problems are stable, depression and Paranoid problems. Objective - Vital Signs/Intake and Output Vital Signs (last 24 hours): Temp Pulse Resp BP Pulse Ox 97.7 F 68 20 128/84 09/10/17 05:24 09/10/17 05:24 09/10/17 05:24 09/10/17 05:24 - Labs Labs: 09/10/17 07:00 09/09/17 06:55 Assessment and Plan (1) Seizures Status: Acute (2) Alcohol abuse Status: Chronic (3) Altered mental status Status: Acute (4) Anxiety Status: Acute (5) Back pain Status: Acute (6) Abdominal pain Status: Acute
== END 2017-09-10 13:50 | disposition home or self-care (01) | DRG 751 ==
LOC: H.PSYCH 15:01 → H.STEP 20:29
PROVIDERS: ADMIT Psychiatry & Neurology Psychiatry; ATTEND Psychiatry & Neurology Psychiatry
PROC: GZHZZZZ Group Psychotherapy (ICD-10-PCS; principal; 2017-09-03)
PROC: HZ57ZZZ Individual Psychotherapy for Substance Abuse Treatment, Motivational Enhancement (ICD-10-PCS; 2017-09-03)
PROC: HZ56ZZZ Individual Psychotherapy for Substance Abuse Treatment, Psychoeducation (ICD-10-PCS; 2017-09-03)
DX: F10.24 Alcohol dependence with alcohol-induced mood disorder (principal); R45.851 Suicidal ideations; D70.9 Neutropenia, unspecified; G40.909 Epilepsy, unspecified, not intractable, without status epilepticus; F41.9 Anxiety disorder, unspecified; G89.29 Other chronic pain; Z59.0 Homelessness; Z76.5 Malingerer [conscious simulation]

== ENCOUNTER 2017-09-19 14:11 | Inpatient (IN) | payer MEDICAID, OTHER ==
[2017-09-19 14:12] VITALS: BMI 21.5
--- NOTE | 2017-09-19 14:43 | ED PDOC ---
HPI: Seizure Time Seen by Provider: 09/19/17 14:21 Chief Complaint (Nursing): Seizure Chief Complaint (Provider): Seizure History Per: Patient History/Exam Limitations: clinical condition Recent Seizure Activity Began: Unknown Number Of Seizures: Multiple (2) Additional History Per: EMS Additional Complaint(s): Héctor Marley is a 56 year old male who was brought to the ED via EMS for seizure. Per EMS, patient had 2 seizures today. Patient states that he cannot recall what happened today or why he was brought here. He reports history of seizure disorder, but cannot recall the name of the medication he takes. Patient is not cooperative with providing history but he is responsive to certain questions. PMD: provider TBD Past Medical History Reviewed: Historical Data, Nursing Documentation, Vital Signs Vital Signs: Last Vital Signs Temp 97.4 F L 09/19/17 14:15 Pulse 115 H 09/19/17 14:15 Resp 18 09/19/17 14:15 BP 166/88 H 09/19/17 14:15 Pulse Ox 100 09/19/17 16:19 - Medical History PMH: Depression, HTN, Hypercholesterolemia, Pneumonia, Seizures Denies: HIV, Chronic Kidney Disease - Family History Family History: States: Unknown Family Hx - Social History Current smoker - smoking cessation education provided: No Alcohol: < 2 Drinks/Day Drugs: Other - Immunization History Hx Tetanus Toxoid Vaccination: No Hx Influenza Vaccination: No Hx Pneumococcal Vaccination: No - Home Medications Home Medications: Ambulatory Orders Medication Instructions Recorded Calcium Carbonate [Oscal] 500 mg PO BIDWM #60 tab 09/08/17 Cyanocobalamin [Vitamin B12 1000 1,000 mcg PO DAILY #30 tab 09/08/17 mcg Tab] Diastat 10 mg [place] TID PRN #30 09/08/17 Ergocalciferol [Drisdol 50,000 1 cap PO Q7D #4 cap 09/08/17 Intl Units Cap] Folic Acid 1 mg PO DAILY #30 tab 09/08/17 Sertraline [Zoloft] 25 mg PO DAILY #30 tab 09/08/17 Thiamine [Vitamin B1 Tab] 100 mg PO DAILY #30 tab 09/08/17 Topiramate [Topamax] 100 mg PO BID #60 tab 09/10/17 Acetaminophen/Butalbital/Caf 1 tab PO Q8 PRN #14 tab 09/16/17 [Fioricet] Phenytoin [Dilantin Oral Susp] 100 mg PO TID #90 ml 09/16/17 Topiramate 100 mg PO DAILY #30 tablet 09/16/17 - Allergies Allergies/Adverse Reactions: Allergies Allergy/AdvReac Type Severity Reaction Status Date / Time No Known Allergies Allergy Verified 09/19/17 14:15 Review of Systems Review Of Systems: ROS cannot be obtained secondary to pt's inabilty to answer questions. (due to patient uncooperative) Physical Exam - Reviewed Nursing Documentation Reviewed: Yes Vital Signs Reviewed: Yes - Physical Exam Appears: Positive for: Non-toxic, No Acute Distress Head Exam: Positive for: ATRAUMATIC, NORMAL INSPECTION, NORMOCEPHALIC Skin: Positive for: Normal Color, Warm, Dry Eye Exam: Positive for: EOMI, Normal appearance, PERRL Neck: Positive for: Normal, Painless ROM, Supple Cardiovascular/Chest: Positive for: Regular Rate, Rhythm. Negative for: Murmur Respiratory: Positive for: Normal Breath Sounds. Negative for: Accessory Muscle Use, Respiratory Distress Gastrointestinal/Abdominal: Positive for: Normal Exam, Soft. Negative for: Tenderness Extremity: Positive for: Normal ROM. Negative for: Pedal Edema, Deformity Neurologic/Psych: Positive for: Alert (and awake), Other (Uncooperative with providing history/ROS, but responds to some questions) - ECG O2 Sat by Pulse Oximetry: 100 (RA) Pulse Ox Interpretation: Normal Medical Decision Making Medical Decision Making: Time: 14:45 Initial Impression: Seizure Initial Plan: --EKG --CMP --Magnesium --Phosphorous --CBC w/ differential --Urine dipstick --Cerebyx IV fluids --Reevaluation Time: 15:41 --Ativan 1 mg IM Scribe Attestation: Documented by Aranza Wells, acting as a scribe for Candice Chappell MD Provider Scribe Attestation: All medical record entries made by the Scribe were at my direction and personally dictated by me. I have reviewed the chart and agree that the record accurately reflects my personal performance of the history, physical exam, medical decision making, and the department course for this patient. I have also personally directed, reviewed, and agree with the discharge instructions and disposition. 6:[address] EJ IV access failed. Attempts to place SC TLC on the right side - failed due to kinking of the dilator and guidewire. Still no labs done. Patient has not had seizure after Ativan IM. Disposition - Clinical Impression Clinical Impression: Seizure disorder - Patient ED Disposition Is Patient to be Admitted: Transfer of Care - Disposition Disposition: Transfer of Care Disposition Time: 19:06 Condition: FAIR Forms: [employer] ([employer]ive[employer]) Patient Signed Over To: Steven Marie
[2017-09-19] MEDS ORDERED: Fosphenytoin 1,000 MG in Sodium Chloride 0.9% 50 ML IV STA (15:06)
--- NOTE | 2017-09-19 19:37 | ED PDOC ---
- Laboratory Results Result Diagrams: 09/19/17 19:54 09/19/17 19:54 - ECG O2 Sat by Pulse Oximetry: 100 (RA) Pulse Ox Interpretation: Normal Medical Decision Making Medical Decision Making: Patient signed out to me at [address] Chappell pending surgical consult, labs and reevaluation. 2245 Labs show no clinically significant abnormalities with the exception of subtherapeutic dilantin level. Patient will be placed on hospitalized observation. Case referred to Dr. lau - Medicine nursing consultant. Surgical consult was cancelled and a saphenous 20 gauge IV was placed and labs were obtained. Condition: Fair Scribe Attestation Documented by Tiffani Denise acting as a scribe for Steven Marie MD. Provider Attestation All medical record entries made by the Scribe were at my direction and personally dictated by me. I have reviewed the chart and agree that the record accurately reflects my personal performance of the history, physical exam, medical decision making, and the department course for this patient. I have also personally directed, reviewed, and agree with the discharge instructions and disposition. Disposition - Clinical Impression Clinical Impression: Seizure disorder - POA Present On Arrival: None - Disposition Disposition: Hospitalized as Observation Patient Disposition Time: 22:45 Condition: FAIR
[2017-09-19 20:14] LABS: ALB/GLOB RATIO 1.3 (1.0-2.1); ALKALINE PHOSPHATASE 200 U/L (38-126); ALT/SGPT 43 U/L (21-72); AST/SGOT 35 U/L (17-59); BILIRUBIN,TOTAL 0.6 mg/dl (0.2-1.3); BLOOD UREA NITROGEN 8 mg/dl (9-20); CALCIUM 9.1 mg/dL (8.4-10.2); CARBON DIOXIDE 25 mmol/L (22-30); CHLORIDE 105 mmol/L (98-107); GFR AFRICAN-AMERICAN > 60; GLUCOSE,RANDOM 100 mg/dL (75-110); MAGNESIUM 1.6 MG/DL (1.6-2.3); PHOSPHOROUS 2.8 mg/dl (2.5-4.5); POTASSIUM 4.3 MMOL/L (3.6-5.0); SODIUM 142 mmol/l (132-148); TOTAL PROTEIN 7.7 G/DL (6.3-8.2)
[2017-09-19 20:15] LABS: EOS % 0.6 % (0.0-4.0); LYMPH # 0.9 K/uL (1.0-4.3); LYMPH % 20.5 % (20.0-40.0); MEAN CELL VOLUME 79.3 fl (80.0-94.0); MEAN CORPUSCULAR HEMOGLOBIN 25.9 pg (27.0-31.0); MEAN CORPUSCULAR HGB CONC 32.6 g/dL (33.0-37.0); MEAN PLATELET VOLUME 7.7 fl (7.2-11.7); MONO # 0.3 K/uL (0.0-0.8); MONO % 7.4 % (0.0-10.0); NEUT # 3.2 K/uL (1.8-7.0); NEUT % 70.5 % (50.0-75.0); RED CELL DISTRIBUTION WIDTH 18.7 % (11.5-14.5); WHITE BLOOD COUNT 4.5 K/uL (4.8-10.8)
[2017-09-19 20:45] LABS: ALCOHOL SERUM < 10 mg/dl (0-10)
[2017-09-20] MEDS ORDERED: Ergocalciferol 50,000 Intl Units Cap PO SCH (09:00)
[2017-09-20] MEDS: Enoxaparin 40 mg Syringe SC SCH (09:10)
[2017-09-20] MEDS ORDERED: Valproate 500 MG in Sodium Chloride 0.9% 100 ML IVPB ONE (09:45)
[2017-09-20] MEDS ORDERED: Magnesium Sulfate 2 gm/50 ml 2 GM/50 ML BAG IVPB ONE (10:16)
[2017-09-20] MEDS ORDERED: Gadodiamide 287 MG/ML VIAL (15ML) IV ONE (13:31)
[2017-09-20] MEDS: Apap-Butalbital-Caffeine 325-50-40mg Tab PO PRN (14:07)
--- NOTE | 2017-09-20 14:57 | HP ---
CHIEF COMPLAINT: Multiple seizures. HISTORY OF PRESENT ILLNESS: This is a 56 year-old male, known case of seizure disorder, on Dilantin who is noncompliant with medication, who was having multiple seizures, so patient was brought to emergency room and was admitted for further management. Patient had 2 seizures while in the EMS and also had seizures in emergency room, so patient was admitted for further management. REVIEW OF SYSTEMS: At this time is negative for headache, dizziness, syncope, loss of consciousness, chest pain, shortness of breath, nausea, vomiting, diarrhea, constipation, any new joint or extremity pain. Review of systems of all other organ system is unremarkable. PAST MEDICAL HISTORY: Significant for seizure disorder. PAST SURGICAL HISTORY: Unremarkable. PERSONAL HISTORY: Patient is currently nonsmoker, nondrinker, no substance abuse. MEDICATIONS: Patient is on Dilantin, but compliance is questionable. ALLERGIES: PATIENT IS NOT ALLERGIC TO ANY MEDICATION. FAMILY HISTORY: Noncontributory. PHYSICAL EXAMINATION GENERAL: Well-built, well-nourished 56-year-old male, in no acute distress. VITAL SIGNS: Temperature afebrile, pulse 83, respirations 18, blood pressure 136/73. HEENT: Pupils are reacting to light. No JVD. No thyromegaly. No lymphadenopathy. No nystagmus. Normocephalic, atraumatic skull. HEART: S1 and S2 normal, regular. No significant murmur, gallop, or rub is heard. LUNGS: Shows good bilateral air exchange. No rales or rhonchi. ABDOMEN: Soft, nontender. No organomegaly. No fluid. Bowel sounds are present. EXTERNAL GENITALIA: Appropriate for the patient's age and there is no acute abnormality. Stool for occult blood is negative. EXTREMITIES: No edema. No calf swelling. No tenderness. No acute ischemia. CENTRAL NERVOUS SYSTEM: Essentially unchanged and there is no sign of any acute gross focal motor or sensory neurological deficit. DIAGNOSTIC DATA: Available diagnostic data reviewed. Telemetry monitoring does not show any significant arrhythmia. Dilantin level was 3.9. ADMITTING IMPRESSION: Seizure disorder. PLAN: As ordered. Case and plan discussed with patient. Cody Olmedo MD
--- NOTE | 2017-09-20 15:22 | MRI ---
PROCEDURE: Magnetic Resonance Angiography Brain HISTORY: Seizures COMPARISON: None available. TECHNIQUE: 3D time of flight MR angiography of the intracranial arteries was performed. Rotating maximum intensity projection images were generated. FINDINGS: INTERNAL CAROTID ARTERIES: Normal flow related signal and caliber. The skull base, petrous, cavernous and supraclinoid segments are bilaterally widely patient. ANTERIOR CEREBRAL ARTERIES: Normal flow related signal and caliber. A1 and A2 segments are widely patent. Smaller distal branches unremarkable, as visualized. MIDDLE CEREBRAL ARTERIES: Normal flow related signal and caliber. M1 and M2 segments are widely patent. Perisylvian branches grossly symmetric. POSTERIOR CIRCULATION: Basilar Artery: Normal flow related signal and caliber. Distal Vertebral Arteries: Normal flow related signal and caliber. Posterior Cerebral Arteries: Normal flow related signal and caliber. Posterior Inferior Cerebellar Arteries: Normal flow related signal and caliber. ANEURYSM/ VASCULAR MALFORMATIONS: None. OTHER FINDINGS: None. IMPRESSION: No evidence of occlusion, definite significant stenosis or saccular aneurysm.
--- NOTE | 2017-09-20 15:34 | MRI ---
PROCEDURE: MR Angiography of the neck without contrast HISTORY: seizures COMPARISON: None available. TECHNIQUE: 3D [id number]-[id number] angiography of the neck was performed. Rotating maximum intensity projection images of the cervical carotid and vertebral arteries were generated. The origins of the common carotid arteries were not visualized, which is a limitation inherent to the non-contrast time of flight technique. FINDINGS: RIGHT CAROTID ARTERIES: Common Carotid Artery: Normal. Carotid Bifurcation: Normal. Internal Carotid Artery:Normal. External Carotid Artery (proximal branches): Normal. LEFT CAROTID ARTERIES: Common Carotid Artery: Normal. Carotid Bifurcation: Normal. Internal Carotid Artery:There is an eccentric plaque in the proximal internal carotid artery without hemodynamically significant stenosis. External Carotid Artery (proximal branches): Normal. VERTEBRAL ARTERIES: Right Vertebral Artery: Normal. Left Vertebral Artery: Normal. OTHER FINDINGS: None. IMPRESSION: No evidence of hemodynamically significant stenosis. Eccentric plaque and mild narrowing of the proximal left internal carotid artery.
--- NOTE | 2017-09-20 17:23 | CP.PCM.CON ---
History of Present Illness - History of Present Illness History of Present Illness: Mr. Marley is a 56-year-old man with a known history of epilepsy, who admittedly did not take his medications, and subsequently suffered several breakthrough seizures. He is currently stable and has not had any further seizures since admission. Review of Systems - Review of Systems All systems: reviewed and no additional remarkable complaints except Past Patient History - Past Medical History & Family History Past Medical History?: Yes - Past Social History Smoking Status: Former Smoker - CARDIAC Hx Cardiac Disorders: Yes Hx Hypercholesterolemia: Yes Hx Hypertension: Yes - PULMONARY Hx Respiratory Disorders: Yes Hx Pneumonia: Yes - NEUROLOGICAL Hx Neurological Disorder: Yes Hx Seizures: Yes - HEENT Hx HEENT Problems: No - RENAL Hx Chronic Kidney Disease: No - ENDOCRINE/METABOLIC Hx Endocrine Disorders: No - HEMATOLOGICAL/ONCOLOGICAL Hx Blood Disorders: No Hx AIDS: No Hx Human Immunodeficiency Virus (HIV): No - INTEGUMENTARY Hx Dermatological Problems: No - MUSCULOSKELETAL/RHEUMATOLOGICAL Hx Musculoskeletal Disorders: Yes Hx Falls: Yes - GASTROINTESTINAL Hx Gastrointestinal Disorders: No - GENITOURINARY/GYNECOLOGICAL Hx Genitourinary Disorders: No - PSYCHIATRIC Hx Psychophysiologic Disorder: Yes Hx Depression: Yes Hx Substance Use: Yes - SURGICAL HISTORY Hx Surgeries: Yes Other/Comment: "abdominal surgery" - ANESTHESIA Hx Anesthesia: Yes (unknown) Hx Anesthesia Reactions: No Hx Malignant Hyperthermia: No (unknown) Meds Allergies/Adverse Reactions: Allergies Allergy/AdvReac Type Severity Reaction Status Date / Time No Known Allergies Allergy Verified 09/19/17 14:15 - Medications Medications: Current Medications Acetaminophen/Butalbital/Caffeine (Fioricet) 1 tab PO Q8 PRN PRN Reason: Headache Last Admin: 09/20/17 14:07 Dose: 1 tab Calcium Carbonate (Oscal) 500 mg PO BIDWM [facility] Last Admin: 09/20/17 09:09 Dose: 500 mg Cyanocobalamin (Vitamin B12 1000 Mcg Tab) 1,000 mcg PO DAILY [facility] Last Admin: 09/20/17 09:09 Dose: 1,000 mcg Enoxaparin Sodium (Lovenox) 40 mg [place] DAILY [facility] PRN Reason: Protocol Last Admin: 09/20/17 09:10 Dose: Not Given Ergocalciferol (Drisdol 50,000 Intl Units Cap) 1 cap PO Q7D [facility] Last Admin: 12/04/17 09:09 Dose: 1 cap Folic Acid (Folic Acid) 1 mg PO DAILY [facility] Last Admin: 09/20/17 09:09 Dose: 1 mg Phenytoin (Dilantin) 100 mg PO Q8 [facility] Last Admin: 09/20/17 12:04 Dose: 100 mg Sertraline HCl (Zoloft) 25 mg PO DAILY [facility] Last Admin: 09/20/17 09:09 Dose: 25 mg Thiamine HCl (Vitamin B1 Tab) 100 mg PO DAILY [facility] Last Admin: 09/20/17 09:09 Dose: 100 mg Topiramate (Topamax) 100 mg PO DAILY PRN PRN Reason: Migraine headache Last Admin: 09/20/17 04:29 Dose: 100 mg Physical Exam - Constitutional Appears: Well - Head Exam Head Exam: ATRAUMATIC, NORMAL INSPECTION, NORMOCEPHALIC - Eye Exam Eye Exam: EOMI, Normal appearance, PERRL - ENT Exam ENT Exam: Mucous Membranes Moist, Normal Exam - Neck Exam Neck exam: Positive for: Normal Inspection - Respiratory Exam Respiratory Exam: Clear to Auscultation Bilateral, NORMAL BREATHING PATTERN - Cardiovascular Exam Cardiovascular Exam: REGULAR RHYTHM, +S1, +S2 - GI/Abdominal Exam GI & Abdominal Exam: Normal Bowel Sounds, Soft. absent: Tenderness - Rectal Exam Rectal Exam: Deferred - Extremities Exam Extremities exam: Positive for: normal inspection - Neurological Exam Neurological exam: Alert, CN II-XII Intact, Normal Gait, Oriented x3, Reflexes Normal - Psychiatric Exam Psychiatric exam: Normal Affect, Normal Mood Results - Vital Signs Recent Vital Signs: Last Vital Signs Temp 98.6 F 09/20/17 15:50 Pulse 84 09/20/17 15:50 Resp 20 09/20/17 15:50 BP 101/63 09/20/17 15:50 Pulse Ox 99 09/20/17 15:50 - Labs Result Diagrams: 09/19/17 19:54 09/19/17 19:54 Labs: Laboratory Results - last 24 hr 09/19/17 09/19/17 09/19/17 19:54 19:54 19:56 WBC 4.5 L D RBC 4.16 L Hgb 10.8 L Hct 33.0 L MCV 79.3 L MCH 25.9 L MCHC 32.6 L RDW 18.7 H Plt Count 257 MPV 7.7 Neut % (Auto) 70.5 Lymph % (Auto) 20.5 [place] % (Auto) 7.4 Eos % (Auto) 0.6 Baso % (Auto) 1.0 Neut # 3.2 Lymph # 0.9 L [place] # 0.3 Eos # 0.0 Baso # 0.0 Sodium 142 Potassium 4.3 Chloride 105 Carbon Dioxide 25 Anion Gap 16 BUN 8 L Creatinine 0.8 Est GFR ( Amer) > 60 Est GFR (Non-Af Amer) > 60 Random Glucose 100 Calcium 9.1 Phosphorus 2.8 Magnesium 1.6 Total Bilirubin 0.6 AST 35 ALT 43 Alkaline Phosphatase 200 H Total Protein 7.7 Albumin 4.4 Globulin 3.3 Albumin/Globulin Ratio 1.3 Vitamin B12 TSH 3rd Generation Phenytoin 3.9 L Alcohol, Quantitative < 10 09/20/17 06:40 WBC RBC Hgb Hct MCV MCH MCHC RDW Plt Count MPV Neut % (Auto) Lymph % (Auto) [place] % (Auto) Eos % (Auto) Baso % (Auto) Neut # Lymph # [place] # Eos # Baso # Sodium Potassium Chloride Carbon Dioxide Anion Gap BUN Creatinine Est GFR ( Amer) Est GFR (Non-Af Amer) Random Glucose Calcium Phosphorus Magnesium Total Bilirubin AST ALT Alkaline Phosphatase Total Protein Albumin Globulin Albumin/Globulin Ratio Vitamin B12 823 TSH 3rd Generation 1.06 Phenytoin Alcohol, Quantitative Assessment & Plan (1) Seizure disorder Assessment and Plan: Breakthrough seizures due to non-compliance. His dilantin level was 3.6. I recommend loading with dilantin IV 10 mg/Kg and continuing 100 mg PO TID. The patient may be discharged home on 100 mg TID to follow up with his outpatient neurologist. I recommend psych consultation and social professionals consultation for his other underlying mental conditions and drug abuse issues. Thank you. Status: Acute Priority: High
--- NOTE | 2017-09-20 19:36 | CP.PCM.HP ---
Past Patient History - Past Medical History & Family History Past Medical History?: Yes - Past Social History Smoking Status: Former Smoker - CARDIAC Hx Cardiac Disorders: Yes Hx Hypercholesterolemia: Yes Hx Hypertension: Yes - PULMONARY Hx Respiratory Disorders: Yes Hx Pneumonia: Yes - NEUROLOGICAL Hx Neurological Disorder: Yes Hx Seizures: Yes - HEENT Hx HEENT Problems: No - RENAL Hx Chronic Kidney Disease: No - ENDOCRINE/METABOLIC Hx Endocrine Disorders: No - HEMATOLOGICAL/ONCOLOGICAL Hx Blood Disorders: No Hx AIDS: No Hx Human Immunodeficiency Virus (HIV): No - INTEGUMENTARY Hx Dermatological Problems: No - MUSCULOSKELETAL/RHEUMATOLOGICAL Hx Musculoskeletal Disorders: Yes Hx Falls: Yes - GASTROINTESTINAL Hx Gastrointestinal Disorders: No - GENITOURINARY/GYNECOLOGICAL Hx Genitourinary Disorders: No - PSYCHIATRIC Hx Psychophysiologic Disorder: Yes Hx Depression: Yes Hx Substance Use: Yes - SURGICAL HISTORY Hx Surgeries: Yes Other/Comment: "abdominal surgery" - ANESTHESIA Hx Anesthesia: Yes (unknown) Hx Anesthesia Reactions: No Hx Malignant Hyperthermia: No (unknown) Meds Allergies/Adverse Reactions: Allergies Allergy/AdvReac Type Severity Reaction Status Date / Time No Known Allergies Allergy Verified 09/19/17 14:15 Physical Exam - Constitutional Appears: Well - Head Exam Head Exam: ATRAUMATIC, NORMAL INSPECTION, NORMOCEPHALIC - Eye Exam Eye Exam: EOMI, Normal appearance, PERRL Pupil Exam: NORMAL ACCOMODATION, PERRL - ENT Exam ENT Exam: Mucous Membranes Moist, Normal Exam - Neck Exam Neck exam: Positive for: Normal Inspection - Respiratory Exam Respiratory Exam: Decreased Breath Sounds - Cardiovascular Exam Cardiovascular Exam: REGULAR RHYTHM, +S1, +S2 - GI/Abdominal Exam GI & Abdominal Exam: Diminished Bowel Sounds, Soft - Rectal Exam Rectal Exam: Deferred Results - Vital Signs Recent Vital Signs: Last Vital Signs Temp 98.6 F 09/20/17 15:50 Pulse 84 09/20/17 15:50 Resp 20 09/20/17 15:50 BP 101/63 09/20/17 15:50 Pulse Ox 99 09/20/17 15:50 - Labs Result Diagrams: 09/19/17 19:54 09/19/17 19:54 Labs: Laboratory Results - last 24 hr 09/19/17 09/19/17 09/19/17 19:54 19:54 19:56 WBC 4.5 L D RBC 4.16 L Hgb 10.8 L Hct 33.0 L MCV 79.3 L MCH 25.9 L MCHC 32.6 L RDW 18.7 H Plt Count 257 MPV 7.7 Neut % (Auto) 70.5 Lymph % (Auto) 20.5 [place] % (Auto) 7.4 Eos % (Auto) 0.6 Baso % (Auto) 1.0 Neut # 3.2 Lymph # 0.9 L [place] # 0.3 Eos # 0.0 Baso # 0.0 Sodium 142 Potassium 4.3 Chloride 105 Carbon Dioxide 25 Anion Gap 16 BUN 8 L Creatinine 0.8 Est GFR ( Amer) > 60 Est GFR (Non-Af Amer) > 60 Random Glucose 100 Calcium 9.1 Phosphorus 2.8 Magnesium 1.6 Total Bilirubin 0.6 AST 35 ALT 43 Alkaline Phosphatase 200 H Total Protein 7.7 Albumin 4.4 Globulin 3.3 Albumin/Globulin Ratio 1.3 Vitamin B12 TSH 3rd Generation Phenytoin 3.9 L Alcohol, Quantitative < 10 09/20/17 06:40 WBC RBC Hgb Hct MCV MCH MCHC RDW Plt Count MPV Neut % (Auto) Lymph % (Auto) [place] % (Auto) Eos % (Auto) Baso % (Auto) Neut # Lymph # [place] # Eos # Baso # Sodium Potassium Chloride Carbon Dioxide Anion Gap BUN Creatinine Est GFR ( Amer) Est GFR (Non-Af Amer) Random Glucose Calcium Phosphorus Magnesium Total Bilirubin AST ALT Alkaline Phosphatase Total Protein Albumin Globulin Albumin/Globulin Ratio Vitamin B12 823 TSH 3rd Generation 1.06 Phenytoin Alcohol, Quantitative
[2017-09-21 07:30] LABS: HEMATOCRIT 33.3 % (35.0-51.0); MEAN CELL VOLUME 81.2 fl (80.0-94.0); MEAN CORPUSCULAR HEMOGLOBIN 25.3 pg (27.0-31.0); MEAN CORPUSCULAR HGB CONC 31.1 g/dL (33.0-37.0)
[2017-09-21 07:58] LABS: ALB/GLOB RATIO 1.4 (1.0-2.1); ALKALINE PHOSPHATASE 182 U/L (38-126); ALT/SGPT 29 U/L (21-72); AST/SGOT 22 U/L (17-59); BILIRUBIN,TOTAL 0.7 mg/dl (0.2-1.3); BLOOD UREA NITROGEN 9 mg/dl (9-20); CALCIUM 8.9 mg/dL (8.4-10.2); CARBON DIOXIDE 23 mmol/L (22-30); CHLORIDE 101 mmol/L (98-107); GFR AFRICAN-AMERICAN > 60; GLUCOSE,RANDOM 100 mg/dL (75-110); POTASSIUM 3.7 MMOL/L (3.6-5.0); SODIUM 134 mmol/l (132-148)
[2017-09-21] MEDS: Apap-Butalbital-Caffeine 325-50-40mg Tab PO PRN (10:04)
[2017-09-21] MEDS: Enoxaparin 40 mg Syringe SC SCH (10:05)
--- NOTE | 2017-09-21 10:25 | CARD ---
APPROVED REPORT EKG Measurement Heart [id number] <Conclusion> Normal sinus rhythm Normal ECG
--- NOTE | 2017-09-21 10:35 | PN ---
DATE: 09/21/2017 SUBJECTIVE: The patient seen and examined. Interim events noted. Consults noted and appreciated. Neurology followup and intervention noted and appreciated. The patient remains in Progressive Care Unit, on telemetry monitoring. The patient feels okay. Denies any seizure. No chest pain. No shortness of breath. No dizziness or loss of consciousness. PHYSICAL EXAMINATION: GENERAL: The patient is in no acute distress. VITAL SIGNS: Stable. HEART: S1 and S2, normal and regular. LUNGS: Good bilateral air entry. ABDOMEN: Soft, nontender. EXTREMITIES: No edema. No calf swelling. No tenderness. No acute ischemia. CENTRAL NERVOUS SYSTEM: Essentially unchanged. DIAGNOSTIC DATA: Available diagnostic data reviewed. ASSESSMENT AND PLAN: Overall, the patient's general medical condition is stable. No more seizures. Plan as ordered. Case and plan discussed with the patient. Cody Olmedo MD
--- NOTE | 2017-09-21 11:07 | CP.PCM.CON ---
History of Present Illness - History of Present Illness History of Present Illness: Psychiatry consult; Patient well known to property underwriter from previous consults and psychiatric admission CC: "I want to rest." HPI: 56 y/o male with a PMHx remarkable for seizure disorder and alcohol abuse, history of malingering to be admitted to the hospital. Patient denies current depression/anxiety/SI/HI, psychosis and stated that he just wants to rest. Patient has admitted to property underwriter in the past that he seeks medical and psychiatric admissions for secondary gain of housing. On his last psychiatric admission, he pretended that he was trying to arrange his family to pick him up and care for him to delay his discharge. He also told the property underwriter that he drinks alcohol near hospitals in order to induce seizures so that he has to be admitted. Patient has told property underwriter that he does not like to stay in shelters because he does not like their rules and does not want to have to clean up after himself. Patient is guarded and irritated w/ property underwriter, likely because he is known to property underwriter from previous admissions. PPHx: Recently admitted to the psychiatry unit from 09/03-09/10; diagnosis Alcohol induced mood disorder and malingering. PMD: None PMHx: Seizure disorder ALL: NKDA Familyhx: No family history of mental illness SocialHx: ETOH abuse, denies illicit drugs and tobacco abuse. Homeless, unemployed. MSE: A + O x 3, irritable, guarded, no acute distress, speech soft, mood "okay" , affect- broad, thought process- linear/coherent, thought content- no delusions , no hallucinations, no SI/HI, Fair I/J. Impression: 56 yo male w/ Alcohol Use Disorder and Alcohol Induced Mood Disorder and history of malingering to obtain medical and psychiatric hospitalizations, does not follow-up with outpatient medical or psychiatric treatment. Patient does not have any active psychiatric complaints at this time. No acute inpatient psychiatric admission needed. Patient is psychiatrically stable for discharge. Past Patient History - Past Medical History & Family History Past Medical History?: Yes - Past Social History Smoking Status: Former Smoker - CARDIAC Hx Cardiac Disorders: Yes Hx Hypercholesterolemia: Yes Hx Hypertension: Yes - PULMONARY Hx Respiratory Disorders: Yes Hx Pneumonia: Yes - NEUROLOGICAL Hx Neurological Disorder: Yes Hx Seizures: Yes - HEENT Hx HEENT Problems: No - RENAL Hx Chronic Kidney Disease: No - ENDOCRINE/METABOLIC Hx Endocrine Disorders: No - HEMATOLOGICAL/ONCOLOGICAL Hx Blood Disorders: No Hx AIDS: No Hx Human Immunodeficiency Virus (HIV): No - INTEGUMENTARY Hx Dermatological Problems: No - MUSCULOSKELETAL/RHEUMATOLOGICAL Hx Musculoskeletal Disorders: Yes Hx Falls: Yes - GASTROINTESTINAL Hx Gastrointestinal Disorders: No - GENITOURINARY/GYNECOLOGICAL Hx Genitourinary Disorders: No - PSYCHIATRIC Hx Psychophysiologic Disorder: Yes Hx Depression: Yes Hx Substance Use: Yes - SURGICAL HISTORY Hx Surgeries: Yes Other/Comment: "abdominal surgery" - ANESTHESIA Hx Anesthesia: Yes (unknown) Hx Anesthesia Reactions: No Hx Malignant Hyperthermia: No (unknown) Meds Allergies/Adverse Reactions: Allergies Allergy/AdvReac Type Severity Reaction Status Date / Time No Known Allergies Allergy Verified 09/19/17 14:15 - Medications Medications: Current Medications Acetaminophen/Butalbital/Caffeine (Fioricet) 1 tab PO Q8 PRN PRN Reason: Headache Last Admin: 09/21/17 10:04 Dose: 1 tab Calcium Carbonate (Oscal) 500 mg PO BIDWM [facility] Last Admin: 09/21/17 10:04 Dose: 500 mg Cyanocobalamin (Vitamin B12 1000 Mcg Tab) 1,000 mcg PO DAILY [facility] Last Admin: 09/21/17 10:05 Dose: 1,000 mcg Enoxaparin Sodium (Lovenox) 40 mg SC DAILY [facility] PRN Reason: Protocol Last Admin: 09/21/17 10:05 Dose: Not Given Ergocalciferol (Drisdol 50,000 Intl Units Cap) 1 cap PO Q7D [facility] Last Admin: 09/20/17 09:09 Dose: 1 cap Folic Acid (Folic Acid) 1 mg PO DAILY [facility] Last Admin: 09/21/17 10:05 Dose: 1 mg Phenytoin (Dilantin) 100 mg PO Q8 [facility] Last Admin: 09/21/17 10:03 Dose: 100 mg Sertraline HCl (Zoloft) 25 mg PO DAILY [facility] Last Admin: 09/21/17 10:06 Dose: 25 mg Thiamine HCl (Vitamin B1 Tab) 100 mg PO DAILY [facility] Last Admin: 09/21/17 10:05 Dose: 100 mg Topiramate (Topamax) 100 mg PO DAILY PRN PRN Reason: Migraine headache Last Admin: 09/20/17 04:29 Dose: 100 mg Results - Vital Signs Recent Vital Signs: Last Vital Signs Temp 98.3 F 09/21/17 08:00 Pulse 69 09/21/17 08:00 Resp 18 09/21/17 08:00 BP 124/79 09/21/17 08:00 Pulse Ox 98 09/21/17 08:00 - Labs Result Diagrams: 09/21/17 06:35 09/21/17 06:35 Labs: Laboratory Results - last 24 hr 09/21/17 09/21/17 09/21/17 06:35 06:35 06:35 WBC 4.0 L RBC 4.10 L Hgb 10.4 L Hct 33.3 L MCV 81.2 MCH 25.3 L MCHC 31.1 L RDW 18.0 H Plt Count 160 Sodium 134 Potassium 3.7 Chloride 101 Carbon Dioxide 23 Anion Gap 14 BUN 9 Creatinine 0.8 Est GFR ( Amer) > 60 Est GFR (Non-Af Amer) > 60 Random Glucose 100 Calcium 8.9 Total Bilirubin 0.7 AST 22 ALT 29 Alkaline Phosphatase 182 H Total Protein 7.0 Albumin 4.0 Globulin 2.9 Albumin/Globulin Ratio 1.4 Phenytoin 13.4
--- NOTE | 2017-09-21 17:35 | CP.PCM.PN ---
Subjective - Date & Time of Evaluation Date of Evaluation: 09/21/17 Time of Evaluation: 08:20 - Subjective Subjective: clinically same Objective - Vital Signs/Intake and Output Vital Signs (last 24 hours): Temp Pulse Resp BP Pulse Ox 98.4 F 74 20 118/74 100 09/21/17 15:51 09/21/17 15:51 09/21/17 15:51 09/21/17 15:51 09/21/17 15:51 - Medications Medications: Current Medications Acetaminophen/Butalbital/Caffeine (Fioricet) 1 tab PO Q8 PRN PRN Reason: Headache Last Admin: 09/21/17 10:04 Dose: 1 tab Calcium Carbonate (Oscal) 500 mg PO BIDWM [facility] Last Admin: 09/21/17 10:04 Dose: 500 mg Cyanocobalamin (Vitamin B12 1000 Mcg Tab) 1,000 mcg PO DAILY [facility] Last Admin: 09/21/17 10:05 Dose: 1,000 mcg Enoxaparin Sodium (Lovenox) 40 mg SC DAILY [facility] PRN Reason: Protocol Last Admin: 09/21/17 10:05 Dose: Not Given Ergocalciferol (Drisdol 50,000 Intl Units Cap) 1 cap PO Q7D [facility] Last Admin: 09/20/17 09:09 Dose: 1 cap Folic Acid (Folic Acid) 1 mg PO DAILY [facility] Last Admin: 09/21/17 10:05 Dose: 1 mg Phenytoin (Dilantin) 100 mg PO Q8 [facility] Last Admin: 09/21/17 10:03 Dose: 100 mg Sertraline HCl (Zoloft) 25 mg PO DAILY [facility] Last Admin: 09/21/17 10:06 Dose: 25 mg Thiamine HCl (Vitamin B1 Tab) 100 mg PO DAILY [facility] Last Admin: 09/21/17 10:05 Dose: 100 mg Topiramate (Topamax) 100 mg PO DAILY PRN PRN Reason: Migraine headache Last Admin: 09/20/17 04:29 Dose: 100 mg - Labs Labs: 09/21/17 06:35 09/21/17 06:35 - Constitutional Appears: Well - Head Exam Head Exam: ATRAUMATIC, NORMAL INSPECTION, NORMOCEPHALIC - Eye Exam Eye Exam: EOMI, Normal appearance, PERRL Pupil Exam: NORMAL ACCOMODATION, PERRL - ENT Exam ENT Exam: Mucous Membranes Moist, Normal Exam - Neck Exam Neck Exam: Full ROM, Normal Inspection. absent: Lymphadenopathy - Respiratory Exam Respiratory Exam: Decreased Breath Sounds - Cardiovascular Exam Cardiovascular Exam: REGULAR RHYTHM, +S1, +S2 - GI/Abdominal Exam GI & Abdominal Exam: Soft, Diminished Bowel Sounds - Rectal Exam Rectal Exam: Deferred
[2017-09-22 07:31] LABS: THYROID STIMULATING HORMONE 1.02 mIU/ML (0.46-4.68)
--- NOTE | 2017-09-22 08:21 | CP.PCM.PN ---
Subjective - Date & Time of Evaluation Date of Evaluation: 09/22/17 Time of Evaluation: 08:19 - Subjective Subjective: Mr. Marley was seen and examined at the bedside. He is alert, oriented, but uncooperative this morning. He is able to answer few questions appropriately. He denies any headache, seizure-like activity, dizziness, lightheadedness, nausea, or vomiting. There was no untoward events overnight. Objective - Vital Signs/Intake and Output Vital Signs (last 24 hours): Temp Pulse Resp BP Pulse Ox 98.3 F 82 20 110/65 98 09/22/17 08:00 09/22/17 08:00 09/22/17 08:00 09/22/17 08:00 09/22/17 08:00 - Medications Medications: Current Medications Acetaminophen/Butalbital/Caffeine (Fioricet) 1 tab PO Q8 PRN PRN Reason: Headache Last Admin: 09/21/17 10:04 Dose: 1 tab Calcium Carbonate (Oscal) 500 mg PO BIDWM [facility] Last Admin: 09/21/17 18:03 Dose: 500 mg Cyanocobalamin (Vitamin B12 1000 Mcg Tab) 1,000 mcg PO DAILY [facility] Last Admin: 09/21/17 10:05 Dose: 1,000 mcg Enoxaparin Sodium (Lovenox) 40 mg SC DAILY [facility] PRN Reason: Protocol Last Admin: 09/21/17 10:05 Dose: Not Given Ergocalciferol (Drisdol 50,000 Intl Units Cap) 1 cap PO Q7D [facility] Last Admin: 09/20/17 09:09 Dose: 1 cap Folic Acid (Folic Acid) 1 mg PO DAILY [facility] Last Admin: 09/21/17 10:05 Dose: 1 mg Phenytoin (Dilantin) 100 mg PO Q8 [facility] Last Admin: 09/22/17 00:55 Dose: 100 mg Sertraline HCl (Zoloft) 25 mg PO DAILY [facility] Last Admin: 09/21/17 10:06 Dose: 25 mg Thiamine HCl (Vitamin B1 Tab) 100 mg PO DAILY [facility] Last Admin: 09/21/17 10:05 Dose: 100 mg Topiramate (Topamax) 100 mg PO DAILY PRN PRN Reason: Migraine headache Last Admin: 09/20/17 04:29 Dose: 100 mg - Labs Labs: 09/21/17 06:35 09/21/17 06:35 - Constitutional Appears: No Acute Distress - Head Exam Head Exam: ATRAUMATIC - Neurological Exam Neurological Exam: Alert, Awake, CN II-XII Intact, Oriented x3 Neuro motor strength exam: Left Upper Extremity: 5, Right Upper Extremity: 5, Left Lower Extremity: 5, Right Lower Extremity: 5 Additional comments: Neurological unchanged from previous examination. Assessment and Plan (1) Seizure disorder Assessment & Plan: Case discussed with Dr. Snowden, continue all current medical, physical, and occupational therapies. Recommend psych consultation and social media director consultation for his other underlying mental conditions and drug abuse issues. Status: Acute
[2017-09-22] MEDS: Enoxaparin 40 mg Syringe SC SCH (08:53)
--- NOTE | 2017-09-22 10:06 | CP.PCM.DIS ---
Provider - Provider Date of Admission: 09/20/17 14:13 Attending physician: Cody Olmedo MD Time Spent in preparation of Discharge (in minutes): 30 Diagnosis - Discharge Diagnosis (1) Seizure disorder Status: Acute Priority: High (2) Alcohol abuse Status: Chronic Hospital Course - Lab Results Lab Results: Most Recent Lab Values WBC 4.0 K/uL (4.8-10.8) L 09/21/17 06:35 RBC 4.10 Mil/uL (4.40-5.90) L 09/21/17 06:35 Hgb 10.4 g/dL (12.0-18.0) L 09/21/17 06:35 Hct 33.3 % (35.0-51.0) L 09/21/17 06:35 MCV 81.2 fl (80.0-94.0) 09/21/17 06:35 MCH 25.3 pg (27.0-31.0) L 09/21/17 06:35 MCHC 31.1 g/dL (33.0-37.0) L 09/21/17 06:35 RDW 18.0 % (11.5-14.5) H 09/21/17 06:35 Plt Count 160 K/uL (130-400) 09/21/17 06:35 MPV 7.7 fl (7.2-11.7) 09/19/17 19:54 Neut % (Auto) 70.5 % (50.0-75.0) 09/19/17 19:54 Lymph % (Auto) 20.5 % (20.0-40.0) 09/19/17 19:54 [place] % (Auto) 7.4 % (0.0-10.0) 09/19/17 19:54 Eos % (Auto) 0.6 % (0.0-4.0) 09/19/17 19:54 Baso % (Auto) 1.0 % (0.0-2.0) 09/19/17 19:54 Neut # 3.2 K/uL (1.8-7.0) 09/19/17 19:54 Lymph # 0.9 K/uL (1.0-4.3) L 09/19/17 19:54 [place] # 0.3 K/uL (0.0-0.8) 09/19/17 19:54 Eos # 0.0 K/uL (0.0-0.7) 09/19/17 19:54 Baso # 0.0 K/uL (0.0-0.2) 09/19/17 19:54 Sodium 134 mmol/l (132-148) 09/21/17 06:35 Potassium 3.7 MMOL/L (3.6-5.0) 09/21/17 06:35 Chloride 101 mmol/L (98-107) 09/21/17 06:35 Carbon Dioxide 23 mmol/L (22-30) 09/21/17 06:35 Anion Gap 14 (10-20) 09/21/17 06:35 BUN 9 mg/dl (9-20) 09/21/17 06:35 Creatinine 0.8 mg/dl (0.8-1.5) 09/21/17 06:35 Est GFR ( Amer) > 60 09/21/17 06:35 Est GFR (Non-Af Amer) > 60 09/21/17 06:35 Random Glucose 100 mg/dL (75-110) 09/21/17 06:35 Calcium 8.9 mg/dL (8.4-10.2) 09/21/17 06:35 Phosphorus 2.8 mg/dl (2.5-4.5) 09/19/17 19:54 Magnesium 1.6 MG/DL (1.6-2.3) 09/19/17 19:54 Total Bilirubin 0.7 mg/dl (0.2-1.3) 09/21/17 06:35 AST 22 U/L (17-59) 09/21/17 06:35 ALT 29 U/L (21-72) 09/21/17 06:35 Alkaline Phosphatase 182 U/L (38-126) H 09/21/17 06:35 Total Protein 7.0 G/DL (6.3-8.2) 09/21/17 06:35 Albumin 4.0 g/dL (3.5-5.0) 09/21/17 06:35 Globulin 2.9 gm/dL (2.2-3.9) 09/21/17 06:35 Albumin/Globulin Ratio 1.4 (1.0-2.1) 09/21/17 06:35 Vitamin B12 823 pg/mL (239-931) 09/20/17 06:40 TSH 3rd Generation 1.02 mIU/ML (0.46-4.68) 09/20/17 06:40 Phenytoin 13.4 ug/ML (10-20) 09/21/17 06:35 Alcohol, Quantitative < 10 mg/dl (0-10) 09/19/17 19:54 - Hospital Course Hospital Course: Mr. Marley is a 56-year-old man with a known history of epilepsy, but poor adherence to medications, who suffered several breakthrough seizures and admitted for evaluation and management. During admission patient was seen by Neurologist, who recommended Dilantin 100 mg TID and f/u with neurology as outpatient. Patient is currently stable and has not had any further seizures since admission. As per Neuro team Topamax was DC, and patient was started on Magnesium 400 mg PO BID for MIgraine headaches prevention. Patient was seen by Dr. Simms, and no acute inpatient psychiatric admission needed. Patient is psychiatrically stable for discharge. Patient is cleared for DC by Neuro, Psych , and PCP. Will f/u with Dr. Olmedo in 1 week, and neuro. - Date & Time of H&P Date of H&P: 09/20/17 Time of H&P: 07:15 Discharge Exam - Head Exam Head Exam: ATRAUMATIC - Eye Exam Eye Exam: Normal appearance - ENT Exam ENT Exam: Mucous Membranes Moist - Respiratory Exam Respiratory Exam: Clear to PA & Lateral, NORMAL BREATHING PATTERN - Cardiovascular Exam Cardiovascular Exam: REGULAR RHYTHM, +S1, +S2 - GI/Abdominal Exam GI & Abdominal Exam: Normal Bowel Sounds, Soft. absent: Rigid, Tenderness - Extremities Exam Extremities exam: normal inspection - Neurological Exam Neurological exam: Alert, Oriented x3 - Skin Skin Exam: Dry, Intact, Normal Color Discharge Plan - Discharge Medications Prescriptions: Magnesium Oxide [Mag-Ox] 400 mg PO BID #60 tab Phenytoin [Dilantin] 100 mg PO Q8 #90 ctb - Follow Up Plan Condition: FAIR Disposition: HOME/ ROUTINE Instructions: Recurrent Seizures in Adults (DC) Referrals: Cody Olmedo MD [Staff Provider] - Maikol Snowden MD [Medical Doctor] -
[2017-09-22] MEDS ORDERED: Valproate 1,000 MG in Sodium Chloride 0.9% 100 ML IVPB ONE (13:03)
[2017-09-22] MEDS ORDERED: DEXTROSE 5% IVPB ONE (14:00)
[2017-09-22] MEDS ORDERED: VALPROATE IVPB ONE (14:00)
[2017-09-22] MEDS ORDERED: WATER IVPB ONE (14:00)
--- NOTE | 2017-09-22 14:16 | PCM.RRT ---
<ArvindBhavna mohanYesi - Last Filed: 09/22/17 14:13> I.Reason for STREET LIGHT REPAIRER - A) Acute Change in Patient: Subjective: STREET LIGHT REPAIRER was called by nurse for a 56 y/o M with h/o Alcohol abuse and seizure disorder, because possible seizures/postictal status. As per nurse, patient was moaning, and unresponsive to verbal stimuli. No evidence of shaking movements witness. At the time of arrival patient was unresponsive to verbal stimuli possible secondary to postictal status. Neuro on consult, Dr. Snowden was contacted for recommendations. As per his WATER TANKER DRIVER, we are going to give a loading dose of depakote 1 gm IV once, and then continue with Depakote 500 mg IV Q12. Continue with Dilantin 100 mg PO TID as per Neuro recommendations. No needed for Brain MRI at this time as per Neuro recommendation. - Neurological Status (Select all that apply): Alert, Confused - Respiratory Oxygen Delivery Method: Nasal Cannula @L/min (2) - Constitutional Appears: Non-toxic, No Acute Distress - Respiratory Exam Respiratory Exam: Clear to Ausculation Bilateral, NORMAL BREATHING PATTERN - Cardiovascular Exam Cardiovascular Exam: REGULAR RHYTHM, +S1, +S2 - GI/Abdominal Exam GI & Abdominal Exam: Soft, Normal Bowel Sounds. absent: Distended, Guarding, Rigid, Tenderness - Neurological Exam Neurological Exam: Alert Additional exam: Confused, no responsive to verbal stimuli - Extremities Exam Extremities Exam: Normal Inspection. absent: Calf Tenderness, Pedal Edema Plan - Assessment of Findings&Treatment Plan Oxygen by NC Depakote 1 gm IV once as loading dose Then Depakote 500 mg IV Q12 c/w Dilantin 100 mg PO TID Held DC to Subacute rehab Brain MRI cancelled as per Neuro rec STREET LIGHT REPAIRER leader Dr. Adames At the end of STREET LIGHT REPAIRER patient was alert, awake, and oriented x3 <Marleen Adames - Last Filed: 09/22/17 19:39> Attending/Attestation - Attestation I have personally seen and examined this patient.: Yes I have fully participated in the care of the patient.: Yes I have reviewed all pertinent clinical information, including history, physical exam and plan: Yes Notes (Text): Seizure Breakthrough -Discussed with Neuro - Load with Depakote 1 gram IV then 500mg q12 - cont Dilantin - MRI of the Brain Hold discharge for now
--- NOTE | 2017-09-22 19:24 | CP.PCM.PN ---
Subjective - Date & Time of Evaluation Date of Evaluation: 09/22/17 Time of Evaluation: 08:20 - Subjective Subjective: clinically same Objective - Vital Signs/Intake and Output Vital Signs (last 24 hours): Temp Pulse Resp BP Pulse Ox 98.2 F 75 20 125/80 100 09/22/17 15:56 09/22/17 15:56 09/22/17 15:56 09/22/17 15:56 09/22/17 15:56 Intake and Output: 09/22/17 09/23/17 18:59 06:59 Intake Total 1600 Output Total 1000 Balance 600 - Medications Medications: Current Medications Acetaminophen/Butalbital/Caffeine (Fioricet) 1 tab PO Q8 PRN PRN Reason: Headache Last Admin: 09/21/17 10:04 Dose: 1 tab Calcium Carbonate (Oscal) 500 mg PO BIDWM [facility] Last Admin: 09/22/17 16:16 Dose: 500 mg Cyanocobalamin (Vitamin B12 1000 Mcg Tab) 1,000 mcg PO DAILY [facility] Last Admin: 09/22/17 08:53 Dose: 1,000 mcg Enoxaparin Sodium (Lovenox) 40 mg SC DAILY [facility] PRN Reason: Protocol Last Admin: 09/22/17 08:53 Dose: Not Given Ergocalciferol (Drisdol 50,000 Intl Units Cap) 1 cap PO Q7D [facility] Last Admin: 09/20/17 09:09 Dose: 1 cap Folic Acid (Folic Acid) 1 mg PO DAILY [facility] Last Admin: 09/22/17 08:52 Dose: 1 mg Valproate Sodium 500 mg/ (Dextrose) 55 mls @ 52.381 mls/hr IVPB Q12 [facility] Phenytoin (Dilantin) 100 mg PO Q8 [facility] Last Admin: 09/22/17 16:15 Dose: 100 mg Sertraline HCl (Zoloft) 25 mg PO DAILY [facility] Last Admin: 09/22/17 08:54 Dose: 25 mg Thiamine HCl (Vitamin B1 Tab) 100 mg PO DAILY [facility] Last Admin: 09/22/17 08:53 Dose: 100 mg Topiramate (Topamax) 100 mg PO DAILY [facility] PRN Reason: Migraine headache Last Admin: 09/20/17 04:29 Dose: 100 mg - Labs Labs: 09/21/17 06:35 09/21/17 06:35 - Constitutional Appears: Well - Head Exam Head Exam: ATRAUMATIC, NORMAL INSPECTION, NORMOCEPHALIC - Eye Exam Eye Exam: EOMI, Normal appearance, PERRL Pupil Exam: NORMAL ACCOMODATION, PERRL - ENT Exam ENT Exam: Mucous Membranes Moist, Normal Exam - Neck Exam Neck Exam: Full ROM, Normal Inspection. absent: Lymphadenopathy - Respiratory Exam Respiratory Exam: Decreased Breath Sounds - Cardiovascular Exam Cardiovascular Exam: REGULAR RHYTHM, +S1, +S2 - GI/Abdominal Exam GI & Abdominal Exam: Soft, Diminished Bowel Sounds - Rectal Exam Rectal Exam: Deferred
[2017-09-22] MEDS ORDERED: DEXTROSE 5% IVPB SCH (21:00)
[2017-09-22] MEDS ORDERED: VALPROATE IVPB SCH (21:00)
[2017-09-22] MEDS ORDERED: WATER IVPB SCH (21:00)
[2017-09-23] MEDS: VALPROATE IVPB SCH ×2 (00:51→08:48)
[2017-09-23] MEDS: DEXTROSE 5% IVPB SCH ×2 (00:51→08:48)
[2017-09-23] MEDS: WATER IVPB SCH ×2 (00:51→08:48)
--- NOTE | 2017-09-23 08:40 | CP.PCM.PN ---
Subjective - Date & Time of Evaluation Date of Evaluation: 09/23/17 Time of Evaluation: 07:20 - Subjective Subjective: Patient seen and examined with Dr. Olmedo in Telemetry unit this morning. Patient alert, awake, and oriented x 3 at time of evaluation. [employer] was called yesterday because possible seizure episode, was given Depakote 1 gm IV loading dose, and then 500 mg IV BID. Patient seizure free since yesterday. DC held yesterday. Afebrile, VS stable wnl Objective - Vital Signs/Intake and Output Vital Signs (last 24 hours): Temp Pulse Resp BP Pulse Ox 97.5 F L 67 18 113/73 99 09/23/17 08:01 09/23/17 08:01 09/23/17 08:01 09/23/17 08:01 09/23/17 08:01 - Medications Medications: Current Medications Acetaminophen/Butalbital/Caffeine (Fioricet) 1 tab PO Q8 PRN PRN Reason: Headache Last Admin: 09/21/17 10:04 Dose: 1 tab Calcium Carbonate (Oscal) 500 mg PO BIDWM [facility] Last Admin: 09/22/17 16:16 Dose: 500 mg Cyanocobalamin (Vitamin B12 1000 Mcg Tab) 1,000 mcg PO DAILY [facility] Last Admin: 09/22/17 08:53 Dose: 1,000 mcg Enoxaparin Sodium (Lovenox) 40 mg SC DAILY [facility] PRN Reason: Protocol Last Admin: 09/22/17 08:53 Dose: Not Given Ergocalciferol (Drisdol 50,000 Intl Units Cap) 1 cap PO Q7D [facility] Last Admin: 09/20/17 09:09 Dose: 1 cap Folic Acid (Folic Acid) 1 mg PO DAILY [facility] Last Admin: 09/22/17 08:52 Dose: 1 mg Valproate Sodium 500 mg/ (Dextrose) 55 mls @ 52.381 mls/hr IVPB Q12 [facility] Last Admin: 09/23/17 00:51 Dose: 52.381 mls/hr Phenytoin (Dilantin) 100 mg PO Q8 [facility] Last Admin: 09/23/17 00:47 Dose: 100 mg Sertraline HCl (Zoloft) 25 mg PO DAILY [facility] Last Admin: 09/22/17 08:54 Dose: 25 mg Thiamine HCl (Vitamin B1 Tab) 100 mg PO DAILY [facility] Last Admin: 09/22/17 08:53 Dose: 100 mg Topiramate (Topamax) 100 mg PO DAILY PRN PRN Reason: Migraine headache Last Admin: 09/20/17 04:29 Dose: 100 mg - Labs Labs: 09/21/17 06:35 09/21/17 06:35 - Constitutional Appears: Non-toxic, No Acute Distress - ENT Exam ENT Exam: Mucous Membranes Moist - Respiratory Exam Respiratory Exam: Clear to Ausculation Bilateral, NORMAL BREATHING PATTERN - Cardiovascular Exam Cardiovascular Exam: REGULAR RHYTHM, +S1, +S2 - GI/Abdominal Exam GI & Abdominal Exam: Soft, Normal Bowel Sounds. absent: Distended, Guarding, Rigid, Tenderness - Extremities Exam Extremities Exam: Normal Inspection. absent: Calf Tenderness, Pedal Edema - Neurological Exam Neurological Exam: Alert, Awake, Oriented x3 - Skin Skin Exam: Dry, Intact, Normal Color Assessment and Plan (1) Seizure disorder Assessment & Plan: No new seizure episode since yesterday after [employer] c/w Depakote 500 mg IV Q12 c/w Dilantin 100 mg PO TID will check valproic acid and dilantin levels if depakote levels are wnl switch to PO route as per Neuro team rec f/u Neuro recommendations. Status: Acute (2) Alcohol abuse Assessment & Plan: CIWA 0 c/w current treatment Status: Chronic (3) Headache Assessment & Plan: most likely 2/2 Migraine headaches as per Neuro patient will be started on Magnesium 400 mg PO BID for prevention Status: Chronic (4) DVT prophylaxis Assessment & Plan: c/w Lovenox Status: Acute
[2017-09-23] MEDS ORDERED: Magnesium Sulfate 2 gm/50 ml 2 GM/50 ML BAG IVPB ONE (08:46)
[2017-09-23] MEDS: Enoxaparin 40 mg Syringe SC SCH (08:47)
--- NOTE | 2017-09-23 09:09 | CP.PCM.PN ---
Subjective - Date & Time of Evaluation Date of Evaluation: 09/23/17 Time of Evaluation: 09:07 - Subjective Subjective: Mr. Marley was seen and examined at the bedside. He is alert, oriented in all spheres. He claims of experiencing generalized, dull headache, non radiating. with pain scale 6/10. He denies any blurred vision, dizziness, lightheadedness, nausea, or vomiting. He had an episode of seizures yesterday wherein loading does of depakote was administered. He denies any further seizure episode since then. Objective - Vital Signs/Intake and Output Vital Signs (last 24 hours): Temp Pulse Resp BP Pulse Ox 97.5 F L 67 18 113/73 99 09/23/17 08:01 09/23/17 08:01 09/23/17 08:01 09/23/17 08:01 09/23/17 08:01 - Medications Medications: Current Medications Acetaminophen/Butalbital/Caffeine (Fioricet) 1 tab PO Q8 PRN PRN Reason: Headache Last Admin: 09/21/17 10:04 Dose: 1 tab Calcium Carbonate (Oscal) 500 mg PO BIDWM [facility] Last Admin: 09/23/17 08:47 Dose: 500 mg Cyanocobalamin (Vitamin B12 1000 Mcg Tab) 1,000 mcg PO DAILY [facility] Last Admin: 09/22/17 08:53 Dose: 1,000 mcg Enoxaparin Sodium (Lovenox) 40 mg SC DAILY [facility] PRN Reason: Protocol Last Admin: 09/23/17 08:47 Dose: Not Given Ergocalciferol (Drisdol 50,000 Intl Units Cap) 1 cap PO Q7D [facility] Last Admin: 09/20/17 09:09 Dose: 1 cap Folic Acid (Folic Acid) 1 mg PO DAILY [facility] Last Admin: 09/23/17 08:47 Dose: 1 mg Valproate Sodium 500 mg/ (Dextrose) 55 mls @ 52.381 mls/hr IVPB Q12 [facility] Last Admin: 09/23/17 08:48 Dose: 52.381 mls/hr Magnesium Sulfate (Magnesium Sulfate 2 Gm/50 Ml Water) 2 gm in 50 mls @ 50 mls/ hr IVPB ONCE ONE PRN Reason: 2 GM/HR Stop: 09/23/17 09:45 Magnesium Oxide (Mag-Ox) 400 mg PO BID [facility] Phenytoin (Dilantin) 100 mg PO Q8 [facility] Last Admin: 09/23/17 08:48 Dose: 100 mg Sertraline HCl (Zoloft) 25 mg PO DAILY [facility] Last Admin: 09/23/17 08:47 Dose: 25 mg Thiamine HCl (Vitamin B1 Tab) 100 mg PO DAILY [facility] Last Admin: 09/23/17 08:47 Dose: 100 mg Topiramate (Topamax) 100 mg PO DAILY PRN PRN Reason: Migraine headache Last Admin: 09/23/17 08:47 Dose: 100 mg - Labs Labs: 09/21/17 06:35 09/21/17 06:35 - Constitutional Appears: No Acute Distress - Head Exam Head Exam: ATRAUMATIC - Neurological Exam Neurological Exam: Alert, Awake, CN II-XII Intact, Oriented x3 Neuro motor strength exam: Left Upper Extremity: 5, Right Upper Extremity: 5, Left Lower Extremity: 5, Right Lower Extremity: 5 Additional comments: Neurological improved from previous examination. He is more conversant and follow simple commands. Assessment and Plan (1) Seizure disorder Assessment & Plan: Case discussed with Dr. Snowden, Continue all current medical, physical, and occupational therapies. Recommends changing the Depakote from intravenous to PO if valproic level is within normal limits. Status: Acute (2) Headache Assessment & Plan: Case discussed with Dr. Snowden, recommends Magnesium Sulfate 2 gm. IVPB for 1 dose and Decadron 10 mg IVP for 1 dose. Status: Chronic
[2017-09-23] MEDS: Magnesium Oxide 400 mg Tab UD PO SCH (16:46)
--- NOTE | 2017-09-24 07:58 | CP.PCM.PN ---
Subjective - Date & Time of Evaluation Date of Evaluation: 09/24/17 Time of Evaluation: 07:54 - Subjective Subjective: Mr. Marley was seen and examined at the bedside. He is alert, uncooperative to assessment. He was able to answer few simple questions. He is agreeing of having his blood drawn this am. He denies any dizziness, lightheadedness, blurred vision, nausea, or vomiting. He states of having dull, headache in his head, non-radiating, 4/10. There was no untoward events overnight. Objective - Vital Signs/Intake and Output Vital Signs (last 24 hours): Temp Pulse Resp BP Pulse Ox 97.6 F 87 18 112/76 100 09/24/17 05:44 09/24/17 05:44 09/24/17 05:44 09/24/17 05:44 09/24/17 05:44 - Medications Medications: Current Medications Acetaminophen/Butalbital/Caffeine (Fioricet) 1 tab PO Q8 PRN PRN Reason: Headache Last Admin: 09/21/17 10:04 Dose: 1 tab Calcium Carbonate (Oscal) 500 mg PO BIDWM [facility] Last Admin: 09/23/17 16:47 Dose: 500 mg Cyanocobalamin (Vitamin B12 1000 Mcg Tab) 1,000 mcg PO DAILY [facility] Last Admin: 09/23/17 09:32 Dose: 1,000 mcg Enoxaparin Sodium (Lovenox) 40 mg SC DAILY [facility] PRN Reason: Protocol Last Admin: 09/23/17 08:47 Dose: Not Given Ergocalciferol (Drisdol 50,000 Intl Units Cap) 1 cap PO Q7D [facility] Last Admin: 09/20/17 09:09 Dose: 1 cap Folic Acid (Folic Acid) 1 mg PO DAILY [facility] Last Admin: 09/23/17 08:47 Dose: 1 mg Magnesium Oxide (Mag-Ox) 400 mg PO BID [facility] Last Admin: 09/23/17 16:46 Dose: 400 mg Phenytoin (Dilantin) 100 mg PO Q8 [facility] Last Admin: 09/24/17 00:25 Dose: 100 mg Sertraline HCl (Zoloft) 25 mg PO DAILY [facility] Last Admin: 09/23/17 08:47 Dose: 25 mg Thiamine HCl (Vitamin B1 Tab) 100 mg PO DAILY [facility] Last Admin: 09/23/17 08:47 Dose: 100 mg Topiramate (Topamax) 100 mg PO DAILY PRN PRN Reason: Migraine headache Last Admin: 09/23/17 08:47 Dose: 100 mg Valproate Sodium (Depakene) 500 mg PO Q12 [facility] Last Admin: 09/23/17 20:38 Dose: 500 mg - Labs Labs: 09/21/17 06:35 09/21/17 06:35 - Constitutional Appears: No Acute Distress - Head Exam Head Exam: ATRAUMATIC - Neurological Exam Neurological Exam: Alert, Awake, Oriented x3 Additional comments: Neurological unchanged from previous examination. Assessment and Plan (1) Seizure disorder Assessment & Plan: Case discussed with Dr. Snowden, continue all current medical, physical, and occupational therapies. Follow up dilantin and valproic level. Status: Acute (2) Headache Assessment & Plan: Case discussed with Dr. Snowden, recommend Topamax 100 mg PO BID . Status: Chronic
[2017-09-24 08:14] LABS: VALPROIC ACID 25.7 ug/mL (50.0-100.0)
[2017-09-24] MEDS: Magnesium Oxide 400 mg Tab UD PO SCH ×2 (08:31→16:22)
[2017-09-24] MEDS: Enoxaparin 40 mg Syringe SC SCH ×2 (08:33→08:43)
--- NOTE | 2017-09-24 09:44 | CP.PCM.PN ---
Subjective - Date & Time of Evaluation Date of Evaluation: 09/24/17 Time of Evaluation: 07:45 - Subjective Subjective: Patient seen and examined with attending Dr. Olmedo in Telemetry unit this morning. Patint alert, awake and oriented x 3. Has been seizure free for more than 24 hours in current treatment. Yesterday patient refused blood work to check dilantin and depakote levels. He agrees to have blood work done today. Yesterday Depakote was switched to PO by Neuro, patient tolerating treatment well. Will f/u Dilantin and depakote levels today. Afebrile, VS stable wnl No events overnight. Objective - Vital Signs/Intake and Output Vital Signs (last 24 hours): Temp Pulse Resp BP Pulse Ox 97.6 F 69 20 118/72 99 09/24/17 08:00 09/24/17 08:00 09/24/17 08:00 09/24/17 08:00 09/24/17 08:00 - Medications Medications: Current Medications Acetaminophen/Butalbital/Caffeine (Fioricet) 1 tab PO Q8 PRN PRN Reason: Headache Last Admin: 09/21/17 10:04 Dose: 1 tab Calcium Carbonate (Oscal) 500 mg PO BIDWM [facility] Last Admin: 09/24/17 08:31 Dose: 500 mg Cyanocobalamin (Vitamin B12 1000 Mcg Tab) 1,000 mcg PO DAILY [facility] Last Admin: 09/24/17 08:32 Dose: 1,000 mcg Enoxaparin Sodium (Lovenox) 40 mg SC DAILY [facility] PRN Reason: Protocol Last Admin: 09/24/17 08:43 Dose: Not Given Ergocalciferol (Drisdol 50,000 Intl Units Cap) 1 cap PO Q7D [facility] Last Admin: 09/20/17 09:09 Dose: 1 cap Folic Acid (Folic Acid) 1 mg PO DAILY [facility] Last Admin: 09/23/17 08:47 Dose: 1 mg Magnesium Oxide (Mag-Ox) 400 mg PO BID [facility] Last Admin: 09/24/17 08:31 Dose: 400 mg Phenytoin (Dilantin) 100 mg PO Q8 [facility] Last Admin: 09/24/17 08:30 Dose: 100 mg Sertraline HCl (Zoloft) 25 mg PO DAILY [facility] Last Admin: 09/24/17 08:32 Dose: 25 mg Thiamine HCl (Vitamin B1 Tab) 100 mg PO DAILY [facility] Last Admin: 09/24/17 08:30 Dose: 100 mg Topiramate (Topamax) 100 mg PO BID [facility] Last Admin: 09/24/17 08:41 Dose: 100 mg Valproate Sodium (Depakene) 500 mg PO Q12 [facility] Last Admin: 09/24/17 08:31 Dose: 500 mg - Labs Labs: 09/21/17 06:35 09/21/17 06:35 - Constitutional Appears: Non-toxic, No Acute Distress - ENT Exam ENT Exam: Mucous Membranes Moist - Respiratory Exam Respiratory Exam: Clear to Ausculation Bilateral, NORMAL BREATHING PATTERN. absent: Rales, Rhonchi, Wheezes - Cardiovascular Exam Cardiovascular Exam: REGULAR RHYTHM, RRR, +S1, +S2 - GI/Abdominal Exam GI & Abdominal Exam: Soft, Normal Bowel Sounds. absent: Guarding, Rigid, Tenderness - Extremities Exam Extremities Exam: Normal Inspection. absent: Calf Tenderness, Pedal Edema - Neurological Exam Neurological Exam: Alert, Awake, Oriented x3 Assessment and Plan (1) Seizure disorder Assessment & Plan: c/w Dilantin and depakote PO f/u blood levels, and adjust as needed f/u Neuro recommendations Needs Neuro clearance before transfer to subacute rehab Status: Acute (2) Headache Assessment & Plan: most likely 2/2 Migraine headaches as per Neuro c/w Magnesium 400 mg PO BID for prevention started on Topamax 100 mg BID per Neuro Status: Chronic (3) Alcohol abuse Assessment & Plan: CIWA 0 c/w current treatment Status: Chronic (4) DVT prophylaxis Assessment & Plan: lovenox Status: Acute
[2017-09-24] MEDS ORDERED: Divalproex 250 mg DR(BID formulation) PO SCH (09:45)
[2017-09-24 12:47] VITALS: TEMP 97.7
[2017-09-24 16:45] VITALS: BP 121/77; PULSE 96; RESP 19; O2SAT 100
[2017-09-24] MEDS ORDERED: Divalproex 500 mg DR(BID formulation) PO SCH (21:00)
== END 2017-09-24 17:00 | DRG 890 ==
LOC: H.ER 14:11 → H.ERHOLD 21:46 → H.TEL 23:57 → OBSVTOIN 09-20 14:13
PROVIDERS: ADMIT Internal Medicine; ATTEND Internal Medicine
DX: G40.909 Epilepsy, unspecified, not intractable, without status epilepticus (principal); E78.00 Pure hypercholesterolemia, unspecified; F10.10 Alcohol abuse, uncomplicated; G43.909 Migraine, unspecified, not intractable, without status migrainosus; Z91.14 Patient's other noncompliance with medication regimen; Y90.0 Blood alcohol level of less than 20 mg/100 ml; Z87.891 Personal history of nicotine dependence; F32.9 Major depressive disorder, single episode, unspecified; I10 Essential (primary) hypertension; Z59.0 Homelessness

== ENCOUNTER 2018-04-28 18:25 | Emergency (ER) | payer OTHER ==
[2018-04-28 18:25] VITALS: BMI 21.5
[2018-04-28 18:32] VITALS: O2SAT 100
--- NOTE | 2018-04-28 18:42 | ED PDOC ---
HPI: Seizure Time Seen by Provider: 04/28/18 18:34 Chief Complaint (Nursing): Altered Mental Status History Per: EMS Recent Seizure Activity Began: Just Before Arrival Number Of Seizures: One Length Of Seizures (Duration): Unknown Quality Of Seizure: Generalized Precipitating Factor(s): Missed Dose Of Anti-seizure Medication Associated Symptoms: denies: Bit Tongue, Incontinence Of Urine Post-ictal Period: Yes Additional Complaint(s): Brought by EMS after pt experienced seizure. Unknown duration as no witness available. Post icatl period manifested by confusion. Pt has no recollection of event. No injury or tongue biting Past Medical History Vital Signs: Last Vital Signs Temp 97.6 F 04/28/18 19:05 Pulse 89 04/28/18 21:46 Resp 16 04/28/18 21:46 BP 155/104 H 04/28/18 21:46 Pulse Ox 100 04/28/18 21:46 - Medical History PMH: Depression, HTN, Hypercholesterolemia, Pneumonia, Seizures Denies: HIV, Chronic Kidney Disease - Family History Family History: States: Unknown Family Hx - Immunization History Hx Tetanus Toxoid Vaccination: No Hx Influenza Vaccination: No Hx Pneumococcal Vaccination: No - Home Medications Home Medications: Ambulatory Orders Medication Instructions Recorded Acetaminophen/Butalbital/Caf 1 tab PO Q8 PRN tab 09/24/17 [Fioricet] Calcium Carbonate [Oscal] 500 mg PO BIDWM tab 09/24/17 Cyanocobalamin [Vitamin B12 1000 1,000 mcg PO DAILY tab 09/24/17 mcg Tab] Divalproex [Depakote DR(*BID*)] 750 mg PO Q12 tcp 09/24/17 Enoxaparin [Lovenox] 40 mg SC DAILY syr 09/24/17 Ergocalciferol [Drisdol 50,000 1 cap PO Q7D cap 09/24/17 Intl Units Cap] Folic Acid 1 mg PO DAILY tab 09/24/17 Magnesium Oxide [Mag-Ox] 400 mg PO BID tab 09/24/17 Phenytoin [Dilantin] 100 mg PO Q8 ctb 09/24/17 Sertraline [Zoloft] 25 mg PO DAILY tab 09/24/17 Thiamine [Vitamin B1 Tab] 100 mg PO DAILY tab 09/24/17 Topiramate [Topamax] 100 mg PO BID tab 12/08/17 Levetiracetam [Keppra] 500 mg PO BID #20 tablet 04/28/18 - Allergies Allergies/Adverse Reactions: Allergies Allergy/AdvReac Type Severity Reaction Status Date / Time No Known Allergies Allergy Verified 04/28/18 18:29 Review of Systems Neurological: Positive for: Seizures Physical Exam - Reviewed Nursing Documentation Reviewed: Yes Vital Signs Reviewed: Yes - Physical Exam Appears: Positive for: Non-toxic, No Acute Distress Head Exam: Positive for: ATRAUMATIC, NORMAL INSPECTION, NORMOCEPHALIC Skin: Positive for: Normal Color, Warm, DRY Eye Exam: Positive for: EOMI, Normal appearance, PERRL ENT: Positive for: Normal ENT Inspection Neck: Positive for: Normal, Painless ROM Cardiovascular/Chest: Positive for: Regular Rate, Rhythm Respiratory: Positive for: CNT, Normal Breath Sounds Gastrointestinal/Abdominal: Positive for: Normal Exam, Soft Back: Positive for: Normal Inspection Extremity: Positive for: Normal ROM Neurologic/Psych: Positive for: Alert, Oriented. Negative for: Motor/Sensory Deficits - Laboratory Results Result Diagrams: 04/28/18 18:51 04/28/18 18:51 - ECG O2 Sat by Pulse Oximetry: 100 - Progress Re-evaluation Time: 23:21 Condition: Improved (Awake alert no focal neuro deficits) Disposition - Clinical Impression Clinical Impression: Seizures - Patient ED Disposition Is Patient to be Admitted: No Counseled Patient/Family Regarding: Studies Performed, Diagnosis, Need For Followup, Rx Given - Disposition Referrals: Liat Arshad MD [Medical Doctor] - [facility] [Outside] Disposition: Routine/Home Disposition Time: 23:23 Condition: FAIR Prescriptions: Levetiracetam [Keppra] 500 mg PO BID #20 tablet Instructions: Seizures, Adult (DC) Forms: [employer] (Malay)
[2018-04-28 18:59] LABS: EOS % 0.2 % (0.0-4.0); HEMOGLOBIN 12.3 g/dL (12.0-18.0); LYMPH # 0.4 K/uL (1.0-4.3); LYMPH % 16.1 % (20.0-40.0); MEAN CORPUSCULAR HEMOGLOBIN 28.3 pg (27.0-31.0); MEAN CORPUSCULAR HGB CONC 32.9 g/dL (33.0-37.0); MEAN PLATELET VOLUME 7.5 fl (7.2-11.7); MONO # 0.3 K/uL (0.0-0.8); MONO % 12.3 % (0.0-10.0); NEUT # 1.8 K/uL (1.8-7.0); NEUT % 70.4 % (50.0-75.0); RBC 4.35 Mil/uL (4.40-5.90); RED CELL DISTRIBUTION WIDTH 15.5 % (11.5-14.5); WHITE BLOOD COUNT 2.5 K/uL (4.8-10.8)
[2018-04-28 19:17] LABS: ALB/GLOB RATIO 1.3 (1.0-2.1); ALBUMIN 4.8 g/dL (3.5-5.0); ALT/SGPT 23 U/L (21-72); AST/SGOT 62 U/L (17-59); BLOOD UREA NITROGEN 4 mg/dl (9-20); CALCIUM 9.7 mg/dL (8.4-10.2); GFR AFRICAN-AMERICAN > 60; GFR NON-AFRICAN AMERICAN > 60
[2018-04-29 02:57] VITALS: BP 138/79; PULSE 85; RESP 18; TEMP 98.5
--- NOTE | 2018-05-02 11:51 | CARD ---
APPROVED REPORT Date of service: 04/28/2018 EKG Measurement Heart [id number] <Conclusion> Normal sinus rhythm Minimal voltage criteria for LVH, may be normal variant Septal infarct, age undetermined Abnormal ECG
== END 2018-04-29 04:00 | disposition home or self-care (01) ==
LOC: H.ER 18:25
DX: G40.909 Epilepsy, unspecified, not intractable, without status epilepticus (principal); E78.00 Pure hypercholesterolemia, unspecified; F32.9 Major depressive disorder, single episode, unspecified; I10 Essential (primary) hypertension
CPT/HCPCS: 80053; 80177; 82948; 85025; 93005; 96374; 99285; J1953; J2060

== ENCOUNTER 2018-04-29 19:03 | Emergency (ER) | payer OTHER ==
[2018-04-29 19:03] VITALS: BMI 21.5
[2018-04-29] MEDS ORDERED: Sodium Chloride 0.9% 1,000 ML IV STA (20:43)
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
[2018-04-29 23:28] LABS: BASO % 0.4 % (0.0-2.0); EOS % 0.1 % (0.0-4.0); HEMOGLOBIN 12.6 g/dL (12.0-18.0); LYMPH # 0.8 K/uL (1.0-4.3); MEAN CELL VOLUME 86.6 fl (80.0-94.0); MEAN CORPUSCULAR HEMOGLOBIN 28.6 pg (27.0-31.0); MEAN PLATELET VOLUME 8.4 fl (7.2-11.7); MONO # 0.6 K/uL (0.0-0.8); NEUT # 3.8 K/uL (1.8-7.0); NEUT % 72.5 % (50.0-75.0); NRBC % 0.2 % (0.0-0.0); RBC 4.41 Mil/uL (4.40-5.90); RED CELL DISTRIBUTION WIDTH 15.7 % (11.5-14.5); WHITE BLOOD COUNT 5.2 K/uL (4.8-10.8)
[2018-04-29 23:29] LABS: VENOUS BLOOD GAS BASE EXCESS 4.5 mmol/L (0.0-2.0); VENOUS BLOOD GAS PCO2 39 mmHg (40-60); VENOUS BLOOD GAS PO2 22 mm/Hg (30-55); VENOUS BLOOD PH 7.47 (7.32-7.43)
[2018-04-29 23:47] LABS: ALB/GLOB RATIO 1.2 (1.0-2.1); ALBUMIN 4.7 g/dL (3.5-5.0); ALT/SGPT 29 U/L (21-72); AST/SGOT 58 U/L (17-59); BLOOD UREA NITROGEN 9 mg/dl (9-20); CALCIUM 10.2 mg/dL (8.4-10.2); GFR AFRICAN-AMERICAN > 60; GFR NON-AFRICAN AMERICAN > 60; LIPASE 24 U/L (23-300)
[2018-04-30 00:22] VITALS: BP 131/81; PULSE 90; RESP 15; TEMP 98.4
[2018-04-30 05:55] VITALS: O2SAT 99
--- NOTE | 2018-04-30 15:23 | CT ---
Date of service: 04/30/2018 PROCEDURE: CT Abdomen and Pelvis without intravenous contrast HISTORY: epigastric and L sided abdominal pain COMPARISON: Comparison made with CT scan chest dated 02/25/2017 which image the upper abdomen. Lower. TECHNIQUE: Helical/transaxial sections at pelvis performed without contrast. Additional 2D sagittal and coronal reformats generated. Radiation dose: Total exam DLP = 245.25 mGy-cm. This CT exam was performed using one or more of the following dose reduction techniques: Automated exposure control, adjustment of the mA and/or kV according to patient size, and/or use of iterative reconstruction technique. FINDINGS: LOWER THORAX: Re- demonstrated is a presumed loculated pleural effusion with thick peripheral rim that exhibits discontinuous calcifications. Findings are felt to be postinflammatory. Associated chronic atelectasis/ scarring changes are also present in the right lung base. Left lung base clear. Questionable changes of prior Sophy fundoplication with radiopaque metallic densities adjacent into the right anterolateral wall of the esophagus LIVER: Liver exhibits normal size. Re- demonstrated are several small calcification again seen in the dome of the liver consistent with prior exposure to a granulomatous disease process. . No obvious hepatic mass or collection. . GALLBLADDER AND BILE DUCTS: Cholecystectomy. PANCREAS: Pancreas is somewhat atrophic with few scattered calcifications that suggest sequela of chronic pancreatitis. Clinic correlation recommended. SPLEEN: Spleen exhibits normal size and attenuation pattern without mass collection or calcification. ADRENALS: Unremarkable. No mass. KIDNEYS AND URETERS: Kidneys demonstrate relatively symmetric size. No evidence of nephrolithiasis or hydronephrosis. VASCULATURE: Unremarkable. No aortic aneurysm. BOWEL: Evaluation of the bowel is limited due to the lack of oral contrast material. Stomach is collapsed. Visualized loops of small bowel exhibit normal contour and caliber. No evidence acute mechanical small bowel obstruction. Jorje move Ing APPENDIX: What probably represents normal appendix best seen on axial image number [id number]. No periappendiceal inflammatory changes. PERITONEUM: Unremarkable. No free fluid. No free air. LYMPH NODES: Unremarkable. No enlarged lymph nodes. BLADDER: Urinary bladder incompletely distended which in part accounts for thick-walled appearance. Muscular hypertrophy presumably contributes. Rule out cystitis. REPRODUCTIVE: Unremarkable. BONES: L4 corpectomy with some placement metallic prostatic metallic cylinders which presumably contain port gamble or cadaveric bone graft material. . There is also a large surrounding bony fusion mass with fusion of the posterior elements. There has also been posterior fixation accomplished by placement of long segment bilateral Fong rods are attached to the right and left pedicles of the L2, L3 and L5 segments OTHER FINDINGS: IMPRESSION: Re- demonstrated is a presumed loculated pleural effusion with thick peripheral rim that exhibits discontinuous calcifications. Findings are felt to be postinflammatory. Associated chronic atelectasis/ scarring changes are also present in the right lung base. Questionable Sophy fundoplication Several small type calcifications consistent with prior exposure to a granulomatous disease process. L4 corpectomy with some placement metallic prostatic metallic cylinders which presumably contain port gamble or cadaveric bone graft material. . There is also a large surrounding bony fusion mass with fusion of the posterior elements. There has also been posterior fixation accomplished by placement of long segment bilateral Fong rods are attached to the right and left pedicles of the L2, L3 and L5 segments
== END 2018-04-30 03:20 | disposition home or self-care (01) ==
LOC: H.ER 19:03
DX: K52.9 Noninfective gastroenteritis and colitis, unspecified (principal); I10 Essential (primary) hypertension; E78.00 Pure hypercholesterolemia, unspecified

== ENCOUNTER 2019-02-22 16:47 | Emergency (ER) | payer OTHER ==
[2019-02-22 16:47] VITALS: BMI 21.5
[2019-02-22 16:54] VITALS: BP 120/84; TEMP 98.8
[2019-02-22] MEDS ORDERED: Sodium Chloride 0.9% 1,000 ML IV STA (17:12)
--- NOTE | 2019-02-22 17:21 | ED PDOC ---
HPI: Seizure Time Seen by Provider: 02/22/19 16:54 Chief Complaint (Nursing): Seizure Chief Complaint (Provider): Seizure History Per: Patient History/Exam Limitations: no limitations Length Of Seizures (Duration): Unknown Additional Complaint(s): 58 year old undomiciled male presents to the ED via EMS for seizure. Patient states he had an unwitnessed seizure, unknown of timing onset today at the long-term. He reports he was at [facility] 4 days ago now referred to the [place] ED. Currently, in the ED patient has a steady gait. He states he takes Dilantin, unknown dosage. He has not taken his medication for a couple of days. Otherwise, he denies fever, chills, chest pain, cough, shortness of breath, vision change, chest pain, abdominal pain, nausea, vomiting, diarrhea, urinary symptoms, incont inence, back pain or loss of consciousness. PMD: Dr. Lawrence ([facility]) Past Medical History Reviewed: Historical Data, Nursing Documentation, Vital Signs Vital Signs: Last Vital Signs Temp 98.8 F 02/22/19 16:50 Pulse 90 02/22/19 16:50 Resp 19 02/22/19 16:50 BP 120/84 02/22/19 16:50 Pulse Ox 96 02/22/19 16:50 Primary Care Provider: Non [facility] Provider, - Medical History PMH: Depression, HTN, Hypercholesterolemia, Pneumonia, Seizures Denies: HIV, Chronic Kidney Disease - Family History Family History: States: Unknown Family Hx - Immunization History Hx Tetanus Toxoid Vaccination: No Hx Influenza Vaccination: No Hx Pneumococcal Vaccination: No - Home Medications Home Medications: Ambulatory Orders Medication Instructions Recorded Acetaminophen/Butalbital/Caf 1 tab PO Q8 PRN tab 09/24/17 [Fioricet] Calcium Carbonate [Oscal] 500 mg PO BIDWM tab 09/24/17 Cyanocobalamin [Vitamin B12 1000 1,000 mcg PO DAILY tab 09/24/17 mcg Tab] Divalproex [Depakote DR(*BID*)] 750 mg PO Q12 tcp 09/24/17 Enoxaparin [Lovenox] 40 mg SC DAILY syr 09/24/17 Ergocalciferol [Drisdol 50,000 1 cap PO Q7D cap 09/24/17 Intl Units Cap] Folic Acid 1 mg PO DAILY tab 09/24/17 Magnesium Oxide [Mag-Ox] 400 mg PO BID tab 09/24/17 Phenytoin [Dilantin] 100 mg PO Q8 ctb 09/24/17 Sertraline [Zoloft] 25 mg PO DAILY tab 09/24/17 Thiamine [Vitamin B1 Tab] 100 mg PO DAILY tab 09/24/17 Topiramate [Topamax] 100 mg PO BID tab 09/24/17 Levetiracetam [Keppra] 500 mg PO BID #20 tablet 04/28/18 Dicyclomine [Bentyl] 20 mg PO TID PRN #15 tab 04/30/18 Ondansetron ODT [Zofran ODT] 4 mg PO TID #20 odt 04/30/18 - Allergies Allergies/Adverse Reactions: Allergies Allergy/AdvReac Type Severity Reaction Status Date / Time No Known Allergies Allergy Verified 04/29/18 19:18 Review of Systems ROS Statement: Except As Marked, All Systems Reviewed And Found Negative Constitutional: Negative for: Fever, Chills Eyes: Negative for: Vision Change Cardiovascular: Negative for: Chest Pain Respiratory: Negative for: Cough, Shortness of Breath Gastrointestinal: Negative for: Nausea, Vomiting, Abdominal Pain, Diarrhea Genitourinary Male: Negative for: Dysuria, Frequency, Incontinence, Hematuria Musculoskeletal: Negative for: Back Pain Skin: Negative for: Rash Neurological: Positive for: Seizures. Negative for: Dizziness, Other (LOC) Physical Exam - Reviewed Nursing Documentation Reviewed: Yes Vital Signs Reviewed: Yes - Physical Exam Appears: Positive for: Non-toxic, No Acute Distress Head Exam: Positive for: NORMOCEPHALIC. Negative for: NORMAL INSPECTION (abrasions on top of the scalp and on left orbital area with swelling and no hematoma ) Skin: Positive for: Normal Color, Warm, Dry. Negative for: Rash Eye Exam: Positive for: EOMI, Normal appearance, PERRL ENT: Positive for: Normal ENT Inspection Neck: Positive for: Normal, Painless ROM, Supple. Negative for: Decreased ROM Cardiovascular/Chest: Positive for: Regular Rate, Rhythm. Negative for: Murmur Respiratory: Positive for: Normal Breath Sounds. Negative for: Decreased Breath Sounds, Wheezing, Respiratory Distress Gastrointestinal/Abdominal: Positive for: Normal Exam, Soft. Negative for: Tenderness Back: Positive for: Normal Inspection Extremity: Positive for: Normal ROM. Negative for: Tenderness, Pedal Edema, Deformity Neurological/Psych: Positive for: Awake, Alert, Normal Tone, Symmetric/Intact Strength, Oriented (x3), Gait (steady), trust manager II-XII (intact). Negative for: Mood/Affect, Lethargic, Listless, Motor/Sensory Deficits, Facial Droop - Laboratory Results Result Diagrams: 02/22/19 17:20 02/22/19 17:20 Interpretation Of Abn Labs: low dilantin level - ECG ECG: Positive for: Interpreted By Me, Viewed By Me ECG Rhythm: Positive for: Normal QRS, Normal ST Segment, Sinus Rhythm O2 Sat by Pulse Oximetry: 96 (RA) Pulse Ox Interpretation: Normal - Progress ED Course And Treament: 2032: Pt. difficult stick. Given oral dilantin. Pt. aaox3 and no seizures in ER. Will dc. Pt. has his medicine. Ambulated with no issues. Medical Decision Making Medical Decision Making: Time: 1710 Plan: Head w/o contrast CT EKG Alcohol serum CMP Dilantin Drug screen Troponin CBC w/ differential Normal saline 1000 mls/hr Scribe Attestation: Documented by Lance Hernandez, acting as a scribe for Tim Stevenson MD. Provider Scribe Attestation: All medical record entries made by the Scribe were at my direction and personally dictated by me. I have reviewed the chart and agree that the record accurately reflects my personal the department course for this patient. I have also personally directed, performance of the history, physical exam, medical decision making, and reviewed, and agree with the discharge instructions and disposition. Disposition - Clinical Impression Clinical Impression: Seizures, Subtherapeutic serum dilantin level - Patient ED Disposition Is Patient to be Admitted: No Counseled Patient/Family Regarding: Studies Performed, Diagnosis, Need For Followup - Disposition Referrals: [facility] [Outside] - 02/23/19 Disposition: Routine/Home Disposition Time: 20:34 Condition: STABLE Additional Instructions: Return if not better in 3 days. Instructions: Seizures, Adult (DC)
[2019-02-22 17:34] LABS: BASO % 1.1 % (0.0-2.0); EOS % 0.7 % (0.0-4.0); HEMOGLOBIN 12.3 g/dL (12.0-18.0); LYMPH % 28.2 % (20.0-40.0); MEAN CELL VOLUME 82.9 fl (80.0-94.0); MEAN CORPUSCULAR HEMOGLOBIN 27.5 pg (27.0-31.0); MEAN CORPUSCULAR HGB CONC 33.1 g/dL (33.0-37.0); MEAN PLATELET VOLUME 7.6 fl (7.2-11.7); MONO # 0.5 K/uL (0.0-0.8); MONO % 12.9 % (0.0-10.0); NEUT % 57.1 % (50.0-75.0); NRBC % 0.1 % (0.0-0.0); RBC 4.48 Mil/uL (4.40-5.90); RED CELL DISTRIBUTION WIDTH 16.1 % (11.5-14.5); WHITE BLOOD COUNT 3.5 K/uL (4.8-10.8)
[2019-02-22 17:58] LABS: ALB/GLOB RATIO 1.3 (1.0-2.1); ALBUMIN 4.8 g/dL (3.5-5.0); ALT/SGPT 21 U/L (21-72); AST/SGOT 41 U/L (17-59); BLOOD UREA NITROGEN 10 mg/dl (9-20); CALCIUM 9.7 mg/dL (8.4-10.2); GFR NON-AFRICAN AMERICAN > 60
--- NOTE | 2019-02-22 18:14 | CT ---
Date of service: 02/22/2019 PROCEDURE: CT HEAD WITHOUT CONTRAST. HISTORY: headache COMPARISON: None available. TECHNIQUE: Axial computed tomography images were obtained through the head/brain without intravenous contrast. Supplemental Coronal and Sagittal projections created and reviewed. Radiation dose: Total exam DLP = 829.01 mGy-cm. This CT exam was performed using one or more of the following dose reduction techniques: Automated exposure control, adjustment of the mA and/or kV according to patient size, and/or use of iterative reconstruction technique. FINDINGS: HEMORRHAGE: No intracranial hemorrhage. BRAIN: No mass effect or edema. Cortical and cerebellar atrophy, periventricular small vessel disease. . VENTRICLES: Unremarkable. No hydrocephalus. CALVARIUM: Unremarkable. PARANASAL SINUSES: Unremarkable as visualized. No significant inflammatory changes. MASTOID AIR CELLS: Unremarkable as visualized. No inflammatory changes. OTHER FINDINGS: None. IMPRESSION: No acute intracranial abnormalities. No significant findings to account for the clinical presentation. No significant interval change compared to the prior examination(s).
[2019-02-22 21:35] VITALS: PULSE 76; RESP 17; O2SAT 98
--- NOTE | 2019-02-23 11:32 | CARD ---
APPROVED REPORT Date of service: 02/22/2019 EKG Measurement Heart [id number] [id number] <Conclusion> Normal sinus rhythm Nonspecific ST and T wave abnormality Abnormal ECG
== END 2019-02-22 21:35 | disposition home or self-care (01) ==
LOC: H.ER 16:47
DX: R56.9 Unspecified convulsions (principal); Z86.59 Personal history of other mental and behavioral disorders; I10 Essential (primary) hypertension; E78.00 Pure hypercholesterolemia, unspecified

== ENCOUNTER 2019-02-23 21:57 | Emergency (ER) | payer OTHER ==
[2019-02-23 21:58] VITALS: BMI 21.5
[2019-02-23 22:02] VITALS: BP 151/94; PULSE 92; RESP 18; TEMP 98.8; O2SAT 99
--- NOTE | 2019-02-23 23:36 | ED PDOC ---
HPI: Seizure Time Seen by Provider: 02/23/19 22:15 Chief Complaint (Nursing): Seizure Chief Complaint (Provider): Seizure History Per: Patient History/Exam Limitations: no limitations Recent Seizure Activity Began: Unknown Length Of Seizures (Duration): Unknown Additional Complaint(s): 58 years old homeless male with a history of seizure disorder brought to ED by EMS after been found sleeping in a parking lot. Patient is not sure if he had a seizure. He is noncompliant on medications and does not followup with a regular doctor. Patient was here yesterday for seizure and was given Dilantin at that time. He denies urinary incontinence, headache, focal weakness, alcohol or drug abuse. PMD: None provided Past Medical History Reviewed: Historical Data, Nursing Documentation, Vital Signs Vital Signs: Last Vital Signs Temp 98.8 F 02/23/19 21:59 Pulse 92 H 02/23/19 21:59 Resp 18 02/23/19 21:59 BP 151/94 H 02/23/19 21:59 Pulse Ox 99 02/23/19 21:59 Primary Care Provider: FAMILY PROVIDER,NO - Medical History PMH: Depression, HTN, Hypercholesterolemia, Pneumonia, Seizures Denies: HIV, Chronic Kidney Disease - Surgical History Surgical History: No Surg Hx - Family History Family History: States: Unknown Family Hx - Social History Current smoker - smoking cessation education provided: No Alcohol: None Drugs: Denies - Immunization History Hx Tetanus Toxoid Vaccination: No Hx Influenza Vaccination: No Hx Pneumococcal Vaccination: No - Home Medications Home Medications: Ambulatory Orders Medication Instructions Recorded Acetaminophen/Butalbital/Caf 1 tab PO Q8 PRN tab 09/24/17 [Fioricet] Calcium Carbonate [Oscal] 500 mg PO BIDWM tab 09/24/17 Cyanocobalamin [Vitamin B12 1000 1,000 mcg PO DAILY tab 09/24/17 mcg Tab] Divalproex [Depakote DR(*BID*)] 750 mg PO Q12 tcp 09/24/17 Enoxaparin [Lovenox] 40 mg SC DAILY syr 09/24/17 Ergocalciferol [Drisdol 50,000 1 cap PO Q7D cap 09/24/17 Intl Units Cap] Folic Acid 1 mg PO DAILY tab 09/24/17 Magnesium Oxide [Mag-Ox] 400 mg PO BID tab 12/08/17 Phenytoin [Dilantin] 100 mg PO Q8 ctb 09/24/17 Sertraline [Zoloft] 25 mg PO DAILY tab 09/24/17 Thiamine [Vitamin B1 Tab] 100 mg PO DAILY tab 09/24/17 Topiramate [Topamax] 100 mg PO BID tab 09/24/17 Levetiracetam [Keppra] 500 mg PO BID #20 tablet 04/28/18 Dicyclomine [Bentyl] 20 mg PO TID PRN #15 tab 04/30/18 Ondansetron ODT [Zofran ODT] 4 mg PO TID #20 odt 04/30/18 Azithromycin [Zithromax] 250 mg PO DAILY #6 dose 02/23/19 Phenytoin, Extended [Dilantin] 100 mg PO TID #90 cer 02/23/19 - Allergies Allergies/Adverse Reactions: Allergies Allergy/AdvReac Type Severity Reaction Status Date / Time No Known Allergies Allergy Verified 04/29/18 19:18 Review of Systems ROS Statement: Except As Marked, All Systems Reviewed And Found Negative Genitourinary Male: Negative for: Incontinence Neurological: Positive for: Seizures. Negative for: Weakness (focal), Headache Physical Exam - Reviewed Nursing Documentation Reviewed: Yes Vital Signs Reviewed: Yes - Physical Exam Appears: Positive for: No Acute Distress (Somewhat disheveled and unkempt) Head Exam: Positive for: ATRAUMATIC, NORMOCEPHALIC Skin: Positive for: Warm, Dry Eye Exam: Positive for: Normal appearance, EOMI, PERRL ENT: Negative for: Pharyngeal Erythema, Tonsillar Exudate Neck: Positive for: Painless ROM, Supple Cardiovascular/Chest: Positive for: Regular Rate, Rhythm. Negative for: Murmur Respiratory: Negative for: Accessory Muscle Use, Respiratory Distress Gastrointestinal/Abdominal: Positive for: Soft. Negative for: Tenderness Back: Positive for: Normal Inspection. Negative for: Decreased ROM Extremity: Positive for: Normal ROM. Negative for: Deformity Lymphatic: Negative for: Adenopathy Neurological/Psych: Positive for: Awake, Alert, Oriented (x3). Negative for: Lethargic, Motor/Sensory Deficits - ECG O2 Sat by Pulse Oximetry: 99 (RA) Pulse Ox Interpretation: Normal Medical Decision Making Medical Decision Making: Time: 2240 Initial impression: Seizure disorder --Reviewed previous charts, patient visited multiple time after being found outdoor asleep, often reporting an unwitnessed seizure. --Patient thought he had a prescription for Dilantin but couldn't find it when he went to the pharmacy --Dilantin dose given --Observe in the ED for a while, patient ate 2335 Patient is no acute distress, stable for discharge. Scribe Attestation: Documented by Yashira Ortiz, acting as a scribe for Gely Trinh MD. Provider Scribe Attestation: All medical record entries made by the Scribe were at my direction and personally dictated by me. I have reviewed the chart and agree that the record accurately reflects my personal performance of the history, physical exam, medical decision making, and the department course for this patient. I have also personally directed, reviewed, and agree with the discharge instructions and disposition. Disposition - Clinical Impression Clinical Impression: Seizures - Patient ED Disposition Is Patient to be Admitted: No - Disposition Referrals: [facility] [Outside] Jerome Lawrence MD [Primary Care Provider] - Disposition: Routine/Home Disposition Time: 23:35 Condition: STABLE Additional Instructions: FOLLOWUP WITH YOUR DOCTOR TOMORROW FILL YOUR PRESCRIPTION FOR DILANTIN IMMEDIATELY AND TAKE PRESCRIBED Prescriptions: Azithromycin [Zithromax] 250 mg PO DAILY #6 dose Phenytoin, Extended [Dilantin] 100 mg PO TID #90 cer Instructions: Acute Bronchitis, Adult (DC), Seizures, Adult (DC) Forms: [employer] ([place])
--- NOTE | 2019-02-24 08:57 | RAD ---
Date of service: 02/23/2019 HISTORY: cough COMPARISON: Chest radiographs 07/20/2017. 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 Postoperative changes are identified as well at the right hilum. Likely prior post-partial pneumonectomy volume loss reiterated at the right base. Acute infiltrate bilaterally. Left lung remains clear.. PLEURA: No pneumothorax bilaterally. No left pleural effusion. Fibrotic changes are favored over chronic right pleural effusion at the right base. CARDIOVASCULAR: No aortic atherosclerotic calcification present. Normal cardiac size. No pulmonary vascular congestion. OSSEOUS STRUCTURES: No significant abnormalities. VISUALIZED UPPER ABDOMEN: Normal. OTHER FINDINGS: Likely calcified granulomatous or lymph node changes noted at the bilateral hilar regions. IMPRESSION: Right basilar volume loss reiterated including postoperative change, chronic right middle and lower lobe fibrosis as well as pleural thickening/calcifications. Chronic right pleural effusion not completely excluded though fibrosis favored over effusions. Left lung unremarkable. No pulmonary vascular congestion or cardiomegaly.
[2019-02-25] MEDS ORDERED: Phenytoin 250 mg/5 ml Inj IVPB ONE (01:52)
== END 2019-02-24 00:09 | disposition short-term general hospital (02) ==
LOC: H.ER 21:57
DX: G40.909 Epilepsy, unspecified, not intractable, without status epilepticus (principal); I10 Essential (primary) hypertension; Z91.14 Patient's other noncompliance with medication regimen; E78.00 Pure hypercholesterolemia, unspecified; Z59.0 Homelessness

== ENCOUNTER 2019-02-25 17:08 | Inpatient (IN) | payer OTHER ==
[~2019-02-25 17:08] MED LIST: Calcium Chloride 1000 mg/10 ml Syringe ONE; Digoxin 500 mcg/2ml (0.5 mg/2ml) Inj ONE; Naloxone 0.4 mg/ml Inj (Adult) ONE; Sodium Bicarbonate 7.5% (0.9 MEQ/ML) 50ML INJ IV ONE
[2019-02-25] MEDS ORDERED: Sodium Chloride 0.9% 1,000 ML IV STA (17:33)
[2019-02-25 17:57] LABS: BASO % 0.5 % (0.0-2.0); EOS % 0.7 % (0.0-4.0); HEMOGLOBIN 9.5 g/dL (12.0-18.0); LYMPH # 2.5 K/uL (1.0-4.3); LYMPH % 45.5 % (20.0-40.0); MEAN CELL VOLUME 85.6 fl (80.0-94.0); MEAN CORPUSCULAR HEMOGLOBIN 27.7 pg (27.0-31.0); MEAN CORPUSCULAR HGB CONC 32.4 g/dL (33.0-37.0); MEAN PLATELET VOLUME 7.8 fl (7.2-11.7); MONO # 0.4 K/uL (0.0-0.8); MONO % 7.5 % (0.0-10.0); NEUT # 2.5 K/uL (1.8-7.0); NEUT % 45.8 % (50.0-75.0); NRBC % 0.2 % (0.0-0.0); RBC 3.42 Mil/uL (4.40-5.90); RED CELL DISTRIBUTION WIDTH 15.2 % (11.5-14.5); WHITE BLOOD COUNT 5.4 K/uL (4.8-10.8)
[2019-02-25 17:58] LABS: ABG ALLEN TEST YES; ARTERIAL BLOOD GAS O2 SAT 99.8 % (95-98); ARTERIAL BLOOD GAS PCO2 73 mm/Hg (35-45); ARTERIAL BLOOD GAS PH 7.07 (7.35-7.45); ARTERIAL BLOOD GAS PO2 415 mm/Hg (80-100); ARTERIAL BLOOD GAS TCO2 23.4 mmol/L (22-28)
[2019-02-25 18:12] LABS: ACETAMINOPHEN < 10.0 ug/ml (10.0-30.0); DILANTIN (PHENYTOIN) < 3.0 ug/ML (10-20); SALICYLATE < 1.0 mg/dl
[2019-02-25 18:18] LABS: B-TYPE NATRIURETIC PEPTIDE 244 pg/ml (0-900)
--- NOTE | 2019-02-25 18:18 | RAD ---
Date of service: 02/25/2019 HISTORY: Sepsis Patient COMPARISON: Chest radiographs 02/23/2019. TECHNIQUE: 1 view obtained. FINDINGS: LUNGS: Endotracheal tube terminates 6.4 cm above the yung. Consider advancing the tube 2-3 cm antegrade to obscure the cough is past the vocal cords. External pacemaker reiterated. Left chest remains clear with right pleural effusion or fibrosis reiterated as well as volume loss at the right base. Partial calcified pleura are identified at the right base with calcified lymph nodes or granulomata again seen at the mediastinum and bilateral hilar regions. No significant interval change. No left pleural effusion. No pneumothorax bilaterally. PLEURA: As above. CARDIOVASCULAR: No aortic atherosclerotic calcification present. Stable cardiac size. No pulmonary vascular congestion. OSSEOUS STRUCTURES: No significant abnormalities. VISUALIZED UPPER ABDOMEN: Normal. OTHER FINDINGS: None. IMPRESSION: ET tube as discussed above terminating relatively high in the trachea. Consider advancing 2-3 cm antegrade followed by confirmation radiography. Chronic changes at the right base reiterated including fibrosis and potential pleural thickening with acute subacute pleural effusion or infiltrate not excluded.
[2019-02-25 18:21] LABS: ALB/GLOB RATIO 1.3 (1.0-2.1); ALBUMIN 3.2 g/dL (3.5-5.0); ALT/SGPT 42 U/L (21-72); AST/SGOT 71 U/L (17-59); BLOOD UREA NITROGEN 11 mg/dl (9-20); CALCIUM 9.3 mg/dL (8.4-10.2); GFR NON-AFRICAN AMERICAN > 60
[2019-02-25] MEDS ORDERED: cefTRIAXone (Rocephin) 1 gm Inj IV ONE (18:25)
[2019-02-25] MEDS ORDERED: Piperacillin/Tazobact 3.375 GM in Sodium Chloride 0.9% 100 ML IV STA (18:25)
[2019-02-25] MEDS ORDERED: cefTRIAXone (Rocephin) 1 gm Inj ONE (18:39)
--- NOTE | 2019-02-25 18:47 | ED PDOC ---
HPI: Cardiac Arrest Time Seen by Provider: 02/25/19 17:08 Chief Complaint (Nursing): Cardiac Arrest Chief Complaint (Provider): Cardiac Arrest History Per: EMS Reason For Code Blue: Unresponsive Circumstances: Brought To ED By EMS Arrest Witnessed By: No One CPR Initiated Prior To MD Arrival?: Yes Down-Time Before ACLS: Unknown Treatment Initiated Prior To MD Arrival: CPR Additional Complaint(s): 17:08 58 year old male with a past medical history of seizures and alcohol abuse is brought into the ED by EMS. Patient was found facedown outside, unknown downtime. CPR started by EMS and police department. Patient has no pulse in ED. - Initial Findings Mentation: Unresponsive Past Medical History Reviewed: Historical Data, Nursing Documentation, Vital Signs Vital Signs: Last Vital Signs Temp Pulse 102 H 02/25/19 18:29 Resp 12 02/25/19 18:29 BP 132/79 02/25/19 18:29 Pulse Ox 100 02/25/19 18:29 SOPHIA Report Viewed: Yes Primary Care Provider: FAMILY PROVIDER,NO - Medical History PMH: Depression, HTN, Hypercholesterolemia, Pneumonia, Seizures Denies: HIV, Chronic Kidney Disease - Family History Family History: States: Unknown Family Hx - Immunization History Hx Tetanus Toxoid Vaccination: No Hx Influenza Vaccination: No Hx Pneumococcal Vaccination: No - Home Medications Home Medications: Ambulatory Orders Medication Instructions Recorded Acetaminophen/Butalbital/Caf 1 tab PO Q8 PRN tab 09/24/17 [Fioricet] Calcium Carbonate [Oscal] 500 mg PO BIDWM tab 09/24/17 Cyanocobalamin [Vitamin B12 1000 1,000 mcg PO DAILY tab 09/24/17 mcg Tab] Divalproex [Depakote DR(*BID*)] 750 mg PO Q12 tcp 09/24/17 Enoxaparin [Lovenox] 40 mg SC DAILY syr 09/24/17 Ergocalciferol [Drisdol 50,000 1 cap PO Q7D cap 09/24/17 Intl Units Cap] Folic Acid 1 mg PO DAILY tab 09/24/17 Magnesium Oxide [Mag-Ox] 400 mg PO BID tab 09/24/17 Phenytoin [Dilantin] 100 mg PO Q8 ctb 09/24/17 Sertraline [Zoloft] 25 mg PO DAILY tab 09/24/17 Thiamine [Vitamin B1 Tab] 100 mg PO DAILY tab 09/24/17 Topiramate [Topamax] 100 mg PO BID tab 09/24/17 Levetiracetam [Keppra] 500 mg PO BID #20 tablet 04/28/18 Dicyclomine [Bentyl] 20 mg PO TID PRN #15 tab 04/30/18 Ondansetron ODT [Zofran ODT] 4 mg PO TID #20 odt 04/30/18 Azithromycin [Zithromax] 250 mg PO DAILY #6 dose 02/23/19 Phenytoin, Extended [Dilantin] 100 mg PO TID #90 cer 02/23/19 - Allergies Allergies/Adverse Reactions: Allergies Allergy/AdvReac Type Severity Reaction Status Date / Time No Known Allergies Allergy Verified 04/29/18 19:18 Review of Systems Review Of Systems: ROS cannot be obtained secondary to pt's inabilty to answer questions. Physical Exam - Reviewed Nursing Documentation Reviewed: Yes Vital Signs Reviewed: Yes - Physical Exam Appears: Positive for: In Acute Distress. Negative for: Well (unresponsive) Head Exam: Positive for: ATRAUMATIC (no gross trauma identified on face and head) Skin: Positive for: Warm, Dry Eye Exam: Positive for: Other (pupils 3+ slightly reactive b/l) Neck: Positive for: Trachea Midline Cardiovascular/Chest: Positive for: Other (no pulse) Respiratory: Positive for: Decreased Breath Sounds (with bvm bag) Gastrointestinal/Abdominal: Negative for: Distended Back: Positive for: Normal Inspection Extremity: Positive for: Other (not responsive). Negative for: Pedal Edema Neurological/Psych: Positive for: Other (unresponsive). Negative for: Awake, Alert, Oriented - Laboratory Results Result Diagrams: 02/26/19 04:00 02/26/19 04:00 Lab Results: pCO2 73 mm/Hg (35-45) H* 02/25/19 17:49 pO2 415 mm/Hg (80-100) H 02/25/19 17:49 HCO3 17.0 mmol/L (21-28) L 02/25/19 17:49 ABG pH 7.07 (7.35-7.45) L* 02/25/19 17:49 ABG Total CO2 23.4 mmol/L (22-28) 02/25/19 17:49 ABG O2 Saturation 99.8 % (95-98) H 02/25/19 17:49 ABG Base Excess -10.2 mmol/L (-2.0-3.0) L 02/25/19 17:49 Fabrizio Test Yes 02/25/19 17:49 ABG Potassium 3.4 mmol/L (3.6-5.2) L 02/25/19 17:49 A-a O2 Difference 207.0 mm/Hg 02/25/19 17:49 Sodium 136.0 mmol/L (132-148) 02/25/19 17:49 Chloride 103.0 mmol/L (98-107) 02/25/19 17:49 Glucose 157 mg/dL (75-110) H 02/25/19 17:49 Lactate 8.9 mmol/L (0.7-2.1) H* 02/25/19 17:49 Vent Mode Prvc/ac 02/25/19 17:49 Mechanical Rate 12 02/25/19 17:49 FiO2 100.0 % 02/25/19 17:49 Tidal Volume 500 02/25/19 17:49 PEEP 5 02/25/19 17:49 Crit Value Called To tim Stevenson md 02/25/19 17:49 Crit Value Called By Cesia donovan 02/25/19 17:49 Crit Value Read Back Y 02/25/19 17:49 Blood Gas Notified Time 1757 02/25/19 17:49 Troponin I < 0.0120 ng/mL (0.00-0.120) 02/25/19 17:51 NT-Pro-B Natriuret Pep 244 pg/ml (0-900) 02/25/19 17:51 Total Bilirubin 0.9 mg/dl (0.2-1.3) 02/25/19 17:51 AST 71 U/L (17-59) H D 02/25/19 17:51 ALT 42 U/L (21-72) 02/25/19 17:51 Alkaline Phosphatase 85 U/L (38-126) 02/25/19 17:51 Total Protein 5.7 G/DL (6.3-8.2) L 02/25/19 17:51 Albumin 3.2 g/dL (3.5-5.0) L D 02/25/19 17:51 Globulin 2.5 gm/dL (2.2-3.9) 02/25/19 17:51 Albumin/Globulin Ratio 1.3 (1.0-2.1) 02/25/19 17:51 - ECG ECG: Positive for: Interpreted By Me, Viewed By Me Interpretation Of Abn EKG: afib;. Other ekgs documented in notes in MDM. O2 Sat by Pulse Oximetry: 100 (RA) Pulse Ox Interpretation: Normal - Core Measure Core Measure Indicators: Code Sepsis - Critical Care Total Time (In Min): 120 Documented Critical Care: Time excludes all time spent performint seperately billable procedures Medical Decision Making Medical Decision Making: Initial impression: 58 year old unresponsive male, hypotensive in ED, A-fib. Plan: * CT head w/o contrast * CT cervical spine w/o contrast * XRay chest * EKG * ABG * acetaminophen * alcohol serum * ammonia * b-type natriuretic peptide * CMP * creatine phosphokinase * dilantin * drug screen * magnesium * phosphorous * salicylate * udip * CBC with differential * PT/PTT * rapid HIV * urinalysis * urine culture * blood culture * cleocin 600 mg in 50 ml IVPB * D5 250 ml levophed 4 mg IV 5-15 mcg/min * IV NS 2,000 ml IV 1,000 mls/hr * rocephin 1 gm IV * zosyn 3.375 gm in NS 100 ml * zithromax 500 mg IVPB 17:08 Patient bagged and intubated. Attempted to place central line. 17:10 BP 54/28 1 epi given via ET tube due to no access. 17:14 Obtained central line (right femoral). 4 narcan given and ran fluids. 17:16 Sodium bicarbonate, calcium administered and heart rate came back. 17:25 Patient hypotensive and in A-fib. HR: 180 beats/minute. due to instability with A-fib, patient shocked with 30 joules. 17:26 Still rapid afib. Shocked with 50 joules BP 56/27. 17:27 Still rapid afib. Shocked with 120 joules. BP: 56/27. Digoxin given. 1730 Case discussed with , patient not a candidate for cooling because unknown downtime and hypotensive at this time. HR improving. Will consider amiodarone. 17:31 Code sepsis (after lactate result) HR: 120 beats/minute. Antibiotics given. 17:36 Patient still hypotensive. Levophed started: 5 mcg/minute. 17:40 Patient still hypotensive, increased levophed to 10 mcg/min. 17:50 Chest XRay complete: possible aspiration pneumonia. Repeat EKG sinus tachycardia. BP: 64/49, levophed increased to 15 mcg/min. 17:54 BP: 181/120 17:57 BP: 201/131 Levophed decreased to 5 mcg/min 18:00 Levophed stopped. attempting central line as femoral line appears possibly arterial. attempting right subclavial line. 18:45 BP: 127/86 HR: 113 Dr. Hallman put in right femoral line and arterial line. Will consider head ct now. Pt. unstable prior due to bp and hr. XRay chest read and reviewed by radiologist FINDINGS: LUNGS: Endotracheal tube terminates 6.4 cm above the yung. Consider advancing the tube 2-3 cm antegrade to obscure the cough is past the vocal cords. External pacemaker reiterated. Left chest remains clear with right pleural effusion or fibrosis reiterated as well as volume loss at the right base. Partial calcified pleura are identified at the right base with calcified lymph nodes or granulomata again seen at the mediastinum and bilateral hilar regions. No significant interval change. No left pleural effusion. No pneumothorax bilaterally. PLEURA: As above. CARDIOVASCULAR: No aortic atherosclerotic calcification present. Stable cardiac size. No pulmonary vascular congestion. OSSEOUS STRUCTURES: No significant abnormalities. VISUALIZED UPPER ABDOMEN: Normal. OTHER FINDINGS: None. IMPRESSION: ET tube as discussed above terminating relatively high in the trachea. Consider advancing 2-3 cm antegrade followed by confirmation radiography. Chronic changes at the right base reiterated including fibrosis and potential pleural thickening with acute subacute pleural effusion or infiltrate not excluded. 1840 Discussed case with who agrees with current treatment and management Patient to be admitted to ICU. Spoke with Dr. Light who will admit. 190 Patient vitals maintained. Et tube in place. Antibiotics and fluids given. Leija and central line in place. Admitted to ICU. Scribe Attestation: Documented by Yesi Goss, acting as a scribe for Tim Stevenson MD. Provider Scribe Attestation: All medical record entries made by the Scribe were at my direction and personall y dictated by me. I have reviewed the chart and agree that the record accurately reflects my personal performance of the history, physical exam, medical decision making, and the department course for this patient. I have also personally directed, reviewed, and agree with the discharge instructions and disposition. Procedures - Central Line Central Line Lumen: triple Central Line Procedure: betadine prep, sterile drapes applied, sterile dressing applied Central Line Postion: femoral (R) - Intubation Time of Intubation: 17:08 (post procedure: patient intubated. bilateral breath sounds obtained. Noted color change.) Intubation Method: orotracheal Tube Size (cm): 7.5 Breath Sounds after Intubation: equal Intubation Complications: no complications Post Intubation Xray: Yes Progress/Xray Impression: tube higher in trachea Disposition - Clinical Impression Clinical Impression: Cardiac arrest, Respiratory failure, Septic shock, Pneumonia - Patient ED Disposition Is Patient to be Admitted: Yes - Disposition Disposition Time: 18:00 Condition: CRITICAL - Pt Status Changed To: Hospital Disposition Of: Inpatient - Admit Certification Admit to Inpatient:: After my assessment, the patient will require hospitalization for at least two midnights. This is because of the severity of symptoms shown, intensity of services needed, and/or the medical risk in this patient being treated as an outpatient. - POA Present On Arrival: Falls Or Trauma (possible)
[2019-02-25 18:52] LABS: URINE BACTERIA RARE (<OCC); URINE BILIRUBIN NEGATIVE (NEGATIVE); URINE BLOOD MODERATE (NEGATIVE); URINE CLARITY SLIGHTY-CLOUDY (Clear); URINE COLOR STRAW (YELLOW); URINE GLUCOSE (UA) 150 mg/dL (NEGATIVE); URINE HYALINE CAST 0-2 /hpf (0-2); URINE LEUKOCYTE ESTERASE NEG Leu/uL (Negative); URINE PROTEIN 100 mg/dL (NEGATIVE); URINE UROBILINOGEN 0.2-1.0 mg/dL (0.2-1.0)
--- NOTE | 2019-02-25 19:09 | CP.PCM.PN ---
Subjective - Date & Time of Evaluation Date of Evaluation: 02/25/19 Time of Evaluation: 12:07 - Subjective Subjective: I D NOTE PATIENT BROUGHT IN UNCONSCIOUS BY fish cake maker HE WAS INTUBATED PROBABVLE ASPIRATION PNEUMONIA RECEIVED ANTIBIOTICS (ZITHROMAX/ZOSYN/CEFTRIAXONE) HAVE STARTED CLINDAMYCIN/ZOSYN AWAIT CULTURES Objective - Vital Signs/Intake and Output Vital Signs (last 24 hours): Temp Pulse Resp BP Pulse Ox 102 H 12 132/79 100 02/25/19 18:29 02/25/19 18:29 02/25/19 18:29 02/25/19 18:50 Intake and Output: 02/25/19 02/25/19 06:59 18:59 Output Total 298 Balance -298 - Medications Medications: Current Medications Norepinephrine Bitartrate 4 mg (/ Dextrose) 254 mls @ 19.05 mls/hr IV .[id number] PRN; Protocol PRN Reason: Titrate By Last Admin: 02/25/19 17:36 Dose: 5 mcg/kg/min, 1,425.76 mls/hr Piperacillin Sod/Tazobactam (Sod 3.375 gm/ Sodium Chloride) 100 mls @ 100 mls/hr IV STAT STA; Protocol Stop: 02/25/19 19:24 Clindamycin Phosphate (Cleocin 600mg/50ml Ns) 600 mg in 50 mls @ 50 mls/hr IVPB Q8 TANNA; Protocol Piperacillin Sod/Tazobactam (Sod 3.375 gm/ Sodium Chloride) 100 mls @ 100 mls/hr IVPB Q8H TANNA; Protocol - Labs Labs: 02/25/19 17:51 02/25/19 17:51
[2019-02-25 19:26] LABS: BARBITURATES, UR NEGATIVE (NEGATIVE); BENZODIAZEPINES, UR NEGATIVE (NEGATIVE); OPIATES, UR NEGATIVE (NEGATIVE); PHENCYCLIDINE, UR NEGATIVE (NEGATIVE)
[2019-02-25] MEDS ORDERED: Piperacillin/Tazobact 3.375 gm Inj IVPB ONE (19:26)
[2019-02-25 20:07] LABS: INR 1.2
[2019-02-25] MEDS ORDERED: Enoxaparin 40 mg Syringe SC ONE (20:34)
[2019-02-25] MEDS ORDERED: Magnesium Sulfate 1 gm in D5W 1 GM/100 ML BAG IVPB ONE (20:47)
[2019-02-25] MEDS ORDERED: Azithromycin 500 MG IV IVPB ONE (20:48)
[2019-02-25 20:53] LABS: PARTIAL THROMBOPLASTIN TIME 27.6 Seconds (25.6-37.1); PROTHROMBIN TIME 14.1 Seconds (9.8-13.1)
[2019-02-25] MEDS: Potassium Chl 20 mEq in NS 1,000 ML IV SCH (21:30)
[2019-02-25 21:41] LABS: ABG ALLEN TEST YES; ARTERIAL BLOOD GAS HCO3 24.2 mmol/L (21-28); ARTERIAL BLOOD GAS O2 SAT 100.5 % (95-98); ARTERIAL BLOOD GAS PCO2 32 mm/Hg (35-45); ARTERIAL BLOOD GAS PH 7.45 (7.35-7.45); ARTERIAL BLOOD GAS PO2 181 mm/Hg (80-100); ARTERIAL BLOOD GAS TCO2 23.2 mmol/L (22-28)
--- NOTE | 2019-02-25 21:52 | CP.CCUPN ---
CCU Subjective - Physician Review Subjective (Free Text): ER admission to ICU: no family available, patient intubated and comatose post resuscitation, available [facility] notes all reviewed: 58M, known Homeless, PMH: Chronic ETOH Abuse, HTN, seizure disorder with known non-compliance with meds, found face down (unknown down time), resuscitation started by Police and EMS< in ER noted to be in rapid A fib with HR 170's and hypotensive, Underwent cardioversion attempts x 3 which slowed HR, unsuccessful conversion, later just before attempt at chemical conversion with Amiodarone, noted to be in sinus tachycardia, with stable BP levels. Comatose with no response to painful stimulus, but breathing 24 on AC 16 mode. TLC and A line inserted in ER in anticipation of Therapeutic Hypothermia, but decision made to abort cooling given unknown down time which may have been prolonged an possible post-ictal event given his unresponsive state. ABG's obtained post-intubation showed significant hypercarbia, of which levels may have been even higher before onset of resuscitation. VS after ROSC: Afebrile, SBP 120's, HR 124 sinus, 100% on 100% fiO2, given 2.5 L. saline fluid challenge after ROSC, Levophed on hold for now. ROS: No other pertinent negs or positives on 10+ system review obtainable. Allergies: NKDA Meds: Fioricet, CaCarbonate, Ergocalciferol, MagOxide, Vit B12, Vit B1, Bentyl, Depakote DR 750mg bid, Keppra 500mg BID, Dilantin 100mg Q8H, Topamax 100mg BID, Folate, Zoloft. PMSFH: All other Nursing and physician documentation reviewed to date; no new pertinent info noted relevant to current medical problems. EXAM- HEENT: no icterus, no gaze preference, pupils equal 3 mm size and non- reactive, no nystagmus. Tongue dry. NECK: supple, no visible JVD, no adenopathy, thyroid non-palpable. CHEST: decreased BS at the bases, no wheezes audible bilaterally. HEART: regular, distant, tachy S1S2, no rubs or murmurs noted ABD: soft, no distention or tympany, no guarding or focal tenderness; BS hypoactive. EXT: no leg edema and thigh edema, no cyanoisis, calf tenderness or palpable cords, distal pulses intact and symmetrical. NEURO: flaccid x 4, no tone. SKIN: no rashes, warm and dry LABS: 7.07/73/415 on MV Lactate = 8.9 WBC= 5.4 HGB= 9.5 PLTs= 157 K INR= 1.2, PTT= normal Na= 137 K= 3.3 CL= 101 HCO3= 17 BUN/Cr= 11/1.0 BS= 170 Mg= 1.5 Phos= 9.4 CPK= 661 BNP = 244 Trop #1 negative CXR: (my interp): ETT position approx 6.3 cm above yung, haziness RLL and R- CPA, bilateral hilar interstitial changes. EKG: A Fib, 179/min, rate related ST depressions I, II, AVR, V2-V4. IMPRESSION / MAJOR PROBLEMS NOW: 1. Respiratory Arrest 2. A Fib with RVR- new onset 3. Eob-zfrcsvooon-oycrycwvh Seizure Disorder ,with possible episode of NCSE and prolonged post-ictal state, r/o Head Trauma, post-Fall to ground 4. Chronic ETOH Abuse PLAN: 1. Full MV support for now, decrease FiO2, check repeat ABG, Lactate levels. Sputum Cx, empiric abx coverage. 2. Volume expansion, wean off vasopressors. 3. ECHO, serial Trops, repeat EKG. Consider Amiodarone if rate refractory to control by IV CCBs and or Digoxin. 4. CT Brain, CT Cervical Spine 5. Not a candidate for Targeted Temperature Mgmt. 6. On multiple AEDs, check drug levels. Check urine drug Tox screen, ETOH level; r/o other substance abuse intoxication effect. 7. Supplement K and Mag. 8. Notify [employer]. 9. See orders. Time spent with this patient did not overlap with any other provider's medical or critical care time. Additionally the code selected for the services rendered in this note includes the time spent: talking to the patients family, associated physicians and reviewing hospital data/results not listed here which extended to a total of 65 minutes of critical care.
--- NOTE | 2019-02-25 22:04 | PCM.PROC ---
Procedures Attestation:: I certify that I have explained the specified Operation(s) or Procedure(s), risks, benefits and reasonable alternatives to the Patient and/or other person responsible. The opportunity was given to ask questions and all questions answered - Arterial Line Right Femoral Aseptic technique was employed throughout the procedure: Hand Hygiene done prior to procedure, Full sterile barriers (mask, hair cover, sterile gown, sterile gloves), Full body sterile drape, Chloraprep Antiseptic: 2 minute prep for Femoral Time Out Performed: Yes Pt. placed on Pulse Ox Monitor: Yes Central Line Prep: Chlorhexidine-Alcohol Combination Ultrasound Used for Placement: No Gauge (Size): 20 gauge (6 inch Angiocath) Technique Used: Guide Wire Technique Secured by: Securement device Post procedure dressing: Clear vapor permeable Patient Tolerated Procedure: well Immediate Complications: none (Site chosen due to unknown of any coagulopathy, performed emergently in the ER post resuscitation, with indications for [id number] BP measurements on vasopressors.)
--- NOTE | 2019-02-25 22:12 | PCM.PROC ---
Procedures Attestation:: I certify that I have explained the specified Operation(s) or Procedure(s), risks, benefits and reasonable alternatives to the Patient and/or other person responsible. The opportunity was given to ask questions and all questions answered - Central Line Placement Right Femoral Triple Lumen Catheter Aseptic technique was employed throughout the procedure: Hand Hygiene done prior to procedure, Full sterile barriers (mask, hair cover, sterile gown, sterile gloves), Chloraprep Antiseptic: 2 minute prep for Femoral CVP Time Out Performed: Yes Pt. Placed on Pulse Ox Monitor: Yes Central Line Prep: Chlorhexidine-Alcohol Combination Local Anesthesia Used: Lidocaine 1% Amount of Anesthesia Used (mls): 5 Ultrasound Used for Placement: No Central Line Lumen Inserted: triple Central Line Length: 20 cm Post Procedure: Sutured in Place, Good Blood Return, All Ports Aspirated, Flushed, Capped, Sterile Dressing Applied Secured by: Securement device Post procedure dressing: Clear vapor permeable, Chlorhexidine disc (Biopatch) Post Procedure X-Ray: No Patient Tolerated Procedure: Well Immediate Complications: None Additional Comments: Existing Right Femoral TLC placed by ER physician was noted to be in the Femoral artery. Catheter removed and manual pressure dressing applied to stop bleeding and prevent any hematoma formation. New Right Femoral vein TLC placed via the Right groin in a more superiorly directed position from the first line which has subsequently been removed. Under the same emergent conditions in ER, a new TLC was placed without complications by Resident Dr. Krzysztof Lawrence, under my direct supervision at the bedside during the entire procedure. Groin site chosen due to unknown coagulopathic state and due to unsuccessful attempts at cannulating Right Subclavian vein and Right Internal Jugular Vein using ultrasound guidance.
[2019-02-25] MEDS ORDERED: Amiodarone 900 MG in Dextrose 5% In Water 500 ML IV SCH (22:45)
[2019-02-25] MEDS ORDERED: Amiodarone 900 MG in Dextrose 5% In Water 500 ML IVPB SCH (22:47)
[2019-02-25] MEDS ORDERED: levETIRAcetam 1,500 MG in Sodium Chloride 0.9% 100 ML IVPB ONE (22:53)
[2019-02-26] MEDS: Clindamycin 600mg/50ml NS 600 MG/50 ML BAG IVPB SCH ×4 (00:11→16:39)
[2019-02-26] MEDS: Piperacillin/Tazobact 3.375 GM in Sodium Chloride 0.9% 100 ML IVPB SCH ×4 (00:17→16:37)
[2019-02-26] MEDS: Acetaminophen 650mg/20.3ml solution UD GT PRN (01:55)
[2019-02-26] MEDS ORDERED: Sterile Water 10 ML IV ONE (02:01)
[2019-02-26 05:00] LABS: ABG ALLEN TEST YES; ARTERIAL BLOOD GAS HCO3 23.4 mmol/L (21-28); ARTERIAL BLOOD GAS O2 SAT 100.2 % (95-98); ARTERIAL BLOOD GAS PCO2 27 mm/Hg (35-45); ARTERIAL BLOOD GAS PH 7.48 (7.35-7.45); ARTERIAL BLOOD GAS PO2 199 mm/Hg (80-100); ARTERIAL BLOOD GAS TCO2 20.9 mmol/L (22-28)
[2019-02-26 05:08] LABS: ALB/GLOB RATIO 1.4 (1.0-2.1); ALBUMIN 3.8 g/dL (3.5-5.0); ALT/SGPT 60 U/L (21-72); AST/SGOT 162 U/L (17-59); BLOOD UREA NITROGEN 11 mg/dl (9-20); CALCIUM 8.5 mg/dL (8.4-10.2); GFR NON-AFRICAN AMERICAN > 60
[2019-02-26 05:22] LABS: BASO % 0.1 % (0.0-2.0); HEMOGLOBIN 10.6 g/dL (12.0-18.0); LYMPH # 0.3 K/uL (1.0-4.3); LYMPH % 1.9 % (20.0-40.0); MEAN CELL VOLUME 83.9 fl (80.0-94.0); MEAN CORPUSCULAR HEMOGLOBIN 27.4 pg (27.0-31.0); MEAN CORPUSCULAR HGB CONC 32.6 g/dL (33.0-37.0); MEAN PLATELET VOLUME 8.8 fl (7.2-11.7); MONO # 0.4 K/uL (0.0-0.8); MONO % 2.9 % (0.0-10.0); NEUT % 95.1 % (50.0-75.0); PLATELET COUNT 168 K/uL (130-400); RBC 3.89 Mil/uL (4.40-5.90); RED CELL DISTRIBUTION WIDTH 15.4 % (11.5-14.5); WHITE BLOOD COUNT 13.6 K/uL (4.8-10.8)
[2019-02-26] MEDS ORDERED: Amiodarone 900 MG in Dextrose 5% In Water 500 ML IV SCH (06:00)
[2019-02-26 06:12] LABS: BANDS 1 % (0-2); LYMPHOCYTE 6 % (20-50); MONOCYTE 4 % (0-10); NEUTROPHIL 89 % (42-75); PLATELET ESTIMATE NORMAL (NORMAL); TOTAL CELLS COUNTED 100
[2019-02-26 06:13] LABS: ANISOCYTOSIS SLIGHT
[2019-02-26 06:23] LABS: OVALOCYTES SLIGHT
[2019-02-26] MEDS ORDERED: Magnesium Sulfate 1 gm in D5W 1 GM/100 ML BAG IVPB ONE (06:30)
[2019-02-26] MEDS: Potassium Chl 20 mEq in NS 1,000 ML IV SCH (07:45)
[2019-02-26] MEDS ORDERED: Magnesium Sulfate 2 GM in Sodium Chloride 0.9% 100 ML IVPB ONE (07:58)
--- NOTE | 2019-02-26 08:40 | RAD ---
Date of service: 02/26/2019 HISTORY: intubated COMPARISON: Portable chest 02/25/2019. TECHNIQUE: 1 view obtained. FINDINGS: LUNGS: Endotracheal and nasogastric tubes are not significantly changed in position with external pacer again evident. Chronic fibrotic changes are identified at the right base once again with calcified pleural plaque. Limited airspace disease remains difficult to exclude at the right lower lobe with right-sided volume loss stable. No left-sided infiltrate. PLEURA: Fibrotic changes are favored over chronic right pleural effusion with no interval left pleural effusion. No pneumothorax bilaterally. CARDIOVASCULAR: Calcific atherosclerotic changes are seen related to the thoracic aorta. Normal cardiac size. No pulmonary vascular congestion. Calcified lymph nodes or granulomata again seen at the mediastinum bilateral hilar regions. OSSEOUS STRUCTURES: No significant abnormalities. VISUALIZED UPPER ABDOMEN: Normal. OTHER FINDINGS: None. IMPRESSION: No significant interval change in limited right basilar opacity suspicious for limited infiltrate right lower lobe prior underlying fibrotic changes are reiterated as well as volume loss once again. Left lung remains clear. No pulmonary vascular congestion. Stable support tubes.
--- NOTE | 2019-02-26 08:59 | RAD ---
Date of service: 02/25/2019 HISTORY: reevalute ett and new OGT placement COMPARISON: Portable chest 02/25/2019, 5:36 p.m.. TECHNIQUE: 1 view obtained. FINDINGS: LUNGS: Endotracheal tube has been advanced further into the trachea terminating 3.9 cm above the yung in adequate position. Orogastric tube is been advanced into the left mary abdomen with the tip off the inferior margins of image. External pacer again evident. Volume loss of the right chest is again seen with postop changes at the right infrahilar space as well as fibrotic changes at the right base laterally. Pleural calcifications are reiterated as well as fibrotic pleural changes and part or possible mood limited pleural effusion. Limited patchy infiltrate at the right base remains difficult to exclude. No left pleural effusion. No pneumothorax bilaterally. No left-sided infiltrate. PLEURA: As above. CARDIOVASCULAR: No aortic atherosclerotic calcification present. Normal cardiac size. No pulmonary vascular congestion. By hilar and mediastinal calcified lymph nodes or granulomata reiterated. OSSEOUS STRUCTURES: No significant abnormalities. VISUALIZED UPPER ABDOMEN: Normal. OTHER FINDINGS: None. IMPRESSION: Potential limited right basilar infiltrate unchanged with remaining chronic fibrotic changes and right-sided volume loss again evident. ET tube advanced further into the trachea in good apparent position. Orogastric tube identified placed entering into the abdomen with the tip off the inferior margins of the image.
[2019-02-26] MEDS: Enoxaparin 40 mg Syringe SC SCH (09:19)
[2019-02-26] MEDS: levETIRAcetam 500 MG in Sodium Chloride 0.9% 100 ML IVPB SCH ×2 (09:20→20:42)
[2019-02-26] MEDS ORDERED: Magnesium Sulfate 2 gm/50 ml 2 GM/50 ML BAG IVPB ONE (09:45)
--- NOTE | 2019-02-26 10:08 | CP.CCUPN ---
CCU Subjective - Physician Review Subjective (Free Text): Remains comatose, no response to painful stimulus, no carinal reflex to deep ETT suctioning, but breathing at 22 on AC 12. Afebrile with temps 99-100F; SBP 140's, HR 80s sinus, 100% on 40% fiO2. Fluid balance 1.7L over last 12H. ROS: No other pertinent negs or positives on 10+ system review obtainable. PMSFH: All other Nursing and physician documentation reviewed to date; no new pertinent info noted relevant to current medical problems. EXAM- HEENT: no icterus, no gaze preference, but pupils are disconjugate, pupils equal 3 mm size and non-reactive, no nystagmus. NECK: supple, no visible JVD, no adenopathy, thyroid non-palpable. CHEST: decreased BS at the bases, no wheezes audible bilaterally. HEART: regular, distant, tachy S1S2, no rubs or murmurs noted ABD: soft, no distention or tympany, no guarding or focal tenderness; BS hypoactive. EXT: no leg edema and thigh edema, no cyanoisis, calf tenderness or palpable cords, distal pulses intact and symmetrical. NEURO: flaccid x 4, no tone. SKIN: no rashes, warm and dry LABS: 7.48/27/199 on AC 12, 500ml TV, 40% Peep 5 Lactate = 8.9, now 1.6 WBC= 13.6 HGB= 10.6 PLTs= 168 K INR= 1.2, PTT= normal yesterday Na= 136 K= 3.7 CL= 102 HCO3= 22 BUN/Cr= 11/0.9 BS= 172 Mg= 1.4 Phos= 2.7 CPK= 661 to 6803 BNP = 172 Trop #1 negative, then #2 0.632, #3 0.652 CXR: (my interp): ETT position OK above yung, haziness RLL and R-CPA, bilateral hilar interstitial changes. EKG: sinus 84/min, previous ST depressions resolved. IMPRESSION / MAJOR PROBLEMS NOW: 1. Respiratory Arrest 2. [id number] Seizure Disorder, with possible episode of NCSE and prolonged post-ictal state, r/o Head Trauma, post-Fall to ground. 3. Paroxysmal A Fib with RVR- new onset 4. Chronic ETOH Abuse PLAN: 1. Full MV support for now, decrease FiO2. Sputum Cx, empiric abx coverage. 2. ECHO, serial Trops, repeat EKG. Could stop Amiodarone, observe for new arrhythmias. 3. CT Brain negative for acute pathology. Consider EEG. Neruology eval. 4. was on multiple AEDs, checked drug levels and all were low to non-existent. Keppra resumed only for now. 5. Supplement Mag. IV hydration, BUN/ Cr normal, follow serial CPK. 6. Notify [employer]. Time spent with this patient did not overlap with any other provider's medical or critical care time. Additionally the code selected for the services rendered in this note includes the time spent: talking to the patients family, associated physicians and reviewing hospital data/results not listed here which extended to a total of 40 minutes of critical care.
[2019-02-26] MEDS: Lactated Ringer's 1,000 ML IV SCH ×2 (11:00→19:30)
--- NOTE | 2019-02-26 14:32 | CT ---
Date of service: 02/25/2019 PROCEDURE: CT HEAD WITHOUT CONTRAST. HISTORY: headache COMPARISON: Unenhanced head CT 02/22/2019. TECHNIQUE: Axial computed tomography images were obtained through the head/brain without intravenous contrast. Radiation dose: Total exam DLP = 1112.83 mGy-cm. This CT exam was performed using one or more of the following dose reduction techniques: Automated exposure control, adjustment of the mA and/or kV according to patient size, and/or use of iterative reconstruction technique. FINDINGS: HEMORRHAGE: No intracranial hemorrhage. BRAIN: Stable diffuse cerebral atrophy chronic microangiopathy are are reiterated as well as chronic lacune left thalamus. No definite acute intracranial findings appreciable this time in the interval. VENTRICLES: Unremarkable. No hydrocephalus. CALVARIUM: Unremarkable. PARANASAL SINUSES: Unremarkable as visualized. No significant inflammatory changes. MASTOID AIR CELLS: Unremarkable as visualized. No inflammatory changes. OTHER FINDINGS: None. IMPRESSION: No acute intracranial findings appreciable in the interval. Stable age-related degenerative changes well as chronic lacune left thalamus as seen in prior CT 02/22/2019. No significant interval change Concordant preliminary report from Mariela, 02/25/2019, 10:19 p.m..
--- NOTE | 2019-02-26 14:39 | CT ---
Date of service: 02/25/2019 PROCEDURE: CT Cervical Spine without contrast HISTORY: neck pain COMPARISON: None available. TECHNIQUE: Axial computed tomography images were obtained of the cervical spine without the use of intravenous contrast. Coronal and sagittal reformatted images were created and reviewed. Radiation dose: Total exam DLP = 332.25 mGy-cm. This CT exam was performed using one or more of the following dose reduction techniques: Automated exposure control, adjustment of the mA and/or kV according to patient size, and/or use of iterative reconstruction technique. FINDINGS: VERTEBRAE: No fracture. Normal alignment. No destructive bony lesion. C1-2 articulation is mildly degenerated but otherwise unremarkable. Odontoid process is intact. Craniocervical junction appears unremarkable. DISCS/SPINAL CANAL/NEURAL FORAMINA: No significant stenosis at C2-3. At C3-4, a disc osteophyte complex is appreciated without significant central stenosis resulting. Moderate left and borderline right degenerative neural foraminal stenoses are identified due to gross facet joint degenerative changes and uncovertebral osteophyte development as well. At C4-5, limited disc bulge is appreciated causing mild central stenosis with underlying lateral uncovertebral osteophytes contributing. Borderline bilateral neural foraminal stenosis on a degenerative basis. At C5-6, a mild central stenosis is due to disc osteophyte complex with severe right and mild left degenerative neural foraminal stenosis present. At C6-7 posterior disc osteophyte complex is appreciate without significant central stenosis. Moderate right and [id number]-[id number] left degenerative neural foraminal stenoses are identified. C7-T1 is unremarkable. Discs heights are grossly preserved. PARASPINAL SOFT TISSUES: Unremarkable. OTHER FINDINGS: Incidental endotracheal intubation identified. IMPRESSION: No fracture or definite spondylolisthesis. No severe bony spinal stenosis although multilevel spondylosis, uncovertebral and facet arthropathy result in variable multilevel neural foraminal stenoses as discussed above.
--- NOTE | 2019-02-26 16:23 | CP.PCM.HP ---
History of Present Illness - History of Present Illness History of Present Illness: 58 years old male ER [facility]: Patient was found facedown outside unknown downtime CPR started by EMS and police department patient unconscious, in arrival to ER, patient was intubated and had a central line insertion, also found with paroxysmal A. fib with RVR treated with Cardioversion , amiodarone, Norepinephrine, Patient is now on RSR. Patient AD with Dx Respiratory Failure, Aspiration PNA, Anoxic Encphalopathy, Hx of Seizure uncompliant with Keppra treatment, possible Seizure, Hx of chronic ETOH abuse PMX: Seizures, chronic ETOH abuse, HTN, HCL, Depression Present on Admission - Present on Admission Any Indicators Present on Admission: No Past Patient History - Infectious Disease Hx of Infectious Diseases: None - Past Medical History & Family History Past Medical History?: Yes - Past Social History Smoking Status: Never Smoked - CARDIAC Hx Hypercholesterolemia: Yes Hx Hypertension: Yes - PULMONARY Hx Pneumonia: Yes - NEUROLOGICAL Hx Seizures: Yes (Tx Keppra) - HEENT Hx HEENT Problems: No - RENAL Hx Chronic Kidney Disease: No - ENDOCRINE/METABOLIC Hx Endocrine Disorders: No - HEMATOLOGICAL/ONCOLOGICAL Hx Human Immunodeficiency Virus (HIV): No - INTEGUMENTARY Hx Dermatological Problems: No - MUSCULOSKELETAL/RHEUMATOLOGICAL Hx Musculoskeletal Disorders: Yes Hx Falls: Yes (Frequent as per daughter due to ETOH abuse) Hx Unsteady Gait: Yes - GASTROINTESTINAL Hx Gastrointestinal Disorders: No - GENITOURINARY/GYNECOLOGICAL Hx Genitourinary Disorders: No - PSYCHIATRIC Hx Depression: Yes - SURGICAL HISTORY Hx Surgeries: Yes Hx Appendectomy: Yes Other/Comment: As per daughter, appendectomy and "spine surgery". - ANESTHESIA Hx Anesthesia: Yes (unknown) Hx Anesthesia Reactions: No Hx Malignant Hyperthermia: No (unknown) Has any member of the family had a problem w/ anesthesia?: No Meds Allergies/Adverse Reactions: Allergies Allergy/AdvReac Type Severity Reaction Status Date / Time No Known Allergies Allergy Verified 04/29/18 19:18 Physical Exam - Head Exam Head Exam: ATRAUMATIC, NORMAL INSPECTION - Eye Exam Additional comments: Pupils 3mm , non reactive - ENT Exam Additional comments: intubated - Neck Exam Neck exam: Positive for: Normal Inspection - Respiratory Exam Respiratory Exam: Decreased Breath Sounds (at bases) - Cardiovascular Exam Cardiovascular Exam: Tachycardia - GI/Abdominal Exam GI & Abdominal Exam: Hypoactive Bowel Sounds, Soft - Extremities Exam Extremities exam: Positive for: normal inspection. Negative for: pedal edema, tenderness - Back Exam Back exam: NORMAL INSPECTION - Neurological Exam Additional comments: comatose, no response to verbal tactil stimili , flaccid - Skin Skin Exam: Warm Results - Vital Signs Recent Vital Signs: Last Vital Signs Temp 99.5 F 02/26/19 12:00 Pulse 89 02/26/19 15:00 Resp 22 02/26/19 15:00 BP 134/73 02/26/19 15:00 Pulse Ox 99 02/26/19 15:00 - Labs Result Diagrams: 03/05/19 04:18 03/05/19 04:18 Labs: Laboratory Results - last 24 hr 02/25/19 02/25/19 02/25/19 17:37 17:37 17:49 WBC RBC Hgb Hct MCV MCH MCHC RDW Plt Count MPV Neut % (Auto) Lymph % (Auto) [place] % (Auto) Eos % (Auto) Baso % (Auto) Neut # (Auto) Lymph # (Auto) [place] # (Auto) Eos # (Auto) Baso # (Auto) Neutrophils % (Manual) Band Neutrophils % Lymphocytes % (Manual) Monocytes % (Manual) Platelet Estimate Anisocytosis (manual) Ovalocytes PT 14.1 H INR 1.2 APTT 27.6 pCO2 73 H* pO2 415 H HCO3 17.0 L ABG pH 7.07 L* ABG Total CO2 23.4 ABG O2 Saturation 99.8 H ABG Base Excess -10.2 L Fabrizio Test Yes ABG Potassium 3.4 L A-a O2 Difference 207.0 Sodium 136.0 Chloride 103.0 Glucose 157 H Lactate 8.9 H* Vent Mode Prvc/ac Mechanical Rate 12 FiO2 100.0 Tidal Volume 500 PEEP 5 Crit Value Called To maldonado Stevenson md Crit Value Called By [facility] Crit Value Read Back Y Blood Gas Notified Time 1757 Potassium Carbon Dioxide Anion Gap BUN Creatinine Est GFR ( Amer) Est GFR (Non-Af Amer) Random Glucose Lactic Acid Calcium Phosphorus Magnesium Total Bilirubin AST ALT Alkaline Phosphatase Ammonia Total Creatine Kinase Troponin I NT-Pro-B Natriuret Pep Total Protein Albumin Globulin Albumin/Globulin Ratio Arterial Blood Potassium 3.4 L Urine Color Urine Clarity Urine pH Ur Specific [place] Urine Protein Urine Glucose (UA) Urine Ketones Urine Blood Urine Nitrate Urine Bilirubin Urine Urobilinogen Ur Leukocyte Esterase Urine RBC (Auto) Urine Microscopic WBC Urine Bacteria Hyaline Casts Salicylates Urine Opiates Screen Negative Urine Methadone Screen Negative Acetaminophen Ur Barbiturates Screen Negative Phenytoin Valproic Acid Ur Phencyclidine Scrn Negative Ur Amphetamines Screen Negative U Benzodiazepines Scrn Negative U Oth Cocaine Metabols Negative U Cannabinoids Screen Negative Alcohol, Quantitative HIV-1 Ab Rapid Screen 02/25/19 02/25/19 02/25/19 17:51 17:51 17:51 WBC 5.4 D RBC 3.42 L Hgb 9.5 L D Hct 29.2 L MCV 85.6 D MCH 27.7 MCHC 32.4 L RDW 15.2 H Plt Count 157 MPV 7.8 Neut % (Auto) 45.8 L Lymph % (Auto) 45.5 H [place] % (Auto) 7.5 Eos % (Auto) 0.7 Baso % (Auto) 0.5 Neut # (Auto) 2.5 Lymph # (Auto) 2.5 [place] # (Auto) 0.4 Eos # (Auto) 0.0 Baso # (Auto) 0.0 Neutrophils % (Manual) Band Neutrophils % Lymphocytes % (Manual) Monocytes % (Manual) Platelet Estimate Anisocytosis (manual) Ovalocytes PT INR APTT pCO2 pO2 HCO3 ABG pH ABG Total CO2 ABG O2 Saturation ABG Base Excess Fabrizio Test ABG Potassium A-a O2 Difference Sodium 137 Chloride 101 Glucose Lactate Vent Mode Mechanical Rate FiO2 Tidal Volume PEEP Crit Value Called To Crit Value Called By Crit Value Read Back Blood Gas Notified Time Potassium 3.3 L Carbon Dioxide 17 L Anion Gap 22 H BUN 11 Creatinine 1.0 Est GFR ( Amer) > 60 Est GFR (Non-Af Amer) > 60 Random Glucose 170 H Lactic Acid Calcium 9.3 Phosphorus 9.4 H Magnesium 1.5 L Total Bilirubin 0.9 AST 71 H D ALT 42 Alkaline Phosphatase 85 Ammonia Total Creatine Kinase 661 H Troponin I < 0.0120 NT-Pro-B Natriuret Pep 244 Total Protein 5.7 L Albumin 3.2 L D Globulin 2.5 Albumin/Globulin Ratio 1.3 Arterial Blood Potassium Urine Color Urine Clarity Urine pH Ur Specific [place] Urine Protein Urine Glucose (UA) Urine Ketones Urine Blood Urine Nitrate Urine Bilirubin Urine Urobilinogen Ur Leukocyte Esterase Urine RBC (Auto) Urine Microscopic WBC Urine Bacteria Hyaline Casts Salicylates < 1.0 Urine Opiates Screen Urine Methadone Screen Acetaminophen < 10.0 L Ur Barbiturates Screen Phenytoin < 3.0 L Valproic Acid Ur Phencyclidine Scrn Ur Amphetamines Screen U Benzodiazepines Scrn U Oth Cocaine Metabols U Cannabinoids Screen Alcohol, Quantitative < 10 HIV-1 Ab Rapid Screen 02/25/19 02/25/19 02/25/19 17:51 18:06 18:44 WBC RBC Hgb Hct MCV MCH MCHC RDW Plt Count MPV Neut % (Auto) Lymph % (Auto) [place] % (Auto) Eos % (Auto) Baso % (Auto) Neut # (Auto) Lymph # (Auto) [place] # (Auto) Eos # (Auto) Baso # (Auto) Neutrophils % (Manual) Band Neutrophils % Lymphocytes % (Manual) Monocytes % (Manual) Platelet Estimate Anisocytosis (manual) Ovalocytes PT INR APTT pCO2 pO2 HCO3 ABG pH ABG Total CO2 ABG O2 Saturation ABG Base Excess Fabrizio Test ABG Potassium A-a O2 Difference Sodium Chloride Glucose Lactate Vent Mode Mechanical Rate FiO2 Tidal Volume PEEP Crit Value Called To Crit Value Called By Crit Value Read Back Blood Gas Notified Time Potassium Carbon Dioxide Anion Gap BUN Creatinine Est GFR ( Amer) Est GFR (Non-Af Amer) Random Glucose Lactic Acid Calcium Phosphorus Magnesium Total Bilirubin AST ALT Alkaline Phosphatase Ammonia 78 H Total Creatine Kinase Troponin I NT-Pro-B Natriuret Pep Total Protein Albumin Globulin Albumin/Globulin Ratio Arterial Blood Potassium Urine Color Straw Urine Clarity Slighty-cloudy Urine pH 7.0 Ur Specific [place] 1.006 Urine Protein 100 Urine Glucose (UA) 150 Urine Ketones Trace Urine Blood Moderate Urine Nitrate Negative Urine Bilirubin Negative Urine Urobilinogen 0.2-1.0 Ur Leukocyte Esterase Neg Urine RBC (Auto) 3 Urine Microscopic WBC 3 Urine Bacteria Rare Hyaline Casts 0-2 Salicylates Urine Opiates Screen Urine Methadone Screen Acetaminophen Ur Barbiturates Screen Phenytoin Valproic Acid Ur Phencyclidine Scrn Ur Amphetamines Screen U Benzodiazepines Scrn U Oth Cocaine Metabols U Cannabinoids Screen Alcohol, Quantitative HIV-1 Ab Rapid Screen Non reactive 02/25/19 02/25/19 02/25/19 21:37 23:16 23:16 WBC RBC Hgb Hct MCV MCH MCHC RDW Plt Count MPV Neut % (Auto) Lymph % (Auto) [place] % (Auto) Eos % (Auto) Baso % (Auto) Neut # (Auto) Lymph # (Auto) [place] # (Auto) Eos # (Auto) Baso # (Auto) Neutrophils % (Manual) Band Neutrophils % Lymphocytes % (Manual) Monocytes % (Manual) Platelet Estimate Anisocytosis (manual) Ovalocytes PT INR APTT pCO2 32 L pO2 181 H HCO3 24.2 ABG pH 7.45 ABG Total CO2 23.2 ABG O2 Saturation 100.5 H ABG Base Excess -1.0 Fabrizio Test Yes ABG Potassium 3.3 L A-a O2 Difference 136.0 Sodium 138.0 Chloride 107.0 Glucose 184 H Lactate 1.9 Vent Mode A/c Mechanical Rate 12 FiO2 50.0 Tidal Volume 500 PEEP 5 Crit Value Called To Crit Value Called By Crit Value Read Back Blood Gas Notified Time Potassium Carbon Dioxide Anion Gap BUN Creatinine Est GFR ( Amer) Est GFR (Non-Af Amer) Random Glucose Lactic Acid Calcium Phosphorus Magnesium Total Bilirubin AST ALT Alkaline Phosphatase Ammonia Total Creatine Kinase Troponin I NT-Pro-B Natriuret Pep Total Protein Albumin Globulin Albumin/Globulin Ratio Arterial Blood Potassium 3.3 L Urine Color Urine Clarity Urine pH Ur Specific [place] Urine Protein Urine Glucose (UA) Urine Ketones Urine Blood Urine Nitrate Urine Bilirubin Urine Urobilinogen Ur Leukocyte Esterase Urine RBC (Auto) Urine Microscopic WBC Urine Bacteria Hyaline Casts Salicylates Urine Opiates Screen Urine Methadone Screen Acetaminophen Ur Barbiturates Screen Phenytoin < 3.0 L Valproic Acid < 10.0 L Ur Phencyclidine Scrn Ur Amphetamines Screen U Benzodiazepines Scrn U Oth Cocaine Metabols U Cannabinoids Screen Alcohol, Quantitative HIV-1 Ab Rapid Screen 02/25/19 02/25/19 02/26/19 23:16 23:16 04:00 WBC 13.6 H D RBC 3.89 L Hgb 10.6 L Hct 32.6 L MCV 83.9 MCH 27.4 MCHC 32.6 L RDW 15.4 H Plt Count 168 MPV 8.8 Neut % (Auto) 95.1 H Lymph % (Auto) 1.9 L [place] % (Auto) 2.9 Eos % (Auto) 0.0 Baso % (Auto) 0.1 Neut # (Auto) 13.0 H Lymph # (Auto) 0.3 L [place] # (Auto) 0.4 Eos # (Auto) 0.0 Baso # (Auto) 0.0 Neutrophils % (Manual) 89 H Band Neutrophils % 1 Lymphocytes % (Manual) 6 L Monocytes % (Manual) 4 Platelet Estimate Normal Anisocytosis (manual) Slight Ovalocytes Slight PT INR APTT pCO2 pO2 HCO3 ABG pH ABG Total CO2 ABG O2 Saturation ABG Base Excess Fabrizio Test ABG Potassium A-a O2 Difference Sodium Chloride Glucose Lactate Vent Mode Mechanical Rate FiO2 Tidal Volume PEEP Crit Value Called To Crit Value Called By Crit Value Read Back Blood Gas Notified Time Potassium Carbon Dioxide Anion Gap BUN Creatinine Est GFR ( Amer) Est GFR (Non-Af Amer) Random Glucose Lactic Acid 1.8 Calcium Phosphorus Magnesium Total Bilirubin AST ALT Alkaline Phosphatase Ammonia Total Creatine Kinase Troponin I 0.6320 H* NT-Pro-B Natriuret Pep Total Protein Albumin Globulin Albumin/Globulin Ratio Arterial Blood Potassium Urine Color Urine Clarity Urine pH Ur Specific [place] Urine Protein Urine Glucose (UA) Urine Ketones Urine Blood Urine Nitrate Urine Bilirubin Urine Urobilinogen Ur Leukocyte Esterase Urine RBC (Auto) Urine Microscopic WBC Urine Bacteria Hyaline Casts Salicylates Urine Opiates Screen Urine Methadone Screen Acetaminophen Ur Barbiturates Screen Phenytoin Valproic Acid Ur Phencyclidine Scrn Ur Amphetamines Screen U Benzodiazepines Scrn U Oth Cocaine Metabols U Cannabinoids Screen Alcohol, Quantitative HIV-1 Ab Rapid Screen 02/26/19 02/26/19 02/26/19 04:00 04:00 04:45 WBC RBC Hgb Hct MCV MCH MCHC RDW Plt Count MPV Neut % (Auto) Lymph % (Auto) [place] % (Auto) Eos % (Auto) Baso % (Auto) Neut # (Auto) Lymph # (Auto) [place] # (Auto) Eos # (Auto) Baso # (Auto) Neutrophils % (Manual) Band Neutrophils % Lymphocytes % (Manual) Monocytes % (Manual) Platelet Estimate Anisocytosis (manual) Ovalocytes PT INR APTT pCO2 27 L pO2 199 H HCO3 23.4 ABG pH 7.48 H ABG Total CO2 20.9 L ABG O2 Saturation 100.2 H ABG Base Excess -2.0 Fabrizio Test Yes ABG Potassium 3.6 A-a O2 Difference 52.0 Sodium 136 137.0 Chloride 102 106.0 Glucose 177 H Lactate 1.5 Vent Mode A/c Mechanical Rate 12 FiO2 40.0 Tidal Volume 500 PEEP 4 Crit Value Called To Crit Value Called By Crit Value Read Back Blood Gas Notified Time Potassium 3.7 Carbon Dioxide 22 Anion Gap 16 BUN 11 Creatinine 0.9 Est GFR ( Amer) > 60 Est GFR (Non-Af Amer) > 60 Random Glucose 172 H Lactic Acid 1.6 Calcium 8.5 Phosphorus 2.7 Magnesium 1.4 L Total Bilirubin 1.1 AST 162 H D ALT 60 Alkaline Phosphatase 116 Ammonia Total Creatine Kinase 6803 H Troponin I 0.6520 H* NT-Pro-B Natriuret Pep Total Protein 6.6 Albumin 3.8 Globulin 2.8 Albumin/Globulin Ratio 1.4 Arterial Blood Potassium 3.6 Urine Color Urine Clarity Urine pH Ur Specific [place] Urine Protein Urine Glucose (UA) Urine Ketones Urine Blood Urine Nitrate Urine Bilirubin Urine Urobilinogen Ur Leukocyte Esterase Urine RBC (Auto) Urine Microscopic WBC Urine Bacteria Hyaline Casts Salicylates Urine Opiates Screen Urine Methadone Screen Acetaminophen Ur Barbiturates Screen Phenytoin Valproic Acid Ur Phencyclidine Scrn Ur Amphetamines Screen U Benzodiazepines Scrn U Oth Cocaine Metabols U Cannabinoids Screen Alcohol, Quantitative HIV-1 Ab Rapid Screen Assessment & Plan (1) Respiratory failure Status: Acute Priority: High (2) Aspiration pneumonia Status: Acute Priority: High (3) Anoxic encephalopathy Status: Acute Priority: High (4) Paroxysmal A-fib Status: Acute Priority: High (5) Seizure Status: Acute Priority: High (6) H/O ETOH abuse Status: Chronic Priority: High - Assessment and Plan (Free Text) Plan: ventilatory support, Clinda, Zosyn, Keppra, Lovenox,Patient on RSR, Amiodarone was DC, CT Chest Chronic changes and previous post op changes R lung, CT Head chronic changes, prognosis poor, ID consult appreciated, f/u Neuro consult, [employer] [facility] was notified Critical care time: 60 min.
--- NOTE | 2019-02-26 19:04 | CARD ---
APPROVED REPORT Date of service: 02/25/2019 EKG Measurement Heart [id number] <Conclusion> Normal sinus rhythm Possible septal infarct, age undetermined Abnormal ECG
--- NOTE | 2019-02-26 19:05 | CARD ---
APPROVED REPORT Date of service: 02/25/2019 EKG Measurement Heart [id number] <Conclusion> Atrial fibrillation with rapid ventricular response with premature ventricular or aberrantly conducted complexes Marked ST abnormality, possible inferolateral subendocardial injury Abnormal ECG
[2019-02-27] MEDS: Metoprolol 1 mg/ml Inj IVP PRN ×2 (01:02→08:48)
[2019-02-27] MEDS: Piperacillin/Tazobact 3.375 GM in Sodium Chloride 0.9% 100 ML IVPB SCH ×3 (01:03→16:13)
[2019-02-27] MEDS: Clindamycin 600mg/50ml NS 600 MG/50 ML BAG IVPB SCH ×3 (01:04→16:12)
[2019-02-27] MEDS: Lactated Ringer's 1,000 ML IV SCH ×3 (03:30→20:58)
[2019-02-27 04:25] LABS: ABG ALLEN TEST YES; ARTERIAL BLOOD GAS HEMOGLOBIN 10.2 g/dL (11.7-17.4); ARTERIAL BLOOD GAS O2 CAPACITY 14.2 mL/dL (16-24); ARTERIAL BLOOD GAS O2 CONTENT 14.3 ML/dL (15-23); ARTERIAL BLOOD GAS O2 SAT 100.4 % (95-98); ARTERIAL BLOOD GAS PCO2 28 mm/Hg (35-45); ARTERIAL BLOOD GAS PH 7.55 (7.35-7.45); ARTERIAL BLOOD GAS PO2 151 mm/Hg (80-100); ARTERIAL BLOOD GAS TCO2 25.4 mmol/L (22-28)
[2019-02-27 05:07] LABS: HEMOGLOBIN 10.2 g/dL (12.0-18.0); MEAN CORPUSCULAR HEMOGLOBIN 27.5 pg (27.0-31.0); MEAN CORPUSCULAR HGB CONC 33.1 g/dL (33.0-37.0); RBC 3.71 Mil/uL (4.40-5.90); RED CELL DISTRIBUTION WIDTH 15.9 % (11.5-14.5); WHITE BLOOD COUNT 12.5 K/uL (4.8-10.8)
[2019-02-27 05:24] LABS: ALB/GLOB RATIO 1.1 (1.0-2.1); ALBUMIN 3.4 g/dL (3.5-5.0); ALT/SGPT 49 U/L (21-72); AST/SGOT 131 U/L (17-59); BLOOD UREA NITROGEN 9 mg/dl (9-20); CALCIUM 8.4 mg/dL (8.4-10.2); GFR NON-AFRICAN AMERICAN > 60
--- NOTE | 2019-02-27 08:11 | RAD ---
Date of service: 02/27/2019 HISTORY: Reevaluate COMPARISON: Portable chest 02/26/2019. TECHNIQUE: 1 view obtained. FINDINGS: LUNGS: Endotracheal and nasogastric tubes are not significantly changed in position. Fibrotic changes are reiterated at the right base including calcified pleural plaque. Volume loss of the right chest is again evident with normal change in limited airspace disease. Calcified granulomata/lymph nodes are again seen the mediastinum and bilateral hilar regions. PLEURA: No interval acute pleural effusion identified, no pneumothorax apparent. CARDIOVASCULAR: No aortic atherosclerotic calcification present. Normal cardiac size. No pulmonary vascular congestion. OSSEOUS STRUCTURES: Incidental note is made of lumbar spinal fusion hardware partially captured at the inferior portion of the exposure. VISUALIZED UPPER ABDOMEN: Normal. OTHER FINDINGS: None. IMPRESSION: Stable limited patchy infiltrate right base with underlying fibrosis reiterated. No new infiltrate with left chest clear once again. Volume loss is unchanged at the right lung with support tubes unchanged in position.
[2019-02-27] MEDS: Enoxaparin 40 mg Syringe SC SCH (08:46)
[2019-02-27] MEDS: levETIRAcetam 500 MG in Sodium Chloride 0.9% 100 ML IVPB SCH ×2 (08:46→20:59)
--- NOTE | 2019-02-27 08:57 | CP.CCUPN ---
CCU Subjective - Physician Review Events Since Last Encounter (Free Text): 02/27/19 17:11 The patient was Seen and examined by me at the bedside Medical records reviewed and Management issues were discussed and formulated with the house staff. Events reviewed Mr Marley is a 58 years old male with past medical history of seizure disorder and alcohol dependence Who was brought in to the emergency room by ambulance he is he was [place], CPR and ACLS protocol was initiated by the EMS and the police department Upon arrival to the emergency room had no pulse, received 1 mg of epinephrine, Narcan and IV fluid, during the code he also received sodium bicarb and calcium with return of spontaneous circulation rhythm strip at that point was showing atrial fibrillation with rapid ventricular response, blood pressure of 56/26, since he was hemodynamically unstable he was shocked with 120 J and received IV digoxin Hypothermia protocol was not initiated since patient was found unresponsive pulseless in a park with unknown downtime plus he was hemodynamically unstable Chest x-ray revealed possible aspiration pneumonia Code sepsis was called, vergara culture sent and empiric antibiotic initiated Central line and atrial line was placed and he was admitted to the intensive care unit for further management He arrived to the intensive care unit orally intubated, on levo fed at 10 mics per minute Patient currently unresponsive, orally intubated with 7.5 ET tube, 25 cm at the lip line Vent setting PRVC 450/10/FiO2 30% and PEEP of 5 Patient remains comatose with no neurological improvement GCS of 3, organ donation notified Neurology consulted today and patient was initiated on 24-hour VU EEG CCU Objective - Vital Signs / Intake & Output Vital Signs (Last 4 hours): Vital Signs Temp Pulse Resp BP Pulse Ox 02/27/19 08:48 102 H 173/94 H 02/27/19 08:45 102 H 174/95 H 02/27/19 08:00 97.9 F 102 H 26 H 176/94 H 100 02/27/19 07:00 90 24 184/98 H 100 02/27/19 06:00 97.9 F 88 20 167/97 H 100 02/27/19 05:00 97 H 23 178/103 H 100 Intake and Output (Last 8hrs): Intake & Output 02/26/19 02/27/19 02/27/19 22:59 06:59 14:59 Intake Total 1888 1430 Output Total 315 400 Balance 1573 1030 Weight 160 lb Intake: IV 1068 750 Intake, Piggyback 250 200 Tube Feeding 420 330 Free Water Flush 150 150 Output: Urine 315 400 Urethral (Leija) 315 400 Other: # Bowel Movements 0 - Physical Exam Physical Exam Limitations: Positive for: Altered Mental Status, Clinical Condition Head: Positive for: Atraumatic, Normocephalic Pupils: Positive for: PERRL, Sluggish Extroacular Muscles: Positive for: EOMI Conjunctiva: Positive for: Normal. Negative for: Injected, Icteric Ears: Positive for: Normal Mouth: Positive for: Moist Mucous Membranes Nose (Internal): Positive for: Normal Inspection Neck: Positive for: Normal Range of Motion, Trachea Midline. Negative for: Meningeal Signs, MIDLINE TENDERNESS, Paraspinal Tenderness, JVD, Lymphadenopathy, Bruit, Other Respiratory/Chest: Positive for: Good Air Exchange, Decreased Breath Sounds, Rhonchi Cardiovascular: Positive for: Regular Rate and Rhythm, Normal S1, S2, Peripheal Pulses Present. Negative for: Murmurs Abdomen: Positive for: Distention, Normal Bowel Sounds. Negative for: Tenderness - Medications Active Medications: Active Medications Generic Name Dose Route Start Last Admin Trade Name Freq PRN Reason Stop Dose Admin Acetaminophen 650 mg 02/26/19 00:27 02/26/19 01:55 Tylenol 650mg/20.3ml Solution Ud GT 650 mg Q6 PRN Administration Temperature Amiodarone HCl 200 mg 02/26/19 23:45 02/27/19 08:45 Cordarone NG 200 mg BID TANNA Administration Enoxaparin Sodium 40 mg 02/26/19 09:00 02/27/19 08:46 Lovenox SC 40 mg DAILY TANNA Administration Protocol Clindamycin Phosphate 600 mg in 50 mls @ 50 mls/hr 02/25/19 19:00 02/27/19 08:45 Cleocin 600mg/50ml Ns IVPB 50 mls/hr Q8 TANNA Administration Protocol Potassium Chloride/Sodium Chloride 1,000 mls @ 100 mls/hr 02/25/19 21:00 02/26/19 07:45 Potassium Chl 20 Meq In Ns IV 100 mls/hr .Q10H [facility]ANNA Administration Levetiracetam 500 mg/ Sodium 105 mls @ 210 mls/hr 02/26/19 09:00 02/27/19 08:46 Chloride IVPB 210 mls/hr Q12 [facility]ANNA Administration Piperacillin Sod/Tazobactam 100 mls @ 100 mls/hr 02/26/19 08:00 02/27/19 01:03 Sod 3.375 gm/ Sodium Chloride IVPB 100 mls/hr Q8@0000,0800,1600 TANNA Administration Protocol Lactated Ringer's 1,000 mls @ 125 mls/hr 02/26/19 10:15 02/27/19 03:30 Lactated Ringer's IV 125 mls/hr .Q8H [facility] Administration Metoprolol Tartrate 5 mg 02/26/19 23:54 02/27/19 08:48 Lopressor IVP 5 mg Q6 PRN Administration Systolic Blood Pressure Pantoprazole Sodium 40 mg 02/25/19 20:45 02/27/19 08:46 Protonix Inj IVP 40 mg DAILY TANNA Administration - Patient Studies Lab Studies: Microbiology Studies 02/25/19 18:44 Urine Culture - Final Urine,Leija No Growth (<1,000 CFU/ML) 02/25/19 17:55 Blood Culture - Preliminary Blood NO GROWTH AFTER 24 HOURS 02/25/19 17:45 Blood Culture - Preliminary Blood NO GROWTH AFTER 24 HOURS 02/25/19 09:40 Gram Stain - Preliminary Trachasp Lab Studies 02/27/19 02/27/19 02/27/19 Range/Units 04:10 04:10 03:56 WBC 12.5 H (4.8-10.8) K/uL RBC 3.71 L (4.40-5.90) Mil/uL Hgb 10.2 L (12.0-18.0) g/dL Hct 30.8 L (35.0-51.0) % MCV 83.0 (80.0-94.0) fl MCH 27.5 (27.0-31.0) pg MCHC 33.1 (33.0-37.0) g/dL RDW 15.9 H (11.5-14.5) % Plt Count 144 (130-400) K/uL pCO2 28 L (35-45) mm/Hg pO2 151 H (80-100) mm/Hg HCO3 27.0 (21-28) mmol/L ABG pH 7.55 H (7.35-7.45) ABG Total CO2 25.4 (22-28) mmol/L ABG O2 Saturation 100.4 H (95-98) % ABG O2 Content 14.3 L (15-23) ML/dL ABG Base Excess 2.6 (-2.0-3.0) mmol/L ABG Hemoglobin 10.2 L (11.7-17.4) g/dL ABG Carboxyhemoglobin 1.8 H (0.5-1.5) % POC ABG HHb (Measured) -0.4 L (0.0-5.0) % ABG Methemoglobin 1.3 (0.0-3.0) % ABG O2 Capacity 14.2 L (16-24) mL/dL Fabrizio Test Yes A-a O2 Difference 28.0 mm/Hg Hgb O2 Saturation 97.3 (95.0-98.0) % Vent Mode A/c Mechanical Rate 10 FiO2 30.0 % Tidal Volume 500 PEEP 5 Sodium 135 (132-148) mmol/l Potassium 3.1 L (3.6-5.0) MMOL/L Chloride 101 (98-107) mmol/L Carbon Dioxide 26 (22-30) mmol/L Anion Gap 11 (10-20) BUN 9 (9-20) mg/dl Creatinine 0.7 L (0.8-1.5) mg/dl Est GFR ( Amer) > 60 Est GFR (Non-Af Amer) > 60 Random Glucose 204 H (75-110) mg/dL Calcium 8.4 (8.4-10.2) mg/dL Magnesium 1.7 (1.6-2.3) MG/DL Total Bilirubin 0.7 (0.2-1.3) mg/dl AST 131 H (17-59) U/L ALT 49 (21-72) U/L Alkaline Phosphatase 102 (38-126) U/L Total Protein 6.3 (6.3-8.2) G/DL Albumin 3.4 L (3.5-5.0) g/dL Globulin 3.0 (2.2-3.9) gm/dL Albumin/Globulin Ratio 1.1 (1.0-2.1) Laboratory Results - last 24 hr 02/27/19 02/27/19 02/27/19 03:56 04:10 04:10 WBC 12.5 H RBC 3.71 L Hgb 10.2 L Hct 30.8 L MCV 83.0 MCH 27.5 MCHC 33.1 RDW 15.9 H Plt Count 144 pCO2 28 L pO2 151 H HCO3 27.0 ABG pH 7.55 H ABG Total CO2 25.4 ABG O2 Saturation 100.4 H ABG O2 Content 14.3 L ABG Base Excess 2.6 ABG Hemoglobin 10.2 L ABG Carboxyhemoglobin 1.8 H POC ABG HHb (Measured) -0.4 L ABG Methemoglobin 1.3 ABG O2 Capacity 14.2 L Fabrizio Test Yes A-a O2 Difference 28.0 Hgb O2 Saturation 97.3 Vent Mode A/c Mechanical Rate 10 FiO2 30.0 Tidal Volume 500 PEEP 5 Sodium 135 Potassium 3.1 L Chloride 101 Carbon Dioxide 26 Anion Gap 11 BUN 9 Creatinine 0.7 L Est GFR ( Amer) > 60 Est GFR (Non-Af Amer) > 60 Random Glucose 204 H Calcium 8.4 Magnesium 1.7 Total Bilirubin 0.7 AST 131 H ALT 49 Alkaline Phosphatase 102 Total Protein 6.3 Albumin 3.4 L Globulin 3.0 Albumin/Globulin Ratio 1.1 Radiology Impressions: Radiology Impressions Cervical Spine CT 02/25/19 17:35 IMPRESSION: No fracture or definite spondylolisthesis. No severe bony spinal stenosis although multilevel spondylosis, uncovertebral and facet arthropathy result in variable multilevel neural foraminal stenoses as discussed above. Head CT 02/25/19 17:35 IMPRESSION: No acute intracranial findings appreciable in the interval. Stable age-related degenerative changes well as chronic lacune left thalamus as seen in prior CT 02/22/2019. No significant interval change Concordant preliminary report from [facility], 02/25/2019, 10:19 p.m.. Chest X-Ray 02/25/19 22:57 IMPRESSION: Potential limited right basilar infiltrate unchanged with remaining chronic fibrotic changes and right-sided volume loss again evident. ET tube advanced further into the trachea in good apparent position. Orogastric tube identified placed entering into the abdomen with the tip off the inferior margins of the image. Chest X-Ray 02/27/19 06:00 IMPRESSION: Stable limited patchy infiltrate right base with underlying fibrosis reiterated. No new infiltrate with left chest clear once again. Volume loss is unchanged at the right lung with support tubes unchanged in position. EKG/Cardiology Studies: Cardiology / EKG Studies 02/26/19 09:00 EKG [ELECTROCARDIOGRAM] DAILY Comment: Mode Of Transportation: Reason For Exam: paroxysmal rapid A fib, r/o AMI Fingerstick Blood Sugar Results: 177 Review of Systems - Review of Systems Systems not reviewed;Unavailable: Intubated Critical Care Progress Note - Ventilator Checklist Head of Bed 30 Degrees: Yes Daily Sedation Vacation: Yes Daily Assessment of Readiness to Wean: Yes Daily Spontaneous Breathing Trial: Yes PUD Prophalyxis: Yes DVT Prophylaxis: Yes Oral Care with Chlorhexidine Gluconate {CHG}: Yes - Extremities/Vascular Does the Patient have a Central Venous Catheter?: Yes Does the Patient need a Central Venous Catheter?: Yes Does the Patient have a Leija Catheter?: No Does the Patient need a Leija Catheter?: No Assessment/Plan (1) Cardiac arrest Current Visit: Yes Status: Acute Priority: High (2) Anoxic encephalopathy Current Visit: Yes Status: Acute Priority: High (3) Aspiration pneumonia Current Visit: Yes Status: Acute Priority: High (4) Paroxysmal A-fib Current Visit: Yes Status: Acute Priority: High (5) Respiratory failure Current Visit: Yes Status: Acute Priority: High (6) Seizure Current Visit: Yes Status: Acute Priority: High (7) Septic shock Current Visit: Yes Status: Acute Priority: High (8) H/O ETOH abuse Current Visit: Yes Status: Chronic Priority: High - Assessment and Plan (Free Text) Assessment: Patient admitted to the intensive care unit status post cardiac arrest for hemodynamic monitoring and frequent neuro check Severe sepsis from aspiration pneumonia Patient with history of chronic alcohol dependence New onset paroxysmal atrial fibrillation Uncontrolled hypertension Full vent support, patient is not a candidate for vent weaning at this point due to poor mental status Continue with empiric broad-spectrum antibiotic coverage Neurology consulted and he was initiated on 24-hour EEG monitor Started on Cardene drip for better blood pressure control No neurological improvement so far, poor prognosis, will discuss with the family
[2019-02-27] MEDS: Potassium CL 10 MEQ/50 ML 50 ML IVPB SCH ×4 (10:26→13:52)
--- NOTE | 2019-02-27 12:52 | CP.PCM.CON ---
History of Present Illness - History of Present Illness History of Present Illness: Neurology Consultation Note: Consult requested by Dr. Light Mr. Marley is a 58-year-old man with a past medical history of HTN, HLD, depression, alcohol abuse and seizures, who was found down and unconscious on the 25 of February. It is not known how long the patient was down, but he was in cardio-pulmonary arrest, was coded and intubated. Afterward, he was in atrial fibrillation and started on amiodarone. He is now in the ICU with no response to painful stimulus, but breathing over the ventilator. He was apparently non-compliant with seizure medications since levels were low or not detectable. Keppra was resumed. Non-contrast CT head showed chronic left basal ganglia infarcts, but no acute findings. Review of Systems - Review of Systems Systems not reviewed;Unavailable: Intubated Past Patient History - Infectious Disease Hx of Infectious Diseases: None - Past Medical History & Family History Past Medical History?: Yes - Past Social History Smoking Status: Never Smoked - CARDIAC Hx Hypercholesterolemia: Yes Hx Hypertension: Yes - PULMONARY Hx Pneumonia: Yes - NEUROLOGICAL Hx Seizures: Yes (Tx Keppra) - HEENT Hx HEENT Problems: No - RENAL Hx Chronic Kidney Disease: No - ENDOCRINE/METABOLIC Hx Endocrine Disorders: No - HEMATOLOGICAL/ONCOLOGICAL Hx Human Immunodeficiency Virus (HIV): No - INTEGUMENTARY Hx Dermatological Problems: No - MUSCULOSKELETAL/RHEUMATOLOGICAL Hx Musculoskeletal Disorders: Yes Hx Falls: Yes (Frequent as per daughter due to ETOH abuse) Hx Unsteady Gait: Yes - GASTROINTESTINAL Hx Gastrointestinal Disorders: No - GENITOURINARY/GYNECOLOGICAL Hx Genitourinary Disorders: No - PSYCHIATRIC Hx Depression: Yes - SURGICAL HISTORY Hx Surgeries: Yes Hx Appendectomy: Yes Other/Comment: As per daughter, appendectomy and "spine surgery". - ANESTHESIA Hx Anesthesia: Yes (unknown) Hx Anesthesia Reactions: No Hx Malignant Hyperthermia: No (unknown) Has any member of the family had a problem w/ anesthesia?: No Meds Allergies/Adverse Reactions: Allergies Allergy/AdvReac Type Severity Reaction Status Date / Time No Known Allergies Allergy Verified 04/29/18 19:18 - Medications Medications: Current Medications Acetaminophen (Tylenol 650mg/20.3ml Solution Ud) 650 mg GT Q6 PRN PRN Reason: Temperature Last Admin: 02/26/19 01:55 Dose: 650 mg Amiodarone HCl (Cordarone) 200 mg NG BID [facility] Last Admin: 02/27/19 08:45 Dose: 200 mg Enoxaparin Sodium (Lovenox) 40 mg SC DAILY [facility]; Protocol Last Admin: 02/27/19 08:46 Dose: 40 mg Clindamycin Phosphate (Cleocin 600mg/50ml Ns) 600 mg in 50 mls @ 50 mls/hr IVPB Q8 [facility]; Protocol Last Admin: 02/27/19 08:45 Dose: 50 mls/hr Potassium Chloride/Sodium Chloride (Potassium Chl 20 Meq In Ns) 1,000 mls @ 100 mls/hr IV .Q10H [facility] Last Admin: 02/26/19 07:45 Dose: 100 mls/hr Levetiracetam 500 mg/ Sodium (Chloride) 105 mls @ 210 mls/hr IVPB Q12 [facility] Last Admin: 02/27/19 08:46 Dose: 210 mls/hr Piperacillin Sod/Tazobactam (Sod 3.375 gm/ Sodium Chloride) 100 mls @ 100 mls/hr IVPB Q8@0000,0800,1600 [facility]; Protocol Last Admin: 02/27/19 09:25 Dose: 100 mls/hr Lactated Ringer's (Lactated Ringer's) 1,000 mls @ 125 mls/hr IV .Q8H [facility] Last Admin: 02/27/19 11:36 Dose: 125 mls/hr Potassium Chloride (Potassium Cl 10meq/50ml Sterile Water) 50 mls @ 50 mls/hr IVPB Q1 [facility] Stop: 02/27/19 13:59 Last Admin: 02/27/19 11:37 Dose: 50 mls/hr Metoprolol Tartrate (Lopressor) 5 mg IVP Q6 PRN PRN Reason: Systolic Blood Pressure Last Admin: 02/27/19 08:48 Dose: 5 mg Pantoprazole Sodium (Protonix Inj) 40 mg IVP DAILY [facility] Last Admin: 02/27/19 08:46 Dose: 40 mg Physical Exam - Constitutional Appears: Chronically Ill - Head Exam Head Exam: ATRAUMATIC, NORMAL INSPECTION, NORMOCEPHALIC - Eye Exam Eye Exam: Normal appearance - ENT Exam ENT Exam: Mucous Membranes Moist, Normal Exam - Neck Exam Neck exam: Positive for: Normal Inspection - Respiratory Exam Respiratory Exam: Decreased Breath Sounds - Cardiovascular Exam Cardiovascular Exam: Irregular Rhythm, +S1, +S2 - GI/Abdominal Exam GI & Abdominal Exam: Normal Bowel Sounds, Soft. absent: Tenderness - Extremities Exam Extremities exam: Positive for: normal inspection - Back Exam Back exam: NORMAL INSPECTION - Neurological Exam Additional comments: Unresponsive to painful stimulus, pupils are sluggishly reactive, corneals were not elicited, breathing over the ventilator. GCS 3T - Psychiatric Exam Psychiatric exam: Normal Affect, Normal Mood - Skin Skin Exam: Dry, Intact, Normal Color, Warm Results - Vital Signs Recent Vital Signs: Last Vital Signs Temp 98.6 F 02/27/19 12:00 Pulse 90 02/27/19 12:00 Resp 25 H 02/27/19 12:00 BP 171/92 H 02/27/19 12:00 Pulse Ox 100 02/27/19 12:00 - Labs Result Diagrams: 02/27/19 04:10 02/27/19 04:10 Labs: Laboratory Results - last 24 hr 02/27/19 02/27/19 02/27/19 03:56 04:10 04:10 WBC 12.5 H RBC 3.71 L Hgb 10.2 L Hct 30.8 L MCV 83.0 MCH 27.5 MCHC 33.1 RDW 15.9 H Plt Count 144 pCO2 28 L pO2 151 H HCO3 27.0 ABG pH 7.55 H ABG Total CO2 25.4 ABG O2 Saturation 100.4 H ABG O2 Content 14.3 L ABG Base Excess 2.6 ABG Hemoglobin 10.2 L ABG Carboxyhemoglobin 1.8 H POC ABG HHb (Measured) -0.4 L ABG Methemoglobin 1.3 ABG O2 Capacity 14.2 L Fabrizio Test Yes A-a O2 Difference 28.0 Hgb O2 Saturation 97.3 Vent Mode A/c Mechanical Rate 10 FiO2 30.0 Tidal Volume 500 PEEP 5 Sodium 135 Potassium 3.1 L Chloride 101 Carbon Dioxide 26 Anion Gap 11 BUN 9 Creatinine 0.7 L Est GFR ( Amer) > 60 Est GFR (Non-Af Amer) > 60 Random Glucose 204 H Calcium 8.4 Magnesium 1.7 Total Bilirubin 0.7 AST 131 H ALT 49 Alkaline Phosphatase 102 Total Protein 6.3 Albumin 3.4 L Globulin 3.0 Albumin/Globulin Ratio 1.1 Assessment & Plan (1) Anoxic encephalopathy Assessment and Plan: Likely due to prolonged anoxia, the patient has suffered irreversible injury. Seizures are also possible. Will evaluate with VEEG. Continue current management per ICU team. Thank you for this consultation. Status: Acute
--- NOTE | 2019-02-27 14:02 | CP.PCM.PN ---
Subjective - Date & Time of Evaluation Date of Evaluation: 02/27/19 Time of Evaluation: 12:30 - Subjective Subjective: F/U Respiratory failure Pt unresponsive, comatose Objective - Vital Signs/Intake and Output Vital Signs (last 24 hours): Temp Pulse Resp BP Pulse Ox 98.6 F 90 25 H 171/92 H 100 02/27/19 12:00 02/27/19 12:00 02/27/19 12:00 02/27/19 12:00 02/27/19 12:00 Intake and Output: 02/27/19 02/27/19 06:59 18:59 Intake Total 2400 1580 Output Total 600 Balance 1800 1580 - Medications Medications: Current Medications Acetaminophen (Tylenol 650mg/20.3ml Solution Ud) 650 mg GT Q6 PRN PRN Reason: Temperature Last Admin: 02/26/19 01:55 Dose: 650 mg Amiodarone HCl (Cordarone) 200 mg NG BID [facility] Last Admin: 02/27/19 08:45 Dose: 200 mg Enoxaparin Sodium (Lovenox) 40 mg SC DAILY [facility]; Protocol Last Admin: 02/27/19 08:46 Dose: 40 mg Clindamycin Phosphate (Cleocin 600mg/50ml Ns) 600 mg in 50 mls @ 50 mls/hr IVPB Q8 [facility]; Protocol Last Admin: 02/27/19 08:45 Dose: 50 mls/hr Potassium Chloride/Sodium Chloride (Potassium Chl 20 Meq In Ns) 1,000 mls @ 100 mls/hr IV .Q10H [facility] Last Admin: 02/26/19 07:45 Dose: 100 mls/hr Levetiracetam 500 mg/ Sodium (Chloride) 105 mls @ 210 mls/hr IVPB Q12 [facility] Last Admin: 02/27/19 08:46 Dose: 210 mls/hr Piperacillin Sod/Tazobactam (Sod 3.375 gm/ Sodium Chloride) 100 mls @ 100 mls/hr IVPB Q8@0000,0800,1600 [facility]; Protocol Last Admin: 02/27/19 09:25 Dose: 100 mls/hr Lactated Ringer's (Lactated Ringer's) 1,000 mls @ 125 mls/hr IV .Q8H [facility] Last Admin: 02/27/19 11:36 Dose: 125 mls/hr Metoprolol Tartrate (Lopressor) 5 mg IVP Q6 PRN PRN Reason: Systolic Blood Pressure Last Admin: 02/27/19 08:48 Dose: 5 mg Pantoprazole Sodium (Protonix Inj) 40 mg IVP DAILY [facility] Last Admin: 02/27/19 08:46 Dose: 40 mg - Labs Labs: 02/27/19 04:10 02/27/19 04:10 PT 14.1 Seconds (9.8-13.1) H 02/25/19 17:37 INR 1.2 02/25/19 17:37 APTT 27.6 Seconds (25.6-37.1) 02/25/19 17:37 - Constitutional Appears: Chronically Ill - Head Exam Head Exam: NORMAL INSPECTION - Eye Exam Eye Exam: PERRL - ENT Exam Additional comments: Intubated, OGT - Neck Exam Neck Exam: Normal Inspection - Respiratory Exam Respiratory Exam: Decreased Breath Sounds (at bases), Rhonchi - Cardiovascular Exam Cardiovascular Exam: REGULAR RHYTHM - GI/Abdominal Exam GI & Abdominal Exam: Soft, Normal Bowel Sounds - Extremities Exam Extremities Exam: Normal Inspection - Neurological Exam Additional comments: Comatose, no response to verbal or tactile stimuli. - Skin Skin Exam: Warm Assessment and Plan (1) Respiratory failure Status: Acute (2) Aspiration pneumonia Status: Acute (3) Anoxic encephalopathy Status: Acute (4) Paroxysmal A-fib Status: Acute (5) Seizure Status: Acute (6) H/O ETOH abuse Status: Chronic - Assessment and Plan (Free Text) Plan: F/U 24 hrs EEG, continue ventilatory support, Clindamycin, Zosyn, Lovenox and rest of Tx. Neurology consult appreciated Critical care time: 33 min.
[2019-02-27] MEDS: Acetaminophen 650mg/20.3ml solution UD GT PRN (16:18)
[2019-02-27] MEDS ORDERED: Nicardipine 20 MG/200 ML 20 MG/200 ML BAG IV ONE (19:04)
[2019-02-28] MEDS: Piperacillin/Tazobact 3.375 GM in Sodium Chloride 0.9% 100 ML IVPB SCH ×3 (01:23→17:03)
[2019-02-28] MEDS: Clindamycin 600mg/50ml NS 600 MG/50 ML BAG IVPB SCH ×3 (01:23→16:15)
[2019-02-28 04:37] LABS: ABG ALLEN TEST YES; ARTERIAL BLOOD GAS HCO3 28.1 mmol/L (21-28); ARTERIAL BLOOD GAS HEMOGLOBIN 9.7 g/dL (11.7-17.4); ARTERIAL BLOOD GAS O2 CAPACITY 13.5 mL/dL (16-24); ARTERIAL BLOOD GAS O2 CONTENT 13.5 ML/dL (15-23); ARTERIAL BLOOD GAS O2 SAT 99.9 % (95-98); ARTERIAL BLOOD GAS PCO2 35 mm/Hg (35-45); ARTERIAL BLOOD GAS PO2 110 mm/Hg (80-100); ARTERIAL BLOOD GAS TCO2 28.4 mmol/L (22-28)
[2019-02-28 05:21] LABS: HEMOGLOBIN 9.2 g/dL (12.0-18.0); MEAN CELL VOLUME 82.6 fl (80.0-94.0); MEAN CORPUSCULAR HGB CONC 33.9 g/dL (33.0-37.0); RBC 3.28 Mil/uL (4.40-5.90); RED CELL DISTRIBUTION WIDTH 16.1 % (11.5-14.5); WHITE BLOOD COUNT 9.9 K/uL (4.8-10.8)
[2019-02-28] MEDS: Lactated Ringer's 1,000 ML IV SCH ×3 (05:26→20:39)
[2019-02-28 05:36] LABS: ALB/GLOB RATIO 1.1 (1.0-2.1); ALT/SGPT 43 U/L (21-72); AST/SGOT 127 U/L (17-59); BLOOD UREA NITROGEN 7 mg/dl (9-20); CALCIUM 7.9 mg/dL (8.4-10.2); GFR NON-AFRICAN AMERICAN > 60
--- NOTE | 2019-02-28 07:52 | RAD ---
Date of service: 02/28/2019 HISTORY: Pt intubated, daily ETT placement COMPARISON: Portable chest 02/27/2019 4:33 a.m.. TECHNIQUE: 1 view obtained. FINDINGS: LUNGS: Endotracheal and nasogastric tubes do not appear significantly changed in position. Normal change in linear with limited interval right lower lobe infiltrate with postoperative change and right lower lobe fibrosis and pleural plaque reiterated. Overall volume loss is reiterated at the right lung as well. Left lung remains clear. PLEURA: No acute pleural effusion identified, no pneumothorax apparent. CARDIOVASCULAR: Calcific atherosclerotic changes are seen related to the thoracic aorta. Normal cardiac size. No pulmonary vascular congestion. OSSEOUS STRUCTURES: No significant abnormalities. VISUALIZED UPPER ABDOMEN: Normal. OTHER FINDINGS: None. IMPRESSION: No change in limited right basilar infiltrate overlying chronic fibrotic change. Left lung remains clear. No plantar vol pulmonary vascular congestion.
[2019-02-28] MEDS: levETIRAcetam 500 MG in Sodium Chloride 0.9% 100 ML IVPB SCH ×2 (09:16→20:22)
[2019-02-28] MEDS: Enoxaparin 40 mg Syringe SC SCH (09:17)
--- NOTE | 2019-02-28 09:59 | PCM.VEEG ---
Video EEG - Procedure Start Date: 02/27/19 Start Time: 12:55 End Date: 02/28/19 End Time: 09:30 Technical Summary: DATA ACQUISITION: This was a multichannel inpatient video-EEG, a minimum of 22 channels were uti lized, performed in accordance with recommendations specified by the [place] [employer] (Cesia Zurita et al. ACNS Guideline 1: Minimum Technical Requirements for Performing Clinical Electroencephalography. Journal of Clinical Neurophysiology 2016;33:303-7). The 10-20 electrode placement system was utilized in accordance with guidelines detailed by the International Federation of Clinical Neurophysiology (Ant You et al. The Ten-Twenty Electrode System of the International Federation. Recommendations for the Practice of Clinical Neurophysiology: Guidelines of the International Federation of Clinical Physiology 1999; EEG Suppl. 52.). DATA REVIEW / SPIKE DETECTION / DIGITAL ANALYSIS: The entire EEG was scanned and reviewed. Synchronized audio and video recording were reviewed at the time of each alarm and whenever an abnormality or suspicious activity was noted. The entire recording was analyzed utilizing an automated digital spike and seizure analysis program and all automatic spike and seizure detections were manually reviewed. A compressed spectral array was displayed and reviewed alongside the raw EEG tracings. In addition, further analysis of the EEG was performed when abnormalities were identified, including montage changes, dipole source localization, and frequency band identification. This study was attended 24 hours per day. - Interpretation Description of the study: Indication; coma following cardiac arrest. EEG Finding during wakefulness: During the entire study was not discernible awake EEG background, the EEG showed continuous diffuse marked bilateral attenuation with frequencies in the 3 to 4 Hz, range with superimposed artifact. When he was stimulated there was no evidence of reactivity. EEG Finding during sleep: Normal sleep architecture was not seen, . Interictal non-epileptiform abnormalities: None Interictal epileptiform abnormalities: None Ictal epileptiform abnormalities: None - Impression Impression: This was an abnormal video EEG, monitoring study, due to the presence of: 1- Marked diffuse attenuation/slowing. No seizures Not in status epilepticus INTERPRETATION: The above mentioned findings are in keeping with a severe non specific diffuse disturbance of cortical activity. This is in keeping with a diffuse cook m atter dysfunction. The findings do not suggest a specific etiology.
[2019-02-28] MEDS ORDERED: Nicardipine 20 MG/200 ML 20 MG/200 ML BAG IV ONE ×2 (10:23→18:39)
[2019-02-28] MEDS: Potassium CL 10 MEQ/50 ML 50 ML IVPB SCH ×4 (11:06→15:05)
--- NOTE | 2019-02-28 11:07 | CP.PCM.PN ---
Subjective - Date & Time of Evaluation Date of Evaluation: 02/28/19 Time of Evaluation: 11:03 - Subjective Subjective: Neuro Follow-Up Note: Mr. Marley was evaluated this morning in the ICU. He remains intubated and on a mech vent with no sedation. He does not respond to painful stimuli today; does not follows any commands. He is breathing over the vent. ROS is unobtainable from the pt due to his current state. Chart reviewed and case discussed with primary RN. Objective - Vital Signs/Intake and Output Vital Signs (last 24 hours): Temp Pulse Resp BP Pulse Ox 99.7 F H 70 20 164/84 H 96 02/28/19 08:00 02/28/19 09:17 02/28/19 08:00 02/28/19 09:17 02/28/19 08:00 Intake and Output: 02/28/19 02/28/19 06:59 18:59 Intake Total 2512 Output Total 900 Balance 1612 - Medications Medications: Current Medications Acetaminophen (Tylenol 650mg/20.3ml Solution Ud) 650 mg GT Q6 PRN PRN Reason: Temperature Last Admin: 02/27/19 16:18 Dose: 650 mg Amiodarone HCl (Cordarone) 200 mg NG BID TANNA Last Admin: 02/28/19 09:17 Dose: 200 mg Enoxaparin Sodium (Lovenox) 40 mg SC DAILY TANNA; Protocol Last Admin: 02/28/19 09:17 Dose: 40 mg Clindamycin Phosphate (Cleocin 600mg/50ml Ns) 600 mg in 50 mls @ 50 mls/hr IVPB Q8 TANNA; Protocol Last Admin: 02/28/19 09:16 Dose: 50 mls/hr Potassium Chloride/Sodium Chloride (Potassium Chl 20 Meq In Ns) 1,000 mls @ 100 mls/hr IV .Q10H TANNA Last Admin: 02/26/19 07:45 Dose: 100 mls/hr Levetiracetam 500 mg/ Sodium (Chloride) 105 mls @ 210 mls/hr IVPB Q12 TANNA Last Admin: 02/28/19 09:16 Dose: 210 mls/hr Piperacillin Sod/Tazobactam (Sod 3.375 gm/ Sodium Chloride) 100 mls @ 100 mls/hr IVPB Q8@0000,0800,1600 TANNA; Protocol Last Admin: 02/28/19 09:05 Dose: 100 mls/hr Lactated Ringer's (Lactated Ringer's) 1,000 mls @ 125 mls/hr IV .Q8H [facility] Last Admin: 02/28/19 05:26 Dose: 125 mls/hr Nicardipine HCl (Cardene Iv Premix) 20 mg in 200 mls @ 25 mls/hr IV .Q8H [facility]; Protocol Stop: 02/28/19 18:22 Potassium Chloride (Potassium Cl 10meq/50ml Sterile Water) 50 mls @ 50 mls/hr IVPB Q1 [facility] Stop: 02/28/19 14:59 Metoprolol Tartrate (Lopressor) 5 mg IVP Q6 PRN PRN Reason: Systolic Blood Pressure Last Admin: 02/27/19 08:48 Dose: 5 mg Pantoprazole Sodium (Protonix Inj) 40 mg IVP DAILY [facility] Last Admin: 02/28/19 09:17 Dose: 40 mg - Labs Labs: 02/28/19 05:00 02/28/19 05:00 PT 14.1 Seconds (9.8-13.1) H 02/25/19 17:37 INR 1.2 02/25/19 17:37 APTT 27.6 Seconds (25.6-37.1) 02/25/19 17:37 - Constitutional Appears: Other (intubated, on mech vent, no sedation, does not follow commands, no response to painful stimuli) - Head Exam Head Exam: ATRAUMATIC, NORMAL INSPECTION, NORMOCEPHALIC - Eye Exam Eye Exam: absent: EOMI, Normal appearance, Nystagmus, PERRL Pupil Exam: absent: NORMAL ACCOMODATION, PERRL Additional comments: No corneals No dolls eyes Pupils are non-reactive to me and are fixed at approx 2 mm b/l - ENT Exam ENT Exam: Mucous Membranes Moist Additional comments: intubated OGT - Neck Exam Neck Exam: Full ROM, Normal Inspection - Respiratory Exam Additional comments: intubated, on mech vent; breathing over the vent - Cardiovascular Exam Cardiovascular Exam: REGULAR RHYTHM - GI/Abdominal Exam GI & Abdominal Exam: Soft Additional comments: ogt - Exam Additional comments: ge cath in place - Extremities Exam Extremities Exam: Normal Inspection. absent: Calf Tenderness, Full ROM, Pedal Edema Additional comments: Extremities flaccid; has minimal tone to BUE Does not withdraw to or localize pain. - Neurological Exam Neurological Exam: Altered. absent: Alert, Awake, Oriented x3 Additional comments: Pt is intubated, on mech vent; off sedation. Nonverbal; does not follow commands; no response to stimuli. Pupils are fixed at 2 mm b/l; neg dolls eyes and corneals. Does not open eyes spontaneously. Weak gag reflex noted. Extremities flaccid; has minimal tone to BUE. Does not withdraw to or localize pain. No tremors or abnormal movements. GCS 3T - Psychiatric Exam Psychiatric exam: absent: Normal Affect, Normal Mood - Skin Skin Exam: Normal Color Assessment and Plan (1) Anoxic encephalopathy Assessment & Plan: Imaging reviewed: -EEG (02/27/19-02/28/19): This was an abnormal video EEG, monitoring study, due to the presence of: Marked diffuse attenuation/slowing. No seizures Not in status epilepticus. INTERPRETATION: The above mentioned findings are in keeping with a severe non specific diffuse disturbance of cortical activity. This is in keeping with a diffuse cook matter dysfunction. The findings do not suggest a specific etiology. -CT Head (02/15/19): No acute intracranial findings appreciable in the interval. Stable age-related degenerative changes well as chronic lacune left thalamus as seen in prior CT 02/22/2019. No significant interval change. -Continue Keppra 500 mg IV Q12. -Continue seizure precaution and continue management in the ICU. -We recommend that palliative care speak with pt's family regarding goals of care and decision to withdraw life support. Dr. Snowden spoke with the family about this yesterday. -Notify neuro team of any changes in pt's condition. Tess Green DNP, NURSING ADMINISTRATOR d/w Dr. Snowden Status: Acute
--- NOTE | 2019-02-28 13:04 | CP.PCM.PN ---
Subjective - Date & Time of Evaluation Date of Evaluation: 02/28/19 Time of Evaluation: 12:30 - Subjective Subjective: F/U Respiratory failure. Pt comatose, unresponsive Objective - Vital Signs/Intake and Output Vital Signs (last 24 hours): Temp Pulse Resp BP Pulse Ox 98.8 F 85 20 138/75 97 02/28/19 12:00 02/28/19 12:00 02/28/19 12:00 02/28/19 12:00 02/28/19 12:00 Intake and Output: 02/28/19 02/28/19 06:59 18:59 Intake Total 2512 1655 Output Total 900 Balance 1612 1655 - Medications Medications: Current Medications Acetaminophen (Tylenol 650mg/20.3ml Solution Ud) 650 mg GT Q6 PRN PRN Reason: Temperature Last Admin: 02/27/19 16:18 Dose: 650 mg Amiodarone HCl (Cordarone) 200 mg NG BID TANNA Last Admin: 02/28/19 09:17 Dose: 200 mg Enoxaparin Sodium (Lovenox) 40 mg SC DAILY [facility]; Protocol Last Admin: 02/28/19 09:17 Dose: 40 mg Clindamycin Phosphate (Cleocin 600mg/50ml Ns) 600 mg in 50 mls @ 50 mls/hr IVPB Q8 [facility]AN[facility]; Protocol Last Admin: 02/28/19 09:16 Dose: 50 mls/hr Potassium Chloride/Sodium Chloride (Potassium Chl 20 Meq In Ns) 1,000 mls @ 100 mls/hr IV .Q10H [facility] Last Admin: 02/26/19 07:45 Dose: 100 mls/hr Levetiracetam 500 mg/ Sodium (Chloride) 105 mls @ 210 mls/hr IVPB Q12 [facility] Last Admin: 02/28/19 09:16 Dose: 210 mls/hr Piperacillin Sod/Tazobactam (Sod 3.375 gm/ Sodium Chloride) 100 mls @ 100 mls/hr IVPB Q8@0000,0800,1600 [facility]; Protocol Last Admin: 02/28/19 09:05 Dose: 100 mls/hr Lactated Ringer's (Lactated Ringer's) 1,000 mls @ 125 mls/hr IV .Q8H [facility] Last Admin: 02/28/19 05:26 Dose: 125 mls/hr Nicardipine HCl (Cardene Iv Premix) 20 mg in 200 mls @ 25 mls/hr IV .Q8H [facility]; Protocol Stop: 02/28/19 18:22 Last Admin: 02/28/19 10:25 Dose: 2.5 mg/hr, 25 mls/hr Potassium Chloride (Potassium Cl 10meq/50ml Sterile Water) 50 mls @ 50 mls/hr IVPB Q1 [facility] Stop: 02/28/19 14:59 Last Admin: 02/28/19 12:03 Dose: 50 mls/hr Metoprolol Tartrate (Lopressor) 5 mg IVP Q6 PRN PRN Reason: Systolic Blood Pressure Last Admin: 02/27/19 08:48 Dose: 5 mg Pantoprazole Sodium (Protonix Inj) 40 mg IVP DAILY [facility] Last Admin: 02/28/19 09:17 Dose: 40 mg - Labs Labs: 02/28/19 05:00 02/28/19 05:00 PT 14.1 Seconds (9.8-13.1) H 02/25/19 17:37 INR 1.2 02/25/19 17:37 APTT 27.6 Seconds (25.6-37.1) 02/25/19 17:37 - Constitutional Appears: Chronically Ill - Head Exam Head Exam: NORMAL INSPECTION - Eye Exam Additional comments: Pupils sluggish - ENT Exam Additional comments: Intubated, OGT - Neck Exam Neck Exam: Normal Inspection - Respiratory Exam Respiratory Exam: Decreased Breath Sounds (at bases), Rhonchi - Cardiovascular Exam Cardiovascular Exam: REGULAR RHYTHM - GI/Abdominal Exam GI & Abdominal Exam: Soft - Exam Additional comments: Leija Cath - Extremities Exam Extremities Exam: Normal Inspection - Neurological Exam Additional comments: Comatose, no response. - Skin Skin Exam: Warm Assessment and Plan (1) Respiratory failure Status: Acute (2) Aspiration pneumonia Status: Acute (3) Anoxic encephalopathy Status: Acute (4) Paroxysmal A-fib Status: Acute (5) Seizure Status: Acute (6) H/O ETOH abuse Status: Chronic - Assessment and Plan (Free Text) Plan: 24 hrs VU EEG. Continue ventilatory support PRVC AC 10, FIO2 30%, continue rest of Tx, poor prognosis. Critical care time: 33 min.
--- NOTE | 2019-02-28 16:52 | CP.CCUPN ---
CCU Subjective - Physician Review Subjective (Free Text): 02/28/19 16:49 The patient was Seen and examined by me at the bedside Medical records reviewed and Management issues were discussed and formulated with the house staff. Events reviewed Mr Marley is a 58 years old male with past medical history of seizure disorder and alcohol dependence Who was brought in to the emergency room by ambulance he is he [place], CPR and ACLS protocol was initiated by the EMS and the police department Upon arrival to the emergency room had no pulse, received 1 mg of epinephrine, Narcan and IV fluid, during the code he also received sodium bicarb and calcium with return of spontaneous circulation rhythm strip at that point was showing atrial fibrillation with rapid ventricular response, blood pressure of 56/26, since he was hemodynamically unstable he was shocked with 120 J and received IV digoxin Hypothermia protocol was not initiated since patient was found unresponsive pulseless in a park with unknown downtime plus he was hemodynamically unstable Chest x-ray revealed possible aspiration pneumonia Code sepsis was called, vergara culture sent and empiric antibiotic initiated Central line and atrial line was placed and he was admitted to the intensive care unit for further management He arrived to the intensive care unit orally intubated, on levo fed at 10 mics per minute Patient currently unresponsive, orally intubated with 7.5 ET tube, 25 cm at the lip line Vent setting PRVC 450/10/FiO2 30% and PEEP of 5 GCS of 3, organ donation notified Neurology consulted today and patient was initiated on 24-hour VU EEG CCU Objective - Vital Signs / Intake & Output Vital Signs (Last 4 hours): Vital Signs Temp Pulse Resp BP Pulse Ox 02/28/19 16:15 84 146/77 02/28/19 16:00 99.7 F H 85 17 136/74 99 02/28/19 15:00 99.5 F 83 19 141/76 99 02/28/19 14:00 99.1 F 81 21 137/74 100 02/28/19 13:00 98.8 F 83 19 140/76 100 Intake and Output (Last 8hrs): Intake & Output 02/28/19 02/28/19 02/28/19 06:59 14:59 22:59 Intake Total 1542 2115 Output Total 900 Balance 642 2115 Intake: IV 792 1000 Intake, Piggyback 150 525 Tube Feeding 450 440 Free Water Flush 150 150 Output: Urine 900 Urethral (Leija) 900 Other: # Bowel Movements 1 - Physical Exam Head: Positive for: Atraumatic, Normocephalic Pupils: Positive for: PERRL, Sluggish Extroacular Muscles: Positive for: EOMI Conjunctiva: Positive for: Normal. Negative for: Injected, Icteric Ears: Positive for: Normal Mouth: Positive for: Moist Mucous Membranes Nose (Internal): Positive for: Normal Inspection Neck: Positive for: Normal Range of Motion, Trachea Midline. Negative for: Meningeal Signs, MIDLINE TENDERNESS, Paraspinal Tenderness, JVD, Lymphadenopathy, Bruit, Other Respiratory/Chest: Positive for: Good Air Exchange, Decreased Breath Sounds, Rhonchi Cardiovascular: Positive for: Regular Rate and Rhythm, Normal S1, S2, Peripheal Pulses Present. Negative for: Murmurs Abdomen: Positive for: Distention, Normal Bowel Sounds. Negative for: Tenderness Neurological: Negative for: GCS=15 (GCS 3), CN II-XII Intact Psychiatric: Negative for: Alert, Oriented x 3, Normal Insight - Medications Active Medications: Active Medications Generic Name Dose Route Start Last Admin Trade Name Freq PRN Reason Stop Dose Admin Acetaminophen 650 mg 02/26/19 00:27 02/27/19 16:18 Tylenol 650mg/20.3ml Solution Ud GT 650 mg Q6 PRN Administration Temperature Amiodarone HCl 200 mg 02/26/19 23:45 02/28/19 16:15 Cordarone NG 200 mg BID TANNA Administration Enoxaparin Sodium 40 mg 02/26/19 09:00 02/28/19 09:17 Lovenox SC 40 mg DAILY TANNA Administration Protocol Clindamycin Phosphate 600 mg in 50 mls @ 50 mls/hr 02/25/19 19:00 02/28/19 16:15 Cleocin 600mg/50ml Ns IVPB 50 mls/hr Q8 TANNA Administration Protocol Potassium Chloride/Sodium Chloride 1,000 mls @ 100 mls/hr 02/25/19 21:00 02/26/19 07:45 Potassium Chl 20 Meq In Ns IV 100 mls/hr .Q10H TANNA Administration Levetiracetam 500 mg/ Sodium 105 mls @ 210 mls/hr 02/26/19 09:00 02/28/19 09:16 Chloride IVPB 210 mls/hr Q12 TANNA Administration Piperacillin Sod/Tazobactam 100 mls @ 100 mls/hr 02/26/19 08:00 02/28/19 09:05 Sod 3.375 gm/ Sodium Chloride IVPB 100 mls/hr Q8@0000,0800,1600 TANNA Administration Protocol Lactated Ringer's 1,000 mls @ 125 mls/hr 02/26/19 10:15 02/28/19 13:17 Lactated Ringer's IV 125 mls/hr .Q8H TANNA Administration Nicardipine HCl 20 mg in 200 mls @ 25 mls/hr 02/28/19 10:23 02/28/19 10:25 Cardene Iv Premix IV 02/28/19 18:22 2.5 mg/hr .Q8H ONE 25 mls/hr Administration Protocol 2.5 MG/HR Metoprolol Tartrate 5 mg 02/26/19 23:54 02/27/19 08:48 Lopressor IVP 5 mg Q6 PRN Administration Systolic Blood Pressure Pantoprazole Sodium 40 mg 02/25/19 20:45 02/28/19 09:17 Protonix Inj IVP 40 mg DAILY TANNA Administration - Patient Studies Lab Studies: Microbiology Studies 02/25/19 09:40 Gram Stain - Final Trachasp Sputum Culture - Final NORMAL ORAL CITLALLI 02/25/19 09:40 MRSA Culture (Admit) - Final Naris MRSA NOT DETECTED 02/25/19 17:55 Blood Culture - Preliminary Blood NO GROWTH AFTER 48 HOURS 02/25/19 17:45 Blood Culture - Preliminary Blood NO GROWTH AFTER 48 HOURS Lab Studies 02/28/19 02/28/19 02/28/19 Range/Units 05:00 05:00 04:33 WBC 9.9 (4.8-10.8) K/uL RBC 3.28 L (4.40-5.90) Mil/uL Hgb 9.2 L (12.0-18.0) g/dL Hct 27.1 L (35.0-51.0) % MCV 82.6 (80.0-94.0) fl MCH 28.0 (27.0-31.0) pg MCHC 33.9 (33.0-37.0) g/dL RDW 16.1 H (11.5-14.5) % Plt Count 166 (130-400) K/uL pCO2 35 (35-45) mm/Hg pO2 110 H (80-100) mm/Hg HCO3 28.1 H (21-28) mmol/L ABG pH 7.50 H (7.35-7.45) ABG Total CO2 28.4 H (22-28) mmol/L ABG O2 Saturation 99.9 H (95-98) % ABG O2 Content 13.5 L (15-23) ML/dL ABG Base Excess 4.0 H (-2.0-3.0) mmol/L ABG Hemoglobin 9.7 L (11.7-17.4) g/dL ABG Carboxyhemoglobin 1.5 (0.5-1.5) % POC ABG HHb (Measured) 0.1 (0.0-5.0) % ABG Methemoglobin 1.1 (0.0-3.0) % ABG O2 Capacity 13.5 L (16-24) mL/dL Fabrizio Test Yes A-a O2 Difference 60.0 mm/Hg Hgb O2 Saturation 97.3 (95.0-98.0) % Vent Mode A/c Mechanical Rate 10 FiO2 30.0 % Tidal Volume 500 PEEP 5 Sodium 134 (132-148) mmol/l Potassium 3.1 L (3.6-5.0) MMOL/L Chloride 100 (98-107) mmol/L Carbon Dioxide 28 (22-30) mmol/L Anion Gap 9 L (10-20) BUN 7 L (9-20) mg/dl Creatinine 0.7 L (0.8-1.5) mg/dl Est GFR ( Amer) > 60 Est GFR (Non-Af Amer) > 60 Random Glucose 112 H (75-110) mg/dL Calcium 7.9 L (8.4-10.2) mg/dL Total Bilirubin 0.5 (0.2-1.3) mg/dl AST 127 H (17-59) U/L ALT 43 (21-72) U/L Alkaline Phosphatase 103 (38-126) U/L Total Protein 5.8 L (6.3-8.2) G/DL Albumin 3.0 L (3.5-5.0) g/dL Globulin 2.8 (2.2-3.9) gm/dL Albumin/Globulin Ratio 1.1 (1.0-2.1) Laboratory Results - last 24 hr 02/28/19 02/28/19 02/28/19 04:33 05:00 05:00 WBC 9.9 RBC 3.28 L Hgb 9.2 L Hct 27.1 L MCV 82.6 MCH 28.0 MCHC 33.9 RDW 16.1 H Plt Count 166 pCO2 35 pO2 110 H HCO3 28.1 H ABG pH 7.50 H ABG Total CO2 28.4 H ABG O2 Saturation 99.9 H ABG O2 Content 13.5 L ABG Base Excess 4.0 H ABG Hemoglobin 9.7 L ABG Carboxyhemoglobin 1.5 POC ABG HHb (Measured) 0.1 ABG Methemoglobin 1.1 ABG O2 Capacity 13.5 L Fabrizio Test Yes A-a O2 Difference 60.0 Hgb O2 Saturation 97.3 Vent Mode A/c Mechanical Rate 10 FiO2 30.0 Tidal Volume 500 PEEP 5 Sodium 134 Potassium 3.1 L Chloride 100 Carbon Dioxide 28 Anion Gap 9 L BUN 7 L Creatinine 0.7 L Est GFR ( Amer) > 60 Est GFR (Non-Af Amer) > 60 Random Glucose 112 H Calcium 7.9 L Total Bilirubin 0.5 AST 127 H ALT 43 Alkaline Phosphatase 103 Total Protein 5.8 L Albumin 3.0 L Globulin 2.8 Albumin/Globulin Ratio 1.1 Radiology Impressions: Radiology Impressions Chest X-Ray 02/28/19 04:53 IMPRESSION: No change in limited right basilar infiltrate overlying chronic fibrotic change. Left lung remains clear. No plantar vol pulmonary vascular congestion. Fingerstick Blood Sugar Results: 177 Review of Systems - Review of Systems Systems not reviewed;Unavailable: Intubated Critical Care Progress Note - Ventilator Checklist Head of Bed 30 Degrees: Yes Daily Sedation Vacation: Yes Daily Assessment of Readiness to Wean: Yes Daily Spontaneous Breathing Trial: Yes PUD Prophalyxis: Yes DVT Prophylaxis: Yes Oral Care with Chlorhexidine Gluconate {CHG}: Yes Assessment/Plan (1) Cardiac arrest Current Visit: Yes Status: Acute Priority: High (2) Anoxic encephalopathy Current Visit: Yes Status: Acute Priority: High (3) Aspiration pneumonia Current Visit: Yes Status: Acute Priority: High (4) Paroxysmal A-fib Current Visit: Yes Status: Acute Priority: High (5) Respiratory failure Current Visit: Yes Status: Acute Priority: High (6) Seizure Current Visit: Yes Status: Acute Priority: High (7) Septic shock Current Visit: Yes Status: Acute Priority: High (8) H/O ETOH abuse Current Visit: Yes Status: Chronic Priority: High - Assessment and Plan (Free Text) Assessment: Patient admitted to the intensive care unit status post cardiac arrest for hemodynamic monitoring and frequent neuro check Severe sepsis from aspiration pneumonia Patient with history of chronic alcohol dependence New onset paroxysmal atrial fibrillation Uncontrolled hypertension Full vent support, patient is not a candidate for vent weaning at this point due to poor mental status Continue with empiric broad-spectrum antibiotic coverage Neurology consulted and he is S/P 24-hour EEG monitor Started on Cardene drip for better blood pressure control No neurological improvement so far, poor prognosis, I discusses with the family daughter Sheeba Arango on the phone, we discussed patient diagnosis, very poor prognosis, treatment plans and alternative, daughter was given the opportunity to ask as many question and as she like which was answered to her satisfaction, at this point we agreed on continuing all aggressive treatment and give the patient more time more time, will have a repeat head CT scan tomorrow morning and have further discussion regarding goals of care afterward
[2019-03-01] MEDS: Piperacillin/Tazobact 3.375 GM in Sodium Chloride 0.9% 100 ML IVPB SCH ×3 (00:03→16:19)
[2019-03-01] MEDS: Clindamycin 600mg/50ml NS 600 MG/50 ML BAG IVPB SCH ×3 (00:09→16:18)
[2019-03-01] MEDS: Acetaminophen 650mg/20.3ml solution UD GT PRN ×4 (02:54→23:14)
[2019-03-01 05:05] LABS: ABG ALLEN TEST YES; ARTERIAL BLOOD GAS HCO3 27.6 mmol/L (21-28); ARTERIAL BLOOD GAS HEMOGLOBIN 10.3 g/dL (11.7-17.4); ARTERIAL BLOOD GAS O2 CAPACITY 14.4 mL/dL (16-24); ARTERIAL BLOOD GAS O2 CONTENT 14.4 ML/dL (15-23); ARTERIAL BLOOD GAS O2 SAT 99.9 % (95-98); ARTERIAL BLOOD GAS PCO2 33 mm/Hg (35-45); ARTERIAL BLOOD GAS PH 7.51 (7.35-7.45); ARTERIAL BLOOD GAS PO2 146 mm/Hg (80-100); ARTERIAL BLOOD GAS TCO2 27.3 mmol/L (22-28)
[2019-03-01] MEDS: Lactated Ringer's 1,000 ML IV SCH (05:06)
[2019-03-01 05:50] LABS: HEMOGLOBIN 10.7 g/dL (12.0-18.0); MEAN CELL VOLUME 82.6 fl (80.0-94.0); MEAN CORPUSCULAR HEMOGLOBIN 28.2 pg (27.0-31.0); MEAN CORPUSCULAR HGB CONC 34.1 g/dL (33.0-37.0); RBC 3.81 Mil/uL (4.40-5.90); RED CELL DISTRIBUTION WIDTH 15.7 % (11.5-14.5); WHITE BLOOD COUNT 7.2 K/uL (4.8-10.8)
[2019-03-01 06:35] LABS: ALB/GLOB RATIO 1.2 (1.0-2.1); ALBUMIN 3.6 g/dL (3.5-5.0); ALT/SGPT 43 U/L (21-72); AST/SGOT 140 U/L (17-59); BLOOD UREA NITROGEN 6 mg/dl (9-20); CALCIUM 8.4 mg/dL (8.4-10.2); GFR NON-AFRICAN AMERICAN > 60
[2019-03-01] MEDS ORDERED: Nicardipine 20 MG/200 ML 20 MG/200 ML BAG IV ONE (07:55)
--- NOTE | 2019-03-01 08:22 | RAD ---
Date of service: 03/01/2019 HISTORY: chest COMPARISON: 02/28/2019 chest x-ray. CT abdomen and pelvic lower thoracic image study date 07/17/2017 noted TECHNIQUE: 1 view obtained. FINDINGS: LUNGS: The amorphous opacity with calcification over the inferior right hemithorax is similar-here volume loss with elevated lateral right hemidiaphragm and right inferolateral chronic appearing pleural thickening with calcification is inferred. Some chronic right pleural effusion with thickening and calcification is compatible with this. Prior asbestosis exposure a consideration. No interval consolidation seen. Endotracheal tube tip approximately 3 to 4 cm cephalad to the yung-clock inferior tip clavicle level PLEURA: Chronic right inferolateral pleural thickening/loculated fluid with calcification as detailed [id number]. Minimal biapical pleural [id number] No pneumothorax appreciated no pneumothorax apparent. CARDIOVASCULAR: There is presence of aortic atherosclerotic calcification on x-ray. Mild cardiomegaly suspect. Similar no pulmonary vascular congestion. Calcified hilar and mediastinal lymph nodes-granulomatous disease inferred. OSSEOUS STRUCTURES: Some inferior right posterior rib probably the 7th cervical deformity-old healed trauma here inferred. No acute fractures appreciated VISUALIZED UPPER ABDOMEN: Nasogastric tube courses over gastric fundus-tip beyond the inferior edge of this image. OTHER FINDINGS: None. IMPRESSION: No interval pathology noted. Chronic right inferolateral pleural changes as above and asbestosis exposure and chronic appearing granulomatous disease inferred. Other findings as above.
[2019-03-01] MEDS: Enoxaparin 40 mg Syringe SC SCH (08:39)
[2019-03-01] MEDS: levETIRAcetam 500 MG in Sodium Chloride 0.9% 100 ML IVPB SCH ×2 (08:42→20:27)
--- NOTE | 2019-03-01 10:04 | CP.CCUPN ---
<Leticia Cardenas - Last Filed: 03/01/19 12:04> CCU Subjective - Physician Review Events Since Last Encounter (Free Text): 58 yo M, remains comatose and without response to painful stimulus. No apparent changes in mental status. 24 hr VEEG has been completed reported as abnormal video EEG due to the presence of marked diffuse attenuation/slowing. No seizures. Not in status epilepticus. Interpretation: findings are in keeping with a severe non-specific diffuse disturbance of cortical activity. This is in keeping with a diffuse cook matter dysfunction. The findings do not suggest a specific etiology. On vent settings: RR 10, TV 500, PEEP 5, 30% FiO2. Over-breathing vent at 22. Had been started on nicardipine drip, with now normalized blood pressure at 2.5 mg/hr. Afebrile this morning. ROS unobtainable. LABS: pH 7.51/ pCO2 33/pO2 146/HCO3 27.6 on AC 10, 500ml TV, PEEP 5, 30% FiO2 WBC: 7.2 Hgb: 10.7 PLT: 194 Na: 129 K: 3.4 Cl: 93 HCO3: 26 BUN/Cr: 6/0.6 Glu: 123 M.2 Phos: 4.1 Urine output: 5 liters in past 24 hrs Input: 6095 ml CPK was elevated from 661 to 6803 on 02/26 Physical Exam: GEN: middle aged male, comatose, intubated and on ventilator HEENT: pupils are disconjugate, 3 mm size and non-reactive bilaterally; no icterus, no nystagmus.. Neck: supple, no visible JVD. Resp: bilateral coarse breath sounds, diminished at bases without audible wheeze; ET tube in place. Chest/CV: S1,S2, regular rhythm; no response to sternal rub ABD: soft, +BS, no focal tenderness. EXT: no edema, erythema or cyanosis; distal pulses intact, flaccid, no tone x4 SKIN: no rashes, warm and dry Assessment/Plan Comatose state, likely secondary to respiratory arrest for unknown duration prior to resuscitative efforts -VEEG abnormal as above; neurology on consult -CT from this am reviewed diffuse edema without hernation -Continue ventilator support, empiric antibiotics -Goals of care to be addressed with family when possible Cerebral edema -Seen on this morning CT -Stop normal saline, give 250cc bolus hypertonic 3% saline followed by 3% NS at 60cc/hr Hyponatremia -In setting of 5L output, 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 Hallman. CCU Objective - Vital Signs / Intake & Output Vital Signs (Last 4 hours): Vital Signs Temp Pulse Resp BP Pulse Ox 03/01/19 08:42 95 H 140/71 03/01/19 08:24 99.5 F 95 H 20 135/74 97 03/01/19 07:00 97 H 20 140/72 98 Intake and Output (Last 8hrs): Intake & Output 02/28/19 03/01/19 03/01/19 22:59 06:59 14:59 Intake Total 2140 1840 Output Total 3000 2000 Balance -860 -160 Weight 165 lb Intake: IV 1000 1000 Intake, Piggyback 400 250 Tube Feeding 440 440 Free Water Flush 300 150 Output: Urine 3000 2000 Urethral (Leija) 3000 2000 Other: # Bowel Movements 1 1 - Physical Exam Conjunctiva: Negative for: Injected, Icteric - Medications Active Medications: Active Medications Generic Name Dose Route Start Last Admin Trade Name Freq PRN Reason Stop Dose Admin Acetaminophen 650 mg 02/26/19 00:27 03/01/19 02:54 Tylenol 650mg/20.3ml Solution Ud GT 650 mg Q6 PRN Administration Temperature Amiodarone HCl 200 mg 02/26/19 23:45 03/01/19 08:42 Cordarone NG 200 mg BID TANNA Administration Amlodipine Besylate 5 mg 03/01/19 10:00 Norvasc PO DAILY TANNA Enoxaparin Sodium 40 mg 02/26/19 09:00 03/01/19 08:39 Lovenox SC 40 mg DAILY TANNA Administration Protocol Clindamycin Phosphate 600 mg in 50 mls @ 50 mls/hr 02/25/19 19:00 03/01/19 08:43 Cleocin 600mg/50ml Ns IVPB 50 mls/hr Q8 TANNA Administration Protocol Potassium Chloride/Sodium Chloride 1,000 mls @ 100 mls/hr 02/25/19 21:00 02/26/19 07:45 Potassium Chl 20 Meq In Ns IV 100 mls/hr .Q10H TANNA Administration Levetiracetam 500 mg/ Sodium 105 mls @ 210 mls/hr 02/26/19 09:00 03/01/19 08:42 Chloride IVPB 210 mls/hr Q12 TANNA Administration Piperacillin Sod/Tazobactam 100 mls @ 100 mls/hr 02/26/19 08:00 03/01/19 08:41 Sod 3.375 gm/ Sodium Chloride IVPB 100 mls/hr Q8@0000,0800,1600 TANNA Administration Protocol Lactated Ringer's 1,000 mls @ 125 mls/hr 02/26/19 10:15 03/01/19 05:06 Lactated Ringer's IV 125 mls/hr .Q8H TANNA Administration Labetalol HCl 200 mg 03/01/19 10:00 Trandate PO Q12 TANNA Metoprolol Tartrate 5 mg 02/26/19 23:54 02/27/19 08:48 Lopressor IVP 5 mg Q6 PRN Administration Systolic Blood Pressure Pantoprazole Sodium 40 mg 02/25/19 20:45 03/01/19 08:41 Protonix Inj IVP 40 mg DAILY TANNA Administration - Patient Studies Lab Studies: Microbiology Studies 02/25/19 17:55 Blood Culture - Preliminary Blood NO GROWTH AFTER 3 DAYS 02/25/19 17:45 Blood Culture - Preliminary Blood NO GROWTH AFTER 3 DAYS 02/25/19 09:40 Gram Stain - Final Trachasp Sputum Culture - Final NORMAL ORAL CITLALLI 02/25/19 09:40 MRSA Culture (Admit) - Final Naris MRSA NOT DETECTED Lab Studies 03/01/19 03/01/19 03/01/19 Range/Units 05:40 05:40 05:40 WBC 7.2 (4.8-10.8) K/uL RBC 3.81 L (4.40-5.90) Mil/uL Hgb 10.7 L (12.0-18.0) g/dL Hct 31.5 L (35.0-51.0) % MCV 82.6 (80.0-94.0) fl MCH 28.2 (27.0-31.0) pg MCHC 34.1 (33.0-37.0) g/dL RDW 15.7 H (11.5-14.5) % Plt Count 194 (130-400) K/uL pCO2 (35-45) mm/Hg pO2 (80-100) mm/Hg HCO3 (21-28) mmol/L ABG pH (7.35-7.45) ABG Total CO2 (22-28) mmol/L ABG O2 Saturation (95-98) % ABG O2 Content (15-23) ML/dL ABG Base Excess (-2.0-3.0) mmol/L ABG Hemoglobin (11.7-17.4) g/dL ABG Carboxyhemoglobin (0.5-1.5) % POC ABG HHb (Measured) (0.0-5.0) % ABG Methemoglobin (0.0-3.0) % ABG O2 Capacity (16-24) mL/dL Fabrizio Test A-a O2 Difference mm/Hg Hgb O2 Saturation (95.0-98.0) % Vent Mode Mechanical Rate FiO2 % Tidal Volume PEEP Sodium 129 L (132-148) mmol/l Potassium 3.4 L (3.6-5.0) MMOL/L Chloride 93 L (98-107) mmol/L Carbon Dioxide 26 (22-30) mmol/L Anion Gap 13 (10-20) BUN 6 L (9-20) mg/dl Creatinine 0.6 L (0.8-1.5) mg/dl Est GFR ( Amer) > 60 Est GFR (Non-Af Amer) > 60 Random Glucose 123 H (75-110) mg/dL Calcium 8.4 (8.4-10.2) mg/dL Phosphorus 4.1 (2.5-4.5) mg/dl Magnesium 1.2 L (1.6-2.3) MG/DL Total Bilirubin 0.6 (0.2-1.3) mg/dl AST 140 H (17-59) U/L ALT 43 (21-72) U/L Alkaline Phosphatase 90 (38-126) U/L Ammonia < 9 L D (9-33) umol/L Total Protein 6.8 (6.3-8.2) G/DL Albumin 3.6 (3.5-5.0) g/dL Globulin 3.1 (2.2-3.9) gm/dL Albumin/Globulin Ratio 1.2 (1.0-2.1) 03/01/19 Range/Units 04:51 WBC (4.8-10.8) K/uL RBC (4.40-5.90) Mil/uL Hgb (12.0-18.0) g/dL Hct (35.0-51.0) % MCV (80.0-94.0) fl MCH (27.0-31.0) pg MCHC (33.0-37.0) g/dL RDW (11.5-14.5) % Plt Count (130-400) K/uL pCO2 33 L (35-45) mm/Hg pO2 146 H (80-100) mm/Hg HCO3 27.6 (21-28) mmol/L ABG pH 7.51 H (7.35-7.45) ABG Total CO2 27.3 (22-28) mmol/L ABG O2 Saturation 99.9 H (95-98) % ABG O2 Content 14.4 L (15-23) ML/dL ABG Base Excess 3.4 H (-2.0-3.0) mmol/L ABG Hemoglobin 10.3 L (11.7-17.4) g/dL ABG Carboxyhemoglobin 1.4 (0.5-1.5) % POC ABG HHb (Measured) 0.1 (0.0-5.0) % ABG Methemoglobin 1.3 (0.0-3.0) % ABG O2 Capacity 14.4 L (16-24) mL/dL Fabrizio Test Yes A-a O2 Difference 27.0 mm/Hg Hgb O2 Saturation 97.2 (95.0-98.0) % Vent Mode A/c Mechanical Rate 10 FiO2 30.0 % Tidal Volume 500 PEEP 5 Sodium (132-148) mmol/l Potassium (3.6-5.0) MMOL/L Chloride (98-107) mmol/L Carbon Dioxide (22-30) mmol/L Anion Gap (10-20) BUN (9-20) mg/dl Creatinine (0.8-1.5) mg/dl Est GFR ( Amer) Est GFR (Non-Af Amer) Random Glucose (75-110) mg/dL Calcium (8.4-10.2) mg/dL Phosphorus (2.5-4.5) mg/dl Magnesium (1.6-2.3) MG/DL Total Bilirubin (0.2-1.3) mg/dl AST (17-59) U/L ALT (21-72) U/L Alkaline Phosphatase (38-126) U/L Ammonia (9-33) umol/L Total Protein (6.3-8.2) G/DL Albumin (3.5-5.0) g/dL Globulin (2.2-3.9) gm/dL Albumin/Globulin Ratio (1.0-2.1) Laboratory Results - last 24 hr 03/01/19 03/01/19 03/01/19 04:51 05:40 05:40 WBC 7.2 RBC 3.81 L Hgb 10.7 L Hct 31.5 L MCV 82.6 MCH 28.2 MCHC 34.1 RDW 15.7 H Plt Count 194 pCO2 33 L pO2 146 H HCO3 27.6 ABG pH 7.51 H ABG Total CO2 27.3 ABG O2 Saturation 99.9 H ABG O2 Content 14.4 L ABG Base Excess 3.4 H ABG Hemoglobin 10.3 L ABG Carboxyhemoglobin 1.4 POC ABG HHb (Measured) 0.1 ABG Methemoglobin 1.3 ABG O2 Capacity 14.4 L Fabrizio Test Yes A-a O2 Difference 27.0 Hgb O2 Saturation 97.2 Vent Mode A/c Mechanical Rate 10 FiO2 30.0 Tidal Volume 500 PEEP 5 Sodium 129 L Potassium 3.4 L Chloride 93 L Carbon Dioxide 26 Anion Gap 13 BUN 6 L Creatinine 0.6 L Est GFR ( Amer) > 60 Est GFR (Non-Af Amer) > 60 Random Glucose 123 H Calcium 8.4 Phosphorus 4.1 Magnesium 1.2 L Total Bilirubin 0.6 AST 140 H ALT 43 Alkaline Phosphatase 90 Ammonia Total Protein 6.8 Albumin 3.6 Globulin 3.1 Albumin/Globulin Ratio 1.2 03/01/19 05:40 WBC RBC Hgb Hct MCV MCH MCHC RDW Plt Count pCO2 pO2 HCO3 ABG pH ABG Total CO2 ABG O2 Saturation ABG O2 Content ABG Base Excess ABG Hemoglobin ABG Carboxyhemoglobin POC ABG HHb (Measured) ABG Methemoglobin ABG O2 Capacity Fabrizio Test A-a O2 Difference Hgb O2 Saturation Vent Mode Mechanical Rate FiO2 Tidal Volume PEEP Sodium Potassium Chloride Carbon Dioxide Anion Gap BUN Creatinine Est GFR ( Amer) Est GFR (Non-Af Amer) Random Glucose Calcium Phosphorus Magnesium Total Bilirubin AST ALT Alkaline Phosphatase Ammonia < 9 L D Total Protein Albumin Globulin Albumin/Globulin Ratio Radiology Impressions: Radiology Impressions Chest X-Ray 03/01/19 06:00 IMPRESSION: No interval pathology noted. Chronic right inferolateral pleural changes as above and asbestosis exposure and chronic appearing granulomatous disease inferred. Other findings as above. Fingerstick Blood Sugar Results: 177 <Francis Hallman - Last Filed: 03/01/19 14:49> CCU Objective - Physical Exam Neurological: Positive for: GCS=15 Assessment/Plan - Assessment and Plan (Free Text) Plan: Attestation: Patient seen and examined at the bedside with Resident Dr. Wojciech Cardenas; and I agree with her outline of plans and management documented above as discussed on AM rounds; reflecting my review of all applicable clinical data, and participation in the care of the patient throughout the day in ICU; today, March 01, 2019. Mr. Marley remains in deep coma, most likely 2 anoxic encephalopathy post respiratory arrest. Unknown if he was actually asystolic, no rhythm strips noted depicting this, and a non-palpable pulse does not wholly imply asystole. Post- resuscitation rapid A Fib noted, and this tachyarrythmia has not recurred. No clinical suspicion nor any clinical evidence of severe sepsis given initial Lactate elevation. Daughter aware of present clinical status, and extremely low GCS score. Daughter agreed to wait longer as per her discussion yesterday with ICU team. No overall improvement noted over the past 5 days. Preliminary review of CT head shows global edematous changes (my interp), which is worse than 02/25 study. Urine output over the last 48hours shows polyuria suggestive of central DI or cerebral salt wasting. Will give trial of Mannitol, hold IVFs for now, keep HOB elevated at 45 degrees. AED therapy resumed with Keppra (he was on outpatient Dilantin). VEEG results reviewed. Neurologic findings show fixed pupils with disconjuguate gaze and non- reactive, though non-dilated, and absent Dolls eyes. Gag and carinal reflexes are absent, but he is breathing at 28/min, on AC 22. Cardene drip stopped, will start Labetalol and Amlodipine. Overall survival not expected, consider Hospice / Pall Care evals. Notify [facility]. ADDENDUM: Discussed with Neurology: 3% Saline to be used instead of Mannitol for present cerebral edema.
[2019-03-01] MEDS ORDERED: Mannitol 12.5 gm/50 ml Inj IVPB ONE (11:00)
--- NOTE | 2019-03-01 11:09 | CT ---
Date of service: 03/01/2019 PROCEDURE: CT HEAD WITHOUT CONTRAST. HISTORY: S/P Cardiac arrest COMPARISON: 02/25/2019 TECHNIQUE: Axial computed tomography images were obtained through the head/brain without intravenous contrast. Radiation dose: Total exam DLP = 1082.19 mGy-cm. This CT exam was performed using one or more of the following dose reduction techniques: Automated exposure control, adjustment of the mA and/or kV according to patient size, and/or use of iterative reconstruction technique. FINDINGS: HEMORRHAGE: No asymmetrical hemorrhage seen. The conspicuity of all dural surfaces appears relatively increased compared to the prior study-some concomitant extra-axial blood symmetrically distributed cannot be entirely excluded. Is difficult to confirm with certainty diffuse subarachnoid blood trace amounts cannot be excluded. Especially over the cerebellum posterior fossa locations.. These findings also could be accentuated with the interval marked diffuse cerebral edema now present. BRAIN: Interval diffuse cerebral edema with diffuse effacement of prior visualized cerebral sulci. The conspicuity of the at for mention dura may be impart due to this diffuse cerebral interval edema process. Some concomitant diffuse extra-axial blood no asymmetrical intraparenchymal blood seen No symmetrical extra-axial blood with mass effect noted. Some hypodensity symmetrical in appearance within the posterior and inferior temporoparietal lobes may represent concomitant forming watershed infarcts in this patient who is status post cardiac arrest. VENTRICLES: The ventricles appears slightly smaller in a symmetrical fashion compared the prior study compatible with some symmetrical mass effect from the diffuse cerebral edema process. CALVARIUM: Unremarkable. PARANASAL SINUSES: Unremarkable as visualized. No significant inflammatory changes. MASTOID AIR CELLS: Minimal mastoid effusions suggested.. Mild bilateral ethmoidal sinus chronic appearing mucosal thickening. OTHER FINDINGS: There is increased fluid in the posterior nasal fossa/nasal nares. The nasopharyngeal lymphatic soft tissues also appear symmetrically prominent. IMPRESSION: Interval changes compatible with interval marked cerebral atrophy symmetrical in appearance. Concomitant symmetrical watershed acute/subacute developing infarcts are also needed be considered. At this time no gross downward herniation seen. No asymmetrical extra-axial blood. There is some concomitant extra axial blood without gross mass effect cannot be excluded as detailed above. The accentuated ir appearance may be due to the contrast with the interval marked cerebral current edema Comments: Findings were called this morning up prior to completing this dictation. These findings were directly discussed with the ICU nurse Brooke who is taking care of this patient
--- NOTE | 2019-03-01 11:10 | CP.PCM.PN ---
Subjective - Date & Time of Evaluation Date of Evaluation: 03/01/19 Time of Evaluation: 11:07 - Subjective Subjective: Neuro Follow-Up Note: Mr. Marley was evaluated this morning in the ICU. No family present. He remains intubated, on a mech vent with no sedation. He does not respond to painful stimuli; does not follows any commands. He is still breathing over the vent. Chart reviewed and case discussed with primary RN. ROS is unobtainable from the pt due to his current state. Objective - Vital Signs/Intake and Output Vital Signs (last 24 hours): Temp Pulse Resp BP Pulse Ox 100.8 F H 98 H 20 175/87 H 97 03/01/19 10:33 03/01/19 10:28 03/01/19 08:24 03/01/19 10:28 03/01/19 08:24 Intake and Output: 03/01/19 03/01/19 06:59 18:59 Intake Total 2810 Output Total 3000 Balance -190 - Medications Medications: Current Medications Acetaminophen (Tylenol 650mg/20.3ml Solution Ud) 650 mg GT Q6 PRN PRN Reason: Temperature Last Admin: 03/01/19 10:33 Dose: 650 mg Amiodarone HCl (Cordarone) 200 mg NG BID TANNA Last Admin: 03/01/19 08:42 Dose: 200 mg Amlodipine Besylate (Norvasc) 5 mg PO DAILY TANNA Last Admin: 03/01/19 10:28 Dose: 5 mg Enoxaparin Sodium (Lovenox) 40 mg SC DAILY TANNA; Protocol Last Admin: 03/01/19 08:39 Dose: 40 mg Clindamycin Phosphate (Cleocin 600mg/50ml Ns) 600 mg in 50 mls @ 50 mls/hr IVPB Q8 TANNA; Protocol Last Admin: 03/01/19 08:43 Dose: 50 mls/hr Levetiracetam 500 mg/ Sodium (Chloride) 105 mls @ 210 mls/hr IVPB Q12 TANNA Last Admin: 03/01/19 08:42 Dose: 210 mls/hr Piperacillin Sod/Tazobactam (Sod 3.375 gm/ Sodium Chloride) 100 mls @ 100 mls/hr IVPB Q8@0000,0800,1600 TANNA; Protocol Last Admin: 03/01/19 08:41 Dose: 100 mls/hr Labetalol HCl (Trandate) 200 mg PO Q12 [facility] Last Admin: 03/01/19 10:28 Dose: 200 mg Metoprolol Tartrate (Lopressor) 5 mg IVP Q6 PRN PRN Reason: Systolic Blood Pressure Last Admin: 02/27/19 08:48 Dose: 5 mg Pantoprazole Sodium (Protonix Inj) 40 mg IVP DAILY [facility] Last Admin: 03/01/19 08:41 Dose: 40 mg - Labs Labs: 03/01/19 05:40 03/01/19 05:40 PT 14.1 Seconds (9.8-13.1) H 02/25/19 17:37 INR 1.2 02/25/19 17:37 APTT 27.6 Seconds (25.6-37.1) 02/25/19 17:37 - Constitutional Appears: Other (intubtaed, on mech vent, no sedation, does not follow commands, does not respond to painful stimuli) - Head Exam Head Exam: ATRAUMATIC, NORMAL INSPECTION, NORMOCEPHALIC - Eye Exam Eye Exam: absent: EOMI, Normal appearance, Nystagmus, PERRL, Scleral icterus Pupil Exam: Fixed. absent: NORMAL ACCOMODATION, PERRL Additional comments: Pupils fixed at approx 2 mm b/l No corneals, no dolls eyes Does not open eyes spontaneously - ENT Exam ENT Exam: Mucous Membranes Moist Additional comments: intubated on vent - Neck Exam Neck Exam: Normal Inspection - Respiratory Exam Respiratory Exam: absent: NORMAL BREATHING PATTERN Additional comments: intubated on mech vent; breathing over the vent by approx 14-16 BPM - Cardiovascular Exam Cardiovascular Exam: REGULAR RHYTHM - GI/Abdominal Exam GI & Abdominal Exam: Soft Additional comments: OGT in place - Exam Additional comments: Leija in place - Extremities Exam Extremities Exam: absent: Calf Tenderness, Full ROM, Pedal Edema Additional comments: Extremities flaccid; has minimal tone to BUE as yesterday. Does not withdraw to or localize pain. - Neurological Exam Neurological Exam: Altered. absent: Alert, Awake, CN II-XII Intact, Normal Gait, Oriented x3, Reflexes Normal Additional comments: Pt remains intubated, on mech vent; off sedation. Nonverbal; does not follow commands; no response to painful or verbal stimuli. Pupils are fixed at 2 mm b/l; neg dolls eyes and corneals. Does not open eyes spontaneously. Neg gag reflex today. Extremities flaccid; has minimal tone to BUE; does not withdraw to or localize pain. No tremors or abnormal movements. GCS 3T - Psychiatric Exam Additional comments: Intubated, on vent, no sedation; does not follow commands or respond to painful stimuli - Skin Skin Exam: Dry, Normal Color Assessment and Plan (1) Anoxic encephalopathy Assessment & Plan: Imaging reviewed: -CT Head (repeat; 03/01/19): final results pending. -EEG (02/27/19-02/28/19): This was an abnormal video EEG, monitoring study, due to the presence of: Marked diffuse attenuation/slowing. No seizures Not in status epilepticus. INTERPRETATION: The above mentioned findings are in keeping with a severe non specific diffuse disturbance of cortical activity. This is in keeping with a diffuse cook matter dysfunction. The findings do not suggest a specific etiology. -CT Head (02/15/19): No acute intracranial findings appreciable in the interval. Stable age-related degenerative changes well as chronic lacune left thalamus as seen in prior CT 02/22/2019. No significant interval change. -Mannitol ordered this morning by ICU team, however, we will hold this for now. We recommend hypertonic saline 3% 250 ml IV bolus x1 followed by 60 ml/hr. -Continue Keppra 500 mg IV Q12. -Continue to monitor and replace electrolytes: K today 3.4, Na 129. -Continue seizure precaution and continue management in the ICU. -We recommend that palliative care speak with pt's family regarding goals of care. -Notify neuro team of any changes in pt's condition. Tess Green, JAS, [employer] d/w Dr. Snowden Status: Acute
[2019-03-01] MEDS ORDERED: Sodium Chloride 3% 250 ML IV SCH (12:30)
--- NOTE | 2019-03-01 13:19 | PQF ---
PROVIDER RESPONSE TEXT: Acute Respiratory Failure with Hypercapnia. REVIEWER QUERY TEXT: Respiratory Failure Acuity and Type Respiratory Failure is documented in the Medical Record. Please specify the type and acuity (includes suspected or probable) Such as: -- Acute respiratory failure - With hypoxia - With hypercapnia -- Chronic respiratory failure - With hypoxia - With hypercapnia -- Acute on chronic respiratory failure - With hypoxia - With hypercapnia -- Other, please specify The patient's Clinical Indicators include: Found unresponsive. CPR in progress and intubated. ABG on ventilator: ph 7.07/ 73/ 415/17 Rx: Intubated to mechanical ventilator Query created by: Sierra Alarcon on 02/27/2019 9:46 AM Electronically signed by: Blaine Light MD 03/01/2019 1:16 PM
--- NOTE | 2019-03-01 13:19 | PQF ---
PROVIDER RESPONSE TEXT: Elevated troponins probably due to CPR. REVIEWER QUERY TEXT: Documentation Clarification Your help is requested in clarifying the following clinical documentation, if you can please further specify in the medical record and discharge summary. Please clarify if there is an associated diagnosis or not to go along with the following lab results: Troponin: <0.0120, 0.6320, 0.6520 The patient's Clinical Indicators include: CPR in progress. Troponin: <0.0120, 0.6320, 0.6520, EKG:Atrial fibrillation with rapid ventricular response with premature ventricular or aberrantly cond ucted complexes Marked ST abnormality, possible inferolateral subendocardial injury Query created by: Sierra Alarcon on 02/27/2019 9:52 AM Electronically signed by: Blaine Light MD 03/01/2019 1:16 PM
--- NOTE | 2019-03-01 13:23 | CP.PCM.PN ---
Subjective - Date & Time of Evaluation Date of Evaluation: 03/01/19 Time of Evaluation: 13:10 - Subjective Subjective: F/U respiratory Failure comatose Objective - Vital Signs/Intake and Output Vital Signs (last 24 hours): Temp Pulse Resp BP Pulse Ox 100.4 F H 79 18 123/67 97 03/01/19 12:00 03/01/19 12:00 03/01/19 12:00 03/01/19 12:00 03/01/19 12:00 Intake and Output: 03/01/19 03/01/19 06:59 18:59 Intake Total 2810 675 Output Total 3000 1300 Balance -190 -625 - Medications Medications: Current Medications Acetaminophen (Tylenol 650mg/20.3ml Solution Ud) 650 mg GT Q6 PRN PRN Reason: Temperature Last Admin: 03/01/19 10:33 Dose: 650 mg Amiodarone HCl (Cordarone) 200 mg NG BID [facility] Last Admin: 03/01/19 08:42 Dose: 200 mg Amlodipine Besylate (Norvasc) 5 mg PO DAILY [facility] Last Admin: 03/01/19 10:28 Dose: 5 mg Enoxaparin Sodium (Lovenox) 40 mg SC DAILY [facility]; Protocol Last Admin: 03/01/19 08:39 Dose: 40 mg Clindamycin Phosphate (Cleocin 600mg/50ml Ns) 600 mg in 50 mls @ 50 mls/hr IVPB Q8 [facility]; Protocol Last Admin: 03/01/19 08:43 Dose: 50 mls/hr Levetiracetam 500 mg/ Sodium (Chloride) 105 mls @ 210 mls/hr IVPB Q12 [facility] Last Admin: 03/01/19 08:42 Dose: 210 mls/hr Piperacillin Sod/Tazobactam (Sod 3.375 gm/ Sodium Chloride) 100 mls @ 100 mls/hr IVPB Q8@0000,0800,1600 [facility]; Protocol Last Admin: 03/01/19 08:41 Dose: 100 mls/hr Sodium Chloride (Hypertonic Saline 3%) 500 mls @ 60 mls/hr IV .Q8H20M [facility] Stop: 03/02/19 12:02 Labetalol HCl (Trandate) 200 mg PO Q12 [facility] Last Admin: 03/01/19 10:28 Dose: 200 mg Metoprolol Tartrate (Lopressor) 5 mg IVP Q6 PRN PRN Reason: Systolic Blood Pressure Last Admin: 02/27/19 08:48 Dose: 5 mg Pantoprazole Sodium (Protonix Inj) 40 mg IVP DAILY [facility] Last Admin: 03/01/19 08:41 Dose: 40 mg - Labs Labs: 03/01/19 05:40 03/01/19 05:40 PT 14.1 Seconds (9.8-13.1) H 02/25/19 17:37 INR 1.2 02/25/19 17:37 APTT 27.6 Seconds (25.6-37.1) 02/25/19 17:37 - Constitutional Appears: Chronically Ill - Head Exam Head Exam: NORMAL INSPECTION - Eye Exam Additional comments: Pupils sluggish reaction - ENT Exam Additional comments: Intubated. OGT - Neck Exam Neck Exam: Normal Inspection - Respiratory Exam Respiratory Exam: Decreased Breath Sounds (at bases), Rhonchi - Cardiovascular Exam Cardiovascular Exam: REGULAR RHYTHM - GI/Abdominal Exam GI & Abdominal Exam: Soft - Exam Additional comments: Leija Cath - Extremities Exam Extremities Exam: Normal Inspection - Back Exam Back Exam: tenderness - Neurological Exam Additional comments: Comatose, no response to verbal or tactile stimuli - Skin Skin Exam: Warm Assessment and Plan (1) Respiratory failure Status: Acute (2) Aspiration pneumonia Status: Acute (3) Anoxic encephalopathy Status: Acute (4) Paroxysmal A-fib Status: Acute (5) Seizure Status: Acute (6) H/O ETOH abuse Status: Chronic - Assessment and Plan (Free Text) Plan: VEEG abnormal, CT Head Brain edema, NS 3%, Palliative care, continue Keppra, Zosyn, Clinda , Labetalol, Lopressor, Amiodarone and rest of Tx. prognosis poor, [facility] Critical care time: 31 min.
[2019-03-01 13:47] LABS: BLOOD UREA NITROGEN 7 mg/dl (9-20); GFR NON-AFRICAN AMERICAN > 60
[2019-03-01] MEDS: Sodium Chloride 3% 500 ML IV SCH ×2 (14:07→22:47)
[2019-03-01] MEDS: Metoprolol 1 mg/ml Inj IVP PRN (17:36)
[2019-03-02] MEDS: Piperacillin/Tazobact 3.375 GM in Sodium Chloride 0.9% 100 ML IVPB SCH ×4 (00:09→23:21)
[2019-03-02] MEDS: Clindamycin 600mg/50ml NS 600 MG/50 ML BAG IVPB SCH ×3 (01:25→17:23)
[2019-03-02 05:08] LABS: HEMOGLOBIN 9.1 g/dL (12.0-18.0); MEAN CELL VOLUME 82.2 fl (80.0-94.0); MEAN CORPUSCULAR HEMOGLOBIN 27.9 pg (27.0-31.0); MEAN CORPUSCULAR HGB CONC 33.9 g/dL (33.0-37.0); RBC 3.26 Mil/uL (4.40-5.90); RED CELL DISTRIBUTION WIDTH 16.3 % (11.5-14.5); WHITE BLOOD COUNT 6.5 K/uL (4.8-10.8)
[2019-03-02 05:18] LABS: BLOOD UREA NITROGEN 11 mg/dl (9-20); CALCIUM 7.8 mg/dL (8.4-10.2); GFR NON-AFRICAN AMERICAN > 60
[2019-03-02 05:39] LABS: ABG ALLEN TEST YES; ARTERIAL BLOOD GAS HCO3 25.3 mmol/L (21-28); ARTERIAL BLOOD GAS HEMOGLOBIN 9.2 g/dL (11.7-17.4); ARTERIAL BLOOD GAS O2 SAT 100.3 % (95-98); ARTERIAL BLOOD GAS PCO2 35 mm/Hg (35-45); ARTERIAL BLOOD GAS PH 7.45 (7.35-7.45); ARTERIAL BLOOD GAS PO2 143 mm/Hg (80-100); ARTERIAL BLOOD GAS TCO2 25.4 mmol/L (22-28)
[2019-03-02] MEDS: Acetaminophen 650mg/20.3ml solution UD GT PRN (06:55)
[2019-03-02] MEDS: levETIRAcetam 500 MG in Sodium Chloride 0.9% 100 ML IVPB SCH ×2 (08:33→20:31)
[2019-03-02] MEDS: Sodium Chloride 3% 500 ML IV SCH (08:34)
[2019-03-02] MEDS: Enoxaparin 40 mg Syringe SC SCH (08:35)
--- NOTE | 2019-03-02 11:13 | CP.PCM.PN ---
Subjective - Date & Time of Evaluation Date of Evaluation: 03/02/19 Time of Evaluation: 11:13 - Subjective Subjective: Neuro Follow-Up Note: Mr. Marley was evaluated this morning in the ICU. No family present. He remains intubated, on a mech vent with no sedation. He does not respond to painful stimuli; does not follows any commands. He is still breathing over the vent. Chart reviewed and case discussed with primary RN. ROS is unobtainable from the pt due to his current state. Objective - Vital Signs/Intake and Output Vital Signs (last 24 hours): Temp Pulse Resp BP Pulse Ox 100.4 F H 75 27 H 129/69 98 03/02/19 08:00 03/02/19 10:00 03/02/19 10:00 03/02/19 10:00 03/02/19 10:00 Intake and Output: 03/02/19 03/02/19 06:59 18:59 Intake Total 1930 760 Output Total 700 Balance 1230 760 - Medications Medications: Current Medications Acetaminophen (Tylenol 650mg/20.3ml Solution Ud) 650 mg GT Q6 PRN PRN Reason: Temperature Last Admin: 03/02/19 06:55 Dose: 650 mg Amiodarone HCl (Cordarone) 200 mg NG BID [facility] Last Admin: 03/02/19 08:35 Dose: 200 mg Amlodipine Besylate (Norvasc) 5 mg PO DAILY [facility] Last Admin: 03/02/19 08:35 Dose: 5 mg Enoxaparin Sodium (Lovenox) 40 mg SC DAILY [facility]; Protocol Last Admin: 03/02/19 08:35 Dose: 40 mg Clindamycin Phosphate (Cleocin 600mg/50ml Ns) 600 mg in 50 mls @ 50 mls/hr IVPB Q8 [facility]; Protocol Last Admin: 03/02/19 08:33 Dose: 50 mls/hr Levetiracetam 500 mg/ Sodium (Chloride) 105 mls @ 210 mls/hr IVPB Q12 [facility] Last Admin: 03/02/19 08:33 Dose: 210 mls/hr Piperacillin Sod/Tazobactam (Sod 3.375 gm/ Sodium Chloride) 100 mls @ 100 mls/hr IVPB Q8@0000,0800,1600 [facility]; Protocol Last Admin: 03/02/19 09:35 Dose: 100 mls/hr Sodium Chloride (Hypertonic Saline 3%) 500 mls @ 60 mls/hr IV .Q8H20M [facility] Stop: 03/02/19 12:02 Last Admin: 03/02/19 08:34 Dose: 60 mls/hr Labetalol HCl (Trandate) 200 mg PO Q12 [facility] Last Admin: 03/02/19 08:35 Dose: 200 mg Metoprolol Tartrate (Lopressor) 5 mg IVP Q6 PRN PRN Reason: Systolic Blood Pressure Last Admin: 03/01/19 17:36 Dose: 5 mg Pantoprazole Sodium (Protonix Inj) 40 mg IVP DAILY [facility] Last Admin: 03/02/19 08:35 Dose: 40 mg - Labs Labs: 03/02/19 04:53 03/02/19 04:53 PT 14.1 Seconds (9.8-13.1) H 02/25/19 17:37 INR 1.2 02/25/19 17:37 APTT 27.6 Seconds (25.6-37.1) 02/25/19 17:37 - Constitutional Appears: Other (intubated, on mech vent, no sedation, does not follow commands, does not respond to painful stimuli) - Head Exam Head Exam: ATRAUMATIC, NORMAL INSPECTION, NORMOCEPHALIC - Eye Exam Eye Exam: absent: EOMI, Normal appearance, Nystagmus, PERRL, Scleral icterus Pupil Exam: Fixed. absent: NORMAL ACCOMODATION, PERRL Additional comments: Pupils fixed at approx 2 mm b/l No corneals, no dolls eyes Does not open eyes spontaneously - ENT Exam ENT Exam: Mucous Membranes Moist Additional comments: Intubated OGT - Neck Exam Neck Exam: Normal Inspection - Respiratory Exam Respiratory Exam: absent: NORMAL BREATHING PATTERN Additional comments: Intubated, on mech vent Breathing over the vent at approx 31 BPM today. - Cardiovascular Exam Cardiovascular Exam: REGULAR RHYTHM - GI/Abdominal Exam GI & Abdominal Exam: Soft. absent: Distended Additional comments: OGT present w feedings - Exam Additional comments: Leija cath - Extremities Exam Extremities Exam: absent: Full ROM, Pedal Edema Additional comments: Extremities flaccid; still has minimal tone to BUE. Does not withdraw to or localize pain. - Neurological Exam Neurological Exam: Altered Additional comments: Pt remains intubated, on mech vent; off sedation. Breathing over vent. Nonverbal; does not follow commands; no response to painful or verbal stimuli. Pupils remain fixed at 2 mm b/l; neg dolls eyes and corneals. Does not open eyes spontaneously. No gag reflex. Extremities flaccid; has minimal tone to BUE; does not withdraw to or localize pain. No tremors or abnormal movements. GCS remains at 3T - Psychiatric Exam Additional comments: Intubated, on vent, no sedation; does not follow commands or respond to painful stimuli - Skin Skin Exam: Dry, Warm Assessment and Plan (1) Anoxic encephalopathy Assessment & Plan: Imaging reviewed: -CT Head (03/01/19): Interval changes compatible with interval marked cerebral atrophy symmetrical in appearance. Concomitant symmetrical watershed acute /subacute developing infarcts are also needed be considered. At this time no gross downward herniation seen. No asymmetrical extra-axial blood. There is some concomitant extra axial blood without gross mass effect cannot be excluded as detailed above. The accentuated ir appearance may be due to the contrast with the interval marked cerebral current edema. Comments: Findings were called this morning up prior to completing this dictation. These findings were directly discussed with the ICU nurse Brooke who is taking care of this patient -EEG (02/27/19-02/28/19): This was an abnormal video EEG, monitoring study, due to the presence of: Marked diffuse attenuation/slowing. No seizures Not in status epilepticus. INTERPRETATION: The above mentioned findings are in keeping with a severe non specific diffuse disturbance of cortical activity. This is in keeping with a diffuse cook matter dysfunction. The findings do not suggest a specific etiology. -CT Head (02/15/19): No acute intracranial findings appreciable in the interval. Stable age-related degenerative changes well as chronic lacune left thalamus as seen in prior CT 02/22/2019. No significant interval change. -D/C hypertonic saline 3% at this time. -CTA Head and Neck to further evaluate for poss acute.subacute watershed infarcts (see CT Head report above)--will f/u with results. -Brain Flow Study---will f/u with results. -Continue Keppra 500 mg IV Q12. -Continue to monitor and replace electrolytes: K today 3.9, Na 134. -Continue seizure precaution and continue management in the ICU. -We recommend that palliative care speak with pt's family regarding goals of care. Prognosis is poor and the pt does not appear to be improving. -Notify neuro team of any changes in pt's condition. If family has questions, please feel free to contact us. Tess Green DNP, [employer] d/w Dr. Snowden Status: Acute
--- NOTE | 2019-03-02 11:22 | RAD ---
Date of service: 03/02/2019 HISTORY: Intubated COMPARISON: Multiple serial examinations preceding the most recent study: March 01, 2019. FINDINGS: LUNGS: Right lower lobe infiltrate. PLEURA: Pleural thickening/right pleural effusion. CARDIOVASCULAR: No atherosclerotic calcification present Normal. OSSEOUS STRUCTURES: No significant abnormalities. VISUALIZED UPPER ABDOMEN: Normal. OTHER FINDINGS: Stable, satisfactory position ventilatory, nasogastric apparatus. IMPRESSION: No significant interval change compared to the prior examination(s).
--- NOTE | 2019-03-02 12:33 | CP.CCUPN ---
<Stefan Murdock - Last Filed: 03/02/19 12:06> CCU Subjective - Physician Review Subjective (Free Text): Pt seen and examined this am at the bedside. Unresponsive to voice. Right arm withdraws to pain. Right eye lateral gaze palsy, minimal pupillary reflex on left. GCS 3 On MV FIO2 30% Critical Care Time Spent (in minutes): 55 CCU Objective - Vital Signs / Intake & Output Vital Signs (Last 4 hours): Vital Signs Temp Pulse Resp BP Pulse Ox 03/02/19 10:00 75 27 H 129/69 98 03/02/19 08:35 81 160/83 H 03/02/19 08:00 100.4 F H 80 25 H 160/83 H 98 03/02/19 07:55 100.4 F H Intake and Output (Last 8hrs): Intake & Output 03/01/19 03/02/19 03/02/19 22:59 06:59 14:59 Intake Total 1590 1220 760 Output Total 300 700 Balance 1290 520 760 Weight 166 lb Intake: IV 600 480 240 Intake, Piggyback 250 150 150 Tube Feeding 440 440 220 Free Water Flush 300 150 150 Output: Urine 300 700 Urethral (Leija) 300 700 Other: # Bowel Movements 0 1 - Physical Exam Head: Positive for: Atraumatic, Normocephalic Pupils: Positive for: PERRL, Sluggish Extroacular Muscles: Positive for: EOMI Conjunctiva: Negative for: Injected, Icteric Ears: Positive for: Normal Mouth: Positive for: Moist Mucous Membranes Nose (Internal): Positive for: Normal Inspection Neck: Positive for: Normal Range of Motion, Trachea Midline. Negative for: Meningeal Signs, MIDLINE TENDERNESS, Paraspinal Tenderness, JVD, Lymphadenopathy, Bruit, Other Respiratory/Chest: Positive for: Good Air Exchange, Decreased Breath Sounds, Rhonchi Cardiovascular: Positive for: Regular Rate and Rhythm, Normal S1, S2, Peripheal Pulses Present. Negative for: Murmurs Abdomen: Positive for: Distention, Normal Bowel Sounds. Negative for: Tenderness Neurological: Positive for: GCS=15 Psychiatric: Negative for: Alert, Oriented x 3, Normal Insight - Medications Active Medications: Active Medications Generic Name Dose Route Start Last Admin Trade Name Freq PRN Reason Stop Dose Admin Acetaminophen 650 mg 02/26/19 00:27 03/02/19 06:55 Tylenol 650mg/20.3ml Solution Ud GT 650 mg Q6 PRN Administration Temperature Amiodarone HCl 200 mg 02/26/19 23:45 03/02/19 08:35 Cordarone NG 200 mg BID [facility] Administration Amlodipine Besylate 5 mg 03/01/19 10:00 03/02/19 08:35 Norvasc PO 5 mg DAILY [facility] Administration Enoxaparin Sodium 40 mg 02/26/19 09:00 03/02/19 08:35 Lovenox SC 40 mg DAILY [facility] Administration Protocol Clindamycin Phosphate 600 mg in 50 mls @ 50 mls/hr 02/25/19 19:00 03/02/19 08:33 Cleocin 600mg/50ml Ns IVPB 50 mls/hr Q8 [facility] Administration Protocol Levetiracetam 500 mg/ Sodium 105 mls @ 210 mls/hr 02/26/19 09:00 03/02/19 08:33 Chloride IVPB 210 mls/hr Q12 [facility] Administration Piperacillin Sod/Tazobactam 100 mls @ 100 mls/hr 02/26/19 08:00 03/02/19 09:35 Sod 3.375 gm/ Sodium Chloride IVPB 100 mls/hr Q8@0000,0800,1600 [facility] Administration Protocol Sodium Chloride 500 mls @ 60 mls/hr 03/01/19 12:15 03/02/19 08:34 Hypertonic Saline 3% IV 03/02/19 12:02 60 mls/hr .Q8H20M [facility] Administration Labetalol HCl 200 mg 03/01/19 10:00 03/02/19 08:35 Trandate PO 200 mg Q12 [facility] Administration Metoprolol Tartrate 5 mg 02/26/19 23:54 03/01/19 17:36 Lopressor IVP 5 mg Q6 PRN Administration Systolic Blood Pressure Pantoprazole Sodium 40 mg 02/25/19 20:45 03/02/19 08:35 Protonix Inj IVP 40 mg DAILY [facility] Administration - Patient Studies Lab Studies: Microbiology Studies 02/25/19 17:55 Blood Culture - Preliminary Blood NO GROWTH AFTER 4 DAYS 02/25/19 17:45 Blood Culture - Preliminary Blood NO GROWTH AFTER 4 DAYS Lab Studies 03/02/19 03/02/19 03/02/19 Range/Units 05:29 04:53 04:53 WBC 6.5 (4.8-10.8) K/uL RBC 3.26 L (4.40-5.90) Mil/uL Hgb 9.1 L (12.0-18.0) g/dL Hct 26.8 L (35.0-51.0) % MCV 82.2 (80.0-94.0) fl MCH 27.9 (27.0-31.0) pg MCHC 33.9 (33.0-37.0) g/dL RDW 16.3 H (11.5-14.5) % Plt Count 220 (130-400) K/uL pCO2 35 (35-45) mm/Hg pO2 143 H (80-100) mm/Hg HCO3 25.3 (21-28) mmol/L ABG pH 7.45 (7.35-7.45) ABG Total CO2 25.4 (22-28) mmol/L ABG O2 Saturation 100.3 H (95-98) % ABG O2 Content 13.0 L (15-23) ML/dL ABG Base Excess 0.5 (-2.0-3.0) mmol/L ABG Hemoglobin 9.2 L (11.7-17.4) g/dL ABG Carboxyhemoglobin 1.6 H (0.5-1.5) % POC ABG HHb (Measured) -0.3 L (0.0-5.0) % ABG Methemoglobin 1.0 (0.0-3.0) % ABG O2 Capacity 13.0 L (16-24) mL/dL Fabrizio Test Yes A-a O2 Difference 27.0 mm/Hg Hgb O2 Saturation 97.8 (95.0-98.0) % Vent Mode A/c Mechanical Rate 10 FiO2 30.0 % Tidal Volume 400 PEEP 5 Sodium 134 (132-148) mmol/l Potassium 3.9 (3.6-5.0) MMOL/L Chloride 103 (98-107) mmol/L Carbon Dioxide 25 (22-30) mmol/L Anion Gap 10 (10-20) BUN 11 (9-20) mg/dl Creatinine 0.6 L (0.8-1.5) mg/dl Est GFR ( Amer) > 60 Est GFR (Non-Af Amer) > 60 Random Glucose 142 H (75-110) mg/dL Calcium 7.8 L (8.4-10.2) mg/dL Total Creatine Kinase (55-170) U/L Ur Random Sodium meq/L Ur Random Potassium mmol/L Topiramate (see note) mcg/mL Levetiracetam mcg/mL 03/01/19 03/01/19 02/25/19 Range/Units 13:02 11:20 23:16 WBC (4.8-10.8) K/uL RBC (4.40-5.90) Mil/uL Hgb (12.0-18.0) g/dL Hct (35.0-51.0) % MCV (80.0-94.0) fl MCH (27.0-31.0) pg MCHC (33.0-37.0) g/dL RDW (11.5-14.5) % Plt Count (130-400) K/uL pCO2 (35-45) mm/Hg pO2 (80-100) mm/Hg HCO3 (21-28) mmol/L ABG pH (7.35-7.45) ABG Total CO2 (22-28) mmol/L ABG O2 Saturation (95-98) % ABG O2 Content (15-23) ML/dL ABG Base Excess (-2.0-3.0) mmol/L ABG Hemoglobin (11.7-17.4) g/dL ABG Carboxyhemoglobin (0.5-1.5) % POC ABG HHb (Measured) (0.0-5.0) % ABG Methemoglobin (0.0-3.0) % ABG O2 Capacity (16-24) mL/dL Fabrizio Test A-a O2 Difference mm/Hg Hgb O2 Saturation (95.0-98.0) % Vent Mode Mechanical Rate FiO2 % Tidal Volume PEEP Sodium 127 L (132-148) mmol/l Potassium 3.6 (3.6-5.0) MMOL/L Chloride 90 L (98-107) mmol/L Carbon Dioxide 29 (22-30) mmol/L Anion Gap 12 (10-20) BUN 7 L (9-20) mg/dl Creatinine 0.6 L (0.8-1.5) mg/dl Est GFR ( Amer) > 60 Est GFR (Non-Af Amer) > 60 Random Glucose 140 H (75-110) mg/dL Calcium 8.0 L (8.4-10.2) mg/dL Total Creatine Kinase > 1600 H (55-170) U/L Ur Random Sodium 175 meq/L Ur Random Potassium 12.7 mmol/L Topiramate <0.5 L (see note) mcg/mL Levetiracetam mcg/mL 02/25/19 Range/Units 23:16 WBC (4.8-10.8) K/uL RBC (4.40-5.90) Mil/uL Hgb (12.0-18.0) g/dL Hct (35.0-51.0) % MCV (80.0-94.0) fl MCH (27.0-31.0) pg MCHC (33.0-37.0) g/dL RDW (11.5-14.5) % Plt Count (130-400) K/uL pCO2 (35-45) mm/Hg pO2 (80-100) mm/Hg HCO3 (21-28) mmol/L ABG pH (7.35-7.45) ABG Total CO2 (22-28) mmol/L ABG O2 Saturation (95-98) % ABG O2 Content (15-23) ML/dL ABG Base Excess (-2.0-3.0) mmol/L ABG Hemoglobin (11.7-17.4) g/dL ABG Carboxyhemoglobin (0.5-1.5) % POC ABG HHb (Measured) (0.0-5.0) % ABG Methemoglobin (0.0-3.0) % ABG O2 Capacity (16-24) mL/dL Fabrizio Test A-a O2 Difference mm/Hg Hgb O2 Saturation (95.0-98.0) % Vent Mode Mechanical Rate FiO2 % Tidal Volume PEEP Sodium (132-148) mmol/l Potassium (3.6-5.0) MMOL/L Chloride (98-107) mmol/L Carbon Dioxide (22-30) mmol/L Anion Gap (10-20) BUN (9-20) mg/dl Creatinine (0.8-1.5) mg/dl Est GFR ( Amer) Est GFR (Non-Af Amer) Random Glucose (75-110) mg/dL Calcium (8.4-10.2) mg/dL Total Creatine Kinase (55-170) U/L Ur Random Sodium meq/L Ur Random Potassium mmol/L Topiramate (see note) mcg/mL Levetiracetam <1.0 mcg/mL Laboratory Results - last 24 hr 02/25/19 02/25/19 03/01/19 23:16 23:16 11:20 WBC RBC Hgb Hct MCV MCH MCHC RDW Plt Count pCO2 pO2 HCO3 ABG pH ABG Total CO2 ABG O2 Saturation ABG O2 Content ABG Base Excess ABG Hemoglobin ABG Carboxyhemoglobin POC ABG HHb (Measured) ABG Methemoglobin ABG O2 Capacity Fabrizio Test A-a O2 Difference Hgb O2 Saturation Vent Mode Mechanical Rate FiO2 Tidal Volume PEEP Sodium Potassium Chloride Carbon Dioxide Anion Gap BUN Creatinine Est GFR ( Amer) Est GFR (Non-Af Amer) Random Glucose Calcium Total Creatine Kinase Ur Random Sodium 175 Ur Random Potassium 12.7 Topiramate <0.5 L Levetiracetam <1.0 03/01/19 03/02/19 03/02/19 13:02 04:53 04:53 WBC 6.5 RBC 3.26 L Hgb 9.1 L Hct 26.8 L MCV 82.2 MCH 27.9 MCHC 33.9 RDW 16.3 H Plt Count 220 pCO2 pO2 HCO3 ABG pH ABG Total CO2 ABG O2 Saturation ABG O2 Content ABG Base Excess ABG Hemoglobin ABG Carboxyhemoglobin POC ABG HHb (Measured) ABG Methemoglobin ABG O2 Capacity Fabrizio Test A-a O2 Difference Hgb O2 Saturation Vent Mode Mechanical Rate FiO2 Tidal Volume PEEP Sodium 127 L 134 Potassium 3.6 3.9 Chloride 90 L 103 Carbon Dioxide 29 25 Anion Gap 12 10 BUN 7 L 11 Creatinine 0.6 L 0.6 L Est GFR ( Amer) > 60 > 60 Est GFR (Non-Af Amer) > 60 > 60 Random Glucose 140 H 142 H Calcium 8.0 L 7.8 L Total Creatine Kinase > 1600 H Ur Random Sodium Ur Random Potassium Topiramate Levetiracetam 03/02/19 05:29 WBC RBC Hgb Hct MCV MCH MCHC RDW Plt Count pCO2 35 pO2 143 H HCO3 25.3 ABG pH 7.45 ABG Total CO2 25.4 ABG O2 Saturation 100.3 H ABG O2 Content 13.0 L ABG Base Excess 0.5 ABG Hemoglobin 9.2 L ABG Carboxyhemoglobin 1.6 H POC ABG HHb (Measured) -0.3 L ABG Methemoglobin 1.0 ABG O2 Capacity 13.0 L Fabrizio Test Yes A-a O2 Difference 27.0 Hgb O2 Saturation 97.8 Vent Mode A/c Mechanical Rate 10 FiO2 30.0 Tidal Volume 400 PEEP 5 Sodium Potassium Chloride Carbon Dioxide Anion Gap BUN Creatinine Est GFR ( Amer) Est GFR (Non-Af Amer) Random Glucose Calcium Total Creatine Kinase Ur Random Sodium Ur Random Potassium Topiramate Levetiracetam Fingerstick Blood Sugar Results: 177 Assessment/Plan - Assessment and Plan (Free Text) Assessment: 58 yo M with hx of Chronic ETOH abuse, Seizure d/o (non compliant with medication) admitted to EMS s/p cardiac arrest w/ poor neurologic improvement. Pt was found unresponsive on field by EMS with no pulse. Pt now remains comatose and with minimal response to painful stimulus. No apparent changes in mental status. CT Head shows interval marked cerebral atropy, watershed infarcts. Prognosis guarded, likely irreversible hypoxic brain injury, active discussions regarding goals of care being held with family. Neuro - No improvement in neurological status - Comatose: GCS 3 - CT showing diffuse edema w/ herniation and watershed infarc. VEEG- abnormal cortical disturbance - Neurology, Dr. Snowden, on board. CT Head and Neck ordered for evaluation of watershed infarct. Brain Flow Studies. - Hypertonic 3% saline for cerebral edema d/c by neuro team - C/W Keppra - Ammonia wnl, Utox negative Cardiac - S/P Cardiac arrest for unknown period of time - On presentation, had Rapid Afibb, s/p Cardioversion x3. Now rate and rhythm controlled on Amiodorone po - Hemodynamcially stable Renal - Stable kidney function - Electrolytes stable - CK>1600, mild rhabdo GI - C/W Tube feedings Heme/ID - Possible aspiration pnu. Leukocytosis resolved - C/W Vanco and Zosyn - Bcx and Ucx negative to date - H/H and Platelets stable PPX GI: Protonix 40mg IV daily DVT: Lovenox Sq daily Case discussed with Dr. Hallman who agrees with plan Adiam Mathieu, PGY2 <Francis Hallman - Last Filed: 03/02/19 14:29> Assessment/Plan - Assessment and Plan (Free Text) Plan: Attestation: Patient seen and examined at the bedside with Resident Dr. Tima Murdock; and I agree with her outline of plans and management documented above as discussed on AM rounds; reflecting my review of all applicable clinical data, and participation in the care of the patient throughout the day in ICU; today, March 02, 2019. Mr. Marley remains in deep coma, most likely 2 anoxic encephalopathy post respiratory arrest. Discussed present clinical status with daughter Sheeba at the bedside this AM. She states she would keep him on life support for up to a month pending arrival of more family members. I re-iterated the prognosis is extremely poor and that most likely he would not survive for the duration of a month, and at best perhaps a week given the presence of minimal brainstem functions ( +vasomotor tone and + vent triggering) which could deteriorate at any time, since yesterdays CT Brain showed diffuse / global cerebral edema and questionable efficacy of attempts to lower ICP. In any event, will continue present life support measures.
--- NOTE | 2019-03-02 13:16 | CP.PCM.PN ---
Subjective - Date & Time of Evaluation Date of Evaluation: 03/02/19 Time of Evaluation: 10:30 - Subjective Subjective: F/U Respiratory Failure Comatose. intubated Objective - Vital Signs/Intake and Output Vital Signs (last 24 hours): Temp Pulse Resp BP Pulse Ox 101.2 F H 78 18 157/83 H 98 03/02/19 12:00 03/02/19 12:00 03/02/19 12:00 03/02/19 12:00 03/02/19 12:00 Intake and Output: 03/02/19 03/02/19 06:59 18:59 Intake Total 1930 760 Output Total 700 Balance 1230 760 - Medications Medications: Current Medications Acetaminophen (Tylenol 650mg/20.3ml Solution Ud) 650 mg GT Q6 PRN PRN Reason: Temperature Last Admin: 03/02/19 06:55 Dose: 650 mg Amiodarone HCl (Cordarone) 200 mg NG BID [facility] Last Admin: 03/02/19 08:35 Dose: 200 mg Amlodipine Besylate (Norvasc) 5 mg PO DAILY [facility] Last Admin: 03/02/19 08:35 Dose: 5 mg Enoxaparin Sodium (Lovenox) 40 mg SC DAILY [facility]; Protocol Last Admin: 03/02/19 08:35 Dose: 40 mg Clindamycin Phosphate (Cleocin 600mg/50ml Ns) 600 mg in 50 mls @ 50 mls/hr IVPB Q8 [facility]; Protocol Last Admin: 03/02/19 08:33 Dose: 50 mls/hr Levetiracetam 500 mg/ Sodium (Chloride) 105 mls @ 210 mls/hr IVPB Q12 [facility] Last Admin: 03/02/19 08:33 Dose: 210 mls/hr Piperacillin Sod/Tazobactam (Sod 3.375 gm/ Sodium Chloride) 100 mls @ 100 mls/hr IVPB Q8@0000,0800,1600 [facility]; Protocol Last Admin: 03/02/19 09:35 Dose: 100 mls/hr Labetalol HCl (Trandate) 200 mg PO Q12 [facility] Last Admin: 03/02/19 08:35 Dose: 200 mg Metoprolol Tartrate (Lopressor) 5 mg IVP Q6 PRN PRN Reason: Systolic Blood Pressure Last Admin: 03/01/19 17:36 Dose: 5 mg Pantoprazole Sodium (Protonix Inj) 40 mg IVP DAILY [facility] Last Admin: 03/02/19 08:35 Dose: 40 mg - Labs Labs: 03/02/19 04:53 03/02/19 04:53 PT 14.1 Seconds (9.8-13.1) H 02/25/19 17:37 INR 1.2 02/25/19 17:37 APTT 27.6 Seconds (25.6-37.1) 02/25/19 17:37 - Constitutional Appears: Chronically Ill - Head Exam Head Exam: NORMAL INSPECTION - Eye Exam Additional comments: Pupils sluggish reaction - ENT Exam Additional comments: Intubated ,OGT - Neck Exam Neck Exam: Normal Inspection - Respiratory Exam Respiratory Exam: Decreased Breath Sounds (at bases), Rhonchi - Cardiovascular Exam Cardiovascular Exam: REGULAR RHYTHM - GI/Abdominal Exam GI & Abdominal Exam: Soft - Exam Additional comments: Leija Cath - Extremities Exam Extremities Exam: Normal Inspection - Neurological Exam Additional comments: Comatose, no response - Skin Skin Exam: Warm Assessment and Plan (1) Respiratory failure Status: Acute (2) Aspiration pneumonia Status: Acute (3) Anoxic encephalopathy Status: Acute (4) Paroxysmal A-fib Status: Acute (5) Seizure Status: Acute (6) H/O ETOH abuse Status: Chronic - Assessment and Plan (Free Text) Plan: Discussed with Neurology, Brain Flow Nuclear Medicine and Neck/Head MRA today. Critical care time: 30 min.
[2019-03-02] MEDS ORDERED: Iodixanol 320 MG/ML 100 ML BOTTLE IV ONE (16:08)
[2019-03-02] MEDS ORDERED: Sodium Chloride 0.9% 50 ML IV ONE (16:08)
--- NOTE | 2019-03-02 16:50 | NM ---
Date of service: 03/02/2019 PROCEDURE: Brain and flow study. HISTORY: eval brain blood flow; pt unrespnsive, intubated COMPARISON: March 01, 2019. CT head. TECHNIQUE: 21.3 mCi Tc 99 M DTPA administered intravenously. FINDINGS: Bolus deemed to be of diagnostic quality. No evidence of supra tentorial flow. Accumulation of radionuclide face/nasal region. IMPRESSION: No supra tentorial blood flow documented.
--- NOTE | 2019-03-02 17:27 | CT ---
Date of service: 03/02/2019 PROCEDURE: CT Angiography of the neck and head with contrast HISTORY: eval for LVO or stenosis; cannot exclude infarct COMPARISON: Comparison is made with the previous MRA dated 09/28/2017 TECHNIQUE: Contiguous axial images of the neck and head/intracranial arteries were obtained from the level of the skull-base to the superior mediastinum in the arteriographic phase of enhancement. Coronal and sagittal reformats or also generated. IV contrast dose: 90 mL of Visipaque 320 intravenously. Radiation dose: Total exam DLP = 464.6 mGy-cm. This CT exam was performed using one or more of the following dose reduction techniques: Automated exposure control, adjustment of the mA and/or kV according to patient size, and/or use of iterative reconstruction technique. FINDINGS: RIGHT CAROTID ARTERIES: Common Carotid Artery: Normal. Carotid Bifurcation: Atherosclerotic calcification Internal Carotid Artery:50-60 percent stenosis noted at the origin of the right internal carotid artery associated with atherosclerotic calcification. External Carotid Artery (proximal branches): Normal. LEFT CAROTID ARTERIES: Common Carotid Artery: Normal. Carotid Bifurcation: Coarse atherosclerotic calcification Internal Carotid Artery:Foci of atherosclerotic calcification at the origin of the left internal carotid artery associated with mild 50 percent stenosis. External Carotid Artery (proximal branches): Normal. VERTEBRAL ARTERIES: Right Vertebral Artery: Normal. Left Vertebral Artery: Occlusion of the left vertebral artery from its origin. OTHER FINDINGS: Small foci of aortic atherosclerotic calcification or mural plaque present. INTERNAL CEREBRAL ARTERIES: Foci of mild stenosis in the distal internal cerebral arteries. The skull base, petrous, cavernous and supraclinoid segments are bilaterally widely patent. ANTERIOR CEREBRAL ARTERIES: Unremarkable. A1 and A2 segments are widely patent. Smaller distal branches unremarkable, as visualized. MIDDLE CEREBRAL ARTERIES: Foci of mild stenosis and diffuse irregularity noted in both middle cerebral arteries.. M1 and M2 segments are patent. Perisylvian branches grossly symmetric. POSTERIOR CIRCULATION: Basilar Artery: Unremarkable. Distal Vertebral Arteries: Small size left V4 Posterior Cerebral Arteries: Unremarkable. Posterior Inferior Cerebellar Arteries: Unremarkable. ANEURYSM/ VASCULAR MALFORMATIONS: None. IMPRESSION: Occlusion of the left vertebral artery from its origin with reconstitution of very small left V4. Small size middle cerebral artery demonstrate diffuse irregularity and possible small foci of mild stenosis. Large atherosclerotic calcification noted at the carotid bifurcation and origin of both internal carotid arteries.
[2019-03-03] MEDS: Clindamycin 600mg/50ml NS 600 MG/50 ML BAG IVPB SCH ×3 (00:23→16:06)
[2019-03-03 04:54] LABS: BASO % 0.4 % (0.0-2.0); EOS # 0.2 K/uL (0.0-0.7); EOS % 2.6 % (0.0-4.0); LYMPH # 0.6 K/uL (1.0-4.3); LYMPH % 10.3 % (20.0-40.0); MEAN CELL VOLUME 83.8 fl (80.0-94.0); MEAN CORPUSCULAR HEMOGLOBIN 27.9 pg (27.0-31.0); MEAN CORPUSCULAR HGB CONC 33.3 g/dL (33.0-37.0); MONO # 1.1 K/uL (0.0-0.8); MONO % 18.2 % (0.0-10.0); NEUT # 4.3 K/uL (1.8-7.0); NEUT % 68.5 % (50.0-75.0); NRBC % 0.1 % (0.0-0.0); RBC 3.21 Mil/uL (4.40-5.90); RED CELL DISTRIBUTION WIDTH 16.1 % (11.5-14.5); WHITE BLOOD COUNT 6.3 K/uL (4.8-10.8)
[2019-03-03 05:06] LABS: ALB/GLOB RATIO 1.1 (1.0-2.1); ALBUMIN 3.4 g/dL (3.5-5.0); ALT/SGPT 37 U/L (21-72); AST/SGOT 96 U/L (17-59); BLOOD UREA NITROGEN 12 mg/dl (9-20); CALCIUM 8.4 mg/dL (8.4-10.2); GFR NON-AFRICAN AMERICAN > 60
[2019-03-03 05:34] LABS: ABG ALLEN TEST YES; ARTERIAL BLOOD GAS HEMOGLOBIN 9.8 g/dL (11.7-17.4); ARTERIAL BLOOD GAS O2 CAPACITY 13.7 mL/dL (16-24); ARTERIAL BLOOD GAS O2 CONTENT 13.7 ML/dL (15-23); ARTERIAL BLOOD GAS PCO2 33 mm/Hg (35-45); ARTERIAL BLOOD GAS PH 7.48 (7.35-7.45); ARTERIAL BLOOD GAS PO2 150 mm/Hg (80-100); ARTERIAL BLOOD GAS TCO2 25.6 mmol/L (22-28)
[2019-03-03] MEDS: levETIRAcetam 500 MG in Sodium Chloride 0.9% 100 ML IVPB SCH ×2 (08:33→20:37)
[2019-03-03] MEDS: Enoxaparin 40 mg Syringe SC SCH (08:33)
[2019-03-03] MEDS: Piperacillin/Tazobact 3.375 GM in Sodium Chloride 0.9% 100 ML IVPB SCH ×3 (08:34→23:35)
--- NOTE | 2019-03-03 10:49 | CP.PCM.PN ---
Subjective - Date & Time of Evaluation Date of Evaluation: 03/03/19 Time of Evaluation: 10:48 - Subjective Subjective: Neuro Follow-Up Note: Mr. Marley was evaluated this morning in the ICU. No family present. He remains intubated, on a mech vent with no sedation. On and off response to painful stimuli (when I examined the pt he had non-puposeful movements of BUE with sternal rub; with Dr. Snowden he had no repsonse); does not follows any commands. He is still breathing over the vent. Chart reviewed and case discussed with primary RN, research hydrologist, and Dr. Snowden. ROS is unobtainable from the pt due to his current state. Objective - Vital Signs/Intake and Output Vital Signs (last 24 hours): Temp Pulse Resp BP Pulse Ox 98.6 F 81 21 159/85 H 99 03/03/19 08:00 03/03/19 08:34 03/03/19 08:00 03/03/19 08:34 03/03/19 08:00 Intake and Output: 03/03/19 03/03/19 06:59 18:59 Intake Total 1210 565 Output Total 1295 450 Balance -85 115 - Medications Medications: Current Medications Acetaminophen (Tylenol 650mg/20.3ml Solution Ud) 650 mg GT Q6 PRN PRN Reason: Temperature Last Admin: 03/02/19 06:55 Dose: 650 mg Amiodarone HCl (Cordarone) 200 mg NG BID [facility] Last Admin: 03/03/19 08:32 Dose: 200 mg Amlodipine Besylate (Norvasc) 5 mg PO DAILY [facility] Last Admin: 03/03/19 08:34 Dose: 5 mg Enoxaparin Sodium (Lovenox) 40 mg SC DAILY [facility]; Protocol Last Admin: 03/03/19 08:33 Dose: 40 mg Clindamycin Phosphate (Cleocin 600mg/50ml Ns) 600 mg in 50 mls @ 50 mls/hr IVPB Q8 [facility]; Protocol Last Admin: 03/03/19 08:31 Dose: 50 mls/hr Levetiracetam 500 mg/ Sodium (Chloride) 105 mls @ 210 mls/hr IVPB Q12 [facility] Last Admin: 03/03/19 08:33 Dose: 210 mls/hr Piperacillin Sod/Tazobactam (Sod 3.375 gm/ Sodium Chloride) 100 mls @ 100 mls/hr IVPB Q8@0000,0800,1600 [facility]; Protocol Last Admin: 03/03/19 08:34 Dose: 100 mls/hr Labetalol HCl (Trandate) 200 mg PO Q12 [facility] Last Admin: 03/03/19 08:34 Dose: 200 mg Metoprolol Tartrate (Lopressor) 5 mg IVP Q6 PRN PRN Reason: Systolic Blood Pressure Last Admin: 03/01/19 17:36 Dose: 5 mg Pantoprazole Sodium (Protonix Inj) 40 mg IVP DAILY [facility] Last Admin: 03/03/19 08:34 Dose: 40 mg - Labs Labs: 03/03/19 04:10 03/03/19 04:10 PT 14.1 Seconds (9.8-13.1) H 02/25/19 17:37 INR 1.2 02/25/19 17:37 APTT 27.6 Seconds (25.6-37.1) 02/25/19 17:37 - Constitutional Appears: Other (intubated, on mech vent, no sedation; on/off repsonse to painful stimuli, does not follow commands.) - Head Exam Head Exam: ATRAUMATIC, NORMAL INSPECTION, NORMOCEPHALIC - Eye Exam Eye Exam: absent: EOMI, Normal appearance, Nystagmus, PERRL, Scleral icterus Pupil Exam: Fixed. absent: NORMAL ACCOMODATION, PERRL Additional comments: pupils fixed b/l at 2 mm no corneals, no dolls eyes does not open eyes spontaneously - ENT Exam ENT Exam: Mucous Membranes Moist Additional comments: intubated OGT - Neck Exam Neck Exam: Normal Inspection - Respiratory Exam Respiratory Exam: absent: NORMAL BREATHING PATTERN Additional comments: Intubated, on mech vent Breathing over the vent at 28 BPM - Cardiovascular Exam Cardiovascular Exam: REGULAR RHYTHM - GI/Abdominal Exam GI & Abdominal Exam: Soft. absent: Distended Additional comments: OGT w feedings - Exam Additional comments: ge - Extremities Exam Extremities Exam: absent: Calf Tenderness, Full ROM, Pedal Edema Additional comments: When I did deep sternal rub, the pt had non-purposeful movements of BUE; however, when Dr. Snowden did the same, pt had no response or movements. No movements to BLE. - Neurological Exam Neurological Exam: Altered. absent: Alert, Awake, Oriented x3, Reflexes Normal Additional comments: Pt remains intubated, on mech vent; off sedation. Breathing over vent. Nonverbal; does not follow commands; no response to painful or verbal stimuli. Pupils remain fixed at 2 mm b/l; neg dolls eyes and corneals. Does not open eyes spontaneously. Slight gag reflex with deep suction today. When I did deep sternal rub, the pt had non-purposeful movements of BUE; however, when Dr. Snowden did the same, pt had no response or movements. No movements to BLE. GCS remains at 3T - Psychiatric Exam Additional comments: Intubated, on vent, no sedation; does not follow commands. - Skin Skin Exam: Normal Color Assessment and Plan (1) Anoxic encephalopathy Assessment & Plan: Imaging reviewed: -CTA Head and Neck (03/02/19): Occlusion of the left vertebral artery from its origin with reconstitution of very small left V4. Small size middle cerebral artery demonstrate diffuse irregularity and possible small foci of mild stenosis. Large atherosclerotic calcification noted at the carotid bifurcation and origin of both internal carotid arteries. -Brain Flow Study (03/02/19): no supratentorial blood flow documented. -CT Head (03/01/19): Interval changes compatible with interval marked cerebral atrophy symmetrical in appearance. Concomitant symmetrical watershed acute/subacute developing infarcts are also needed be considered. At this time no gross downward herniation seen. No asymmetrical extra-axial blood. There is some concomitant extra axial blood without gross mass effect cannot be excluded as detailed above. The accentuated ir appearance may be due to the contrast with the interval marked cerebral current edema. Comments: Findings were called this morning up prior to completing this dictation. These findings were directly discussed with the ICU nurse Brooke who is taking care of this patient -EEG (02/27/19-02/28/19): This was an abnormal video EEG, monitoring study, due to the presence of: Marked diffuse attenuation/slowing. No seizures Not in status epilepticus. INTERPRETATION: The above mentioned findings are in keeping with a severe non specific diffuse disturbance of cortical activity. This is in keeping with a diffuse cook matter dysfunction. The findings do not suggest a specific etiology. -CT Head (02/15/19): No acute intracranial findings appreciable in the interval. Stable age-related degenerative changes well as chronic lacune left thalamus as seen in prior CT 02/22/2019. No significant interval change. -Continue Keppra 500 mg IV Q12. -Continue to monitor and replace electrolytes: K today 3.8, Na 133. -Continue seizure precaution and continue management in the ICU. -At this time after examination of the pt and review of all imaging, we do not recommend that repeat Brain Flow or repeat noncontrast CT Head be done; palliative care evaluation is recommended and a discussion with the family regarding goals of care and possible withdrawal of care/comfort care. Prognosis remains poor at this time and the pt has not improved. -Notify neuro team of any changes in pt's condition. If family has questions, please feel free to contact us. Tses Green DNP, IMMUNOPATHOLOGIST d/w Dr. Snowden Status: Acute
--- NOTE | 2019-03-03 11:11 | PCM.PCON ---
History of Present Illness - History of Present Illness History of Present Illness: Patient is a 58 year old male with history of ETOH abuse and non compliance with seizure medications was found face down outside for an unknown amount of time. CPR was started in the field by Police and EMS. Patient had no pulse upon ED arrival. He was then intubated and transferred to ICU. PMH: seizures, etoh abuse, HTN, Depression Soc hx: ETOH abuse Fam hx: unknown 03/02/19 Nuclear Brain Flow Study: No Supratentorial blood flow Review of Systems - Review of Systems Systems not reviewed;Unavailable: Acuity of Condition Physical Exam - Constitutional Appears: Chronically Ill, Other Additional comments: intubated on mechanical ventilation, unresponsive - Head Exam Head Exam: ATRAUMATIC, NORMAL INSPECTION, NORMOCEPHALIC - Eye Exam Pupil Exam: Fixed. absent: PERRL - ENT Exam ENT Exam: Mucous Membranes Dry - Respiratory Exam Additional comments: intubated on vent - Cardiovascular Exam Cardiovascular Exam: REGULAR RHYTHM - Exam Additional comments: has f/c - Extremities Exam Extremities exam: Positive for: pedal pulses present - Neurological Exam Additional comments: unresponsive to voice or touch - Skin Skin Exam: Dry, Pallor, Warm Palliative Care Assessment - Modified MRC Dyspnea Scale Modified MRC Dyspnea Scale: Too breathless to leave the house,or breathless dressing or undressing Grade: 5 - Melecio Scale Sensory Perception: Completely Limited Moisture: Occasionally Moist Activity: Bedfast Mobility: Completely Immobile Nutrition: Very Poor Friction & Shear: Problem Total Score - Skin Risk Assessment: 8 Palliative Care - Goals Goal(s) of care: Call placed to patient's daughter Sheeba left message, awaiting call back. As per team, patient's daughter is aware of severity of father's current circumstances and is asking for time for family members who live far away to come visit before considering removal of life sustaining measures. Treatment Goal(s): Alleviate symptoms Assessment & Plan - Assessment and Plan (Free Text) Assessment: Palliative Performance Scale 10% I reviewed Medical records, diagnostic tests, and examined the patient in bed. Impression Anoxic Encepalopathy Respiratory Failure Needs continued Goals of Care Suggestion Will continue Goals of Care discussion with [facility] Palliative Care will remain on board as needed Time Spent with patient 50 min
--- NOTE | 2019-03-03 12:10 | CP.CCUPN ---
<Stefan Murdock - Last Filed: 03/03/19 12:00> CCU Subjective - Physician Review Subjective (Free Text): Pt seen and examined this am at the bedside. Unresponsive to voice. Right arm withdraws to pain. No pupillary response. No gag or cough reflex GCS 3 On MV FIO2 30% Critical Care Time Spent (in minutes): 35 CCU Objective - Vital Signs / Intake & Output Vital Signs (Last 4 hours): Vital Signs Temp Pulse Resp BP Pulse Ox 03/03/19 08:34 81 159/85 H 03/03/19 08:32 81 159/85 H 03/03/19 08:00 98.6 F 81 21 159/85 H 99 Intake and Output (Last 8hrs): Intake & Output 03/02/19 03/03/19 03/03/19 22:59 06:59 14:59 Intake Total 835 890 55 Output Total 1720 575 300 Balance -885 315 -245 Weight 163 lb 6.4 oz Intake: Intake, Piggyback 300 150 Oral 55 Tube Feeding 385 440 Free Water Flush 150 300 Output: Urine 1720 575 300 Urethral (Leija) 1720 575 300 Other: # Bowel Movements 1 - Physical Exam Head: Positive for: Atraumatic, Normocephalic Pupils: Positive for: PERRL, Sluggish Extroacular Muscles: Positive for: EOMI Conjunctiva: Negative for: Injected, Icteric Ears: Positive for: Normal Mouth: Positive for: Moist Mucous Membranes Nose (Internal): Positive for: Normal Inspection Neck: Positive for: Normal Range of Motion, Trachea Midline. Negative for: Meningeal Signs, MIDLINE TENDERNESS, Paraspinal Tenderness, JVD, Lymphadenopathy, Bruit, Other Respiratory/Chest: Positive for: Good Air Exchange, Decreased Breath Sounds, Rhonchi Cardiovascular: Positive for: Regular Rate and Rhythm, Normal S1, S2, Peripheal Pulses Present. Negative for: Murmurs Abdomen: Positive for: Distention, Normal Bowel Sounds. Negative for: Tenderness Neurological: Positive for: GCS=15 Psychiatric: Negative for: Alert, Oriented x 3, Normal Insight - Medications Active Medications: Active Medications Generic Name Dose Route Start Last Admin Trade Name Freq PRN Reason Stop Dose Admin Acetaminophen 650 mg 02/26/19 00:27 03/02/19 06:55 Tylenol 650mg/20.3ml Solution Ud GT 650 mg Q6 PRN Administration Temperature Amiodarone HCl 200 mg 02/26/19 23:45 03/03/19 08:32 Cordarone NG 200 mg BID TANNA Administration Amlodipine Besylate 5 mg 03/01/19 10:00 03/03/19 08:34 Norvasc PO 5 mg DAILY TANNA Administration Enoxaparin Sodium 40 mg 02/26/19 09:00 03/03/19 08:33 Lovenox SC 40 mg DAILY TANNA Administration Protocol Clindamycin Phosphate 600 mg in 50 mls @ 50 mls/hr 02/25/19 19:00 03/03/19 08:31 Cleocin 600mg/50ml Ns IVPB 50 mls/hr Q8 [facility]AN[facility] Administration Protocol Levetiracetam 500 mg/ Sodium 105 mls @ 210 mls/hr 02/26/19 09:00 03/03/19 08:33 Chloride IVPB 210 mls/hr Q12 TANNA Administration Piperacillin Sod/Tazobactam 100 mls @ 100 mls/hr 02/26/19 08:00 03/03/19 08:34 Sod 3.375 gm/ Sodium Chloride IVPB 100 mls/hr Q8@0000,0800,1600 TAN[facility] Administration Protocol Labetalol HCl 200 mg 03/01/19 10:00 03/03/19 08:34 Trandate PO 200 mg Q12 TANNA Administration Metoprolol Tartrate 5 mg 02/26/19 23:54 03/01/19 17:36 Lopressor IVP 5 mg Q6 PRN Administration Systolic Blood Pressure Pantoprazole Sodium 40 mg 02/25/19 20:45 03/03/19 08:34 Protonix Inj IVP 40 mg DAILY TANNA Administration - Patient Studies Lab Studies: Microbiology Studies 02/25/19 17:55 Blood Culture - Final Blood NO GROWTH AFTER 5 DAYS Gram Stain - Final TEST NOT PERFORMED 02/25/19 17:45 Blood Culture - Final Blood NO GROWTH AFTER 5 DAYS Gram Stain - Final TEST NOT PERFORMED Lab Studies 03/03/19 03/03/19 03/03/19 Range/Units 04:54 04:10 04:10 WBC 6.3 (4.8-10.8) K/uL RBC 3.21 L (4.40-5.90) Mil/uL Hgb 9.0 L (12.0-18.0) g/dL Hct 26.9 L (35.0-51.0) % MCV 83.8 (80.0-94.0) fl MCH 27.9 (27.0-31.0) pg MCHC 33.3 (33.0-37.0) g/dL RDW 16.1 H (11.5-14.5) % Plt Count 241 (130-400) K/uL MPV 8.0 (7.2-11.7) fl Neut % (Auto) 68.5 (50.0-75.0) % Lymph % (Auto) 10.3 L (20.0-40.0) % Atlantic % (Auto) 18.2 H (0.0-10.0) % Eos % (Auto) 2.6 (0.0-4.0) % Baso % (Auto) 0.4 (0.0-2.0) % Neut # (Auto) 4.3 (1.8-7.0) K/uL Lymph # (Auto) 0.6 L (1.0-4.3) K/uL Atlantic # (Auto) 1.1 H (0.0-0.8) K/uL Eos # (Auto) 0.2 (0.0-0.7) K/uL Baso # (Auto) 0.0 (0.0-0.2) K/uL pCO2 33 L (35-45) mm/Hg pO2 150 H (80-100) mm/Hg HCO3 26.0 (21-28) mmol/L ABG pH 7.48 H (7.35-7.45) ABG Total CO2 25.6 (22-28) mmol/L ABG O2 Saturation 100.0 H (95-98) % ABG O2 Content 13.7 L (15-23) ML/dL ABG Base Excess 1.3 (-2.0-3.0) mmol/L ABG Hemoglobin 9.8 L (11.7-17.4) g/dL ABG Carboxyhemoglobin 1.5 (0.5-1.5) % POC ABG HHb (Measured) 0.0 (0.0-5.0) % ABG Methemoglobin 1.3 (0.0-3.0) % ABG O2 Capacity 13.7 L (16-24) mL/dL Fabrizio Test Yes A-a O2 Difference 23.0 mm/Hg Hgb O2 Saturation 97.2 (95.0-98.0) % Vent Mode A/c Mechanical Rate 10 FiO2 30.0 % Tidal Volume 400 PEEP 5 Sodium 133 (132-148) mmol/l Potassium 3.8 (3.6-5.0) MMOL/L Chloride 100 (98-107) mmol/L Carbon Dioxide 27 (22-30) mmol/L Anion Gap 10 (10-20) BUN 12 (9-20) mg/dl Creatinine 0.7 L (0.8-1.5) mg/dl Est GFR ( Amer) > 60 Est GFR (Non-Af Amer) > 60 Random Glucose 132 H (75-110) mg/dL Calcium 8.4 (8.4-10.2) mg/dL Total Bilirubin 0.5 (0.2-1.3) mg/dl AST 96 H D (17-59) U/L ALT 37 (21-72) U/L Alkaline Phosphatase 74 (38-126) U/L Total Protein 6.5 (6.3-8.2) G/DL Albumin 3.4 L (3.5-5.0) g/dL Globulin 3.1 (2.2-3.9) gm/dL Albumin/Globulin Ratio 1.1 (1.0-2.1) Laboratory Results - last 24 hr 03/03/19 03/03/19 03/03/19 04:10 04:10 04:54 WBC 6.3 RBC 3.21 L Hgb 9.0 L Hct 26.9 L MCV 83.8 MCH 27.9 MCHC 33.3 RDW 16.1 H Plt Count 241 MPV 8.0 Neut % (Auto) 68.5 Lymph % (Auto) 10.3 L Atlantic % (Auto) 18.2 H Eos % (Auto) 2.6 Baso % (Auto) 0.4 Neut # (Auto) 4.3 Lymph # (Auto) 0.6 L Atlantic # (Auto) 1.1 H Eos # (Auto) 0.2 Baso # (Auto) 0.0 pCO2 33 L pO2 150 H HCO3 26.0 ABG pH 7.48 H ABG Total CO2 25.6 ABG O2 Saturation 100.0 H ABG O2 Content 13.7 L ABG Base Excess 1.3 ABG Hemoglobin 9.8 L ABG Carboxyhemoglobin 1.5 POC ABG HHb (Measured) 0.0 ABG Methemoglobin 1.3 ABG O2 Capacity 13.7 L Fabrizio Test Yes A-a O2 Difference 23.0 Hgb O2 Saturation 97.2 Vent Mode A/c Mechanical Rate 10 FiO2 30.0 Tidal Volume 400 PEEP 5 Sodium 133 Potassium 3.8 Chloride 100 Carbon Dioxide 27 Anion Gap 10 BUN 12 Creatinine 0.7 L Est GFR ( Amer) > 60 Est GFR (Non-Af Amer) > 60 Random Glucose 132 H Calcium 8.4 Total Bilirubin 0.5 AST 96 H D ALT 37 Alkaline Phosphatase 74 Total Protein 6.5 Albumin 3.4 L Globulin 3.1 Albumin/Globulin Ratio 1.1 Radiology Impressions: Radiology Impressions Chest X-Ray 03/02/19 05:00 IMPRESSION: No significant interval change compared to the prior examination(s). Brain Flow Nuclear Medicine 03/02/19 11:19 IMPRESSION: No supra tentorial blood flow documented. 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 Small size middle cerebral artery demonstrate diffuse irregularity and possible small foci of mild stenosis. Large atherosclerotic calcification noted at the carotid bifurcation and origin of both internal carotid arteries. Fingerstick Blood Sugar Results: 177 Assessment/Plan - Assessment and Plan (Free Text) Assessment: 58 yo M with hx of Chronic ETOH abuse, Seizure d/o (non compliant with medication) admitted to EMS s/p cardiac arrest w/ poor neurologic improvement. Pt was found unresponsive on field by EMS with no pulse. Pt now remains comatose and with minimal response to painful stimulus. No apparent changes in mental status. CT Head shows interval marked cerebral atropy, watershed infarcts. Prognosis guarded, likely irreversible hypoxic brain injury, active discussions regarding goals of care being held with family. Neuro - No improvement in neurological status - Comatose: GCS 3 - Likely anoxic encephalopathy, though pt still has brainstem function (spontaneous respirations and vasomotor tone) - CT showing diffuse edema w/ herniation and watershed infarc. VEEG- abnormal cortical disturbance - Neurology, Dr. Snowden, on board. CT Head and Neck demonstrates occlusion of L Verterbral Artery - Brain flow studies shows no supratentorial flow. No utility in further testing as per neuro - C/W Keppra - Ammonia wnl, Utox negative Cardiac - S/P Cardiac arrest for unknown period of time - On presentation, had Rapid Afibb, s/p Cardioversion x3. Now rate and rhythm controlled on Amiodorone po - Hemodynamcially stable Renal - Stable kidney function - Electrolytes stable - CK>1600, mild rhabdo GI - C/W Tube feedings Heme/ID - Possible aspiration pnu. Leukocytosis resolved - C/W Vanco and Zosyn - Bcx and Ucx negative to date - H/H and Platelets stable PPX GI: Protonix 40mg IV daily DVT: Lovenox Sq daily Case discussed with Dr. Hallman who agrees with plan Stefan Murdock, PGY2 <Francis Hallman - Last Filed: 03/03/19 13:14> Assessment/Plan - Assessment and Plan (Free Text) Plan: Attestation: Patient seen and examined at the bedside with Resident Dr. Tima Murdock; and I agree with her outline of plans and management documented above as discussed on AM rounds; reflecting my review of all applicable clinical data, and participation in the care of the patient throughout the day in ICU; today, March 03, 2019. Patient remains in deep coma, but does not entirely exhibit all the signs of loss of brainstem activity; he continues to trigger the ventilator and hemodynamics, especially BP levels have been robust. No hiccoughing today, but this previously described activity may be more myoclonicjerk-like activity involving the upper body/ torso. Discussed with Neurology, will try to control with BZDPs. Daughter still awaiting more family members to arrive. CTA and Nuclear Brain Flow study results reviewed.
--- NOTE | 2019-03-03 12:18 | RAD ---
Date of service: 03/03/2019 HISTORY: Intubated COMPARISON: Multiple serial examinations preceding the most recent study: March 02, 2019. Study performed 06:00. FINDINGS: LUNGS: No significant interval change compared to the prior examination(s). PLEURA: No significant pleural effusion identified, no pneumothorax apparent. CARDIOVASCULAR: No atherosclerotic calcification present No radiographic findings to suggest acute or significant cardiovascular disease. OSSEOUS STRUCTURES: No significant abnormalities. VISUALIZED UPPER ABDOMEN: Normal. OTHER FINDINGS: Stable, satisfactory position ventilatory, nasogastric apparatus. IMPRESSION: No significant interval change compared to the prior examination(s).
--- NOTE | 2019-03-03 13:25 | CP.PCM.PN ---
Subjective - Date & Time of Evaluation Date of Evaluation: 03/03/19 Time of Evaluation: 11:30 - Subjective Subjective: F/U Respiratory Failure. Intubated, comatose. Objective - Vital Signs/Intake and Output Vital Signs (last 24 hours): Temp Pulse Resp BP Pulse Ox 99.3 F 71 22 116/71 99 03/03/19 11:59 03/03/19 11:59 03/03/19 11:59 03/03/19 11:59 03/03/19 11:59 Intake and Output: 03/03/19 03/03/19 06:59 18:59 Intake Total 1210 675 Output Total 1295 510 Balance -85 165 - Medications Medications: Current Medications Acetaminophen (Tylenol 650mg/20.3ml Solution Ud) 650 mg GT Q6 PRN PRN Reason: Temperature Last Admin: 03/02/19 06:55 Dose: 650 mg Amiodarone HCl (Cordarone) 200 mg NG BID [facility] Last Admin: 03/03/19 08:32 Dose: 200 mg Amlodipine Besylate (Norvasc) 5 mg PO DAILY [facility] Last Admin: 03/03/19 08:34 Dose: 5 mg Enoxaparin Sodium (Lovenox) 40 mg SC DAILY [facility]; Protocol Last Admin: 03/03/19 08:33 Dose: 40 mg Clindamycin Phosphate (Cleocin 600mg/50ml Ns) 600 mg in 50 mls @ 50 mls/hr IVPB Q8 [facility]; Protocol Last Admin: 03/03/19 08:31 Dose: 50 mls/hr Levetiracetam 500 mg/ Sodium (Chloride) 105 mls @ 210 mls/hr IVPB Q12 [facility]AN[facility] Last Admin: 03/03/19 08:33 Dose: 210 mls/hr Piperacillin Sod/Tazobactam (Sod 3.375 gm/ Sodium Chloride) 100 mls @ 100 mls/hr IVPB Q8@0000,0800,1600 [facility]; Protocol Last Admin: 03/03/19 08:34 Dose: 100 mls/hr Labetalol HCl (Trandate) 200 mg PO Q12 [facility]ANNA Last Admin: 03/03/19 08:34 Dose: 200 mg Metoprolol Tartrate (Lopressor) 5 mg IVP Q6 PRN PRN Reason: Systolic Blood Pressure Last Admin: 03/01/19 17:36 Dose: 5 mg Pantoprazole Sodium (Protonix Inj) 40 mg IVP DAILY [facility]ANNA Last Admin: 03/03/19 08:34 Dose: 40 mg - Labs Labs: 03/03/19 04:10 03/03/19 04:10 PT 14.1 Seconds (9.8-13.1) H 02/25/19 17:37 INR 1.2 02/25/19 17:37 APTT 27.6 Seconds (25.6-37.1) 02/25/19 17:37 - Constitutional Appears: Chronically Ill - Head Exam Head Exam: NORMAL INSPECTION - Eye Exam Additional comments: Pupils sluggish - ENT Exam Additional comments: Intubated. OGT - Neck Exam Neck Exam: Normal Inspection - Respiratory Exam Respiratory Exam: Decreased Breath Sounds (at bases), Rhonchi - Cardiovascular Exam Cardiovascular Exam: REGULAR RHYTHM - GI/Abdominal Exam GI & Abdominal Exam: Soft - Exam Additional comments: Leija cath - Extremities Exam Extremities Exam: Normal Inspection - Neurological Exam Additional comments: Comatose, no response - Skin Skin Exam: Warm Assessment and Plan (1) Respiratory failure Status: Acute (2) Aspiration pneumonia Status: Acute (3) Anoxic encephalopathy Status: Acute (4) Paroxysmal A-fib Status: Acute (5) Seizure Status: Acute (6) H/O ETOH abuse Status: Chronic - Assessment and Plan (Free Text) Plan: CTA Head/Neck: Occlusion L vertebral artery. Nuclear Brain study: No supratentorial blood flow. CXR: No changes. Discussed with Neurology, no further test, requested by daughter to wait for the rest of the family to be all together. Critical care time: 32 min.
[2019-03-04] MEDS: Clindamycin 600mg/50ml NS 600 MG/50 ML BAG IVPB SCH ×3 (01:02→16:20)
[2019-03-04 04:50] LABS: ABG ALLEN TEST YES; ARTERIAL BLOOD GAS HCO3 26.5 mmol/L (21-28); ARTERIAL BLOOD GAS HEMOGLOBIN 9.4 g/dL (11.7-17.4); ARTERIAL BLOOD GAS O2 CAPACITY 13.2 mL/dL (16-24); ARTERIAL BLOOD GAS O2 CONTENT 13.2 ML/dL (15-23); ARTERIAL BLOOD GAS O2 SAT 100.3 % (95-98); ARTERIAL BLOOD GAS PCO2 32 mm/Hg (35-45); ARTERIAL BLOOD GAS PO2 149 mm/Hg (80-100)
[2019-03-04 05:38] LABS: HEMOGLOBIN 9.1 g/dL (12.0-18.0); MEAN CELL VOLUME 82.3 fl (80.0-94.0); MEAN CORPUSCULAR HEMOGLOBIN 28.4 pg (27.0-31.0); MEAN CORPUSCULAR HGB CONC 34.5 g/dL (33.0-37.0); RBC 3.2 Mil/uL (4.40-5.90); RED CELL DISTRIBUTION WIDTH 15.7 % (11.5-14.5); WHITE BLOOD COUNT 5.5 K/uL (4.8-10.8)
[2019-03-04 05:58] LABS: BLOOD UREA NITROGEN 12 mg/dl (9-20); CALCIUM 8.7 mg/dL (8.4-10.2); GFR NON-AFRICAN AMERICAN > 60
--- NOTE | 2019-03-04 07:33 | CP.CCUPN ---
CCU Subjective - Physician Review Events Since Last Encounter (Free Text): Patient on ventilator, on PRVC TV 400, RR 10, FIO2v 30%, no response to any stimuli, no fever, events reviewed CCU Objective - Vital Signs / Intake & Output Vital Signs (Last 4 hours): Vital Signs Temp Pulse Resp BP Pulse Ox 03/04/19 06:00 99.0 F 75 18 148/79 100 03/04/19 04:00 99.3 F 74 17 138/74 100 Intake and Output (Last 8hrs): Intake & Output 03/03/19 03/04/19 03/04/19 22:59 06:59 14:59 Intake Total 845 740 Output Total 475 825 Balance 370 -85 Weight 160 lb 3.2 oz Intake: Intake, Piggyback 105 150 Tube Feeding 440 440 Free Water Flush 300 150 Output: Urine 475 825 Urethral (Leija) 475 825 Other: # Bowel Movements 1 1 - Physical Exam Head: Positive for: Atraumatic, Normocephalic Pupils: Positive for: Sluggish Conjunctiva: Negative for: Injected, Icteric Ears: Positive for: Normal Mouth: Positive for: Moist Mucous Membranes Nose (Internal): Positive for: Normal Inspection Neck: Positive for: Normal Range of Motion. Negative for: Meningeal Signs, MIDLINE TENDERNESS, Paraspinal Tenderness, JVD, Lymphadenopathy, Bruit, Other Respiratory/Chest: Positive for: Rhonchi Cardiovascular: Positive for: Regular Rate and Rhythm, Normal S1, S2, Peripheal Pulses Present. Negative for: Murmurs Abdomen: Positive for: Distention, Normal Bowel Sounds. Negative for: Tenderness Upper Extremity: Positive for: Normal Inspection Lower Extremity: Positive for: Normal Inspection Neurological: Positive for: Other (on ventilator, no response to any stimuli) Psychiatric: Negative for: Alert, Oriented x 3 - Medications Active Medications: Active Medications Generic Name Dose Route Start Last Admin Trade Name Freq PRN Reason Stop Dose Admin Acetaminophen 650 mg 02/26/19 00:27 03/02/19 06:55 Tylenol 650mg/20.3ml Solution Ud GT 650 mg Q6 PRN Administration Temperature Amiodarone HCl 200 mg 02/26/19 23:45 03/03/19 16:07 Cordarone NG 200 mg BID TANNA Administration Amlodipine Besylate 5 mg 03/01/19 10:00 03/03/19 08:34 Norvasc PO 5 mg DAILY TANNA Administration Enoxaparin Sodium 40 mg 02/26/19 09:00 03/03/19 08:33 Lovenox SC 40 mg DAILY TANNA Administration Protocol Clindamycin Phosphate 600 mg in 50 mls @ 50 mls/hr 02/25/19 19:00 03/04/19 01:02 Cleocin 600mg/50ml Ns IVPB 50 mls/hr Q8 TANNA Administration Protocol Levetiracetam 500 mg/ Sodium 105 mls @ 210 mls/hr 02/26/19 09:00 03/03/19 20:37 Chloride IVPB 210 mls/hr Q12 TANNA Administration Piperacillin Sod/Tazobactam 100 mls @ 100 mls/hr 02/26/19 08:00 03/03/19 23:35 Sod 3.375 gm/ Sodium Chloride IVPB 100 mls/hr Q8@0000,0800,1600 TANNA Administration Protocol Labetalol HCl 200 mg 03/01/19 10:00 03/03/19 20:36 Trandate PO 200 mg Q12 TANNA Administration Metoprolol Tartrate 5 mg 02/26/19 23:54 03/01/19 17:36 Lopressor IVP 5 mg Q6 PRN Administration Systolic Blood Pressure Pantoprazole Sodium 40 mg 02/25/19 20:45 03/03/19 08:34 Protonix Inj IVP 40 mg DAILY TANNA Administration - Patient Studies Lab Studies: Lab Studies 03/04/19 03/04/19 03/04/19 Range/Units 04:36 04:08 04:08 WBC 5.5 (4.8-10.8) K/uL RBC 3.20 L (4.40-5.90) Mil/uL Hgb 9.1 L (12.0-18.0) g/dL Hct 26.3 L (35.0-51.0) % MCV 82.3 (80.0-94.0) fl MCH 28.4 (27.0-31.0) pg MCHC 34.5 (33.0-37.0) g/dL RDW 15.7 H (11.5-14.5) % Plt Count 320 (130-400) K/uL pCO2 32 L (35-45) mm/Hg pO2 149 H (80-100) mm/Hg HCO3 26.5 (21-28) mmol/L ABG pH 7.50 H (7.35-7.45) ABG Total CO2 26.0 (22-28) mmol/L ABG O2 Saturation 100.3 H (95-98) % ABG O2 Content 13.2 L (15-23) ML/dL ABG Base Excess 2.0 (-2.0-3.0) mmol/L ABG Hemoglobin 9.4 L (11.7-17.4) g/dL ABG Carboxyhemoglobin 1.5 (0.5-1.5) % POC ABG HHb (Measured) -0.3 L (0.0-5.0) % ABG Methemoglobin 1.0 (0.0-3.0) % ABG O2 Capacity 13.2 L (16-24) mL/dL Fabrizio Test Yes A-a O2 Difference 25.0 mm/Hg Hgb O2 Saturation 97.7 (95.0-98.0) % Vent Mode A/c Mechanical Rate 10 FiO2 30.0 % Tidal Volume 400 PEEP 5 Sodium 131 L (132-148) mmol/l Potassium 3.9 (3.6-5.0) MMOL/L Chloride 96 L (98-107) mmol/L Carbon Dioxide 27 (22-30) mmol/L Anion Gap 12 (10-20) BUN 12 (9-20) mg/dl Creatinine 0.6 L (0.8-1.5) mg/dl Est GFR ( Amer) > 60 Est GFR (Non-Af Amer) > 60 Random Glucose 136 H (75-110) mg/dL Calcium 8.7 (8.4-10.2) mg/dL Laboratory Results - last 24 hr 03/04/19 03/04/19 03/04/19 04:08 04:08 04:36 WBC 5.5 RBC 3.20 L Hgb 9.1 L Hct 26.3 L MCV 82.3 MCH 28.4 MCHC 34.5 RDW 15.7 H Plt Count 320 pCO2 32 L pO2 149 H HCO3 26.5 ABG pH 7.50 H ABG Total CO2 26.0 ABG O2 Saturation 100.3 H ABG O2 Content 13.2 L ABG Base Excess 2.0 ABG Hemoglobin 9.4 L ABG Carboxyhemoglobin 1.5 POC ABG HHb (Measured) -0.3 L ABG Methemoglobin 1.0 ABG O2 Capacity 13.2 L Fabrizio Test Yes A-a O2 Difference 25.0 Hgb O2 Saturation 97.7 Vent Mode A/c Mechanical Rate 10 FiO2 30.0 Tidal Volume 400 PEEP 5 Sodium 131 L Potassium 3.9 Chloride 96 L Carbon Dioxide 27 Anion Gap 12 BUN 12 Creatinine 0.6 L Est GFR ( Amer) > 60 Est GFR (Non-Af Amer) > 60 Random Glucose 136 H Calcium 8.7 Radiology Impressions: Radiology Impressions Chest X-Ray 03/03/19 05:00 IMPRESSION: No significant interval change compared to the prior examination(s). Fingerstick Blood Sugar Results: 177 Assessment/Plan - Assessment and Plan (Free Text) Assessment: A/P s/p cardiac arrest, ?anoxic encephalopathy, seizer, ETOH abuse, aspiration pneumonia - Ventilatory support - Continue meds - Pulmonary toilets - Neurology follow up - DVT prophylaxis - Poor prognosis critical care 35 min
[2019-03-04] MEDS: levETIRAcetam 500 MG in Sodium Chloride 0.9% 100 ML IVPB SCH ×2 (08:00→20:01)
[2019-03-04] MEDS: Enoxaparin 40 mg Syringe SC SCH (08:01)
[2019-03-04] MEDS: Piperacillin/Tazobact 3.375 GM in Sodium Chloride 0.9% 100 ML IVPB SCH ×3 (08:02→23:33)
--- NOTE | 2019-03-04 11:35 | RAD ---
Date of service: 03/04/2019 PROCEDURE: CHEST RADIOGRAPH, 1 VIEW HISTORY: Intubated COMPARISON: Multiple serial examinations preceding the most recent study: 03/03/2019 at 07:08. FINDINGS: LUNGS: Stable findings right lung. PLEURA: No pneumothorax or pleural fluid seen. CARDIOVASCULAR: No aortic atherosclerotic calcification present. No significant interval change compared to the prior examination(s). OSSEOUS STRUCTURES: No significant abnormalities. VISUALIZED UPPER ABDOMEN: Normal. OTHER FINDINGS: Stable, satisfactory position ventilatory, nasogastric apparatus. IMPRESSION: No significant interval change compared to the prior examination(s).
--- NOTE | 2019-03-04 14:34 | CP.PCM.PN ---
Subjective - Date & Time of Evaluation Date of Evaluation: 03/04/19 Time of Evaluation: 12:20 - Subjective Subjective: F/U Respiratory Failure comatose Objective - Vital Signs/Intake and Output Vital Signs (last 24 hours): Temp Pulse Resp BP Pulse Ox 99.7 F H 76 25 H 139/77 99 03/04/19 13:55 03/04/19 13:55 03/04/19 13:55 03/04/19 13:55 03/04/19 13:55 Intake and Output: 03/04/19 03/04/19 06:59 18:59 Intake Total 1215 785 Output Total 1100 850 Balance 115 -65 - Medications Medications: Current Medications Acetaminophen (Tylenol 650mg/20.3ml Solution Ud) 650 mg GT Q6 PRN PRN Reason: Temperature Last Admin: 03/02/19 06:55 Dose: 650 mg Amiodarone HCl (Cordarone) 200 mg NG BID [facility] Last Admin: 03/04/19 08:00 Dose: 200 mg Amlodipine Besylate (Norvasc) 5 mg PO DAILY [facility] Last Admin: 03/04/19 08:01 Dose: 5 mg Enoxaparin Sodium (Lovenox) 40 mg SC DAILY [facility]; Protocol Last Admin: 03/04/19 08:01 Dose: 40 mg Clindamycin Phosphate (Cleocin 600mg/50ml Ns) 600 mg in 50 mls @ 50 mls/hr IVPB Q8 [facility]; Protocol Last Admin: 03/04/19 08:00 Dose: 50 mls/hr Levetiracetam 500 mg/ Sodium (Chloride) 105 mls @ 210 mls/hr IVPB Q12 [facility] Last Admin: 03/04/19 08:00 Dose: 210 mls/hr Piperacillin Sod/Tazobactam (Sod 3.375 gm/ Sodium Chloride) 100 mls @ 100 mls/hr IVPB Q8@0000,0800,1600 [facility]; Protocol Last Admin: 03/04/19 08:02 Dose: 100 mls/hr Labetalol HCl (Trandate) 200 mg PO Q12 [facility] Last Admin: 03/04/19 08:01 Dose: 200 mg Metoprolol Tartrate (Lopressor) 5 mg IVP Q6 PRN PRN Reason: Systolic Blood Pressure Last Admin: 03/01/19 17:36 Dose: 5 mg Pantoprazole Sodium (Protonix Inj) 40 mg IVP DAILY [facility] Last Admin: 03/04/19 08:01 Dose: 40 mg - Labs Labs: 03/04/19 04:08 03/04/19 04:08 PT 14.1 Seconds (9.8-13.1) H 02/25/19 17:37 INR 1.2 02/25/19 17:37 APTT 27.6 Seconds (25.6-37.1) 02/25/19 17:37 - Constitutional Appears: Chronically Ill - Head Exam Head Exam: NORMAL INSPECTION - Eye Exam Pupil Exam: Fixed - ENT Exam Additional comments: Intubated, OGT - Neck Exam Neck Exam: Normal Inspection - Respiratory Exam Respiratory Exam: Decreased Breath Sounds (at bases), Rhonchi - Cardiovascular Exam Cardiovascular Exam: REGULAR RHYTHM - GI/Abdominal Exam GI & Abdominal Exam: Soft - Exam Additional comments: Leija Cath - Extremities Exam Extremities Exam: Normal Inspection - Neurological Exam Additional comments: Comatose, no response - Skin Skin Exam: Warm Assessment and Plan (1) Respiratory failure Status: Acute (2) Aspiration pneumonia Status: Acute (3) Anoxic encephalopathy Status: Acute (4) Paroxysmal A-fib Status: Acute (5) Seizure Status: Acute (6) H/O ETOH abuse Status: Chronic - Assessment and Plan (Free Text) Plan: comatose, spontaneous breathing 25/m, PRVC RR 10, FIO2 30%, continue Clinda, Zosyn, ventilatory support and rest of treatment, f/u with Pt's family Critical care time: 34 min.
[2019-03-04] MEDS: Acetaminophen 650mg/20.3ml solution UD GT PRN (16:22)
[2019-03-05] MEDS: Acetaminophen 650mg/20.3ml solution UD GT PRN ×2 (03:37→15:49)
[2019-03-05 05:25] LABS: BASO % 0.7 % (0.0-2.0); EOS # 0.1 K/uL (0.0-0.7); EOS % 2.7 % (0.0-4.0); HEMOGLOBIN 9.9 g/dL (12.0-18.0); LYMPH # 0.8 K/uL (1.0-4.3); LYMPH % 14.9 % (20.0-40.0); MEAN CELL VOLUME 81.6 fl (80.0-94.0); MEAN CORPUSCULAR HEMOGLOBIN 27.8 pg (27.0-31.0); MEAN PLATELET VOLUME 7.6 fl (7.2-11.7); MONO # 0.7 K/uL (0.0-0.8); MONO % 13.2 % (0.0-10.0); NEUT # 3.6 K/uL (1.8-7.0); NEUT % 68.5 % (50.0-75.0); NRBC % 0.2 % (0.0-0.0); RBC 3.56 Mil/uL (4.40-5.90); RED CELL DISTRIBUTION WIDTH 15.7 % (11.5-14.5); WHITE BLOOD COUNT 5.2 K/uL (4.8-10.8)
[2019-03-05 05:28] LABS: ABG ALLEN TEST YES; ARTERIAL BLOOD GAS HCO3 25.9 mmol/L (21-28); ARTERIAL BLOOD GAS O2 CAPACITY 13.7 mL/dL (16-24); ARTERIAL BLOOD GAS O2 CONTENT 13.1 ML/dL (15-23); ARTERIAL BLOOD GAS O2 SAT 95.7 % (95-98); ARTERIAL BLOOD GAS PCO2 30 mm/Hg (35-45); ARTERIAL BLOOD GAS PH 7.51 (7.35-7.45); ARTERIAL BLOOD GAS PO2 58 mm/Hg (80-100); ARTERIAL BLOOD GAS TCO2 24.8 mmol/L (22-28)
[2019-03-05 05:28] LABS: ALB/GLOB RATIO 1.1 (1.0-2.1); ALBUMIN 3.9 g/dL (3.5-5.0); ALT/SGPT 36 U/L (21-72); AST/SGOT 96 U/L (17-59); BLOOD UREA NITROGEN 12 mg/dl (9-20); CALCIUM 9.1 mg/dL (8.4-10.2); GFR NON-AFRICAN AMERICAN > 60
[2019-03-05] MEDS: Clindamycin 600mg/50ml NS 600 MG/50 ML BAG IVPB SCH ×3 (08:17→16:34)
[2019-03-05] MEDS: Enoxaparin 40 mg Syringe SC SCH (08:19)
[2019-03-05] MEDS: levETIRAcetam 500 MG in Sodium Chloride 0.9% 100 ML IVPB SCH ×2 (08:34→21:40)
[2019-03-05] MEDS: Piperacillin/Tazobact 3.375 GM in Sodium Chloride 0.9% 100 ML IVPB SCH ×2 (08:37→15:47)
--- NOTE | 2019-03-05 14:34 | CP.PCM.PN ---
Subjective - Date & Time of Evaluation Date of Evaluation: 03/05/19 Time of Evaluation: 12:05 - Subjective Subjective: F/U Respiratory failure Comatose Objective - Vital Signs/Intake and Output Vital Signs (last 24 hours): Temp Pulse Resp BP Pulse Ox 99.9 F H 88 19 134/81 99 03/05/19 12:00 03/05/19 14:00 03/05/19 14:00 03/05/19 14:00 03/05/19 14:00 Intake and Output: 03/05/19 03/05/19 06:59 18:59 Intake Total 1260 1055 Output Total 1530 Balance -270 1055 - Medications Medications: Current Medications Acetaminophen (Tylenol 650mg/20.3ml Solution Ud) 650 mg GT Q6 PRN PRN Reason: Temperature Last Admin: 03/05/19 03:37 Dose: 650 mg Amiodarone HCl (Cordarone) 200 mg NG BID [facility] Last Admin: 03/05/19 08:18 Dose: 200 mg Amlodipine Besylate (Norvasc) 5 mg PO DAILY [facility] Last Admin: 03/05/19 08:19 Dose: 5 mg Clindamycin Phosphate (Cleocin 600mg/50ml Ns) 600 mg in 50 mls @ 50 mls/hr IVPB Q8 [facility]; Protocol Last Admin: 03/05/19 08:17 Dose: 50 mls/hr Levetiracetam 500 mg/ Sodium (Chloride) 105 mls @ 210 mls/hr IVPB Q12 [facility] Last Admin: 03/05/19 08:34 Dose: 210 mls/hr Piperacillin Sod/Tazobactam (Sod 3.375 gm/ Sodium Chloride) 100 mls @ 100 mls/hr IVPB Q8@0000,0800,1600 [facility]; Protocol Last Admin: 03/05/19 08:37 Dose: 100 mls/hr Labetalol HCl (Trandate) 200 mg PO Q12 [facility] Last Admin: 03/05/19 08:18 Dose: 200 mg Metoprolol Tartrate (Lopressor) 5 mg IVP Q6 PRN PRN Reason: Systolic Blood Pressure Last Admin: 03/01/19 17:36 Dose: 5 mg - Labs Labs: 03/05/19 04:18 03/05/19 04:18 PT 14.1 Seconds (9.8-13.1) H 02/25/19 17:37 INR 1.2 02/25/19 17:37 APTT 27.6 Seconds (25.6-37.1) 02/25/19 17:37 - Constitutional Appears: Chronically Ill - Head Exam Head Exam: NORMAL INSPECTION - Eye Exam Pupil Exam: Fixed - ENT Exam Additional comments: Intubated, OGT - Neck Exam Neck Exam: Normal Inspection - Respiratory Exam Respiratory Exam: Decreased Breath Sounds (at bases), Rhonchi (scattered) - Cardiovascular Exam Cardiovascular Exam: REGULAR RHYTHM - GI/Abdominal Exam GI & Abdominal Exam: Soft - Exam Additional comments: Leija Cath - Extremities Exam Extremities Exam: Normal Inspection - Neurological Exam Additional comments: Comatose, no response Assessment and Plan (1) Respiratory failure Status: Acute (2) Aspiration pneumonia Status: Acute (3) Anoxic encephalopathy Status: Acute (4) Paroxysmal A-fib Status: Acute (5) Seizure Status: Acute (6) H/O ETOH abuse Status: Chronic - Assessment and Plan (Free Text) Plan: On PRVC AC 10, FIO2 30%. Pt is triggering ventilator 28/m, continue Clindamycin, Zosyn and rest of Tx, prognosis poor, awaiting meeting with the family Critical care time: 30 min.
--- NOTE | 2019-03-05 15:26 | RAD ---
Date of service: 03/05/2019 HISTORY: Intubated COMPARISON: /03/04/2019 TECHNIQUE: 1 view obtained. FINDINGS: LUNGS: No consolidation. PLEURA: Small right pleural effusion, unchanged. No left pleural effusion. No pneumothorax. CARDIOVASCULAR: There is atherosclerotic calcification of the aortic arch. Normal cardiac size. Endotracheal tube grossly unchanged in position. OSSEOUS STRUCTURES: No significant abnormalities. VISUALIZED UPPER ABDOMEN: Normal. OTHER FINDINGS: None. IMPRESSION: Small right pleural effusion. No acute infiltrate. ET tube unchanged.
--- NOTE | 2019-03-05 16:54 | CP.CCUPN ---
CCU Objective - Vital Signs / Intake & Output Vital Signs (Last 4 hours): Vital Signs Temp Pulse Resp BP Pulse Ox 03/05/19 16:33 91 H 149/83 03/05/19 16:00 100.8 F H 90 19 160/96 H 100 03/05/19 15:49 100.8 F H 03/05/19 15:00 91 H 19 146/81 100 03/05/19 14:00 88 19 134/81 99 03/05/19 13:00 90 19 122/80 99 Intake and Output (Last 8hrs): Intake & Output 03/05/19 03/05/19 03/05/19 06:59 14:59 22:59 Intake Total 940 1055 360 Output Total 1095 Balance -155 1055 360 Weight 160 lb 14.4 oz Intake: Intake, Piggyback 200 300 100 Tube Feeding 440 305 110 Free Water Flush 300 450 150 Output: Urine 1095 Urethral (Leija) 1095 Other: # Bowel Movements 1 - Physical Exam Head: Positive for: Atraumatic, Normocephalic Pupils: Positive for: Sluggish Extroacular Muscles: Positive for: EOMI Conjunctiva: Negative for: Injected, Icteric Ears: Positive for: Normal Mouth: Positive for: Moist Mucous Membranes Nose (Internal): Positive for: Normal Inspection Neck: Positive for: Normal Range of Motion. Negative for: Meningeal Signs, MIDLINE TENDERNESS, Paraspinal Tenderness, JVD, Lymphadenopathy, Bruit, Other Respiratory/Chest: Positive for: Rhonchi Cardiovascular: Positive for: Regular Rate and Rhythm, Normal S1, S2, Peripheal Pulses Present. Negative for: Murmurs Abdomen: Positive for: Distention, Normal Bowel Sounds. Negative for: Tenderness Upper Extremity: Positive for: Normal Inspection Lower Extremity: Positive for: Normal Inspection Neurological: Positive for: Other (on ventilator, no response to any stimuli) Psychiatric: Negative for: Alert, Oriented x 3 - Medications Active Medications: Active Medications Generic Name Dose Route Start Last Admin Trade Name Freq PRN Reason Stop Dose Admin Acetaminophen 650 mg 02/26/19 00:27 03/05/19 15:49 Tylenol 650mg/20.3ml Solution Ud GT 650 mg Q6 PRN Administration Temperature Amiodarone HCl 200 mg 02/26/19 23:45 03/05/19 16:33 Cordarone NG 200 mg BID [facility] Administration Amlodipine Besylate 5 mg 03/01/19 10:00 03/05/19 08:19 Norvasc PO 5 mg DAILY [facility] Administration Clindamycin Phosphate 600 mg in 50 mls @ 50 mls/hr 02/25/19 19:00 03/05/19 16:34 Cleocin 600mg/50ml Ns IVPB 50 mls/hr Q8 [facility] Administration Protocol Levetiracetam 500 mg/ Sodium 105 mls @ 210 mls/hr 02/26/19 09:00 03/05/19 08:34 Chloride IVPB 210 mls/hr Q12 [facility] Administration Piperacillin Sod/Tazobactam 100 mls @ 100 mls/hr 02/26/19 08:00 03/05/19 15:47 Sod 3.375 gm/ Sodium Chloride IVPB 100 mls/hr Q8@0000,0800,1600 [facility] Administration Protocol Labetalol HCl 200 mg 03/01/19 10:00 03/05/19 08:18 Trandate PO 200 mg Q12 [facility] Administration Metoprolol Tartrate 5 mg 02/26/19 23:54 03/01/19 17:36 Lopressor IVP 5 mg Q6 PRN Administration Systolic Blood Pressure - Patient Studies Lab Studies: Lab Studies 03/05/19 03/05/19 03/05/19 Range/Units 05:18 04:18 04:18 WBC 5.2 (4.8-10.8) K/uL RBC 3.56 L (4.40-5.90) Mil/uL Hgb 9.9 L (12.0-18.0) g/dL Hct 29.1 L (35.0-51.0) % MCV 81.6 (80.0-94.0) fl MCH 27.8 (27.0-31.0) pg MCHC 34.0 (33.0-37.0) g/dL RDW 15.7 H (11.5-14.5) % Plt Count 434 H D (130-400) K/uL MPV 7.6 (7.2-11.7) fl Neut % (Auto) 68.5 (50.0-75.0) % Lymph % (Auto) 14.9 L (20.0-40.0) % Hemphill % (Auto) 13.2 H (0.0-10.0) % Eos % (Auto) 2.7 (0.0-4.0) % Baso % (Auto) 0.7 (0.0-2.0) % Neut # (Auto) 3.6 (1.8-7.0) K/uL Lymph # (Auto) 0.8 L (1.0-4.3) K/uL Hemphill # (Auto) 0.7 (0.0-0.8) K/uL Eos # (Auto) 0.1 (0.0-0.7) K/uL Baso # (Auto) 0.0 (0.0-0.2) K/uL pCO2 30 L (35-45) mm/Hg pO2 58 L (80-100) mm/Hg HCO3 25.9 (21-28) mmol/L ABG pH 7.51 H (7.35-7.45) ABG Total CO2 24.8 (22-28) mmol/L ABG O2 Saturation 95.7 (95-98) % ABG O2 Content 13.1 L (15-23) ML/dL ABG Base Excess 1.3 (-2.0-3.0) mmol/L ABG Hemoglobin 10.0 L (11.7-17.4) g/dL ABG Carboxyhemoglobin 1.9 H (0.5-1.5) % POC ABG HHb (Measured) 4.2 (0.0-5.0) % ABG Methemoglobin 0.8 (0.0-3.0) % ABG O2 Capacity 13.7 L (16-24) mL/dL Fabrizio Test Yes A-a O2 Difference 118.0 mm/Hg Hgb O2 Saturation 93.2 L (95.0-98.0) % Vent Mode Prvc/ac Mechanical Rate 10 FiO2 30.0 % Tidal Volume 400 PEEP 5 Sodium 131 L (132-148) mmol/l Potassium 4.1 (3.6-5.0) MMOL/L Chloride 95 L (98-107) mmol/L Carbon Dioxide 24 (22-30) mmol/L Anion Gap 16 (10-20) BUN 12 (9-20) mg/dl Creatinine 0.7 L (0.8-1.5) mg/dl Est GFR ( Amer) > 60 Est GFR (Non-Af Amer) > 60 Random Glucose 136 H (75-110) mg/dL Calcium 9.1 (8.4-10.2) mg/dL Total Bilirubin 0.6 (0.2-1.3) mg/dl AST 96 H (17-59) U/L ALT 36 (21-72) U/L Alkaline Phosphatase 118 (38-126) U/L Total Protein 7.4 (6.3-8.2) G/DL Albumin 3.9 (3.5-5.0) g/dL Globulin 3.5 (2.2-3.9) gm/dL Albumin/Globulin Ratio 1.1 (1.0-2.1) Laboratory Results - last 24 hr 03/05/19 03/05/19 03/05/19 04:18 04:18 05:18 WBC 5.2 RBC 3.56 L Hgb 9.9 L Hct 29.1 L MCV 81.6 MCH 27.8 MCHC 34.0 RDW 15.7 H Plt Count 434 H D MPV 7.6 Neut % (Auto) 68.5 Lymph % (Auto) 14.9 L Hemphill % (Auto) 13.2 H Eos % (Auto) 2.7 Baso % (Auto) 0.7 Neut # (Auto) 3.6 Lymph # (Auto) 0.8 L Hemphill # (Auto) 0.7 Eos # (Auto) 0.1 Baso # (Auto) 0.0 pCO2 30 L pO2 58 L HCO3 25.9 ABG pH 7.51 H ABG Total CO2 24.8 ABG O2 Saturation 95.7 ABG O2 Content 13.1 L ABG Base Excess 1.3 ABG Hemoglobin 10.0 L ABG Carboxyhemoglobin 1.9 H POC ABG HHb (Measured) 4.2 ABG Methemoglobin 0.8 ABG O2 Capacity 13.7 L Fabrizio Test Yes A-a O2 Difference 118.0 Hgb O2 Saturation 93.2 L Vent Mode Prvc/ac Mechanical Rate 10 FiO2 30.0 Tidal Volume 400 PEEP 5 Sodium 131 L Potassium 4.1 Chloride 95 L Carbon Dioxide 24 Anion Gap 16 BUN 12 Creatinine 0.7 L Est GFR ( Amer) > 60 Est GFR (Non-Af Amer) > 60 Random Glucose 136 H Calcium 9.1 Total Bilirubin 0.6 AST 96 H ALT 36 Alkaline Phosphatase 118 Total Protein 7.4 Albumin 3.9 Globulin 3.5 Albumin/Globulin Ratio 1.1 Radiology Impressions: Radiology Impressions Chest X-Ray 03/05/19 04:00 IMPRESSION: Small right pleural effusion. No acute infiltrate. ET tube unchanged. Fingerstick Blood Sugar Results: 177 Assessment/Plan (1) Brain Assessment and plan: patient has no blood flow to his brain, terminal extubation planned for Wednesday, as we are awaiting a family member from [place]. Current Visit: Yes Status: Acute
[2019-03-06] MEDS: Piperacillin/Tazobact 3.375 GM in Sodium Chloride 0.9% 100 ML IVPB SCH
[2019-03-06] MEDS: Clindamycin 600mg/50ml NS 600 MG/50 ML BAG IVPB SCH (01:00)
[2019-03-06 05:28] LABS: ABG ALLEN TEST YES; ARTERIAL BLOOD GAS HCO3 24.9 mmol/L (21-28); ARTERIAL BLOOD GAS HEMOGLOBIN 10.4 g/dL (11.7-17.4); ARTERIAL BLOOD GAS O2 CAPACITY 14.6 mL/dL (16-24); ARTERIAL BLOOD GAS O2 CONTENT 14.6 ML/dL (15-23); ARTERIAL BLOOD GAS O2 SAT 99.9 % (95-98); ARTERIAL BLOOD GAS PCO2 33 mm/Hg (35-45); ARTERIAL BLOOD GAS PH 7.46 (7.35-7.45); ARTERIAL BLOOD GAS PO2 148 mm/Hg (80-100); ARTERIAL BLOOD GAS TCO2 24.5 mmol/L (22-28)
[2019-03-06] MEDS: levETIRAcetam 500 MG in Sodium Chloride 0.9% 100 ML IVPB SCH ×2 (08:43→21:16)
--- NOTE | 2019-03-06 11:27 | CP.PCM.PCO ---
Physician Communication Note - Physician Communication Note Physician Communication Note: Neuro Sign Off
--- NOTE | 2019-03-06 15:06 | CP.PCM.PN ---
Subjective - Date & Time of Evaluation Date of Evaluation: 03/06/19 Time of Evaluation: 11:00 - Subjective Subjective: F/U Respiratory failure Pt continue comatose, no response. Objective - Vital Signs/Intake and Output Vital Signs (last 24 hours): Temp Pulse Resp BP Pulse Ox 98.4 F 79 19 132/80 98 03/06/19 12:00 03/06/19 14:00 03/06/19 14:00 03/06/19 14:00 03/06/19 14:00 Intake and Output: 03/06/19 03/06/19 06:59 18:59 Intake Total 730 200 Output Total 700 0 Balance 30 200 - Medications Medications: Current Medications Acetaminophen (Tylenol 650mg/20.3ml Solution Ud) 650 mg GT Q6 PRN PRN Reason: Temperature Last Admin: 03/05/19 15:49 Dose: 650 mg Amiodarone HCl (Cordarone) 200 mg NG BID [facility] Last Admin: 03/06/19 08:55 Dose: 200 mg Amlodipine Besylate (Norvasc) 5 mg PO DAILY [facility] Last Admin: 03/06/19 08:55 Dose: 5 mg Levetiracetam 500 mg/ Sodium (Chloride) 105 mls @ 210 mls/hr IVPB Q12 [facility] Last Admin: 03/06/19 08:43 Dose: 210 mls/hr Labetalol HCl (Trandate) 200 mg PO Q12 [facility] Last Admin: 03/06/19 08:57 Dose: 200 mg Metoprolol Tartrate (Lopressor) 5 mg IVP Q6 PRN PRN Reason: Systolic Blood Pressure Last Admin: 03/01/19 17:36 Dose: 5 mg - Labs Labs: 03/05/19 04:18 03/05/19 04:18 PT 14.1 Seconds (9.8-13.1) H 02/25/19 17:37 INR 1.2 02/25/19 17:37 APTT 27.6 Seconds (25.6-37.1) 02/25/19 17:37 - Constitutional Appears: Chronically Ill - Head Exam Head Exam: NORMAL INSPECTION - Eye Exam Pupil Exam: Fixed - ENT Exam Additional comments: Intubated. OGT - Respiratory Exam Respiratory Exam: Decreased Breath Sounds (at bases), Rhonchi (scattered) - Cardiovascular Exam Cardiovascular Exam: REGULAR RHYTHM - GI/Abdominal Exam GI & Abdominal Exam: Soft - Exam Additional comments: Leija cath - Extremities Exam Extremities Exam: Normal Inspection - Back Exam Additional comments: Upper back skin tear - Neurological Exam Additional comments: Comatose, no response, no involuntary movements. - Skin Skin Exam: Warm Assessment and Plan (1) Respiratory failure Status: Acute (2) Aspiration pneumonia Status: Acute (3) Anoxic encephalopathy Status: Acute (4) Paroxysmal A-fib Status: Acute (5) Seizure Status: Acute (6) H/O ETOH abuse Status: Chronic - Assessment and Plan (Free Text) Plan: Continue respiratory support, Levetiracetam, Norvasc, Trandarte and rest of Tx. Critical care time: 32 min.
--- NOTE | 2019-03-07 07:36 | CP.CCUPN ---
CCU Subjective - Physician Review Subjective (Free Text): 03/07/19 12:51 The patient was Seen and examined by me at the bedside Medical records reviewed and Management issues were discussed and formulated with the house staff. Events reviewed Mr Marley is a 58 years old male with past medical history of seizure disorder and alcohol dependence Who was brought in to the emergency room by ambulance he is he [place], CPR and ACLS protocol was initiated by the EMS and the police department Upon arrival to the emergency room had no pulse, received 1 mg of epinephrine, Narcan and IV fluid, during the code he also received sodium bicarb and calcium with return of spontaneous circulation rhythm strip at that point was showing atrial fibrillation with rapid ventricular response, blood pressure of 56/26, since he was hemodynamically unstable he was shocked with 120 J and received IV digoxin Hypothermia protocol was not initiated since patient was found unresponsive pulseless in a park with unknown downtime plus he was hemodynamically unstable Chest x-ray revealed possible aspiration pneumonia Code sepsis was called, vergara culture sent and empiric antibiotic initiated Central line and atrial line was placed and he was admitted to the intensive care unit for further management He arrived to the intensive care unit orally intubated, on levophed, orally intubated with 7.5 ET tube, 25 cm at the lip line Neurology consulted and patient underwent hour VU EEG Patient currently unresponsive Vent setting PRVC 450/10/FiO2 30% and PEEP of 5 GCS of 3, organ donation notified Detailed family discussion held yes over the weekend and a follow-up meeting with the daughter and other members today Patient is DNR/DNI and the plan is for comfort care and terminal extubation today We will discontinue all active measures and start patient on morphine drip CCU Objective - Vital Signs / Intake & Output Vital Signs (Last 4 hours): Vital Signs Temp Pulse Resp BP Pulse Ox 03/07/19 06:00 88 23 143/88 98 03/07/19 04:00 99.3 F 84 22 132/86 97 Intake and Output (Last 8hrs): Intake & Output 03/06/19 03/07/19 03/07/19 22:59 06:59 14:59 Intake Total 276 16 Output Total 600 450 Balance -324 -434 Weight 152 lb 4.8 oz Intake: IV 26 16 Intake, Piggyback 100 Oral 50 Free Water Flush 100 Output: Urine 600 450 Urethral (Leija) 600 450 Other: # Bowel Movements 1 - Physical Exam Head: Positive for: Atraumatic, Normocephalic Pupils: Positive for: Sluggish Extroacular Muscles: Positive for: EOMI Conjunctiva: Negative for: Injected, Icteric Ears: Positive for: Normal Mouth: Positive for: Moist Mucous Membranes Nose (Internal): Positive for: Normal Inspection Neck: Positive for: Normal Range of Motion. Negative for: Meningeal Signs, MIDLINE TENDERNESS, Paraspinal Tenderness, JVD, Lymphadenopathy, Bruit, Other Respiratory/Chest: Positive for: Rhonchi Cardiovascular: Positive for: Regular Rate and Rhythm, Normal S1, S2, Peripheal Pulses Present. Negative for: Murmurs Abdomen: Positive for: Distention, Normal Bowel Sounds. Negative for: Tenderness Upper Extremity: Positive for: Normal Inspection Lower Extremity: Positive for: Normal Inspection Neurological: Positive for: Other (on ventilator, no response to any stimuli) Psychiatric: Negative for: Alert, Oriented x 3 - Medications Active Medications: Active Medications Generic Name Dose Route Start Last Admin Trade Name Freq PRN Reason Stop Dose Admin Acetaminophen 650 mg 02/26/19 00:27 03/05/19 15:49 Tylenol 650mg/20.3ml Solution Ud GT 650 mg Q6 PRN Administration Temperature Amiodarone HCl 200 mg 02/26/19 23:45 03/06/19 16:13 Cordarone NG 200 mg BID [facility] Administration Amlodipine Besylate 5 mg 03/01/19 10:00 03/06/19 08:55 Norvasc PO 5 mg DAILY [facility] Administration Levetiracetam 500 mg/ Sodium 105 mls @ 210 mls/hr 02/26/19 09:00 03/06/19 21:16 Chloride IVPB 210 mls/hr Q12 [facility] Administration Labetalol HCl 200 mg 03/01/19 10:00 03/06/19 21:19 Trandate PO 200 mg Q12 [facility] Administration Metoprolol Tartrate 5 mg 02/26/19 23:54 03/01/19 17:36 Lopressor IVP 5 mg Q6 PRN Administration Systolic Blood Pressure - Patient Studies Fingerstick Blood Sugar Results: 177 Assessment/Plan (1) Cardiac arrest Current Visit: Yes Status: Acute Priority: High (2) Anoxic encephalopathy Current Visit: Yes Status: Acute Priority: High (3) Aspiration pneumonia Current Visit: Yes Status: Acute Priority: High (4) Paroxysmal A-fib Current Visit: Yes Status: Acute Priority: High (5) Respiratory failure Current Visit: Yes Status: Acute Priority: High (6) Seizure Current Visit: Yes Status: Acute Priority: High (7) Septic shock Current Visit: Yes Status: Acute Priority: High (8) H/O ETOH abuse Current Visit: Yes Status: Chronic Priority: High
[2019-03-07] MEDS: levETIRAcetam 500 MG in Sodium Chloride 0.9% 100 ML IVPB SCH ×2 (09:39→21:55)
--- NOTE | 2019-03-07 11:14 | PCM.PPROG ---
History of Present Illness - History of Present Illness History of Present Illness: Patient is a 58 year old male with history of ETOH abuse and non compliance with seizure medications was found face down outside for an unknown amount of time. CPR was started in the field by Police and EMS. Patient had no pulse upon ED arrival. He was then intubated and transferred to ICU. On 03/02/19 Nuclear Brain Flow Study: No Supratentorial blood flow. Review of Systems - Review of Systems Systems not reviewed;Unavailable: Acuity of Condition Physical Exam - Constitutional Appears: Cachectic, Chronically Ill - Eye Exam Eye Exam: absent: PERRL Pupil Exam: Fixed. absent: PERRL - ENT Exam ENT Exam: Mucous Membranes Moist - Neck Exam Neck exam: Positive for: Normal Inspection - Skin Skin Exam: Pallor Palliative Care Assessment - Modified MRC Dyspnea Scale Modified MRC Dyspnea Scale: Too breathless to leave the house,or breathless dressing or undressing Grade: 5 - Melecio Scale Sensory Perception: Completely Limited Moisture: Very Moist Activity: Bedfast Mobility: Completely Immobile Nutrition: Very Poor Friction & Shear: Problem Total Score - Skin Risk Assessment: 7 Palliative Care - Goals Goal(s) of care: Multiple Patient family members at bedside for terminal extubation. Treatment Goal(s): Alleviate symptoms End of life care discussed: Yes Assessment & Plan - Assessment and Plan (Free Text) Assessment: Impression Brain Suggestion Terminal Extubation Thank you for this consult
--- NOTE | 2019-03-07 13:50 | CP.PCM.PN ---
Subjective - Date & Time of Evaluation Date of Evaluation: 03/07/19 Time of Evaluation: 09:30 - Subjective Subjective: F/U Respiratory failure. Comatose. Objective - Vital Signs/Intake and Output Vital Signs (last 24 hours): Temp Pulse Resp BP Pulse Ox 98.8 F 75 19 114/77 98 03/07/19 12:15 03/07/19 12:15 03/07/19 12:15 03/07/19 12:15 03/07/19 12:15 Intake and Output: 03/07/19 03/07/19 06:59 18:59 Intake Total 170 100 Output Total 450 0 Balance -280 100 - Medications Medications: Current Medications Acetaminophen (Tylenol 650mg/20.3ml Solution Ud) 650 mg GT Q6 PRN PRN Reason: Temperature Last Admin: 03/05/19 15:49 Dose: 650 mg Amiodarone HCl (Cordarone) 200 mg NG BID [facility] Last Admin: 03/07/19 09:40 Dose: 200 mg Amlodipine Besylate (Norvasc) 5 mg PO DAILY [facility] Last Admin: 03/07/19 09:41 Dose: 5 mg Levetiracetam 500 mg/ Sodium (Chloride) 105 mls @ 210 mls/hr IVPB Q12 [facility] Last Admin: 03/07/19 09:39 Dose: 210 mls/hr Morphine Sulfate 100 mg/ (Sodium Chloride) 104 mls @ 3.12 mls/hr IV .Q24H [facility]; Protocol Labetalol HCl (Trandate) 200 mg PO Q12 [facility] Last Admin: 03/07/19 09:41 Dose: 200 mg Metoprolol Tartrate (Lopressor) 5 mg IVP Q6 PRN PRN Reason: Systolic Blood Pressure Last Admin: 03/01/19 17:36 Dose: 5 mg - Labs Labs: 03/05/19 04:18 03/05/19 04:18 PT 14.1 Seconds (9.8-13.1) H 02/25/19 17:37 INR 1.2 02/25/19 17:37 APTT 27.6 Seconds (25.6-37.1) 02/25/19 17:37 - Constitutional Appears: Chronically Ill - Head Exam Head Exam: NORMAL INSPECTION - Eye Exam Pupil Exam: Fixed - ENT Exam Additional comments: Intubated. OGT - Neck Exam Neck Exam: Normal Inspection - Respiratory Exam Respiratory Exam: Decreased Breath Sounds (at bases), Rhonchi (scattered) - Cardiovascular Exam Cardiovascular Exam: REGULAR RHYTHM - GI/Abdominal Exam GI & Abdominal Exam: Soft - Exam Additional comments: Leija Cath - Back Exam Back Exam: NORMAL INSPECTION - Neurological Exam Additional comments: Comatose, no response - Skin Skin Exam: Warm Assessment and Plan (1) Respiratory failure Status: Acute (2) Aspiration pneumonia Status: Acute (3) Anoxic encephalopathy Status: Acute (4) Paroxysmal A-fib Status: Acute (5) Seizure Status: Acute (6) H/O ETOH abuse Status: Chronic - Assessment and Plan (Free Text) Plan: Pt's family at bedside for terminal extubation today. Critical care time: 33 min.
[2019-03-07] MEDS: Morphine 100 MG in Sodium Chloride 0.9% 100 ML IV SCH ×2 (13:59→21:53)
[2019-03-08] MEDS: Morphine 100 MG in Sodium Chloride 0.9% 100 ML IV SCH ×2 (05:43→12:47)
[2019-03-08] MEDS: levETIRAcetam 500 MG in Sodium Chloride 0.9% 100 ML IVPB SCH (08:05)
[2019-03-08 12:06] VITALS: BP 71/43; PULSE 88; RESP 18; TEMP 97.7; O2SAT 88
--- NOTE | 2019-03-08 12:17 | CP.CCUPN ---
<Stefan Murdock - Last Filed: 03/08/19 12:12> CCU Subjective - Physician Review Subjective (Free Text): Terminal extubation on 03/07 as per family request. No change in current condition. CCU Objective - Vital Signs / Intake & Output Vital Signs (Last 4 hours): Vital Signs Temp Pulse Resp BP Pulse Ox 03/08/19 07:54 99.2 F 78 22 84/51 L 100 03/08/19 07:43 97.6 F 79 21 99/62 L 99 03/08/19 06:00 90 14 99/62 L 93 L Intake and Output (Last 8hrs): Intake & Output 03/07/19 03/08/19 03/08/19 22:59 06:59 14:59 Intake Total 162 200 12 Output Total 400 350 Balance -238 -150 12 Intake: IV 162 100 12 Intake, Piggyback 100 Output: Urine 400 350 Urethral (Leija) 400 350 Other: # Bowel Movements 0 1 - Physical Exam Physical Exam Limitations: Positive for: Other (COMATOSE) Head: Positive for: Atraumatic, Normocephalic Pupils: Positive for: Non-Reactive Conjunctiva: Negative for: Injected, Icteric Ears: Positive for: Normal Mouth: Positive for: Moist Mucous Membranes Nose (Internal): Positive for: Normal Inspection Neck: Positive for: Normal Range of Motion. Negative for: Meningeal Signs, MIDLINE TENDERNESS, Paraspinal Tenderness, JVD, Lymphadenopathy, Bruit, Other Respiratory/Chest: Positive for: Rhonchi Cardiovascular: Positive for: Regular Rate and Rhythm, Normal S1, S2, Peripheal Pulses Present. Negative for: Murmurs Abdomen: Positive for: Distention, Normal Bowel Sounds. Negative for: Tenderness Upper Extremity: Positive for: Normal Inspection Lower Extremity: Positive for: Normal Inspection Neurological: Positive for: Other (on ventilator, no response to any stimuli) Psychiatric: Negative for: Alert, Oriented x 3 - Medications Active Medications: Active Medications Generic Name Dose Route Start Last Admin Trade Name Freq PRN Reason Stop Dose Admin Acetaminophen 650 mg 02/26/19 00:27 03/05/19 15:49 Tylenol 650mg/20.3ml Solution Ud GT 650 mg Q6 PRN Administration Temperature Amiodarone HCl 200 mg 02/26/19 23:45 03/08/19 08:06 Cordarone NG Not Given BID TANNA Amlodipine Besylate 5 mg 03/01/19 10:00 03/08/19 08:06 Norvasc PO Not Given DAILY TANNA Levetiracetam 500 mg/ Sodium 105 mls @ 210 mls/hr 02/26/19 09:00 03/08/19 08:05 Chloride IVPB 210 mls/hr Q12 TANNA Administration Morphine Sulfate 100 mg/ 104 mls @ 3.12 mls/hr 03/07/19 13:30 03/08/19 05:43 Sodium Chloride IV 12 mg/hr .Q24H TANNA 12.48 mls/hr Administration Protocol 3 MG/HR Labetalol HCl 200 mg 03/01/19 10:00 03/08/19 08:06 Trandate PO Not Given Q12 TANNA Lorazepam 1 mg 03/07/19 16:03 03/08/19 05:13 Ativan IVP 1 mg Q4 PRN Administration Agitation Metoprolol Tartrate 5 mg 02/26/19 23:54 03/01/19 17:36 Lopressor IVP 5 mg Q6 PRN Administration Systolic Blood Pressure - Patient Studies Fingerstick Blood Sugar Results: 177 Assessment/Plan - Assessment and Plan (Free Text) Assessment: 58 yo M with hx of Chronic ETOH abuse, Seizure d/o (non compliant with medication) admitted to EMS s/p cardiac arrest on 02/25 w/ poor neurologic improvement. Pt was found unresponsive on field by EMS with no pulse, ACLS protocol intiated w/ ROSC achieved, pt remained comatose with GCS 3 since then likely secondary to anoxic brain injury. CT Head shows interval marked cerebral atropy, watershed infarcts and Brain MRI flow studies no supratentorial flow. As per family's request, pt was terminally extubated on 03/07 and on is currently comfort care. Morphine ggt. Discussed case with Dr. Marco Antonio Murdock PGY2 <Nicolás Bernard M - Last Filed: 03/08/19 12:41> CCU Objective - Vital Signs / Intake & Output Vital Signs (Last 4 hours): Vital Signs Temp Pulse Resp BP Pulse Ox 03/08/19 12:00 97.7 F 88 18 71/43 L 88 L 03/08/19 09:59 80 17 81/49 L 92 L Intake and Output (Last 8hrs): Intake & Output 03/07/19 03/08/19 03/08/19 22:59 06:59 14:59 Intake Total 162 200 12 Output Total 400 350 Balance -238 -150 12 Intake: IV 162 100 12 Intake, Piggyback 100 Output: Urine 400 350 Urethral (Leija) 400 350 Other: # Bowel Movements 0 1 - Medications Active Medications: Active Medications Generic Name Dose Route Start Last Admin Trade Name Freq PRN Reason Stop Dose Admin Acetaminophen 650 mg 02/26/19 00:27 03/05/19 15:49 Tylenol 650mg/20.3ml Solution Ud GT 650 mg Q6 PRN Administration Temperature Amiodarone HCl 200 mg 02/26/19 23:45 03/08/19 08:06 Cordarone NG Not Given BID TANNA Amlodipine Besylate 5 mg 03/01/19 10:00 03/08/19 08:06 Norvasc PO Not Given DAILY TANNA Levetiracetam 500 mg/ Sodium 105 mls @ 210 mls/hr 02/26/19 09:00 03/08/19 08:05 Chloride IVPB 210 mls/hr Q12 TANNA Administration Morphine Sulfate 100 mg/ 104 mls @ 3.12 mls/hr 03/07/19 13:30 03/08/19 05:43 Sodium Chloride IV 12 mg/hr .Q24H TANNA 12.48 mls/hr Administration Protocol 3 MG/HR Labetalol HCl 200 mg 03/01/19 10:00 03/08/19 08:06 Trandate PO Not Given Q12 TANNA Lorazepam 1 mg 03/07/19 16:03 03/08/19 05:13 Ativan IVP 1 mg Q4 PRN Administration Agitation Metoprolol Tartrate 5 mg 02/26/19 23:54 03/01/19 17:36 Lopressor IVP 5 mg Q6 PRN Administration Systolic Blood Pressure Assessment/Plan (1) Cardiac arrest Current Visit: Yes Status: Acute Priority: High (2) Anoxic encephalopathy Current Visit: Yes Status: Acute Priority: High (3) Aspiration pneumonia Current Visit: Yes Status: Acute Priority: High (4) Paroxysmal A-fib Current Visit: Yes Status: Acute Priority: High (5) Respiratory failure Current Visit: Yes Status: Acute Priority: High (6) Seizure Current Visit: Yes Status: Acute Priority: High (7) Septic shock Current Visit: Yes Status: Acute Priority: High (8) H/O ETOH abuse Current Visit: Yes Status: Chronic Priority: High Attending/Attestation - Attestation I have personally seen and examined this patient.: Yes I have fully participated in the care of the patient.: Yes I have reviewed all pertinent clinical information: Yes Notes (Text): 03/08/19 12:41 Today: Friday, March 08, 2019 The patient was Seen/interviewed and examined by me at the bedside during ICU round, Medical records reviewed and Management issues were discussed and formulated with the house staff. Events reviewed I have reviewed all the relevant clinical, laboratory, hemodynamic, radiographic data and medications Pain issues, skin care, head of the bed elevation, glycemic control were addressed. I concur with resident's assessment and plan of care as transcribed in Dr. Murdock note.
--- NOTE | 2019-03-08 13:46 | CP.PCM.PRO ---
Pronouncement of Note - Clinical Findings Physical Exam: No Response Verbal/Painful Stimuli, Absent Peripheral Puls es{Carotid & Femoral}, Absent Heart & Breath Sounds, No Pupillary Light Reflex, No Corneal Reflex, Pupils Fixed & Dilated, Absence of Vital Signs - Notifications Pronouncement Notifications: Family Notified, Atending Notified Industrial Tractor Driver Notified: Yes - Autopsy Autopsy Requested: Yes - [place]: [id number]
--- NOTE | 2019-03-08 14:29 | CP.PCM.PN ---
Subjective - Date & Time of Evaluation Date of Evaluation: 03/08/19 Time of Evaluation: 11:00 - Subjective Subjective: 5F/U Respiratory Failure. Pt Comatose, unresponsive. Objective - Vital Signs/Intake and Output Vital Signs (last 24 hours): Temp Pulse Resp BP Pulse Ox 97.7 F 88 18 71/43 L 88 L 03/08/19 12:00 03/08/19 12:00 03/08/19 12:00 03/08/19 12:00 03/08/19 12:00 Intake and Output: 03/08/19 03/08/19 06:59 18:59 Intake Total 276 116 Output Total 350 Balance -74 116 - Medications Medications: Current Medications Acetaminophen (Tylenol 650mg/20.3ml Solution Ud) 650 mg GT Q6 PRN PRN Reason: Temperature Last Admin: 03/05/19 15:49 Dose: 650 mg Amiodarone HCl (Cordarone) 200 mg NG BID TANNA Last Admin: 03/08/19 08:06 Dose: Not Given Amlodipine Besylate (Norvasc) 5 mg PO DAILY TANNA Last Admin: 03/08/19 08:06 Dose: Not Given Levetiracetam 500 mg/ Sodium (Chloride) 105 mls @ 210 mls/hr IVPB Q12 TANNA Last Admin: 03/08/19 08:05 Dose: 210 mls/hr Morphine Sulfate 100 mg/ (Sodium Chloride) 104 mls @ 3.12 mls/hr IV .Q24H TANNA; Protocol Last Admin: 03/08/19 12:47 Dose: 12 mg/hr, 12.48 mls/hr Labetalol HCl (Trandate) 200 mg PO Q12 TANNA Last Admin: 03/08/19 08:06 Dose: Not Given Lorazepam (Ativan) 1 mg IVP Q4 PRN PRN Reason: Agitation Last Admin: 03/08/19 05:13 Dose: 1 mg Metoprolol Tartrate (Lopressor) 5 mg IVP Q6 PRN PRN Reason: Systolic Blood Pressure Last Admin: 03/01/19 17:36 Dose: 5 mg - Labs Labs: 03/05/19 04:18 03/05/19 04:18 PT 14.1 Seconds (9.8-13.1) H 02/25/19 17:37 INR 1.2 02/25/19 17:37 APTT 27.6 Seconds (25.6-37.1) 02/25/19 17:37 - Constitutional Appears: Chronically Ill - Head Exam Head Exam: NORMAL INSPECTION - Eye Exam Additional comments: Pupils non reactive - ENT Exam ENT Exam: Normal Exam - Neck Exam Neck Exam: Normal Inspection - Respiratory Exam Respiratory Exam: Decreased Breath Sounds (at bases), Rhonchi - Cardiovascular Exam Cardiovascular Exam: REGULAR RHYTHM - GI/Abdominal Exam GI & Abdominal Exam: Distended, Soft - Extremities Exam Extremities Exam: Normal Inspection - Neurological Exam Neurological Exam: absent: Alert, Oriented x3 Additional comments: Comatose, no response - Psychiatric Exam Additional comments: Comatose, no response - Skin Skin Exam: Pallor Assessment and Plan (1) Respiratory failure Status: Acute (2) Aspiration pneumonia Status: Acute (3) Anoxic encephalopathy Status: Acute (4) Paroxysmal A-fib Status: Acute (5) Seizure Status: Acute (6) H/O ETOH abuse Status: Chronic - Assessment and Plan (Free Text) Plan: Pt is s/p extubation, placed on 100% non rebreather mask and Morphine drip. Poor prognosis. Critical care time: 31 min.
--- NOTE | 2019-03-09 10:59 | CP.PCM.DIS ---
Provider - Provider Date of Admission: 02/25/19 18:33 Attending physician: Blaine Light MD Consults: 02/27/19 09:45 Neurology Consult Routine Comment: Cardiac/Respiratory Arrest, Seizure Disorder Consulting Provider: Maikol Snowden Consulting Physician: Maikol Snowden Reason for Consult: Cardiac/Respiratory Arrest, Seizure Disorder 03/02/19 08:24 Palliative Care Consult Routine Comment: goals of care and code status discuss with family Consulting Provider: Elizabeth Mendoza Physician Instructions: Reason For Exam: poor prognosis, comatose Time Spent in preparation of Discharge (in minutes): 31 Diagnosis - Discharge Diagnosis (1) Respiratory failure Status: Acute Priority: High (2) Aspiration pneumonia Status: Acute Priority: High (3) Anoxic encephalopathy Status: Acute Priority: High (4) Paroxysmal A-fib Status: Acute Priority: High (5) Seizure Status: Acute Priority: High (6) H/O ETOH abuse Status: Chronic Priority: High Hospital Course - Lab Results Lab Results: Micro Results 02/25/19 17:55 Blood Blood Culture - Final NO GROWTH AFTER 5 DAYS 02/25/19 17:55 Blood Gram Stain - Final TEST NOT PERFORMED 02/25/19 17:45 Blood Blood Culture - Final NO GROWTH AFTER 5 DAYS 02/25/19 17:45 Blood Gram Stain - Final TEST NOT PERFORMED 02/25/19 09:40 Trachasp Gram Stain - Final 02/25/19 09:40 Trachasp Sputum Culture - Final NORMAL ORAL CITLALLI 02/25/19 09:40 Naris MRSA Culture (Admit) - Final MRSA NOT DETECTED 02/25/19 18:44 Urine,Leija Urine Culture - Final No Growth (<1,000 CFU/ML) Most Recent Lab Values WBC 5.2 K/uL (4.8-10.8) 03/05/19 04:18 RBC 3.56 Mil/uL (4.40-5.90) L 03/05/19 04:18 Hgb 9.9 g/dL (12.0-18.0) L 03/05/19 04:18 Hct 29.1 % (35.0-51.0) L 03/05/19 04:18 MCV 81.6 fl (80.0-94.0) 03/05/19 04:18 MCH 27.8 pg (27.0-31.0) 03/05/19 04:18 MCHC 34.0 g/dL (33.0-37.0) 03/05/19 04:18 RDW 15.7 % (11.5-14.5) H 03/05/19 04:18 Plt Count 434 K/uL (130-400) H D 03/05/19 04:18 MPV 7.6 fl (7.2-11.7) 03/05/19 04:18 Neut % (Auto) 68.5 % (50.0-75.0) 03/05/19 04:18 Lymph % (Auto) 14.9 % (20.0-40.0) L 03/05/19 04:18 [place] % (Auto) 13.2 % (0.0-10.0) H 03/05/19 04:18 Eos % (Auto) 2.7 % (0.0-4.0) 03/05/19 04:18 Baso % (Auto) 0.7 % (0.0-2.0) 03/05/19 04:18 Neut # (Auto) 3.6 K/uL (1.8-7.0) 03/05/19 04:18 Lymph # (Auto) 0.8 K/uL (1.0-4.3) L 03/05/19 04:18 [place] # (Auto) 0.7 K/uL (0.0-0.8) 03/05/19 04:18 Eos # (Auto) 0.1 K/uL (0.0-0.7) 03/05/19 04:18 Baso # (Auto) 0.0 K/uL (0.0-0.2) 03/05/19 04:18 Neutrophils % (Manual) 89 % (42-75) H 02/26/19 04:00 Band Neutrophils % 1 % (0-2) 02/26/19 04:00 Lymphocytes % (Manual) 6 % (20-50) L 02/26/19 04:00 Monocytes % (Manual) 4 % (0-10) 02/26/19 04:00 Platelet Estimate Normal (NORMAL) 02/26/19 04:00 Anisocytosis (manual) Slight 02/26/19 04:00 Ovalocytes Slight 02/26/19 04:00 PT 14.1 Seconds (9.8-13.1) H 02/25/19 17:37 INR 1.2 02/25/19 17:37 APTT 27.6 Seconds (25.6-37.1) 02/25/19 17:37 pCO2 33 mm/Hg (35-45) L 03/06/19 04:52 pO2 148 mm/Hg (80-100) H 03/06/19 04:52 HCO3 24.9 mmol/L (21-28) 03/06/19 04:52 ABG pH 7.46 (7.35-7.45) H 03/06/19 04:52 ABG Total CO2 24.5 mmol/L (22-28) 03/06/19 04:52 ABG O2 Saturation 99.9 % (95-98) H 03/06/19 04:52 ABG O2 Content 14.6 ML/dL (15-23) L 03/06/19 04:52 ABG Base Excess 0 mmol/L (-2.0-3.0) 03/06/19 04:52 ABG Hemoglobin 10.4 g/dL (11.7-17.4) L 03/06/19 04:52 ABG Carboxyhemoglobin 1.3 % (0.5-1.5) 03/06/19 04:52 POC ABG HHb (Measured) 0.1 % (0.0-5.0) 03/06/19 04:52 ABG Methemoglobin 1.1 % (0.0-3.0) 03/06/19 04:52 ABG O2 Capacity 14.6 mL/dL (16-24) L 03/06/19 04:52 Fabrizio Test Yes 03/06/19 04:52 ABG Potassium 3.6 mmol/L (3.6-5.2) 02/26/19 04:45 A-a O2 Difference 25.0 mm/Hg 03/06/19 04:52 Hgb O2 Saturation 97.5 % (95.0-98.0) 03/06/19 04:52 Sodium 137.0 mmol/L (132-148) 02/26/19 04:45 Chloride 106.0 mmol/L (98-107) 02/26/19 04:45 Glucose 177 mg/dL (75-110) H 02/26/19 04:45 Lactate 1.5 mmol/L (0.7-2.1) 02/26/19 04:45 Vent Mode A/c 03/06/19 04:52 Mechanical Rate 10 03/06/19 04:52 FiO2 30.0 % 03/06/19 04:52 Tidal Volume 400 03/06/19 04:52 PEEP 5 03/06/19 04:52 Crit Value Called To maldonado Stevenson md 02/25/19 17:49 Crit Value Called By Cesia donovan 02/25/19 17:49 Crit Value Read Back Y 02/25/19 17:49 Blood Gas Notified Time 17502/25/19 17:49 Sodium 131 mmol/l (132-148) L 03/05/19 04:18 Potassium 4.1 MMOL/L (3.6-5.0) 03/05/19 04:18 Chloride 95 mmol/L (98-107) L 03/05/19 04:18 Carbon Dioxide 24 mmol/L (22-30) 03/05/19 04:18 Anion Gap 16 (10-20) 03/05/19 04:18 BUN 12 mg/dl (9-20) 03/05/19 04:18 Creatinine 0.7 mg/dl (0.8-1.5) L 03/05/19 04:18 Est GFR ( Amer) > 60 03/05/19 04:18 Est GFR (Non-Af Amer) > 60 03/05/19 04:18 Random Glucose 136 mg/dL (75-110) H 03/05/19 04:18 Lactic Acid 1.6 mmol/L (0.7-2.1) 02/26/19 04:00 Calcium 9.1 mg/dL (8.4-10.2) 03/05/19 04:18 Phosphorus 4.1 mg/dl (2.5-4.5) 03/01/19 05:40 Magnesium 1.2 MG/DL (1.6-2.3) L 03/01/19 05:40 Total Bilirubin 0.6 mg/dl (0.2-1.3) 03/05/19 04:18 AST 96 U/L (17-59) H 03/05/19 04:18 ALT 36 U/L (21-72) 03/05/19 04:18 Alkaline Phosphatase 118 U/L (38-126) 03/05/19 04:18 Ammonia < 9 umol/L (9-33) L D 03/01/19 05:40 Total Creatine Kinase > 1600 U/L (55-170) H 03/01/19 13:02 Troponin I 0.6520 ng/mL (0.00-0.120) H* 02/26/19 04:00 NT-Pro-B Natriuret Pep 244 pg/ml (0-900) 02/25/19 17:51 Total Protein 7.4 G/DL (6.3-8.2) 03/05/19 04:18 Albumin 3.9 g/dL (3.5-5.0) 03/05/19 04:18 Globulin 3.5 gm/dL (2.2-3.9) 03/05/19 04:18 Albumin/Globulin Ratio 1.1 (1.0-2.1) 03/05/19 04:18 Arterial Blood Potassium 3.6 mmol/L (3.6-5.2) 02/26/19 04:45 Urine Color Straw (YELLOW) 02/25/19 18:44 Urine Clarity Slighty-cloudy (Clear) 02/25/19 18:44 Urine pH 7.0 (5.0-8.0) 02/25/19 18:44 Ur Specific [place] 1.006 (1.003-1.030) 02/25/19 18:44 Urine Protein 100 mg/dL (NEGATIVE) 02/25/19 18:44 Urine Glucose (UA) 150 mg/dL (NEGATIVE) 02/25/19 18:44 Urine Ketones Trace mg/dL (NEGATIVE) 02/25/19 18:44 Urine Blood Moderate (NEGATIVE) 02/25/19 18:44 Urine Nitrate Negative (NEGATIVE) 02/25/19 18:44 Urine Bilirubin Negative (NEGATIVE) 02/25/19 18:44 Urine Urobilinogen 0.2-1.0 mg/dL (0.2-1.0) 02/25/19 18:44 Ur Leukocyte Esterase Neg Gabrielle/uL (Negative) 02/25/19 18:44 Urine RBC (Auto) 3 /hpf (0-3) 02/25/19 18:44 Urine Microscopic WBC 3 /hpf (0-5) 02/25/19 18:44 Urine Bacteria Rare (<OCC) 02/25/19 18:44 Hyaline Casts 0-2 /hpf (0-2) 02/25/19 18:44 Ur Random Sodium 175 meq/L 03/01/19 11:20 Ur Random Potassium 12.7 mmol/L 03/01/19 11:20 Salicylates < 1.0 mg/dl 02/25/19 17:51 Urine Opiates Screen Negative (NEGATIVE) 02/25/19 17:37 Urine Methadone Screen Negative (NEGATIVE) 02/25/19 17:37 Acetaminophen < 10.0 ug/ml (10.0-30.0) L 02/25/19 17:51 Ur Barbiturates Screen Negative (NEGATIVE) 02/25/19 17:37 Phenytoin < 3.0 ug/ML (10-20) L 02/25/19 23:16 Valproic Acid < 10.0 ug/mL (50.0-100.0) L 02/25/19 23:16 Topiramate <0.5 mcg/mL (see note) L 02/25/19 23:16 Levetiracetam <1.0 mcg/mL 02/25/19 23:16 Ur Phencyclidine Scrn Negative (NEGATIVE) 02/25/19 17:37 Ur Amphetamines Screen Negative (NEGATIVE) 02/25/19 17:37 U Benzodiazepines Scrn Negative (NEGATIVE) 02/25/19 17:37 U Oth Cocaine Metabols Negative (NEGATIVE) 02/25/19 17:37 U Cannabinoids Screen Negative (NEGATIVE) 02/25/19 17:37 Alcohol, Quantitative < 10 mg/dl (0-10) 02/25/19 17:51 HIV-1 Ab Rapid Screen Non reactive (NON REAC) 02/25/19 18:06 - Date & Time of H&P Date of H&P: 02/26/19 Discharge Exam - Head Exam Head Exam: NORMAL INSPECTION - Eye Exam Additional comments: Pupils non reactive - ENT Exam ENT Exam: Normal Exam - Neck Exam Neck exam: Normal Inspection - Respiratory Exam Respiratory Exam: Decreased Breath Sounds (at bases), Rhonchi - Cardiovascular Exam Cardiovascular Exam: REGULAR RHYTHM - GI/Abdominal Exam GI & Abdominal Exam: Distended, Soft - Extremities Exam Extremities exam: normal inspection - Neurological Exam Additional comments: Comatose, no response - Psychiatric Exam Additional comments: Comatose, no response - Skin Skin Exam: Pallor Discharge Plan - Follow Up Plan Condition: CRITICAL Disposition: WITH WITHOUT AUTOPSY
== END 2019-03-08 15:50 | DRG 539 ==
LOC: H.ER 17:08 → H.ERHOLD 18:33 → H.ICU/CCU 21:30 → UNDODISIN 03-08 13:28
PROVIDERS: ADMIT Internal Medicine Pulmonary Disease; ATTEND Internal Medicine Pulmonary Disease
PROC: 5A1955Z Respiratory Ventilation, Greater than 96 Consecutive Hours (ICD-10-PCS; principal; 2019-02-25)
PROC: 04HK3DZ Insertion of Intraluminal Device into Right Femoral Artery, Percutaneous Approach (ICD-10-PCS; 2019-02-25)
PROC: 0BH17EZ Insertion of Endotracheal Airway into Trachea, Via Natural or Artificial Opening (ICD-10-PCS; 2019-02-25)
PROC: 5A2204Z Restoration of Cardiac Rhythm, Single (ICD-10-PCS; 2019-02-25)
PROC: 06HY33Z Insertion of Infusion Device into Lower Vein, Percutaneous Approach (ICD-10-PCS; 2019-02-25)
PROC: 3E03329 Introduction of Other Anti-infective into Peripheral Vein, Percutaneous Approach (ICD-10-PCS; 2019-02-25)
DX: J96.02 Acute respiratory failure with hypercapnia (principal); J69.0 Pneumonitis due to inhalation of food and vomit; A41.9 Sepsis, unspecified organism; R65.21 Severe sepsis with septic shock; G93.1 Anoxic brain damage, not elsewhere classified; I46.9 Cardiac arrest, cause unspecified; E87.1 Hypo-osmolality and hyponatremia; I65.02 Occlusion and stenosis of left vertebral artery; G93.6 Cerebral edema; R40.2430 Glasgow coma scale score 3-8, unspecified time; I48.0 Paroxysmal atrial fibrillation; G40.909 Epilepsy, unspecified, not intractable, without status epilepticus; F10.20 Alcohol dependence, uncomplicated; H51.0 Palsy (spasm) of conjugate gaze; Z91.14 Patient's other noncompliance with medication regimen; Z66 Do not resuscitate; I10 Essential (primary) hypertension; E78.5 Hyperlipidemia, unspecified; E78.00 Pure hypercholesterolemia, unspecified; F32.9 Major depressive disorder, single episode, unspecified; Z87.01 Personal history of pneumonia (recurrent); Z59.0 Homelessness